=== PATIENT | female | born 1945 | race Caucasian/White ===

== ENCOUNTER 2018-02-06 09:15 | Emergency (ER) | payer MEDICARE, OTHER ==
--- NOTE | 2018-02-06 09:43 | EDM.PDOC ---
ED HPI GENERAL MEDICAL PROBLEM - General Chief Complaint: Gastrointestinal Problem Stated Complaint: constipation Time Seen by Provider: 02/06/18 09:19 Source of Information: Reports: Patient - History of Present Illness INITIAL COMMENTS - FREE TEXT/NARRATIVE: Pt comes in the emergency department today with a 3 day history of constipation. Patient has an extensive history regarding this. She is on daily stool softeners and normally tolerates them pretty well. However she tried not using the MiraLAX the last 3 days and she comes into the emergency department severe lower abdominal discomfort. She tried a fleets enema this morning with no relief. She denies any nausea, vomiting, black tarry stools, dizziness, or blurred vision. Onset: Gradual Quality: Reports: Ache, Pressure Severity: Moderate Improves with: Reports: None Worsens with: Reports: Movement Associated Symptoms: Reports: No Other Symptoms - Related Data Allergies Allergy/AdvReac Type Severity Reaction Status Date / Time hydrocodone Allergy Vomiting Verified 02/06/18 09:30 hydromorphone [Hydromorphone] Allergy Dizziness Verified 02/06/18 09:30 Home Meds: Home Meds Pantoprazole [ProTONIX Granules] 40 mg PO DAILY 03/02/14 [History] Apixaban [Eliquis] 2.5 mg PO BID 04/28/14 [History] Carvedilol [Coreg] 12.5 mg PO BID 04/28/14 [History] Trandolapril [Mavik] 4 mg PO BID 04/28/14 [History] Hydrochlorothiazide 25 mg PO DAILY 07/25/17 [History] Levothyroxine Sodium [Synthroid] 112 mcg PO DAILY 07/25/17 [History] Pravastatin [Pravachol] 20 mg PO BEDTIME 07/25/17 [History] amLODIPine [Norvasc] 5 mg PO DAILY 07/25/17 [History] Acetaminophen [Tylenol Arthritis] 2 tab PO BID 02/06/18 [History] Fluocinonide [Lidex 0.05% Crm] 1 dose TOP BID PRN 02/06/18 [History] Past Medical History Cardiovascular History: Reports: Afib, High Cholesterol, Hypertension Endocrine/Metabolic History: Reports: Hypothyroidism Social & Family History - Family History Family Medical History: Noncontributory - Tobacco Use Smoking Status *Q: Never Smoker - Caffeine Use Caffeine Use: Reports: None, Coffee ED ROS GENERAL - Review of Systems Review Of Systems: See Below Constitutional: Reports: No Symptoms HEENT: Reports: No Symptoms Respiratory: Reports: No Symptoms Cardiovascular: Reports: No Symptoms GI/Abdominal: Reports: Abdominal Pain, Constipation, Decreased Appetite, Distension. Denies: Black Stool, Bloody Stool, Difficulty Swallowing, Flatus, Hematemesis, Hematochezia, Mucous in Stool, Nausea, Stool Incontinence, Vomiting : Reports: No Symptoms Musculoskeletal: Reports: No Symptoms Skin: Reports: No Symptoms Neurological: Reports: No Symptoms ED EXAM, GI/ABD - Physical Exam Exam: See Below Exam Limited By: No Limitations General Appearance: Alert, WD/WN, No Apparent Distress Course - Vital Signs Last Recorded V/S: Last Vital Signs Temp 36.9 C 02/06/18 09:27 Pulse 62 02/06/18 09:27 Resp 16 02/06/18 09:27 BP 142/73 H 02/06/18 09:27 Pulse Ox 98 02/06/18 09:27 Departure - Departure Time of Disposition: 10:45 Disposition: Home, Self-Care 01 Condition: Good Clinical Impression: Abdominal pain Constipation Qualifiers: Constipation type: unspecified constipation type Qualified Code(s): K59.00 - Constipation, unspecified - Discharge Information Instructions: Constipation, Adult Referrals: Osito Hicks MD [Primary Care Provider] - Forms: ED Department Discharge Additional Instructions: 1. increase water intake 2. Take your OTC stool softener as your PCP recommends 3. Increase your daily fiber 4. Follow up as needed. - Assessment/Plan Assessment:: 1. Constipation 2. Abdominal pain Plan: 1. Abdominal xray completed and reviewed with the pt 2. Tap water enema completed. With large results. Pain reduced. Distention, discomfort, and pressure subsided.
== END 2018-02-06 10:25 | disposition home or self-care (01) ==
LOC: VM.ED 09:15
DX: K59.00 Constipation, unspecified (principal); I48.91 Unspecified atrial fibrillation; E78.00 Pure hypercholesterolemia, unspecified; E03.9 Hypothyroidism, unspecified; I10 Essential (primary) hypertension; Z88.5 Allergy status to narcotic agent; Z79.899 Other long term (current) drug therapy
CPT/HCPCS: 74018; 99283

== ENCOUNTER 2019-11-01 08:25 | Emergency (ER) | payer MEDICARE, OTHER ==
[2019-11-01] MEDS ORDERED: Sodium Chloride 0.9% 10 ML Syringe FLUSH PRN (08:42)
[2019-11-01] MEDS ORDERED: Sodium Chloride 0.9% 1,000 ML IV ONE ×2 (08:48→09:48)
--- NOTE | 2019-11-01 08:53 | EDM.PDOC ---
ED HPI GENERAL MEDICAL PROBLEM - General Time Seen by Provider: 11/01/19 08:42 Source of Information: Reports: Patient - History of Present Illness INITIAL COMMENTS - FREE TEXT/NARRATIVE: Carmen is a 74 y/o female who comes to the ER with complaints of dizziness, lightheadedness, and palpitations. She feels her heart rate going fast. This started shortly after she woke up. She was fine when she sent to bed last night. She had Atrial Fib about 6 years ago, but has not had any issues with it since. She is currently on Eliquis. - Related Data Allergies Allergy/AdvReac Type Severity Reaction Status Date / Time hydrocodone Allergy Vomiting Verified 11/01/19 08:58 hydromorphone [Hydromorphone] Allergy Dizziness Verified 11/01/19 08:58 Home Meds: Home Meds Pantoprazole [ProTONIX Granules] 40 mg PO DAILY 03/02/14 [History] Apixaban [Eliquis] 2.5 mg PO BID 04/28/14 [History] carvediloL [Coreg] 12.5 mg PO BID 04/28/14 [History] trandolapriL [Mavik] 4 mg PO BID 04/28/14 [History] Levothyroxine Sodium [Synthroid] 112 mcg PO DAILY 07/25/17 [History] Pravastatin [Pravachol] 20 mg PO BEDTIME 07/25/17 [History] amLODIPine [Norvasc] 5 mg PO DAILY 07/25/17 [History] hydroCHLOROthiazide [Hydrochlorothiazide] 25 mg PO DAILY 07/25/17 [History] Acetaminophen [Tylenol Arthritis] 2 tab PO BID 02/06/18 [History] Fluocinonide [Lidex 0.05% Crm] 1 dose TOP BID PRN 02/06/18 [History] Metoprolol Tartrate 25 mg PO BID #60 tablet 11/01/19 [Rx] Spironolactone [Aldactone] 25 mg BID 11/01/19 [History] Past Medical History Cardiovascular History: Reports: Afib, High Cholesterol, Hypertension Endocrine/Metabolic History: Reports: Hypothyroidism Social & Family History - Family History Family Medical History: Noncontributory - Caffeine Use Caffeine Use: Reports: None, Coffee Review of Systems - Review of Systems Review Of Systems: See Below Constitutional: Reports: Weakness Eyes: Reports: No Symptoms Ears: Reports: No Symptoms Nose: Reports: No Symptoms Mouth/Throat: Reports: No Symptoms Respiratory: Reports: Shortness of Breath (mild) Cardiovascular: Reports: Lightheadedness, Palpitations GI/Abdominal: Reports: No Symptoms Genitourinary: Reports: No Symptoms Musculoskeletal: Reports: No Symptoms Skin: Reports: No Symptoms Neurological: Reports: No Symptoms Psychiatric: Reports: No Symptoms ED EXAM, GENERAL - Physical Exam Exam: See Below General Appearance: Alert, WD/WN, No Apparent Distress Eye Exam: Bilateral Eye: PERRL Ears: Normal Canal, Hearing Grossly Normal, Normal TMs Nose: Normal Inspection Throat/Mouth: Normal Inspection, Normal Teeth, Normal Voice, No Airway Compromise Head: Atraumatic, Normocephalic Neck: Normal Inspection, Supple Respiratory/Chest: No Respiratory Distress, Lungs Clear, Normal Breath Sounds, Chest Non-Tender Cardiovascular: Normal Peripheral Pulses, No Edema, No JVD, No Murmur, Tachycardia, Irregularly Irregular GI/Abdominal: Normal Bowel Sounds, Soft, Non-Tender (Female) Exam: Deferred Rectal (Female) Exam: Deferred Back Exam: Normal Inspection Extremities: Normal Inspection, No Pedal Edema Neurological: Alert, Oriented, CN II-XII Intact, Normal Cognition, No Motor/ Sensory Deficits Psychiatric: Normal Affect, Normal Mood Skin Exam: Warm, Dry, Intact, Normal Color EKG INTERPRETATION EKG Date: 11/01/19 Time: 08:23 Rhythm: A-Fib Rate (Beats/Min): 155 P-Wave: Absent QRS: Normal EKG Interpretation Comments: Atrial Flutter Course - Vital Signs Text/Narrative:: 0840 Patient was seen by the [facility]. Labs, EKG ordered. A fluid bolus of NS was ordered. 1022 Rate still 140-150s Atrial Fib. Patient has now had about 1500ml of NS. BP 135/83. Patient stable, but can still feel the irregular heart rate. Labs reviewed. note BUN=26 otherwise unremarkable. Will given Cardizem 20mg IVP at this time. 1115 HR had decreased to 80-90s with Cardizem dose, but has slowly increased to 110s-120s and continues in A fib. Will consult Cardiology. 1[address] [facility] contacted and Cardiology consult requested. 1140 Dr Sauceda, Training Analyst chemical dependency professional returned call to SENIOR RISK ANALYST. Advises Metoprolol po for rate control at this time. Observe patient and and consider Cardizem gtt if rate does not improve. Metoprolol 25 mg po ordered. 1150 Rate increased to 130s, Cardizem 25mg IVP given. Consideration given to admission. 1400 Patient observed. 1505 Remains in a controlled atrial fib with a rate in the 80s. Patient denies sx. Will discharge to home on Metoprol 25mg po BID. Questions answered for pain. Will have her follow up with her PCP in the next few days. She left the ER in stable condition after instructions were given. Last Recorded V/S: Last Vital Signs Temp 37.1 C 11/01/19 08:25 Pulse 68 11/01/19 12:45 Resp 18 11/01/19 08:25 BP 118/98 H 11/01/19 12:45 Pulse Ox 98 11/01/19 08:25 - Orders/Labs/Meds Orders: Active Orders 24 hr Category Date Time Status EKG Documentation Completion [RC] STAT Care 11/01/19 08:48 Active EKG Documentation Completion [RC] STAT Care 11/01/19 10:24 Active UA W/MATILDE RFLX IF INDICATED [URIN] Stat Lab 11/01/19 09:50 Ordered UA W/MICROSCOPIC [URIN] Stat Lab 11/01/19 09:50 Ordered Sodium Chloride 0.9% [Saline Flush] Med 11/01/19 08:42 Active 10 ml FLUSH ASDIRECTED PRN Saline Lock Insert [OM.PC] Stat Oth 11/01/19 08:47 Ordered Medication Orders Sodium Chloride (Saline Flush) 10 ml FLUSH ASDIRECTED PRN PRN Reason: Keep Vein Open Labs: Laboratory Tests 11/01/19 11/01/19 11/01/19 Range/Units 08:40 08:40 08:40 WBC 7.6 (4.0-10.0) x10^3/uL RBC 4.37 (4.00-5.50) x10^6/uL Hgb 13.8 (12.0-16.0) g/dL Hct 40.1 (33.0-47.0) % MCV 91.8 (78.0-93.0) fL MCH 31.6 (26.0-32.0) pg MCHC 34.4 (32.0-36.0) g/dL RDW Coeff of Caro 13.1 (10.0-15.0) % Plt Count 270 (130-400) x10^3/uL Neut % (Auto) 77.0 (50.0-80.0) % Lymph % (Auto) 13.1 L (25.0-50.0) % [place] % (Auto) 8.4 (2.0-11.0) % Eos % (Auto) 1.2 (0.0-4.0) % Baso % (Auto) 0.3 (0.2-1.2) % PT 11.0 (10.0-12.8) SEC INR 1.0 L (2.0-3.5) APTT 29.5 (24.0-36.0) SEC Sodium 138 (136-145) mmol/L Potassium 4.6 (3.5-5.1) mmol/L Chloride 103 (98-107) mmol/L Carbon Dioxide 22 (21-32) mmol/L Anion Gap 17.6 (10-20) mmol/L BUN 26 H (7-18) mg/dL Creatinine 1.0 (0.55-1.02) mg/dL Est Cr Clr Drug Dosing TNP Estimated GFR (MDRD) 54 Glucose 98 (74-106) mg/dL Calcium 9.1 (8.5-10.1) mg/dL Corrected Calcium 9.26 (8.5-10.1) mg/dL Total Bilirubin 0.6 (0.2-1.0) mg/dL AST 14 L (15-37) U/L ALT 21 (14-59) U/L Alkaline Phosphatase 89 (46-116) U/L Troponin I < 0.017 (<=0.056) ng/mL Total Protein 7.7 (6.4-8.2) g/dL Albumin 3.8 (3.4-5.0) g/dL Globulin 3.9 Albumin/Globulin Ratio 0.97 Urine Color (YELLOW) Urine Appearance (CLEAR) Urine pH (5.0-8.0) Ur Specific Rives Urine Protein (NEGATIVE) mg/dL Urine Glucose (UA) (NEGATIVE) mg/dL Urine Ketones (NEGATIVE) mg/dL Urine Occult Blood (NEGATIVE) Urine Nitrite (NEGATIVE) Urine Bilirubin (NEGATIVE) Urine Urobilinogen (0.2) EU/dL Ur Leukocyte Esterase (NEGATIVE) Urine RBC (NOT SEEN) /HPF Urine WBC (NOT SEEN) /HPF Ur Squamous Epith Cells (NEGATIVE) /HPF Urine Bacteria (NEGATIVE) /HPF Urine Mucus (NEGATIVE) /LPF 11/01/19 Range/Units 09:40 WBC (4.0-10.0) x10^3/uL RBC (4.00-5.50) x10^6/uL Hgb (12.0-16.0) g/dL Hct (33.0-47.0) % MCV (78.0-93.0) fL MCH (26.0-32.0) pg MCHC (32.0-36.0) g/dL RDW Coeff of Caro (10.0-15.0) % Plt Count (130-400) x10^3/uL Neut % (Auto) (50.0-80.0) % Lymph % (Auto) (25.0-50.0) % [place] % (Auto) (2.0-11.0) % Eos % (Auto) (0.0-4.0) % Baso % (Auto) (0.2-1.2) % PT (10.0-12.8) SEC INR (2.0-3.5) APTT (24.0-36.0) SEC Sodium (136-145) mmol/L Potassium (3.5-5.1) mmol/L Chloride (98-107) mmol/L Carbon Dioxide (21-32) mmol/L Anion Gap (10-20) mmol/L BUN (7-18) mg/dL Creatinine (0.55-1.02) mg/dL Est Cr Clr Drug Dosing Estimated GFR (MDRD) Glucose (74-106) mg/dL Calcium (8.5-10.1) mg/dL Corrected Calcium (8.5-10.1) mg/dL Total Bilirubin (0.2-1.0) mg/dL AST (15-37) U/L ALT (14-59) U/L Alkaline Phosphatase (46-116) U/L Troponin I (<=0.056) ng/mL Total Protein (6.4-8.2) g/dL Albumin (3.4-5.0) g/dL Globulin Albumin/Globulin Ratio Urine Color Light yellow (YELLOW) Urine Appearance Clear (CLEAR) Urine pH 7.0 (5.0-8.0) Ur Specific Rives 1.015 Urine Protein Negative (NEGATIVE) mg/dL Urine Glucose (UA) Negative (NEGATIVE) mg/dL Urine Ketones Trace H (NEGATIVE) mg/dL Urine Occult Blood Trace-intact H (NEGATIVE) Urine Nitrite Negative (NEGATIVE) Urine Bilirubin Negative (NEGATIVE) Urine Urobilinogen 0.2 (0.2) EU/dL Ur Leukocyte Esterase Negative (NEGATIVE) Urine RBC 0-5 (NOT SEEN) /HPF Urine WBC 0-5 (NOT SEEN) /HPF Ur Squamous Epith Cells Not seen (NEGATIVE) /HPF Urine Bacteria Not seen (NEGATIVE) /HPF Urine Mucus Not seen (NEGATIVE) /LPF Meds: Medications Generic Name Dose Route Start Last Admin Trade Name Freq PRN Reason Stop Dose Admin Sodium Chloride 10 ml 11/01/19 08:42 Saline Flush FLUSH ASDIRECTED PRN Keep Vein Open Discontinued Medications Generic Name Dose Route Start Last Admin Trade Name Freq PRN Reason Stop Dose Admin Diltiazem HCl 20 mg 11/01/19 10:20 11/01/19 10:30 Cardizem IVPUSH 11/01/19 10:21 20 mg ONETIME ONE Administration Diltiazem HCl 25 mg 11/01/19 11:22 11/01/19 12:25 Cardizem IVPUSH 11/01/19 11:23 25 mg ONETIME ONE Administration Sodium Chloride 1,000 mls @ 999 mls/hr 11/01/19 08:48 11/01/19 08:50 Normal Saline IV 11/01/19 09:48 999 mls/hr ONETIME ONE Administration Sodium Chloride 1,000 mls @ 999 mls/hr 11/01/19 09:48 11/01/19 09:50 Normal Saline IV 11/01/19 10:48 999 mls/hr ONETIME ONE Administration Metoprolol Tartrate 25 mg 11/01/19 11:49 11/01/19 11:56 Lopressor PO 11/01/19 11:50 25 mg NOW STA Administration Departure - Departure Time of Disposition: 15:12 Disposition: Home, Self-Care 01 Condition: Good Clinical Impression: Atrial fibrillation with rapid ventricular response - Discharge Information *PRESCRIPTION DRUG MONITORING PROGRAM REVIEWED*: Not Applicable *COPY OF PRESCRIPTION DRUG MONITORING REPORT IN PATIENT GABRIEL: Not Applicable Prescriptions: Metoprolol Tartrate 25 mg PO BID #60 tablet Instructions: Atrial Fibrillation, [id number] Referrals: Osito Hicks MD [Primary Care Provider] - Additional Instructions: -Metoprolol 25mg oral twice daily #60 (Rx) This medication will help keep your heart rate controlled. -Resume all other home medications -Stay well hydrated -Call Dr Hicks in [place] to have a follow up appt in the next few days -Return to the nearest ER if your sx return or you have any other concerns Sepsis Event Note - Focused Exam Vital Signs: Vital Signs Temp Pulse Pulse Resp BP BP Pulse Ox 11/01/19 12:45 68 118/98 H 11/01/19 11:56 120 H 135/73 11/01/19 10:58 90 125/69 11/01/19 10:37 100 120/60 11/01/19 10:25 148 H 135/83 11/01/19 09:30 134 H 101/67 11/01/19 08:25 37.1 C 155 H 18 125/93 H 98 Date Exam was Performed: 11/01/19 Time Exam was Performed: 15:11 - My Orders Last 24 Hours: My Active Orders 11/01/19 08:42 Sodium Chloride 0.9% [Saline Flush] 10 ml FLUSH ASDIRECTED PRN 11/01/19 08:47 Saline Lock Insert [OM.PC] Stat 11/01/19 08:48 EKG Documentation Completion [RC] STAT 11/01/19 09:50 UA W/MATILDE RFLX IF INDICATED [URIN] Stat UA W/MICROSCOPIC [URIN] Stat 11/01/19 10:24 EKG Documentation Completion [RC] STAT - Assessment/Plan Last 24 Hours: My Active Orders 11/01/19 08:42 Sodium Chloride 0.9% [Saline Flush] 10 ml FLUSH ASDIRECTED PRN 11/01/19 08:47 Saline Lock Insert [OM.PC] Stat 11/01/19 08:48 EKG Documentation Completion [RC] STAT 11/01/19 09:50 UA W/MATILDE RFLX IF INDICATED [URIN] Stat UA W/MICROSCOPIC [URIN] Stat 11/01/19 10:24 EKG Documentation Completion [RC] STAT
[2019-11-01 09:19] LABS: PTT,PARTIAL THROMBOPLSTIN TIME 29.5 SEC (24.0-36.0)
[2019-11-01 09:22] LABS: ANION GAP 17.6 mmol/L (10-20); CHLORIDE,CL 103 mmol/L (98-107); SODIUM,NA 138 mmol/L (136-145)
--- NOTE | 2019-11-01 09:41 | CR ---
[id number] RAD/RAD Chest PA or AP 1V EXAM: FRONTAL CHEST INDICATION: Atrial fibrillation. COMPARISON: None. DISCUSSION: The heart is mildly enlarged with mild central vascular congestion. Prominent bilateral first rib ends with possible underlying nodule right upper lobe, consider chest CT with contrast. IMPRESSION: 1. Cardiomegaly with borderline central vascular congestion. 2. Prominent first rib end versus right upper lobe nodule. Consider chest CT for further characterization. Del Urbina MD 11/01/19 0939 Thank you for allowing us to participate in the care of your patient.
[2019-11-01] MEDS ORDERED: Diltiazem 50 MG/10 ML SDV IVPUSH ONE ×2 (10:20→11:22)
[2019-11-01] MEDS ORDERED: Metoprolol Tartrate 25 MG Tab PO STA (11:49)
== END 2019-11-01 15:30 | disposition home or self-care (01) ==
LOC: VM.ED 08:25
DX: I48.91 Unspecified atrial fibrillation (principal); I10 Essential (primary) hypertension; E03.9 Hypothyroidism, unspecified; Z79.899 Other long term (current) drug therapy; Z88.8 Allergy status to other drugs, medicaments and biological substances
CPT/HCPCS: 71045; 80053; 81001; 84484; 85025; 85610; 85730; 93005; 93010; 96361; 96374; 96376; 99284; 99285; A9270; J3490; J7030

== ENCOUNTER 2019-11-09 15:20 | Inpatient (IN) | payer MEDICARE, OTHER ==
[2019-11-09] MEDS ORDERED: Acetaminophen 325 MG Tab PO PRN (15:46)
[2019-11-09] MEDS ORDERED: Ondansetron 4 MG/2 ML SDV IV PRN (15:46)
[2019-11-09] MEDS ORDERED: Sodium Chloride 0.9% 10 ML Syringe FLUSH PRN (15:46)
[2019-11-09] MEDS ORDERED: FLUOCINONIDE TOP PRN (15:53)
[2019-11-09 17:01] LABS: ANION GAP 17.9 mmol/L (10-20)
[2019-11-09] MEDS: Metoprolol Tartrate 5 MG/5 ML SDV IVPUSH PRN ×6 (17:03→18:45)
[2019-11-09] MEDS: Metoprolol Tartrate 50 MG Tab PO SCH (19:20)
[2019-11-09] MEDS ORDERED: Metoprolol Tartrate 25 MG Tab PO SCH (20:00)
[2019-11-09] MEDS ORDERED: Simvastatin 10 MG Tab PO SCH (20:00)
[2019-11-09] MEDS ORDERED: Spironolactone 25 MG Tab PO SCH (20:00)
[2019-11-09] MEDS: Acetaminophen 650 MG Tab.ER PO SCH (20:19)
[2019-11-09] MEDS: Apixaban 2.5 MG Tab PO SCH (20:20)
[2019-11-10] MEDS ORDERED: Pantoprazole 40 MG Tab.CR PO SCH (07:00)
[2019-11-10] MEDS: Apixaban 2.5 MG Tab PO SCH (07:45)
[2019-11-10] MEDS: Acetaminophen 650 MG Tab.ER PO SCH (07:45)
[2019-11-10] MEDS: Metoprolol Tartrate 50 MG Tab PO SCH (07:45)
[2019-11-10] MEDS ORDERED: Levothyroxine 112 MCG Tab PO SCH (08:00)
[2019-11-10] MEDS ORDERED: amLODIPine 5 MG Tab PO SCH (08:00)
--- NOTE | 2019-11-10 10:02 | PCM.DCSUM1 ---
Discharge Summary - Hospital Course Free Text/Narrative:: Patient was admitted for A. fib RVR. She was running 150s. She was given aliquots of IV metoprolol to 15 mg didn't have much of a response. We gave her by mouth dose of 150 mg metoprolol she slowed down some overnight. During sleep she was running 60s. In the morning when awake she's running 100s she does still go up to 140s with activity but she states her symptoms are improved to resolved. Blood pressure running a bit lower around 100 systolic with the higher dose of metoprolol. Rate is around 100 to 110 now on higher dose of metoprolol 150mg 2x/day, continue at home Goal is to keep rate between 60 and 120 If rate higher than 130 at home can take extra dose of metoprolol STOP amlodipine and spironolactone as BP running lower Decrease trandolapril to once daily Monitor BP at home goal >90 and <150 for top number Return next week to recheck pulse, BP, EKG Then cardiology again in ~2 weeks IF feeling worse = chest pain, short of breath, passing out can return/ER sooner Diagnosis: Stroke: No - Discharge Data Discharge Date: 11/10/19 Discharge Disposition: Home, Self-Care 01 Condition: Good - Referral to Home Health Primary Care Physician: Osito Hicks MD - Discharge Plan *PRESCRIPTION DRUG MONITORING PROGRAM REVIEWED*: Not Applicable *COPY OF PRESCRIPTION DRUG MONITORING REPORT IN PATIENT GABRIEL: Not Applicable Prescriptions/Med Rec: Metoprolol Tartrate [Lopressor] 150 mg PO BID 30 Days #180 tablet Patient's Own Medication [Ptom] 4 mg PO DAILY #30 each Home Medications: Home Meds Pantoprazole [ProTONIX Granules] 40 mg PO DAILY 03/02/14 [History] Apixaban [Eliquis] 2.5 mg PO BID 04/28/14 [History] Levothyroxine Sodium [Synthroid] 112 mcg PO DAILY 07/25/17 [History] Pravastatin [Pravachol] 20 mg PO BEDTIME 07/25/17 [History] Acetaminophen [Tylenol Arthritis] 2 tab PO BID PRN 02/06/18 [History] Metoprolol Tartrate [Lopressor] 150 mg PO BID 30 Days #180 tablet 11/10/19 [Rx] Patient's Own Medication [Ptom] 4 mg PO DAILY #30 each 11/10/19 [Rx] Referrals: Kyle Chisholm MD [ED Physician] - 11/17/19 10:50 am (You have a Nurse Visit on November 17, 2019 at 10:50 [facility]. Nurse will check your blood pressure, pulse and do a EKG) - Discharge Summary/Plan Comment DC Time >30 min.: No - Patient Data Vitals - Most Recent: Last Vital Signs Temp 36.4 C 11/10/19 09:49 Pulse 81 11/10/19 09:49 Resp 18 11/10/19 04:35 BP 105/51 L 11/10/19 09:49 Pulse Ox 97 11/10/19 09:49 Weight - Most Recent: 81.647 kg I&O - Last 24 hours: Intake & Output 11/09/19 11/10/19 11/10/19 22:59 06:59 14:59 Intake Total 180 Output Total 500 Balance -500 180 Lab Results - Last 24 hrs: Laboratory Results - last 24 hr 11/09/19 11/09/19 Range/Units 16:29 16:29 WBC 5.8 (4.0-10.0) x10^3/uL RBC 4.32 (4.00-5.50) x10^6/uL Hgb 13.7 (12.0-16.0) g/dL Hct 39.9 (33.0-47.0) % MCV 92.4 (78.0-93.0) fL MCH 31.7 (26.0-32.0) pg MCHC 34.3 (32.0-36.0) g/dL RDW Coeff of Caro 13.3 (10.0-15.0) % Plt Count 244 (130-400) x10^3/uL Neut % (Auto) 57.3 (50.0-80.0) % Lymph % (Auto) 30.3 (25.0-50.0) % [place] % (Auto) 10.6 (2.0-11.0) % Eos % (Auto) 1.6 (0.0-4.0) % Baso % (Auto) 0.2 (0.2-1.2) % Sodium 137 (136-145) mmol/L Potassium 4.9 (3.5-5.1) mmol/L Chloride 102 (98-107) mmol/L Carbon Dioxide 22 (21-32) mmol/L Anion Gap 17.9 (10-20) mmol/L BUN 24 H (7-18) mg/dL Creatinine 1.1 H (0.55-1.02) mg/dL Est Cr Clr Drug Dosing 39.44 mL/min Estimated GFR (MDRD) 48 Glucose 95 (74-106) mg/dL Calcium 9.0 (8.5-10.1) mg/dL Corrected Calcium 9.16 (8.5-10.1) mg/dL Magnesium 2.3 (1.8-2.4) mg/dL Total Bilirubin 0.5 (0.2-1.0) mg/dL AST 46 H (15-37) U/L ALT 119 H (14-59) U/L Alkaline Phosphatase 91 (46-116) U/L Total Protein 7.7 (6.4-8.2) g/dL Albumin 3.8 (3.4-5.0) g/dL Globulin 3.9 Albumin/Globulin Ratio 0.97 Med Orders - Current: Current Medications Acetaminophen (Tylenol) 650 mg PO Q4H PRN PRN Reason: Pain (Mild 1-3)/fever Acetaminophen (Tylenol Arthritis Pain) 1,300 mg PO BID [facility] Last Admin: 11/10/19 07:45 Dose: 1,300 mg Apixaban (Eliquis) 2.5 mg PO BID [facility] Last Admin: 11/10/19 07:45 Dose: 2.5 mg Levothyroxine Sodium (Levothyroxine) 112 mcg PO DAILY [facility] Last Admin: 11/10/19 07:45 Dose: 112 mcg Metoprolol Tartrate (Lopressor) 150 mg PO BID [facility] Last Admin: 11/10/19 07:45 Dose: 150 mg Fluocinonide [Lidex 0.05% Crm] (Own Supply) 1 dose TOP BID PRN PRN Reason: Itching Ondansetron HCl (Zofran) 4 mg IV Q6H PRN PRN Reason: Nausea/Vomiting Pantoprazole Sodium (Protonix) 40 mg PO DAILY@0700 [facility] Last Admin: 11/10/19 06:00 Dose: 40 mg (Trandolapril [Mavik (] 4 Mg)*Pt Own Med*) 0 each PO BID [facility] Last Admin: 11/09/19 20:21 Dose: 1 each Simvastatin (Zocor) 10 mg PO BEDTIME [facility] Last Admin: 11/09/19 20:20 Dose: 10 mg Sodium Chloride (Saline Flush) 10 ml FLUSH ASDIRECTED PRN PRN Reason: Keep Vein Open Discontinued Medications Amlodipine Besylate (Norvasc) 5 mg PO DAILY [facility] Metoprolol Tartrate (Lopressor) 25 mg PO BID [facility] Last Admin: 11/09/19 19:11 Dose: Not Given Metoprolol Tartrate (Lopressor) 2.5 mg IVPUSH ONETIME PRN PRN Reason: Tachycardia Last Admin: 11/09/19 17:18 Dose: 2.5 mg Metoprolol Tartrate (Lopressor) 2.5 mg IVPUSH ASDIRECTED PRN PRN Reason: Tachycardia Stop: 11/09/19 19:30 Last Admin: 11/09/19 18:45 Dose: 2.5 mg Spironolactone (Aldactone) 25 mg PO BID [facility] Last Admin: 11/09/19 20:20 Dose: 25 mg *Q Meaningful Use (DIS) - VTE *Q VTE Anticoagulation Contraindications: Alternative [place] Request PT
--- NOTE | 2019-11-11 12:24 | PCM.HP.2 ---
"H&P History of Present Illness - General Date of Service: 11/09/19 Admit Problem/Dx: Afib RVR - History of Present Illness Initial Comments - Free Text/Narative: Office Visit 11/09/2019 [facility] Kyle Chisholm MD Family Medicine Atrial fibrillation with RVR (HCC) +1 more Dx Blood Pressure , Heart Problem Reason for Visit Progress Notes Expand All Collapse All Assessment / Plan Atrial fibrillation with RVR (HCC) Plan: A. fib RVR, symptomatic. Given recent visits for similar and still grossly tachycardic would recommend admission for titration of medicines. She'd been on higher dose beta deandra in the past when she was going fast despite being on Coreg and now is on a lower dose equivalent of metoprolol. We should be able to titrate Toprol pretty easily, can give IV doses to bring her rate below 100 and then convert this to an equivalent by mouth dose she can go home on. Continue anticoagulation. Check basic labs/lytes. Could then f/u cards in 2w. D/C SUMMARY ADDENDUM: Rate is around 100 to 110 now on higher dose of metoprolol 150mg 2x/day, continue at home Still a bit labile, goes down to 50s at night and up to 140s with activity Goal is to keep rate between 60 and 120 If rate higher than 130 at home can take extra dose of metoprolol STOP amlodipine and spironolactone as BP running lower now Decrease trandolapril to once daily Monitor BP at home, goal >90 and <150 for top number Return next week to recheck pulse, BP, EKG Then cardiology again in ~2 weeks; consider repeat ablation given rather symptomatic with this Continue eliquis anticoag IF feeling worse = chest pain, short of breath, passing out can return/ER sooner No follow-ups on file. HPI / History / ROS Patient is in for symptomatic A. fib RVR. Had spell yesterday and this morning again with diaphoresis, dizziness, and lightheaded. Denies any pain. Took Metoprolol this am and had spell before meds taken. She notes some intermittent palpitations the past 2-3 weeks. Symptoms became more pronounced and persistent eight days ago. She was seen in the ER she had A. fib RVR with a rate in the 150s. She was given diltiazem and she slowed to the 90-110 range. She was sent home on low-dose metoprolol 25 mg twice a day in addition to moderate dose Coreg 12.5 twice a day she been on previously. She saw her primary two days later, presumably because of dual beta deandra therapy Coreg was stopped. Her rate was still 125 at that time. Since stopping Coreg her rate is now higher and more symptomatic again, 159 today. Approximately six years ago she had cardioversion and ablation for A. fib. Appears a been in sinus rhythm since then until recently. Has appointment to see cardiology again in two weeks. Normal stress test and echo in past. Routine labs normal last week. . Remote smoking hx. Review of patient's family history indicates: Problem: Coronary Artery Disease Relation: Father Age of Onset: (Not Specified) Problem: Hypertension Relation: Father Age of Onset: (Not Specified) Problem: Hyperlipidemia Relation: Father Age of Onset: (Not Specified) Problem: Hypertension Relation: Mother Age of Onset: (Not Specified) Problem: Hyperlipidemia Relation: Mother Age of Onset: (Not Specified) Problem: Diabetes Type 2 Relation: Mother Age of Onset: (Not Specified) Problem: Colorectal Cancer Relation: Paternal Grandfather Age of Onset: (Not Specified) Problem: Atrial fibrillation Relation: Sister Age of Onset: (Not Specified) Problem: Hypertension Relation: Sister Age of Onset: (Not Specified) Problem: Atrial fibrillation Relation: Brother Age of Onset: (Not Specified) Problem: Diabetes Type 2 Relation: Brother Age of Onset: (Not Specified) Problem: Hypertension Relation: Brother Age of Onset: (Not Specified) Problem: Alcohol Abuse Relation: Brother Age of Onset: (Not Specified) Problem: Hypertension Relation: Brother Age of Onset: (Not Specified) Problem: Atrial fibrillation Relation: Brother Age of Onset: (Not Specified) Problem: Alcohol Abuse Relation: Brother Age of Onset: (Not Specified) Problem: Parkinsonism Relation: Paternal Grandmother Age of Onset: (Not Specified) Problem: Ulcerative Colitis Relation: Daughter Age of Onset: (Not Specified) Medications MedicationsPriortoVisit Outpatient Medications Prior to Visit Medication Sig Dispense Refill acetaminophen (TYLENOL ARTHRITIS) 650 mg CR tablet Take 2 tablets (1,300 mg) by mouth 1 time per day amLODIPine (NORVASC) 5 mg tablet Take 1 tablet (5 mg) by mouth 1 time per day 90 tablet 3 apixaban (ELIQUIS) 5 MG tablet Take 1 tablet (5 mg) by mouth 2 times a day Indications: Atrial Fibrillation 180 tablet 3 levothyroxine 100 mcg tablet Take 1 tablet (100 mcg) by mouth 1 time per day 90 tablet 3 pantoprazole (PROTONIX) 40 mg enteric coated tablet Take 1 tablet (40 mg) by mouth 1 time a day in the morning 90 tablet 3 pravastatin (PRAVACHOL) 40 mg tablet Take 0.5 tablets (20 mg) by mouth 1 time per day 45 tablet 3 spironolactone (ALDACTONE) 25 mg tablet Take 1 tablet (25 mg) by mouth 2 times a day 180 tablet 3 trandolapril (MAVIK) 4 mg tablet Take 1 tablet (4 mg) by mouth 2 times a day 180 tablet 3 metoprolol tartrate (LOPRESSOR) 25 mg tablet Take 1 tablet (25 mg) by mouth 2 times a day No facility-administered medications prior to visit. Allergies Allergies Allergen Reactions Hydrocodone Nausea and Vomiting Hydromorphone Nausea and Vomiting Problem List Patient Active Problem List Diagnosis Hypothyroidism Hyperlipidemia Atrial fibrillation (HCC) Hypertension, essential Gastroesophageal reflux disease Obesity Macular degeneration Osteoporosis Chronic low back pain Left renal artery stenosis (HCC) Psoriasis Medical/Surgical/Family/Social History PastMedicalHistory Past Medical History: Diagnosis Date Atrial fibrillation (HCC) Basal cell carcinoma Bilateral sacral insufficiency fracture 02/25/2018 Cataract Chronic low back pain Closed wedge compression fracture of T11 vertebra (HCC) 12/17/2015 Gastroesophageal reflux disease Hyperlipidemia Hypertension, essential Hypothyroidism Left renal artery stenosis (HCC) Macular degeneration Obesity Osteoporosis Psoriasis Tubular adenoma of colon 05/12/2019 Both less than 1 cm. PastSurgicalHistory Past Surgical History: Procedure Laterality Date ABLATION SCREEN CLEANER CARDIOVERSION 2014 COLON POLYP BX N/A 05/12/2019 Procedure: COLONOSCOPY WITH POLYP/BIOPSY;; Surgeon: Michael Proctor MD HEMORRHOID SURGERY IR VERTEBROPLASTY 2016 L2 FamilyHistory Family History Problem Relation Age of Onset Coronary Artery Disease Father Hypertension Father Hyperlipidemia Father Hypertension Mother Hyperlipidemia Mother Diabetes Type 2 Mother Colorectal Cancer Paternal Grandfather Atrial fibrillation Sister Hypertension Sister Atrial fibrillation Brother Diabetes Type 2 Brother Hypertension Brother Alcohol Abuse Brother Hypertension Brother Atrial fibrillation Brother Alcohol Abuse Brother Parkinsonism Paternal Grandmother Ulcerative Colitis Daughter SocialHistory Social History Socioeconomic History Marital status: Spouse name: Dom Number of children: 2 Years of education: 12 Highest education level: Not on file Occupational History Occupation: Retired Social Needs Financial resource strain: Not hard at all Food insecurity: Worry: Never true Inability: Never true Transportation needs: Medical: No Non-medical: No Tobacco Use Smoking status: Former Smoker Packs/day: 1.00 Years: 15.00 Pack years: 15.00 Types: Cigarettes Last attempt to quit: 09/21/1978 Years since quittin.1 Smokeless tobacco: Never Used Substance and Sexual Activity Alcohol use: No Alcohol/week: 0.0 standard drinks Drug use: No Sexual activity: Not Currently Partners: Male Lifestyle Physical activity: Days per week: 0 days Minutes per session: 0 min Stress: To some extent Relationships Social connections: Talks on phone: Not on file Gets together: Not on file Attends church service: Not on file Active member of club or organization: Not on file Attends meetings of clubs or organizations: Not on file Relationship status: Intimate partner violence: Fear of current or ex partner: No Emotionally abused: No Physically abused: No Forced sexual activity: No ROS Review of Systems Constitutional: Positive for diaphoresis. Negative for fever and unexpected weight change. Respiratory: Negative for shortness of breath. Cardiovascular: Positive for palpitations. Negative for chest pain and leg swelling. Gastrointestinal: Negative for blood in stool. Neurological: Positive for dizziness and light-headedness. Negative for syncope. Physical / Results BP 122/80 Pulse 116 Temp 98.5 F (36.9 C) (Temporal) Wt 81.6 kg (180 lb) BMI 32.92 kg/m2|| Physical Exam Constitutional: She appears well-developed and well-nourished. No distress. Cardiovascular: No murmur heard. Fast and irreg Pulmonary/Chest: Effort normal and breath sounds normal. Abdominal: Soft. Musculoskeletal: Normal range of motion. She exhibits no edema. Skin: Skin is warm and dry. She is not diaphoretic. Psychiatric: She has a normal mood and affect. Her behavior is normal. Judgment and thought content normal. Patient or insurance sales representative communicated understanding of plan and education received. Other Notes All notes Addendum Note from Kyle Chisholm MD (Family Medicine) Instructions After Visit Summary (Automatic SnapShot taken 11/09/2019) Additional Documentation Vitals: BP 122/80 Pulse 116 Temp 98.5 F (36.9 C) (Temporal) Wt 81.6 kg (180 lb) BMI 32.92 kg/m BSA 1.89 m Flowsheets: Visit Specifics, Vitals, Pain Scale Encounter Info: Billing Info, History, Allergies, Detailed Report Visit Information Date & Time 11/09/2019 3:00 PM Provider Kyle Chisholm MD Department [facility] Orders Placed None Medication Changes Trandolapril 4 mg Oral DAILY 4 mg Oral Two times a day amLODIPine Besylate 5 mg Oral DAILY (Discontinued by Physician) Spironolactone 25 mg Oral Two times a day (Discontinued by Physician) Medication List Visit Diagnoses Atrial fibrillation with RVR (HCC) Hypertension, essential Problem List - Related Data Allergies/Adverse Reactions: Allergies Allergy/AdvReac Type Severity Reaction Status Date / Time hydrocodone AdvReac Vomiting Verified 11/10/19 11:11 hydromorphone [Hydromorphone] AdvReac Dizziness Verified 11/10/19 11:11 Home Medications: Home Meds Pantoprazole [ProTONIX Granules] 40 mg PO DAILY 03/02/14 [History] Apixaban [Eliquis] 2.5 mg PO BID 04/28/14 [History] Levothyroxine Sodium [Synthroid] 112 mcg PO DAILY 07/25/17 [History] Pravastatin [Pravachol] 20 mg PO BEDTIME 07/25/17 [History] Acetaminophen [Tylenol Arthritis] 2 tab PO BID PRN 02/06/18 [History] Metoprolol Tartrate [Lopressor] 150 mg PO BID 30 Days #180 tablet 11/10/19 [Rx] Patient's Own Medication [Ptom] 4 mg PO DAILY #30 each 11/10/19 [Rx] Past Medical History HEENT History: Reports: Macular Degeneration Cardiovascular History: Reports: Afib, High Cholesterol, Hypertension Gastrointestinal History: Reports: GERD Genitourinary History: Reports: Other (See Below) Other Genitourinary History: bladder stent Musculoskeletal History: Reports: Other (See Below) Other Musculoskeletal History: fx back Endocrine/Metabolic History: Reports: Hypothyroidism, Osteoporosis Social & Family History - Family History Family Medical History: Noncontributory - Tobacco Use Smoking Status *Q: Former Smoker Years of Tobacco use: 18 Packs/Tins Daily: 0.7 Used Tobacco, but Quit: Yes Month/Year Tobacco Last Used: 09/1989 Second Hand Smoke Exposure: No - Caffeine Use Caffeine Use: Reports: None - Recreational Drug Use Recreational Drug Use: No H&P Review of Systems - Review of Systems: Review Of Systems: See Below Exam - Exam Exam: See Below - Vital Signs Vital Signs: Last Vital Signs Temp 36.4 C 11/10/19 09:49 Pulse 81 11/10/19 09:49 Resp 18 11/10/19 04:35 BP 105/51 L 11/10/19 09:49 Pulse Ox 97 11/10/19 09:49 Weight: 81.647 kg - Patient Data Result Diagrams: 11/09/19 16:29 11/09/19 16:29 Sepsis Event Note - Evaluation Sepsis Screening Result: No Definite Risk *Q Meaningful Use (ADM) - VTE *Q VTE Anticoagulation Contraindications: Alternative TX Request PT Problem List Initiated/Reviewed/Updated: Yes"
== END 2019-11-10 10:45 | disposition home or self-care (01) | DRG 310 ==
LOC: VM.MS 15:35
PROVIDERS: ADMIT Family Medicine; ATTEND Family Medicine
DX: I48.91 Unspecified atrial fibrillation (principal); E03.9 Hypothyroidism, unspecified; E78.5 Hyperlipidemia, unspecified; I10 Essential (primary) hypertension; E66.9 Obesity, unspecified; K21.9 Gastro-esophageal reflux disease without esophagitis; M81.0 Age-related osteoporosis without current pathological fracture; M54.5 Low back pain; G89.29 Other chronic pain; H35.30 Unspecified macular degeneration; Z85.828 Personal history of other malignant neoplasm of skin; Z98.890 Other specified postprocedural states; Z88.8 Allergy status to other drugs, medicaments and biological substances; Z79.01 Long term (current) use of anticoagulants; Z79.899 Other long term (current) drug therapy; Z87.891 Personal history of nicotine dependence; Z68.30 Body mass index [BMI] 30.0-30.9, adult
CPT/HCPCS: 36415; 80053; 83735; 85025; A9270-GY; J3490

== ENCOUNTER 2021-03-11 17:00 | Emergency (ER) | payer MEDICARE, OTHER ==
[2021-03-11] MEDS ORDERED: Acetaminophen 500 MG Tab PO ONE (17:30)
--- NOTE | 2021-03-11 17:35 | EDM.PDOC ---
ED HPI GENERAL MEDICAL PROBLEM - General Chief Complaint: Chest Pain Time Seen by Provider: 03/11/21 17:14 Source of Information: Reports: Patient - History of Present Illness INITIAL COMMENTS - FREE TEXT/NARRATIVE: Carmen is a 76 y/o female who is brought to the ER via POV by her . She reports that she had just gotten home from [place] where she had a dual-chamber pacer placed for Sick Sinus Syndrome. She felt fine on arrival home and then she went out to water her wynn and while she was doing this she reports that she "got achy across my chest", "then my left legs felt numb and after that my right arm felt achy and also across my chest". No SOB, nausea, or diaphoresis. She does report now on arrival to the ER that numbness in the left leg seems to be better. She rates the pain across her chest 5-6/10. She reports that she was given acetaminophen in [place] at the hospital after her procedure about 1 pm, but she hasn't taken any further meds. Chest Pain Score (Numeric/FACES): 6 Left Leg Pain Score (Numeric/FACES): 2 - Related Data Allergies Allergy/AdvReac Type Severity Reaction Status Date / Time hydrocodone AdvReac Vomiting Verified 01/14/21 12:13 hydromorphone [Hydromorphone] AdvReac Dizziness Verified 01/14/21 12:13 Home Meds: Home Meds Pantoprazole [ProTONIX Granules] 40 mg PO DAILY 03/02/14 [History] Apixaban [Eliquis] 2.5 mg PO BID 04/28/14 [History] Levothyroxine Sodium [Synthroid] 100 mcg PO DAILY 07/25/17 [History] Pravastatin [Pravachol] 20 mg PO BEDTIME 07/25/17 [History] Acetaminophen [Tylenol Arthritis] 2 tab PO DAILY PRN 02/06/18 [History] Sotalol [Betapace, Sorine] 80 mg PO BID 01/14/21 [History] Torsemide 20 mg PO DAILY 01/14/21 [History] trandolapriL [Trandolapril] 4 mg PO DAILY 01/14/21 [History] Past Medical History HEENT History: Reports: Macular Degeneration Cardiovascular History: Reports: Afib, High Cholesterol, Hypertension Gastrointestinal History: Reports: GERD Genitourinary History: Reports: Other (See Below) Other Genitourinary History: bladder stent Musculoskeletal History: Reports: Other (See Below) Other Musculoskeletal History: fx back Endocrine/Metabolic History: Reports: Hypothyroidism, Osteoporosis Social & Family History - Family History Family Medical History: No Pertinent Family History - Caffeine Use Caffeine Use: Reports: None Review of Systems - Review of Systems Review Of Systems: See Below Constitutional: Reports: No Symptoms Eyes: Reports: No Symptoms Ears: Reports: No Symptoms Nose: Reports: No Symptoms Mouth/Throat: Reports: No Symptoms Respiratory: Reports: No Symptoms Cardiovascular: Reports: Chest Pain, Palpitations GI/Abdominal: Reports: No Symptoms Genitourinary: Reports: No Symptoms Musculoskeletal: Reports: Hand Pain Skin: Reports: No Symptoms Neurological: Reports: No Symptoms Psychiatric: Reports: No Symptoms ED EXAM, GENERAL - Physical Exam Exam: See Below General Appearance: Alert, WD/WN (Elderly female) Ears: Normal External Exam, Hearing Grossly Normal, Normal TMs Nose: Normal Inspection Throat/Mouth: Normal Inspection, Normal Lips, Normal Voice Head: Atraumatic, Normocephalic Neck: Normal Inspection Respiratory/Chest: No Respiratory Distress, Lungs Clear Cardiovascular: Normal Peripheral Pulses, Regular Rate, Rhythm, No Murmur GI/Abdominal: Normal Bowel Sounds, Soft (Female) Exam: Deferred Rectal (Female) Exam: Deferred Back Exam: Normal Inspection Extremities: Normal Inspection, No Pedal Edema, Normal Capillary Refill Neurological: Alert, Oriented, CN II-XII Intact #1 Interpretation EKG Date: 03/11/21 Time: 17:11 Rhythm: NSR Rate (Beats/Min): 73 Fe [employer]: Normal P-Wave: Present QRS: Normal ST-T: Elevated QT: Normal EKG Interpretation Comments: Reviewed EKG from 03-04-2021 at [facility] and note mild ST elevation in Leads II, III, & aVf. Course - Vital Signs Text/Narrative:: 1713 The patient was seen by the [facility] [employer]CH[facility]ECT; Labs and EKG ordered. Will plan to given APAP 1gm po since pain she describes seems more post procedure related. 1729 ELK review and comparison with EKG in [facility] Chart dated 03-04-[address] changes in Leads II, III, & aVf. ASA 324mg po given and Nitro 0.4mg SL given. Pt rates pain 5-6/10. 1740 Pain persisting and then note that patient having more chest discomfort and note rate of 150s on site monitor with frequent PVCs. Preparing for tachycardia interventions and patient converted back to SR with pacer spikes noted on monitor. 174 [facility] contacted and case presented. Awaiting consult with Dr Bentley after EKG review. 175 Repeat EKG done with increasing ST elevation. STEMI code called after review of the EKGs with Dr Bentley. Patient accepted to [facility]. 1800 [facility] contacted and requested ground transport. Starting Nitro gtt and Heparin. Giving 4000 unit Heparin bolus and then to run at 1000 units/hr for transport. BP stable. 1826 Rates chest pain 09/30 "Better", Nitro gtt now going. Metoprolol 25mg po x 1 ordered. Last Recorded V/S: Last Vital Signs Temp 36.8 C 03/11/21 17:10 Pulse 74 03/11/21 17:10 Resp 16 03/11/21 17:10 BP 168/70 H 03/11/21 17:10 Pulse Ox 97 03/11/21 17:10 - Orders/Labs/Meds Orders: Active Orders 24 hr Category Date Time Status EKG Documentation Completion [RC] STAT Care 03/11/21 17:14 Active PTT,PARTIAL THROMBOPLSTIN TIME [COAG] Stat Lab 03/11/21 06:20 Received Heparin Sodium/0.45% NaCl [Heparin 25,000 Units in 1/2 Med 03/11/21 18:15 Active NS 500 ML] 25,000 units in 500 ml IV TITRATE Nitroglycerin/D5W [Nitroglycerin 25 MG/D5W 250 ML] Med 03/11/21 18:15 Active 25 mg in 250 ml IV TITRATE Medication Orders Heparin Sodium/Sodium Chloride (Heparin 25,000 Units In 1/2 Ns 500 Ml) 25,000 units in 500 mls @ 20 mls/hr IV TITRATE ANA; Protocol Nitroglycerin/Dextrose (Nitroglycerin 25 Mg/D5w 250 Ml) 25 mg in 250 mls @ 6 mls/hr IV TITRATE ANA; Protocol Labs: Laboratory Tests 03/11/21 03/11/21 Range/Units 17:20 17:20 WBC 6.0 (4.0-10.0) x10^3/uL RBC 3.89 L (4.00-5.50) x10^6/uL Hgb 11.8 L (12.0-16.0) g/dL Hct 35.8 (33.0-47.0) % MCV 92.0 (78.0-93.0) fL MCH 30.3 (26.0-32.0) pg MCHC 33.0 (32.0-36.0) g/dL RDW Coeff of Caro 13.3 (10.0-15.0) % Plt Count 288 (130-400) x10^3/uL Neut % (Auto) 58.6 (50.0-80.0) % Lymph % (Auto) 24.7 L (25.0-50.0) % [place] % (Auto) 11.6 H (2.0-11.0) % Eos % (Auto) 4.8 H (0.0-4.0) % Baso % (Auto) 0.3 (0.2-1.2) % Sodium 141 (136-145) mmol/L Potassium 3.7 (3.5-5.1) mmol/L Chloride 106 (98-107) mmol/L Carbon Dioxide 23 (21-32) mmol/L Anion Gap 15.7 H (5-15) mmol/L BUN 20 H (7-18) mg/dL Creatinine 0.9 (0.55-1.02) mg/dL Est Cr Clr Drug Dosing 43.30 mL/min Estimated GFR (MDRD) > 60 Glucose 147 H (70-99) mg/dL Calcium 8.5 (8.5-10.1) mg/dL Corrected Calcium 9.1 (8.5-10.1) mg/dL Magnesium 2.0 (1.8-2.4) mg/dL Total Bilirubin 0.3 (0.2-1.0) mg/dL AST 20 (15-37) U/L ALT 24 (14-59) U/L Alkaline Phosphatase 122 H (46-116) U/L Troponin I High Sens 50 (<=51) ng/L Total Protein 7.2 (6.4-8.2) g/dL Albumin 3.2 L (3.4-5.0) g/dL Globulin 4.0 Albumin/Globulin Ratio 0.80 Meds: Medications Generic Name Dose Route Start Last Admin Trade Name Gaudencio PRN Reason Stop Dose Admin Heparin Sodium/Sodium Chloride 25,000 units in 500 mls @ 20 mls/hr 03/11/21 18:15 Heparin 25,000 Units In 1/2 Ns 500 Ml IV TITRATE ANA Protocol 1,000 UNITS/HR Nitroglycerin/Dextrose 25 mg in 250 mls @ 6 mls/hr 03/11/21 18:15 Nitroglycerin 25 Mg/D5w 250 Ml IV TITRATE ANA Protocol 10 MCG/MIN Discontinued Medications Generic Name Dose Route Start Last Admin Trade Name Gaudencio PRN Reason Stop Dose Admin Acetaminophen 1,000 mg 03/11/21 17:30 Acetaminophen 500 Mg Tab PO 03/11/21 17:31 ONETIME ONE Adenosine Confirm 03/11/21 17:57 Adenosine 6 Mg/2 Ml Sdv Administered 03/11/21 17:58 Dose 6 mg .ROUTE .STK-MED ONE Aspirin 324 mg 03/11/21 17:40 Aspirin 81 Mg Tab.Chew PO 03/11/21 17:41 ONETIME ONE Heparin Sodium (Porcine) 4,000 units 03/11/21 18:02 Heparin Sodium 5,000 Units/Ml Vial IVPUSH 03/11/21 18:03 .BOLUS ONE Heparin Sodium/Sodium Chloride Confirm 03/11/21 18:24 Heparin 25,000 Units In 1/2 Ns 500 Ml Administered 03/11/21 18:25 Dose 500 mls @ as directed .ROUTE .STK-MED ONE Metoprolol Succinate 25 mg 03/11/21 18:22 Metoprolol Succinate 25 Mg Tab.Er PO 03/11/21 18:23 ONETIME ONE Nitroglycerin 0.4 mg 03/11/21 17:40 Nitroglycerin 0.4 Mg Tab.Sl SL 03/11/21 17:41 ONETIME ONE Ondansetron HCl 4 mg 03/11/21 18:21 Ondansetron 4 Mg/2 Ml Sdv IVPUSH 03/11/21 18:22 ONETIME ONE Departure - Departure Time of Disposition: 17:58 Disposition: DC/Tfer to Acute Hospital 02 Clinical Impression: SSS (sick sinus syndrome) STEMI (ST elevation myocardial infarction) Qualifiers: Involved coronary artery: unspecified coronary artery Qualified Code(s): I21.3 - ST elevation (STEMI) myocardial infarction of unspecified site - Discharge Information Forms: ED Department Discharge, Interfacility Transfer EMTALA Additional Instructions: -Transfer to [facility] to Dr Bentley via [facility] Sepsis Event Note (ED) - Focused Exam Vital Signs: Vital Signs Temp Pulse Resp BP Pulse Ox 03/11/21 17:10 36.8 C 74 16 168/70 H 97 - My Orders Last 24 Hours: My Active Orders 03/11/21 06:20 PTT,PARTIAL THROMBOPLSTIN TIME [COAG] Stat 03/11/21 17:14 EKG Documentation Completion [RC] STAT 03/11/21 18:15 Heparin Sodium/0.45% NaCl [Heparin 25,000 Units in 1/2 NS 500 ML] 25,000 units in 500 ml IV TITRATE Nitroglycerin/D5W [Nitroglycerin 25 MG/D5W 250 ML] 25 mg in 250 ml IV TITRATE - Assessment/Plan Last 24 Hours: My Active Orders 03/11/21 06:20 PTT,PARTIAL THROMBOPLSTIN TIME [COAG] Stat 03/11/21 17:14 EKG Documentation Completion [RC] STAT 03/11/21 18:15 Heparin Sodium/0.45% NaCl [Heparin 25,000 Units in 1/2 NS 500 ML] 25,000 units in 500 ml IV TITRATE Nitroglycerin/D5W [Nitroglycerin 25 MG/D5W 250 ML] 25 mg in 250 ml IV TITRATE Assessment:: 1)STEMI 2)Sick Sinus Syndrome Plan: Transfer to [facility] via [facility]
[2021-03-11] MEDS ORDERED: Nitroglycerin 0.4 MG Tab.SL SL ONE (17:40)
[2021-03-11] MEDS ORDERED: Aspirin 81 MG Tab.Chew PO ONE (17:40)
[2021-03-11] MEDS ORDERED: Nitroglycerin 0.4 MG Tab.SL ONE ×2 (17:41)
[2021-03-11 17:52] LABS: CHLORIDE,CL 106 mmol/L (98-107); SODIUM,NA 141 mmol/L (136-145)
[2021-03-11 17:53] LABS: ANION GAP 15.7 mmol/L (5-15)
[2021-03-11] MEDS ORDERED: Adenosine 6 MG/2 ML SDV ONE (17:57)
[2021-03-11] MEDS ORDERED: Heparin Sodium 5,000 Units/ML Vial IVPUSH ONE (18:02)
[2021-03-11] MEDS ORDERED: Heparin Sodium/0.45% NaCl 25,000 UNITS/500 ML BAG IV SCH (18:15)
[2021-03-11] MEDS ORDERED: Nitroglycerin/D5W 25 MG/250 ML BOTTLE IV SCH (18:15)
[2021-03-11] MEDS ORDERED: Ondansetron 4 MG/2 ML SDV IVPUSH ONE (18:21)
[2021-03-11] MEDS ORDERED: Metoprolol Succinate 25 MG Tab.ER PO ONE (18:22)
[2021-03-11] MEDS ORDERED: Heparin Sodium/0.45% NaCl 500 ML ONE (18:24)
== END 2021-03-11 18:39 | disposition short-term general hospital (02) ==
LOC: VM.ED 17:00
DX: I21.3 ST elevation (STEMI) myocardial infarction of unspecified site (principal); J34.89 Other specified disorders of nose and nasal sinuses; I48.91 Unspecified atrial fibrillation; E78.00 Pure hypercholesterolemia, unspecified; I10 Essential (primary) hypertension; K21.9 Gastro-esophageal reflux disease without esophagitis; E03.9 Hypothyroidism, unspecified; Z79.899 Other long term (current) drug therapy; Z79.01 Long term (current) use of anticoagulants; Z88.5 Allergy status to narcotic agent
CPT/HCPCS: 36415; 80053; 83735; 84484; 85025; 85730; 93005; 93010; 96365; 96375; 99284; 99285-25; A9270-GY; J1644; J2405; J3490

== ENCOUNTER 2021-03-26 14:15 | Inpatient (IN) | payer MEDICARE, OTHER ==
[2021-03-26] MEDS ORDERED: Acetaminophen 325 MG Tab PO PRN (17:43)
[2021-03-26] MEDS ORDERED: Ondansetron 4 MG Tab.DIS PO PRN (17:43)
[2021-03-26] MEDS ORDERED: Hydrocortisone 2.5% Crm 30 GM Tube TOP PRN (17:45)
[2021-03-26] MEDS ORDERED: Bisacodyl 10 MG Supp RECTAL PRN (17:45)
[2021-03-26] MEDS ORDERED: Melatonin 3 MG Tab PO PRN (17:45)
[2021-03-26] MEDS ORDERED: Nitroglycerin 0.4 MG Tab.SL SL PRN (17:45)
--- NOTE | 2021-03-26 17:56 | PCM.HP.2 ---
H&P History of Present Illness - General Date of Service: 03/26/21 Admit Problem/Dx: Admission Diagnosis/Problem Admission Diagnosis/Problem Peripheral vascular disease - History of Present Illness Initial Comments - Free Text/Narative: Carmen is a 76-year-old female with a past medical history of atrial fibrillation, hypertension, coronary artery disease, peripheral vascular disease, hypothyroidism, hyperlipidemia, GERD, psoriasis and seborrheic dermatitis who is admitted today, 03/26/2021, as a downgraded to swing bed after an acute stay at [facility]. She is admitted to [place] on 03/15/2021 with a chief complaint of left lower leg pain. NATALIE revealed severe arterial disease and there is concern for left leg ischemia. She underwent thrombectomy per vascular surgery. She was continued on her aspirin and Plavix and also initiated on IV heparin postoperatively. She did have some significant swelling and pain postoperatively. Ultrasound was ordered which did not demonstrate any thrombus. Once her INR was therapeutic her heparin was discontinued and she was continued on her home warfarin. She is very slow to come around therapy-silva after the surgery. She has been up minimally with physical therapy due to ongoing leg pain. States that she is uncomfortable in the leg is propped up on a pillow. Plan from vascular surgery is for her to continue on the Plavix, Coumadin, aspirin for a total of 4 weeks. Once of 4 weeks is up she will stop the aspirin and continue on the Plavix and Coumadin indefinitely. She is due to see vascular surgery back on 04/03/2021 when the commode here to [place] for staple removal and recheck. At this time she does note a little bit of nausea and not wanting to eat food. We discussed that some of this may be secondary to her not being up and moving as much. She denies any fever or emesis or abdominal pain. She is supposed to follow up with the pacemaker clinic later this week but since she was just transferred from [place] she is opting out of that appointment and will be rescheduling that. Her cardiac history as of late has been very involved: she underwent a CABGx3 in December 2020. Due to sick sinus syndrome with tachybradycardia features she underwent pacemaker placement on 03/11/2021. She did have a STEMI in February of this year and underwent stenting of her RCA. She denies any CP or SOB at this time. Pacemaker site is healing well with no pain. - Related Data Allergies/Adverse Reactions: Allergies Allergy/AdvReac Type Severity Reaction Status Date / Time hydrocodone AdvReac Vomiting Verified 03/26/21 15:11 hydromorphone [Hydromorphone] AdvReac Dizziness Verified 03/26/21 15:11 Home Medications: Home Meds Torsemide 20 mg PO DAILY 01/14/21 [History] Acetaminophen [Tylenol Arthritis] 1,300 mg PO TID PRN 03/26/21 [History] Aspirin [Aspirin EC] 81 mg PO DAILY 03/26/21 [History] Bisacodyl [Laxative Suppository] 10 mg RECTAL DAILY PRN 03/26/21 [History] Calcium Phosphate Trib/Vit D3 [Calcium Adult Gummies] 1 ea PO BEDTIME 03/26/21 [History] Cholecalciferol (Vitamin D3) [Vitamin D3] 50 mcg PO BEDTIME 03/26/21 [History] Clopidogrel [Plavix] 75 mg PO DAILY 03/26/21 [History] Docusate Sodium [Enemeez] 283 mg RECTAL DAILY PRN 03/26/21 [History] Fluocinonide [Lidex 0.05% Top Soln] 1 applic TOP TID PRN 03/26/21 [History] Levothyroxine [Synthroid] 100 mcg PO DAILY 03/26/21 [History] Melatonin 3 mg PO BEDTIME PRN 03/26/21 [History] Metoprolol Tartrate 25 mg PO BID 03/26/21 [History] Nitroglycerin 0.4 mg SL ASDIRECTED PRN 03/26/21 [History] Ondansetron [Zofran ODT] 4 mg PO QID PRN 03/26/21 [History] Pantoprazole Sodium [Protonix] 40 mg PO DAILY 03/26/21 [History] Potassium Chloride [Klor-Con M20] 20 meq PO DAILY 03/26/21 [History] Rosuvastatin Calcium 20 mg PO DAILY 03/26/21 [History] Scopolamine [Transderm-Scop] 1 each TD ASDIRECTED 03/26/21 [History] Sennosides/Docusate Sodium [Senna Plus 8.6-50 mg Tablet] 2 tab PO BID PRN 03/26/21 [History] Sennosides/Docusate Sodium [Senna-S 8.6-50 mg Tablet] 1 tab PO DAILY 03/26/21 [History] Warfarin [Coumadin] 5 mg PO DAILY 03/26/21 [History] lisinopriL [Prinivil] 5 mg PO DAILY 03/26/21 [History] polyethylene glycoL 3350 [Polyethylene Glycol 3350] 17 gm PO DAILY 03/26/21 [History] Past Medical History HEENT History: Reports: Cataract, Macular Degeneration Cardiovascular History: Reports: Afib, Bypass, CAD, High Cholesterol, Hypertension, Pacemaker, PVD Respiratory History: Reports: None Gastrointestinal History: Reports: Colon Polyp, GERD, Hemorrhoids Genitourinary History: Reports: Other (See Below) Other Genitourinary History: bladder stent d/t left renal artery stenosis Musculoskeletal History: Reports: Osteoarthritis, Osteoporosis, Other (See Below) Other Musculoskeletal History: bilateral sacral insufficiency fracture, closed wedge compression fracture of T11 vertebra Neurological History: Reports: Other (See Below) Other Neuro History: Slow to wake from anesthesia Psychiatric History: Reports: None Endocrine/Metabolic History: Reports: Hypothyroidism, Obesity/BMI 30+, Osteoporosis Hematologic History: Reports: None Oncologic (Cancer) History: Reports: Basal Cell Carcinoma, Other (See Below) Dermatologic History: Reports: Psoriasis, Seborrheic Dermatitis - Infectious Disease History Infectious Disease History: Reports: None - Past Surgical History Cardiovascular Surgical History: Reports: Cardiac Ablation, Coronary Artery Bypass, Pacer, Other (See Below) Other Cardiovascular Surgeries/Procedures: Cardiac catheterization, cardioversion GI Surgical History: Reports: Other (See Below) Other GI Surgeries/Procedures: Colon polyp biopsy, hemorrhoid surgery Musculoskeletal Surgical History: Reports: Other (See Below) Other Musculoskeletal Surgeries/Procedures:: IR vertebroplasty Social & Family History - Family History Family Medical History: No Pertinent Family History - Caffeine Use Caffeine Use: Reports: None H&P Review of Systems - Review of Systems: Review Of Systems: See Below General: Reports: No Symptoms HEENT: Reports: No Symptoms Pulmonary: Reports: No Symptoms Cardiovascular: Reports: No Symptoms Gastrointestinal: Reports: Decreased Appetite Genitourinary: Reports: No Symptoms Musculoskeletal: Reports: Leg Pain (left lower leg) Skin: Reports: No Symptoms Neurological: Reports: No Symptoms Exam - Exam Exam: See Below - Vital Signs Vital Signs: Last Vital Signs Temp 97.6 F 03/26/21 14:45 Pulse 69 03/26/21 14:45 Resp 16 03/26/21 14:45 BP 131/58 L 03/26/21 14:45 Pulse Ox 100 03/26/21 14:45 Weight: 170 lb - Exam General: Alert, Oriented HEENT: Conjunctiva Clear, EOMI, Mucosa Moist & [place] Neck: Supple Lungs: Clear to Auscultation, Normal Respiratory Effort Cardiovascular: Regular Rate, Regular Rhythm GI/Abdominal Exam: Normal Bowel Sounds, Soft, Non-Tender Extremities: Normal Inspection, Leg Pain (left medial and posterior lower leg are swollen/tender to the touch. Bandage just replaced so this was not removed for my exam) Skin: Warm, Dry, Intact Neuro Extensive - Mental Status: Alert, Oriented x3, Normal Mood/Affect Psychiatric: Alert, Normal Affect, Normal Mood Sepsis Event Note - Focused Exam Vital Signs: Vital Signs Temp Pulse Resp BP Pulse Ox 03/26/21 14:45 97.6 F 69 16 131/58 L 100 *Q Meaningful Use (ADM) - VTE *Q VTE Anticoagulation Contraindications: Medical/Procedure Contrai - Problem List (1) Peripheral vascular disease SNOMED Code(s): 559592742 ICD Code: I73.9 - PERIPHERAL VASCULAR DISEASE, UNSPECIFIED Status: Acute Current Visit: Yes Problem List Initiated/Reviewed/Updated: Yes Orders Last 24hrs: Active Orders 24 hr Category Date Time Status Admission Status [Patient Status] [ADT] Routine ADT 03/26/21 15:00 Active Oxygen Therapy [RC] PRN Care 03/26/21 17:43 Ordered Up With Assistance [RC] ASDIRECTED Care 03/26/21 17:43 Ordered VTE/DVT Education [RC] PER UNIT ROUTINE Care 03/26/21 17:43 Ordered Vital Signs [RC] Q4H Care 03/26/21 17:43 Ordered OT Evaluation and Treatment [CONS] Routine Cons 03/26/21 15:09 Active PT Evaluation and Treatment [CONS] Routine Cons 03/26/21 15:09 Active Heart Healthy Diet [DIET] Diet 03/26/21 Dinner Ordered BASIC METABOLIC PANEL,BMP [CHEM] AM Lab 03/27/21 05:11 Ordered INR,PT,PROTHROMBIN TIME [COAG] Routine Lab 03/27/21 05:00 Ordered Acetaminophen [TylenoL] Med 03/26/21 17:43 Ordered 650 mg PO Q4H PRN Acetaminophen [Tylenol Arthritis Pain] Med 03/26/21 17:45 Ordered 1,300 mg PO TID PRN Aspirin [Halfprin] Med 03/27/21 08:00 Ordered 81 mg PO DAILY Calcium Phosphate Trib/Vit D3 [Calcium Adult Gummies] Med 03/26/21 20:00 Ordered 1 ea PO BEDTIME Cholecalciferol (Vitamin D3) [Vitamin D3] Med 03/26/21 20:00 Ordered 50 mcg PO BEDTIME Clopidogrel [Plavix] Med 03/27/21 08:00 Ordered 75 mg PO DAILY Docusate Sodium/Sennosides [Senna Plus] Med 03/27/21 08:00 Ordered 1 tab PO DAILY Fluocinonide [Lidex 0.05% Top Soln] Med 03/26/21 17:45 Ordered 1 applic TOP TID PRN Levothyroxine [Synthroid] Med 03/27/21 08:00 Ordered 100 mcg PO DAILY Melatonin Med 03/26/21 17:45 Ordered 3 mg PO BEDTIME PRN Metoprolol Tartrate [Lopressor] Med 03/26/21 20:00 Ordered 25 mg PO BID Nitroglycerin [Nitrostat] Med 03/26/21 17:45 Ordered 0.4 mg SL ASDIRECTED PRN Ondansetron [Zofran ODT] Med 03/26/21 17:43 Ordered 4 mg PO Q4H PRN Ondansetron [Zofran ODT] Med 03/26/21 17:45 Ordered 4 mg PO QID PRN Pantoprazole [ProTONIX] Med 03/27/21 08:00 Ordered 40 mg PO DAILY Potassium Chloride [Klor-Con M20] Med 03/27/21 08:00 Ordered 20 meq PO DAILY Rosuvastatin Calcium [Rosuvastatin Calcium] Med 03/27/21 08:00 Ordered 20 mg PO DAILY Torsemide [Demadex] Med 03/27/21 08:00 Ordered 20 mg PO DAILY Warfarin [Coumadin] Med 03/27/21 08:00 Ordered 5 mg PO DAILY bisacodyL [Dulcolax] Med 03/26/21 17:45 Ordered 10 mg RECTAL DAILY PRN lisinopriL [Prinivil] Med 03/27/21 08:00 Ordered 5 mg PO DAILY Anticoagulation Contraindications VTE [AST] Per Unit Oth 03/26/21 17:43 Ordered Routine Resuscitation Status Routine Resus Stat 03/26/21 17:43 Ordered Medication Orders Acetaminophen (Acetaminophen 325 Mg Tab) 650 mg PO Q4H PRN PRN Reason: Pain (Mild 1-3)/fever Acetaminophen (Acetaminophen 650 Mg Tab.Er) 1,300 mg PO TID PRN PRN Reason: Pain Aspirin (Aspirin 81 Mg Tab.Ec) 81 mg PO DAILY [facility] Bisacodyl (Bisacodyl 10 Mg Supp) 10 mg RECTAL DAILY PRN PRN Reason: Constipation Clopidogrel Bisulfate (Clopidogrel 75 Mg Tab) 75 mg PO DAILY [facility] Levothyroxine Sodium (Levothyroxine 100 Mcg Tab) 100 mcg PO DAILY [facility] Lisinopril (Lisinopril 5 Mg Tab) 5 mg PO DAILY [facility] Melatonin (Melatonin 3 Mg Tab) 3 mg PO BEDTIME PRN PRN Reason: Sleep Metoprolol Tartrate (Metoprolol Tartrate 25 Mg Tab) 25 mg PO BID [facility] Nitroglycerin (Nitroglycerin 0.4 Mg Tab.Sl) 0.4 mg SL ASDIRECTED PRN PRN Reason: Chest Pain Non-Formulary Medication (Calcium Phosphate Trib/Vit D3 [Calcium Adult Gummies]) 1 ea PO BEDTIME ANA Non-Formulary Medication (Cholecalciferol (Vitamin D3) [Vitamin D3]) 50 mcg PO BEDTIME ANA Non-Formulary Medication (Fluocinonide [Lidex 0.05% Top Soln]) 1 applic TOP TID PRN PRN Reason: Rash Non-Formulary Medication (Rosuvastatin Calcium [Rosuvastatin Calcium]) 20 mg PO DAILY [facility] Ondansetron HCl (Ondansetron 4 Mg Tab.Dis) 4 mg PO Q4H PRN PRN Reason: nausea, able to take PO Ondansetron HCl (Ondansetron 4 Mg Tab.Dis) 4 mg PO QID PRN PRN Reason: Nausea Pantoprazole Sodium (Pantoprazole 40 Mg Tab.Cr) 40 mg PO DAILY [facility] Potassium Chloride (Potassium Chloride 20 Meq Tab.Er) 20 meq PO DAILY [facility] Senna/Docusate Sodium (Docusate Sodium/Sennosides 50-8.6 Mg Tab) 1 tab PO DAILY [facility] Torsemide (Torsemide 20 Mg Tab) 20 mg PO DAILY [facility] Warfarin Sodium (Warfarin 5 Mg Tab) 5 mg PO DAILY [facility] Assessment/Plan Comment:: Carmen is a 76yoF who is s/p thrombectomy to her LLE for peripheral vascular disease being admitted swing bed status for ongoing therapies. Peripheral vascular disease -Recent thrombectomy Plan: - Continue Plavix, ASA, coumadin for 1 month - after 1 month D/C ASA - Keep f/u appt with vascular in [place] on 04/03/21 for staple check - PT/OT - pain control: Tylenol TID with extra doses for breakthrough Chronic: -Afib: continue metoprolol, coumadin -Sinus/Jarred: patient cancelled f/u with pacemaker clinic, this will need to be rescheduled -CAD: continue plavix, statin, metoprolol, lisinopril, torsemide -HLD: continue statin -GERD: continue protonix daily -Hypothyroid: continue levothyroxine -psoriasis and SD: continue ointments as needed Diet: Heart Healthy DVT: oral anticoag CODE: FULL Disposition: patient admitted swing status for ongoing therapies/strengthening prior to return home. - Mortality Measure Prognosis:: Good
[2021-03-26] MEDS: Cholecalciferol (Vitamin D3) 25 MCG Tab PO SCH (19:42)
[2021-03-26] MEDS: Metoprolol Tartrate 25 MG Tab PO SCH (19:43)
[2021-03-26] MEDS: Calcium Carbonate/Vitamin D3 1250 MG-5 MCG Tab PO SCH (19:43)
[2021-03-26] MEDS: Acetaminophen 650 MG Tab.ER PO PRN (23:38)
[2021-03-27] MEDS: Pantoprazole 40 MG Tab.CR PO SCH (06:15)
[2021-03-27] MEDS: Levothyroxine 100 MCG Tab PO SCH (06:15)
[2021-03-27 07:17] LABS: ANION GAP 14.6 mmol/L (5-15); CHLORIDE,CL 100 mmol/L (98-107); SODIUM,NA 136 mmol/L (136-145)
[2021-03-27] MEDS: Aspirin 81 MG Tab.EC PO SCH (09:11)
[2021-03-27] MEDS: Lisinopril 5 MG Tab PO SCH (09:11)
[2021-03-27] MEDS: Torsemide 20 MG Tab PO SCH (09:12)
[2021-03-27] MEDS: Metoprolol Tartrate 25 MG Tab PO SCH ×2 (09:12→20:50)
[2021-03-27] MEDS: Potassium Chloride 20 MEQ Tab.ER PO SCH (09:12)
[2021-03-27] MEDS: atorvaSTATin 40 MG Tab PO SCH (09:12)
[2021-03-27] MEDS: Clopidogrel 75 MG Tab PO SCH (09:12)
[2021-03-27] MEDS: Acetaminophen 650 MG Tab.ER PO PRN (13:58)
[2021-03-27] MEDS: Cholecalciferol (Vitamin D3) 25 MCG Tab PO SCH (19:37)
[2021-03-27] MEDS: Acetaminophen 650 MG Tab.ER PO SCH (19:38)
[2021-03-27] MEDS: Warfarin 5 MG Tab PO SCH (19:38)
[2021-03-27] MEDS: Calcium Carbonate/Vitamin D3 1250 MG-5 MCG Tab PO SCH (19:39)
[2021-03-28] MEDS: Acetaminophen 650 MG Tab.ER PO SCH ×3 (00:18→12:47)
[2021-03-28] MEDS: Levothyroxine 100 MCG Tab PO SCH (06:36)
[2021-03-28] MEDS: Pantoprazole 40 MG Tab.CR PO SCH (06:36)
[2021-03-28] MEDS: Lisinopril 5 MG Tab PO SCH (10:04)
[2021-03-28] MEDS: atorvaSTATin 40 MG Tab PO SCH (10:04)
[2021-03-28] MEDS: Potassium Chloride 20 MEQ Tab.ER PO SCH (10:04)
[2021-03-28] MEDS: Metoprolol Tartrate 25 MG Tab PO SCH ×2 (10:05→19:33)
[2021-03-28] MEDS: Clopidogrel 75 MG Tab PO SCH (10:05)
[2021-03-28] MEDS: Aspirin 81 MG Tab.EC PO SCH (10:06)
[2021-03-28] MEDS: Torsemide 20 MG Tab PO SCH (10:06)
[2021-03-28] MEDS: Ondansetron 4 MG Tab.DIS PO PRN ×2 (10:21→16:55)
[2021-03-28] MEDS: traMADol 50 MG Tab PO PRN ×2 (12:46→19:34)
[2021-03-28] MEDS: Warfarin 5 MG Tab PO SCH (19:32)
[2021-03-28] MEDS: Cholecalciferol (Vitamin D3) 25 MCG Tab PO SCH (19:36)
[2021-03-28] MEDS: Calcium Carbonate/Vitamin D3 1250 MG-5 MCG Tab PO SCH (19:36)
[2021-03-29] MEDS: Acetaminophen 650 MG Tab.ER PO SCH ×4 (00:21→20:03)
[2021-03-29] MEDS: Pantoprazole 40 MG Tab.CR PO SCH (06:43)
[2021-03-29] MEDS: Levothyroxine 100 MCG Tab PO SCH (06:43)
[2021-03-29] MEDS: Clopidogrel 75 MG Tab PO SCH (09:12)
[2021-03-29] MEDS: Potassium Chloride 20 MEQ Tab.ER PO SCH (09:12)
[2021-03-29] MEDS: Torsemide 20 MG Tab PO SCH (09:12)
[2021-03-29] MEDS: atorvaSTATin 40 MG Tab PO SCH (09:13)
[2021-03-29] MEDS: Lisinopril 5 MG Tab PO SCH (09:13)
[2021-03-29] MEDS: Aspirin 81 MG Tab.EC PO SCH (09:13)
[2021-03-29] MEDS: Metoprolol Tartrate 25 MG Tab PO SCH ×2 (09:14→20:03)
[2021-03-29] MEDS: traMADol 50 MG Tab PO PRN (12:08)
[2021-03-29] MEDS: Ondansetron 4 MG Tab.DIS PO PRN (16:05)
[2021-03-29] MEDS: Calcium Carbonate/Vitamin D3 1250 MG-5 MCG Tab PO SCH (20:06)
[2021-03-29] MEDS: Warfarin 5 MG Tab PO SCH (20:06)
[2021-03-29] MEDS: Cholecalciferol (Vitamin D3) 25 MCG Tab PO SCH (20:07)
[2021-03-30] MEDS: Pantoprazole 40 MG Tab.CR PO SCH (06:18)
[2021-03-30] MEDS: Levothyroxine 100 MCG Tab PO SCH (06:18)
[2021-03-30] MEDS: Potassium Chloride 20 MEQ Tab.ER PO SCH (07:55)
[2021-03-30] MEDS: Acetaminophen 650 MG Tab.ER PO SCH ×3 (07:55→19:37)
[2021-03-30] MEDS: atorvaSTATin 40 MG Tab PO SCH (07:55)
[2021-03-30] MEDS: Torsemide 20 MG Tab PO SCH (07:55)
[2021-03-30] MEDS: Clopidogrel 75 MG Tab PO SCH (07:55)
[2021-03-30] MEDS: Aspirin 81 MG Tab.EC PO SCH (07:55)
[2021-03-30] MEDS: Lisinopril 5 MG Tab PO SCH (08:01)
[2021-03-30] MEDS: Metoprolol Tartrate 25 MG Tab PO SCH ×2 (08:01→19:37)
[2021-03-30] MEDS: traMADol 50 MG Tab PO PRN (13:07)
[2021-03-30] MEDS: Cholecalciferol (Vitamin D3) 25 MCG Tab PO SCH (19:38)
[2021-03-30] MEDS: Warfarin 5 MG Tab PO SCH (19:38)
[2021-03-30] MEDS: Calcium Carbonate/Vitamin D3 1250 MG-5 MCG Tab PO SCH (19:39)
[2021-03-31] MEDS: Levothyroxine 100 MCG Tab PO SCH (07:29)
[2021-03-31] MEDS: Pantoprazole 40 MG Tab.CR PO SCH (07:29)
[2021-03-31] MEDS: Potassium Chloride 20 MEQ Tab.ER PO SCH (07:30)
[2021-03-31] MEDS: Clopidogrel 75 MG Tab PO SCH (07:30)
[2021-03-31] MEDS: atorvaSTATin 40 MG Tab PO SCH (07:30)
[2021-03-31] MEDS: Metoprolol Tartrate 25 MG Tab PO SCH ×2 (07:30→19:56)
[2021-03-31] MEDS: Lisinopril 5 MG Tab PO SCH (07:30)
[2021-03-31] MEDS: Aspirin 81 MG Tab.EC PO SCH (07:30)
[2021-03-31] MEDS: Torsemide 20 MG Tab PO SCH (07:30)
[2021-03-31] MEDS: Acetaminophen 650 MG Tab.ER PO SCH ×3 (07:31→19:57)
[2021-03-31] MEDS: traMADol 50 MG Tab PO PRN ×2 (11:25→21:53)
[2021-03-31] MEDS: Polyethylene Glycol 3350 Powder 17 GM Packet PO PRN (15:07)
[2021-03-31] MEDS: Cholecalciferol (Vitamin D3) 25 MCG Tab PO SCH (19:55)
[2021-03-31] MEDS: Warfarin 5 MG Tab PO SCH (19:55)
[2021-03-31] MEDS: Calcium Carbonate/Vitamin D3 1250 MG-5 MCG Tab PO SCH (19:57)
[2021-04-01] MEDS: Levothyroxine 100 MCG Tab PO SCH (06:01)
[2021-04-01] MEDS: Pantoprazole 40 MG Tab.CR PO SCH (06:02)
--- OUTSIDE RECORDS SUMMARY | 2021-04-01 08:06 | XMSREPORT ---
:1945 Author Organization [facility] s Address [address] [place] [address] Care Team Providers Name Role Phone MD Kurt Primary Care Provider MD Kurt Attributed Provider Reason for Referral (Routine) Status Reason Specialty Diagnoses / Procedures Referred By Surya kim Referred To Contact [address] [address] Phone: Reason for Visit Reason Comments Leg Pain Pt presents to ER to see Jennifer garcia about placing stents in her legs. Auth/Cert Status Reason Specialty Diagnoses / Procedures Referred By Surya kim Referred To Contact Encounter Details Date Type Department Care Team Description 03/15/2021 - Hospital Encounter [facility] Department [address] [place] [address] [phone] 03/26/2021 CENTER 8AB MED SURG Jignesh Pride MD [address] [place] [address] [phone] Lelo Vizcarra MD [address] [place] [id number] [phone] [address] [place] [address] Allergies Active Allergy Reactions Severity Noted Date Comments Hydrocodone Nausea and Vomiting Medium 12/10/2015 Hydromorphone Nausea and Vomiting Medium 08/08/2013 documented as of this encounter (statuses as of 03/26/2021) Medications Medication Sig Dispensed Refills Start End Status Date Date levothyroxine 100 Take 1 tablet (100 90 tablet 3 Active mcg mcg) by mouth tabletIndications: time per day Acquired hypothyroidism Calcium Take 1 gummy by 0 Acti ve Carbonate-Vit D-Min mouth every night (CALCIUM 1200) at bedtime 3908-5889 MG-UNIT CHEW vitamin D3, Take 50 mcg by 0 Act yarely cholecalciferol, 25 mouth every night mcg (1000 unit) at bedtime tablet metoprolol tartrate Take 1 tablet (25 180 tablet 4 0 01/26/ Active (LOPRESSOR) 25 mg mg) by mouth 2021 tabletIndications: times a day CAD, multiple vessel, S/P CABG x 3, Unstable angina (HCC), Paroxysmal atrial fibrillation (HCC) nitroglycerin Dissolve 1 tablet 30 tablet 0 03/13/2 03/18/ Active (NITROSTAT) 0.4 mg (0.4 mg) under the 22 sublingual tongue Every 5 tabletIndications: minutes as needed STEMI involving for chest pain May right coronary repeat every 5 artery ([facility]), minutes for a Coronary artery total of 3 doses. disease involving other coronary artery bypass graft without angina pectoris rosuvastatin Take 1 tablet (20 30 tablet 0 2 03/19/ Active (CRESTOR) 20 mg mg) by mouth 2021 tabletIndications: time per day STEMI involving right coronary artery (HCC), Coronary artery disease involving other coronary artery bypass graft without angina pectoris clopidogrel Take 1 tablet (75 90 tablet 3 04/17/ Active (PLAVIX) 75 mg mg) by mouth 2021 tabletIndications: time per day STEMI involving right coronary artery (HCC), Coronary artery disease involving other coronary artery bypass graft without angina pectoris pantoprazole Take 1 tablet (40 0 Active (PROTONIX) 40 mg mg) by mouth 1 021 enteric coated time per day tabletIndications: Gastroesophageal reflux disease without esophagitis torsemide (DEMADEX) Take 1 tablet (20 0 Active 20 mg mg) by mouth 1 021 tabletIndications: time per day Hypertension, essential lisinopril Take 1 tablet (5 0 2 Ac tive (PRINIVIL, ZESTRIL) mg) by mouth 1 021 5 mg time per day tabletIndications: Hypertension, essential fluocinonide Apply topically 3 0 Active (LIDEX) 0.05 % times a day as 021 SOLNIndications: needed for rash Seborrheic dermatitis acetaminophen Take 2 tablets 0 A ctive (TYLENOL ARTHRITIS) (1,300 mg) by 021 650 mg CR mouth 3 times a tabletIndications: day as needed for 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 myelopathy or radiculopathy aspirin (ECOTRIN Take 1 tablet (81 30 tablet 0 Active LOW STRENGTH) 81 MG mg) by mouth 1 021 enteric coated time per day tabletIndications: Continue ASA till STEMI involving 04/10 as triple right coronary therapy ( ASA, artery (HCC), Plavix and Coronary artery coumadin) then DC disease involving ASA and continue other coronary Plavix and artery bypass graft coumadin without angina pectoris polyethylene glycol Take 1 packet by 0 Active (MIRALAX) 17 g mouth 1 time per 021 packetIndications: day Dissolve in 4 Constipation, to 8 ounces of unspecified water, juice, constipation type soda, coffee, tea. potassium chloride Take 1 tablet (20 90 tablet 3 Active (KLOR-CON M20) 20 mEq) by mouth 1 021 MEQ CR time per day tabletIndications: Hypokalemia scopolamine Apply 1 patch to 4 patch 0 A ctive (TRANSDERM-SCOP) the skin Every 3 021 patchIndications: days Nausea senna-docusate Take 1 tablet by 0 Active sodium mouth 1 time per 021 (SENOKOT-S;PERICOLA day CE) 8.6-50 MG tabletIndications: Constipation, unspecified constipation type ondansetron (ZOFRAN Take 1 tablet (4 0 Active ODT) 4 mg mg) by mouth 4 021 dispersible times a day as tabletIndications: needed for nausea Nausea or vomiting ondansetron Administer 2 mL (4 0 Active (ZOFRAN) 4 mg/2 mL mg) intravenously 021 injection 4 times a day as solutionIndications needed for nausea : Nausea or vomiting melatonin 3 mg Take 1 tablet (3 30 tablet 0 Active tabletIndications: mg) by mouth at 021 Insomnia, bedtime as needed unspecified type for other (Specify) (insomnia) senna-docusate Take 2 tablets by 0 Active sodium mouth 2 times a 021 (SENOKOT-S;PERICOLA day as needed for CE) 8.6-50 MG constipation tabletIndications: Constipation, unspecified constipation type bisacodyl Insert 1 30 0 Active (DULCOLAX) 10 mg suppository (10 suppository 021 suppositoryIndicati mg) rectally 1 ons: Constipation, time a day as unspecified needed for constipation type constipation Unwrap before inserting. Do not swallow. docusate sodium Insert 1 enema 0 Active (THEREVAC-SB rectally 1 time a 021 MINI;ENEMEEZ MINI) day as needed for 283 MG constipation ENEMIndications: Constipation, unspecified constipation type warfarin (COUMADIN) Take 1 tablet (5 0 Active 5 mg mg) by mouth tabletIndications: time per day Peripheral vascular Anticoagulation disease (HCC) Clinic Managed Pt Take as directed. (Insurance Purposes Only: 5-7.5mg Daily Dose Range) Call [phone] with ?s ANTICOAGULATION 1 each 1 time per 0 Active THERAPY day 021 REMINDERIndications : Peripheral vascular disease (HCC) aspirin (ECOTRIN Take 1 tablet (81 30 tablet 3 03/14/2 03/26 / Discontinued LOW STRENGTH) 81 MG mg) by mouth 2020 (Reorder) enteric coated time per day tabletIndications: STEMI involving right coronary artery (HCC), Coronary artery disease involving other coronary artery bypass graft without angina pectoris sodium chloride Administer 10 mL 0 2 03/26/ Discontinued 0.9% intravenously 2020 (Sto p Taking SOLNIndications: times a day and as at Discharge) Peripheral vascular needed disease (HCC) documented as of this encounter (statuses as of 03/26/2021) Active Problems Problem Noted Date Peripheral vascular disease 03/14/2021 Coronary artery disease 01/16/2021 Seborrheic dermatitis 11/07/2020 Osteoarthritis 11/07/2020 Osteoporosis 03/09/2020 Psoriasis 11/03/2018 Macular degeneration 06/17/2015 Obesity 09/22/2014 Gastroesophageal reflux disease 08/04/2013 Hypertension, essential 11/27/2011 Atrial fibrillation 07/09/2011 Hypothyroidism 06/25/2010 Hyperlipidemia 06/25/2010 documented as of this encounter (statuses as of 03/26/2021) Resolved Problems Problem Noted Date Resolved Date Thrombosis 03/16/2021 03/20/2021 STEMI involving right coronary artery 03/11/2021 Closed fracture of fourth lumbar vertebra with routine 04/1104/16/2020 healing, subsequent encounter Bilateral sacral insufficiency fracture with routine healing 02/25/2018 09/30/2018 Left renal artery stenosis 02/25/2018 11/07/2020 Renal artery stenosis 10/08/2017 10/29/2017 Overview: MRA 10/07/2017 right renal artery 75 % st enosis, left renal artery occluded or near completely occluded Closed compression fracture of fourth lumbar vertebra 201510/02/2016 Last Assessment & Plan: Patient seen in conjunction with Dr. Chaitanya escobar. She has had increased acute low back pain for 3- to 4 weeks without specific injury with demonstrated acute L4 compression fracture on MRI. Pain is non radi ating and has been disabling with mild i mprovement the past 2 - 3 days. She has localized pain with palpation but not reproducible pain at this time with palpation. A long discussion was held with stuart lopez today of conservative care vs proce eding with vertebroplasty. At this time as pain has improved slightly the past 2-3 days patient elects for conservative care. She is advised to restart physical therapy to help treat paraspinal muscle tenderness and left SI joint pain. She is advised to follow up in 3 weeks for re-assessment of her back pain. If at that time pain is not improved or worse omayra l likely recommend to proceed with verte broplasty. Did advise that possibly the fracture could compress further if not treated, she understands and will notify if her pain increases in the low back in the interim. Left-sided thoracic back pain 12/17/2015 02/26/2016 Last Assessment & Plan: Associated with T11 comperssion fracture , this has resolved after application of heat, rest and tylenol. Closed wedge compression fracture of T11 vertebra 12/17/2015 10/02/2016 Overview: Treated conservatively Last Assessment & Plan: Patient has no localized focal tendernes s on exam and pain has resolved. Advised continue conservative care, resume physical therapy end of next week. Vertebroplasty not indicated at this time. Acute back pain 12/13/2015 10/02/2016 Collapsed vertebra, not elsewhere classified, lumbar region, 11/13/2015 12/11/2015 subsequent encounter for fracture with delayed healing Last Assessment & Plan: Discussed she has had good relief of acu te severe back pain from L2 compression fracture since vertebroplasty. Discussed importance of followup with Dr Anju Hicks for dexascan which is in the works. Advised to avoid overexertion or heavy l ifting in her ADLs in order to avoid axial loading (layman's terms and real life scenarios used). May resume activity gradually but to pur mani PT as well (see back pain entry). Advised to call this dept or Dr. Hicks if any recurrent symptoms similar to her vertebroplasty so that she can be reevaluated. Discussed she is at increased risk for a dditional fracture given her low level energy fracture. Cataract, senile 06/14/2015 10/28/2017 Basal cell carcinoma 08/31/2014 10/11/2016 Dyspnea on exertion 01/09/2014 03/21/2014 History of basal cell cancer 02/11/2013 05/18/2013 group home current use of anticoagulant therapy 01/14/2013 03/06/2014 Contusion of face, scalp, and neck except eye(s) 11/27/2011 01/13/2013 documented as of this encounter (statuses as of 03/26/2021) Immunizations Name Administration Dates Next Due FLU VACCINE HIGH DOSE 65YR+(Fluzone) 07/02/2020, 08/31/2019, 07/12/2018, 07/08/2017, 07/10/2016, 10/08/2015, 09/22/2014, 08/04/2013 Influenza Vaccine,unspecified 06/25/2010 Moderna COVID-19 Vaccine 12/11/2020, 11/13/2020 Pneumococcal Conj PCV13 10/08/2015 Pneumococcal Polysaccharide PPSV23 08/04/2013, 06/25/2010 TD,not adsorbed 04/08/1993 TDAP 07/01/2011 Zoster Live(Zostavax) 03/21/2014 documented as of this encounter Social History Tobacco Use Types Packs/Day Years Used Date Former Smoker Cigarettes 1 15 Quit: 09/21/18 78 Smokeless Tobacco: Never Used Alcohol Use Standard Drinks/Week Comments No 0 (1 standard drink = 0.6 oz pure alcoho l) Alcohol Habits Answer Date Recorded How often do you have a drink containing alcohol? Never 03/15/2021 How many drinks containing alcohol do you have on a typical Not asked day when you are drinking? How often do you have six or more drinks on one occasion? No t asked Social Isolation Answer Date Recorded In a typical week, how many times do you talk on the phone N ot asked with family, friends, or neighbors? How often do you get together with friends or relatives? Not asked How often do you attend restorationism or latter day services? Not as ked Do you belong to any clubs or organizations such as restorationism N ot asked groups, unions, fraternal or athletic groups, or school groups? How often do you attend meetings of the clubs or Not asked organizations you belong to? Are you now , , , , never Mar ried 05/26/2019 or living with a partner? Physical Activity Answer Date Recorded On average, how many days per week do you engage in moderate to 4 days 11/07/2020 strenuous exercise (like walking fast, running, jogging, dancing, swimming, biking, or other activities that cause a light or heavy sweat)? On average, how many minutes do you engage in exercise at th is 30 min 11/07/2020 level? Stress Answer Date Recorded Do you feel stress - tense, restless, nervous, or Only a lit tle 11/07/2020 anxious, or unable to sleep at night because your mind is troubled all the time - these days? Financial Resource Strain Answer Date Recorded How hard is it for you to pay for the very basics like Not h [place] at all 11/03/2018 food, housing, medical care, and heating? Intimate Partner Violence Answer Date Recorded Within the last year, have you been afraid of your partner o r No 11/03/2018 ex-partner? Within the last year, have you been humiliated or emotionall y No 11/03/2018 abused in other ways by your partner or ex-partner? Within the last year, have you been kicked, hit, slapped, or No 11/03/2018 otherwise physically hurt by your partner or ex-partner? Within the last year, have you been raped or forced to have any No 11/03/2018 kind of sexual activity by your partner or ex-partner? Food Insecurity Answer Date Recorded Within the past 12 months, you worried that your food would Never true 11/03/2018 run out before you got money to buy more. Within the past 12 months, the food you bought just didn't N ever true 11/03/2018 last and you didn't have money to get more. Transportation Needs Answer Date Recorded In the past 12 months, has lack of transportation kept you f rom No 11/03/2018 medical appointments or from getting medications? In the past 12 months, has lack of transportation kept you f rom No 11/03/2018 meetings, work, or getting things needed for daily living? Sexually Active Control Partners Comments Not Currently Post-menopausal Male Sex Assigned at Date Recorded Female 02/09/2019 9:07 AM CDT documented as of this encounter Last Filed Vital Signs Vital Sign Reading Time Taken Comments Blood Pressure 115/63 03/26/2021 11:09 AM CDT Pulse 68 03/26/2021 11:09 AM CDT Temperature 36.8 C (98.3 F) 03/26/2021 11:09 AM CDT Respiratory Rate 18 03/26/2021 11:09 AM CDT Oxygen Saturation 99% 03/26/2021 11:09 AM CDT Inhaled Oxygen Concentration - - Weight 81.2 kg (179 lb 1.6 oz) 03/24/2021 9:17 AM CDT Height 160 cm (5' 3") 03/15/2021 9:53 AM CDT Body Mass Index 31.73 03/15/2021 9:53 AM CDT documented in this encounter Functional Status Functional Status Response Date of Assessment Is the person deaf or does he/she have serious difficulty No 11/25/2019 hearing? Is this person blind or does he/she have difficulty No 11/25/2019 seeing even when wearing glasses? Do you have difficulty with walking, balance, climbing No 03/18/2021 stairs, or had a fall in the last 3 months? Does the patient have difficulty dressing or bathing? No 07/12/2019 Because of a physical, mental, or emotional condition; No 07/12/2019 does this person have difficulty doing errands alone such as visiting a doctor's office or shopping? Cognitive Status Response Date of Assessment Because of a physical, mental, or emotional condition; No 07/12/2019 does this person have serious difficulty concentrating, remembering, or making decisions? documented as of this encounter Discharge Summaries Not on filedocumented in this encounter Discharge Instructions Laureano Poole, PHARM D - 03/22/2021 Images from the original note were not included. Warfarin Discharge Instructions: Warfarin 5mg dose given 03/26/21 in the hospital. Check INR tomorrow on 03/27/21 Discharge Instructions for Heart Failure The heart is a muscle that pumps oxygen-rich blood to all parts of the body. When you have heart failure, the heart is not able to pump as well as it should. Blood and fluid may back up into the lungs (congestive heart failure). Some parts of the body dont get enough oxygen-rich blood to work normally. These problems lead to the symptoms of heart failure. Heart failure can occur due to an injury to the heart or from natural processes.You can control symptoms of heart failure with some lifestylechanges and by following your doctor's advice. Activity Ask your healthcare provider about an exercise program. You can benefit from simple activities such as walking or gardening. Exercising most days of the week can make you feel better. Don't be discouraged if your progress is slow at first. Rest as needed. Stop activity if you get symptoms such as chest pain, lightheadedness, or significant shortness of breath. Find activities that you enjoy, such as brisk walking, dancing, swimming, or gardening. These will help you stay active and strengthen your heart. Ask your healthcare provider about cardiac rehab. This is a program that helps you to exercise safely. Diet Follow a heart healthy diet. And make sure to limit the salt (sodium) in your diet. Salt causes yourbody to hold water. This makes your heart work harder as there is more fluid for the heart to pump. Limit your salt as directed by your healthcare provider by doing the following : Limit canned, dried, packaged, and fast foods. Don't add salt to your food. Season foods with herbs instead of salt. Watch how much liquids you drink. Drinking too much can make heart failure worse. Talk with your healthcare provider about how much you should drink each day. Limit the amount of alcohol you drink. It may harm your heart. Women should have no more than 1 drink a day. Men should have no more than 2 a day. When you eat out, ask that your meals have no added salt. Tobacco If you smoke, it's mcintosh to quit. Smoking increases your chances of having a heart attack by harming the blood vessels that provide oxygen to your heart. This makes heart failure worse. Quitting smoking is the number one thing you can do to improve your health. Enroll in a stop-smoking program to improve your chances of success. Talk with your healthcare providerabout medicines or nicotine replacement therapy. Ask your healthcare provider about smoking cessation support groups. Medicine Take your medicines exactly as prescribed. Learn the names and purpose of each of your medicines. Keep an accurate medicine list and current dosages with you at all times. Don't skip doses. If you paul dose of your medicine, take it as soon as you remember. If you miss a dose andit's almost time for your next dose, just wait and take your next dose at the normal time. Don't take a double dose. Ifyou are unsure, call your doctor's office. Make sure not to mix up your medicines or forget what you've taken the same day. Refill your prescriptions before you run out of medicine. Talk with your healthcare provider if you have trouble with the cost of your medicines. Weight monitoring Weigh yourself every day. A sudden weight gain can mean your heart failure is getting worse. Weigh yourself at the same time of day and in the same kind of clothes. Ideally, weigh yourself first thing in the morning after you empty your bladder, but before you eat breakfast. Your healthcare provider will show you how to track your weight. He or she will also tell you when you should call if you have a sudden, unexpected increase in your weight. In general, your healthcare provider may ask you to report if your weight goes up by more than 2 pounds (0.9 kg) in 1 day,5 pounds (2.27 kg) in 1 week, or whatever weight gain you were told by your doctor. This is a sign that you are retaining more fluid than you should be. Clues to weight gain include checking your ankles for swelling, or noticing you are short of breath when you lie down. Follow-up care Have follow-up appointment. Depending on the type and severity of heart failure you have, you may need follow-up as early as 7 days from hospital discharge. Keep appointments for checkups and lab teststhat are needed to check your medicines and condition. Recognize that your health and even survival depend on you following your medical recommendations. Symptoms Heart failure can cause a variety of symptoms, including: Shortness of breath Trouble breathing at night, especially when you lie down Swelling in the legs and feet or in the belly (abdomen) Becoming easily tired Irregular or rapid heartbeat Weakness or lightheadedness Swelling of the neck veins It's important to know what to do if symptoms get worse or if you develop signs of worsening heart failure. Keep track of how you feel each day. Report any changes to your healthcare provider. When to call your healthcare provider Call your healthcare provider right away if you have any of these signs of worsening heart failure: Sudden weight gain (more than 2 pounds in 1 day or 5pounds in 1 week, or whatever weight gain you were told to report by your doctor) Trouble breathing not related to being active New or increased swelling of your legs or ankles Swelling or pain in your abdomen Breathing trouble at night (waking up short of breath, needing more pillows to breathe) Frequent coughing that doesn't go away Feeling much more tired than usual Call 911 right away if you have: Severe shortness of breath, such that you can't catch your breath even whileresting Severe chest pain that does not resolve with rest or nitroglycerin Kevil, foamy mucus with cough and shortness of breath An ongoing rapid or irregular heartbeat Passing out or fainting Stroke symptoms such as sudden numbness or weakness on one side of your face, arm, or leg or sudden confusion, trouble speaking or vision changes Hiral last reviewed this educational content on 12/20/201819996052-3060 The [employer]. All rights reserved. This information is not intended as a substitute for professional medical care. Always follow your healthcare professional's instructions. documented in this encounter Medications at Time of Discharge Medication Sig Dispensed Refills Start Date End Date aspirin (ECOTRIN LOW Take 1 tablet (81 mg) 30 tablet 0 02/2021 STRENGTH) 81 MG by mouth 1 time per enteric coated day Continue ASA till tabletIndications: 04/10 as triple STEMI involving right therapy ( ASA, Plavix coronary artery (HCC), and coumadin) then DC Coronary artery ASA and continue disease involving Plavix and coumadin other coronary artery bypass graft without angina pectoris polyethylene glycol Take 1 packet by 0 03/27/2021 (MIRALAX) 17 g mouth 1 time per day packetIndications: Dissolve in 4 to 8 Constipation, ounces of water, unspecified juice, soda, coffee, constipation type tea. potassium chloride Take 1 tablet (20 90 tablet 3 03/26/2021 (KLOR-CON M20) 20 MEQ mEq) by mouth 1 time CR tabletIndications: per day Hypokalemia scopolamine Apply 1 patch to the 4 patch 0 03/28/2021 (TRANSDERM-SCOP) skin Every 3 days patchIndications: Nausea senna-docusate sodium Take 1 tablet by 0 03/27/20 21 (SENOKOT-S;PERICOLACE) mouth 1 time per day 8.6-50 MG tabletIndications: Constipation, unspecified constipation type ondansetron (ZOFRAN Take 1 tablet (4 mg) 0 2020 ODT) 4 mg dispersible by mouth 4 times a tabletIndications: day as needed for Nausea nausea or vomiting ondansetron (ZOFRAN) 4 Administer 2 mL (4 0 03/26 mg/2 mL injection mg) intravenously 4 solutionIndications: times a day as needed Nausea for nausea or vomiting melatonin 3 mg Take 1 tablet (3 mg) 30 tablet 0 03/26/2021 tabletIndications: by mouth at bedtime Insomnia, unspecified as needed for other type (Specify) (insomnia) senna-docusate sodium Take 2 tablets by 0 021 (SENOKOT-S;PERICOLACE) mouth 2 times a day 8.6-50 MG as needed for tabletIndications: constipation Constipation, unspecified constipation type bisacodyl (DULCOLAX) Insert 1 suppository 30 suppository 0 0 03/26/2021 10 mg (10 mg) rectally 1 suppositoryIndications time a day as needed : Constipation, for constipation unspecified Unwrap before constipation type inserting. Do not swallow. docusate sodium Insert 1 enema 0 03/26/2021 (THEREVAC-SB rectally 1 time a day MINI;ENEMEEZ MINI) 283 as needed for MG ENEMIndications: constipation Constipation, unspecified constipation type ANTICOAGULATION 1 each 1 time per day 0 THERAPY REMINDERIndications: Peripheral vascular disease (HCC) pantoprazole Take 1 tablet (40 mg) 0 03/14/2021 (PROTONIX) 40 mg by mouth 1 time per enteric coated day tabletIndications: Gastroesophageal reflux disease without esophagitis torsemide (DEMADEX) 20 Take 1 tablet (20 mg) 0 mg tabletIndications: by mouth 1 time per Hypertension, day essential lisinopril (PRINIVIL, Take 1 tablet (5 mg) 0 02/20 ZESTRIL) 5 mg by mouth 1 time per tabletIndications: day Hypertension, essential fluocinonide (LIDEX) Apply topically 3 0 03/14/20 21 0.05 % times a day as needed SOLNIndications: for rash Seborrheic dermatitis acetaminophen (TYLENOL Take 2 tablets (1,300 0 ARTHRITIS) 650 mg CR mg) by mouth 3 times tabletIndications: a day as needed for Spondylosis of lumbar moderate pain region without myelopathy or radiculopathy nitroglycerin Dissolve 1 tablet 30 tablet 0 03/13/202102/20 (NITROSTAT) 0.4 mg (0.4 mg) under the 2 sublingual tongue Every 5 tabletIndications: minutes as needed for STEMI involving right chest pain May repeat coronary artery (HCC), every 5 minutes for a Coronary artery total of 3 doses. disease involving other coronary artery bypass graft without angina pectoris rosuvastatin (CRESTOR) Take 1 tablet (20 mg) 30 tablet 0 20 mg by mouth 1 time per 2 tabletIndications: day STEMI involving right coronary artery (HCC), Coronary artery disease involving other coronary artery bypass graft without angina pectoris clopidogrel (PLAVIX) Take 1 tablet (75 mg) 90 tablet 3 03/22 75 mg by mouth 1 time per 2 tabletIndications: day STEMI involving right coronary artery (HCC), Coronary artery disease involving other coronary artery bypass graft without angina pectoris metoprolol tartrate Take 1 tablet (25 mg) 180 tablet 4 01/21 (LOPRESSOR) 25 mg by mouth 2 times a 2 tabletIndications: day CAD, multiple vessel, S/P CABG x 3, Unstable angina (HCC), Paroxysmal atrial fibrillation (HCC) vitamin D3, Take 50 mcg by mouth 0 cholecalciferol, 25 every night at mcg (1000 unit) tablet bedtime Calcium Carbonate-Vit Take 1 gummy by mouth 0 D-Min (CALCIUM 1200) every night at [id number] MG-UNIT CHEW bedtime levothyroxine 100 mcg Take 1 tablet (100 90 tablet 3 2020 tabletIndications: mcg) by mouth 1 time Acquired per day hypothyroidism warfarin (COUMADIN) 5 Take 1 tablet (5 mg) 0 02/2021 mg tabletIndications: by mouth 1 time per Peripheral vascular day Anticoagulation disease ([facility]) Clinic Managed Pt Take as directed. (Insurance Purposes Only: 5-7.5mg Daily Dose Range) Call [phone] with ?s documented as of this encounter Progress Notes Jignesh Pride MD - 03/25/2021 1:12 PM CDT Images from the original note were not included. DAILY PROGRESS NOTE Carmen Padgett is a 76yr old female admitted on 03/15/2021 9:44 AM. Impression / Plan 1.Severe peripheral vascular disease with concern for left leg ischemia status post left leg thrombectomy 03/16. INR is 2.2. She was on heparin which was DC after INR is over 2. Continue bowel regimen. US negative for DVT. Vascular following. Continue triple therapy for one month 9 till 04/11) then switched to Plavix and coumadin. Therapy is following and she may need placement. Please refer to CM notefor further details 2.CAD status post CABG 12/2020 and recent history of STEMI status post RCA stent 02/2021. Continue aspirin and Plavix. Continue beta-deandra. ACEI on hold. She will need triple therapy for total 4 weeks then will DC ASA. 3.Status post pacemaker placement. Tele revealed A paced. Continue to monitor. 4.Hypertension.Continue beta-deandra. Hold SARATH inhibitor 5.Hypothyroidism.Continue levothyroxine 6.Previous history of AF S/P ablation. Continue beta-deandra. 7.Chronic Diastolic CHF. No concern.Continue torsemide. 8.GERD. Continue PPI 9.DVT prophylaxis. Coumadin 10.CODE STATUS. Full Code DW patient at bed side and she verbalized. Interval History HPI She is feeling better Pain is controlled No BM and she wants to wait before additional bowel regimen Review of Systems Review of Systems Cardiovascular: Positive for leg swelling. Gastrointestinal: Negative for abdominal distention and abdominal pain. Musculoskeletal: Positive for arthralgias and gait problem. Left leg pain Skin: Positive for wound. Rest are negative Physical Exam Vital Signs: Temp: 98.3 F (36.8 C) | BP: 124/62 | Pulse: 76 | Resp: 18 | Pain Ratin (out of 10) | Weight: 81.2 kg (179 lb 1.6 oz) | O2 Device: Room Air O2 Flow Rate (L/min): 0 l/min | SpO2: 98 % Maximum Temperatures (last 24 hours) Temperature Maximum Max Temp 99 F (37.2 C) Intake and Output: 03/24 0700 - 03/25 0659 In: 240 [Oral:240] Out: 1475 [Urine:1475] Physical Exam Constitutional: General: She is not in acute distress. Appearance: She is not ill-appearing. HENT: Head: Normocephalic and atraumatic. Nose: No congestion or rhinorrhea. Eyes: General: Right eye: No discharge. Left eye: No discharge. Cardiovascular: Rate and Rhythm: Normal rate. Pulmonary: Effort: Pulmonary effort is normal. No respiratory distress. Breath sounds: Normal breath sounds. No wheezing. Abdominal: General: Abdomen is flat. Bowel sounds are normal. There is no distension. Palpations: Abdomen is soft. Tenderness: There is no abdominal tenderness. There is no guarding. Musculoskeletal: General: Swelling present. Comments: Dressing in place on LLE Skin: General: Skin is warm and dry. Neurological: Mental Status: She is oriented to person, place, and time. Psychiatric: Mood and Affect: Mood normal. Behavior: Behavior normal. Labs Labs (Last day) 03/25/21 1058 - 03/25/21 1058 CHEMISTRY 03/25/21 1058 CHEMISTRY Glucose 70-100 (mg/dL) 99 Sodium 135-145 (meq/L) 135 Potassium 3.5-5.3 (meq/L) 3.7 Chloride 99-110 (meq/L) 101 CO2 20-29 (meq/L) 23 Anion Gap with K 6-20 (meq/L) 15 BUN 6-22 (mg/dL) 22 Creatinine 0.60-1.10 (mg/dL) 0.72 BUN/Creatinine Ratio 10.0-25.0 30.6 Calcium 8.5-10.5 (mg/dL) 9.5 eGFR >=60 (mL/min/1.73m2) >90 eGFR Non- >=60 (mL/min/1.73m2) 79 03/25/21 1058 - 03/25/21 1058 GENERAL COAGULATION 03/25/21 1058 GENERAL COAGULATION Protime 12.0-14.5 (secs) 22.5 INR 0.9-1.1 2.2 03/25/21 1058 - 03/25/21 1058 OTHER 03/25/21 1058 OTHER Age (Years) 76 Medical Decision making Medical Decision Making Jignesh Grullon MD - 03/24/2021 3:59 PM CDT Images from the original note were not included. DAILY PROGRESS NOTE Carmen Padgett is a 76yr old female admitted on 03/15/2021 9:44 AM. Impression / Plan 1.Severe peripheral vascular disease with concern for left leg ischemia status post left leg thrombectomy 03/16. INR is over 2 and will dc heparin. Continue bowel regimen. US negative for DVT. Vascular following. Continue triple therapy for one month then switched to Plavix and coumadin. Therapy is following and she may need placement. Please refer to CM note for further details 2.CAD status post CABG 12/2020 and recent history of STEMI status post RCA stent 02/2021. Continue aspirin and Plavix. Continue beta-deandra. ACEI on hold. She will need triple therapy for total 4 weeks then will DC ASA. 3.Status post pacemaker placement. Tele revealed A paced. Continue to monitor. 4.Hypertension.Continue beta-deandra. Hold SARATH inhibitor 5.Hypothyroidism.Continue levothyroxine 6.Previous history of AF S/P ablation. Continue beta-deandra. 7.Chronic Diastolic CHF. No concern.Continue torsemide. 8.GERD. Continue PPI 9.DVT prophylaxis. Coumadin 10.CODE STATUS. Full Code DW patient at bed side and she verbalized. Interval History HPI No fever overnight Pain is controlled INR reviewed and over 2 now will dc heparin Review of Systems Review of Systems Cardiovascular: Positive for leg swelling. Gastrointestinal: Negative for abdominal distention and abdominal pain. Musculoskeletal: Positive for arthralgias and gait problem. Left leg pain Skin: Positive for wound. Rest are negative Physical Exam Vital Signs: Temp: 99 F (37.2 C) | BP: 117/60 | Pulse: 72 | Resp: 18 | Pain Ratin (out of 10) | Weight: 81.2 kg (179 lb 1.6 oz) | O2 Device: Room Air O2 Flow Rate (L/min): 0 l/min | SpO2: 100 % Maximum Temperatures (last 24 hours) Temperature Maximum Max Temp 99 F (37.2 C) Intake and Output: 03/23 0700 - 03/24 0659 In: 240 [Oral:240] Out: 2450 [Urine:2450] Physical Exam Constitutional: General: She is not in acute distress. Appearance: She is not ill-appearing. HENT: Head: Normocephalic and atraumatic. Nose: No congestion or rhinorrhea. Eyes: General: Right eye: No discharge. Left eye: No discharge. Cardiovascular: Rate and Rhythm: Normal rate. Pulmonary: Effort: Pulmonary effort is normal. No respiratory distress. Breath sounds: Normal breath sounds. No wheezing. Abdominal: General: Abdomen is flat. Bowel sounds are normal. There is no distension. Palpations: Abdomen is soft. Tenderness: There is no abdominal tenderness. There is no guarding. Musculoskeletal: General: Swelling present. Comments: Dressing in place on LLE Skin: General: Skin is warm and dry. Neurological: Mental Status: She is oriented to person, place, and time. Psychiatric: Mood and Affect: Mood normal. Behavior: Behavior normal. Labs Labs (Last day) 03/23/212339 - 03/23/212339 CHEMISTRY 03/23/212339 CHEMISTRY Glucose 70-100 (mg/dL) 112 Sodium 135-145 (meq/L) 136 Potassium 3.5-5.3 (meq/L) 4.0 Chloride 99-110 (meq/L) 101 CO2 20-29 (meq/L) 25 Anion Gap with K 6-20 (meq/L) 14 BUN 6-22 (mg/dL) 22 Creatinine 0.60-1.10 (mg/dL) 0.77 BUN/Creatinine Ratio 10.0-25.0 28.6 Calcium 8.5-10.5 (mg/dL) 9.0 eGFR >=60 (mL/min/1.73m2) 88 eGFR Non- >=60 (mL/min/1.73m2) 73 03/24/21 1212 - 03/23/21 2340 GENERAL COAGULATION 03/24/21 1212 03/24/21 0550 03/24/21 0550 03/23/21 2340 03/23/212339 GENERAL COAGULATION Protime 12.0-14.5 (secs) 22.8 22.4 INR 0.9-1.1 2.2 2.2 APTT 24-35 (secs) 77 82 91 03/23/21 1742 - 03/23/21 1742 GENERAL COAGULATION 03/23/21 174 GENERAL COAGULATION APTT 24-35 (secs) 79 03/23/21 2340 - 03/23/21 2340 OTHER 03/23/21 234 OTHER Age (Years) 76 Medical Decision making Medical Decision Making Jignesh Grullon MD - 03/23/2021 12:06 PM CDT Images from the original note were not included. DAILY PROGRESS NOTE Carmen Padgett is a 76yr old female admitted on 03/15/2021 9:44 AM. Impression / Plan 1.Severe peripheral vascular disease with concern for left leg ischemia status post left leg thrombectomy 03/16. She mentioned pain is controlled. Continue pain medication. Continue heparin for bridgingand coumadin. INR 2.1. Once INR will be in target range for 2 days then will consider DC heparin. Continue bowel regimen. US negative for DVT. Vascular following. Continue triple therapy for one month then switched to Plavix and coumadin. Therapy is following and she may need placement. Please refer to CM note for further details 2.CAD status post CABG 12/2020 and recent history of STEMI status post RCA stent 02/2021. Continue aspirin and Plavix. Continue beta-deandra. ACEI on hold. She will need triple therapy for total 4 weeks then will DC ASA. 3.Status post pacemaker placement. Tele revealed A paced. Continue to monitor. 4.Hypertension. Continue beta-deandra. Hold SARATH inhibitor 5.Hypothyroidism. Continue levothyroxine 6.Previous history of AF S/P ablation. Continue beta-deandra. 7.Chronic Diastolic CHF. No concern. Continue torsemide. 8.GERD. Continue PPI 9.DVT prophylaxis. IV heparin and coumadin 10.CODE STATUS. Full Code DW patient at bed side and she verbalized. Interval History HPI No fever overnight Pain is controlled INR reviewed She was little emotional for being here so long time. Discuss rationale why is she here Review of Systems Review of Systems Cardiovascular: Positive for leg swelling. Gastrointestinal: Negative for abdominal distention and abdominal pain. Musculoskeletal: Positive for arthralgias and gait problem. Left leg pain Skin: Positive for wound. Rest are negative Physical Exam Vital Signs: Temp: 99.1 F (37.3 C) | BP: 119/55 | Pulse: 67 | Resp: 16 | Pain Ratin (out of 10) | Weight: 82.2 kg (181 lb 3.2 oz) | O2 Device: Room Air O2 Flow Rate (L/min): 0 l/min | SpO2: 98 % Maximum Temperatures (last 24 hours) Temperature Maximum Max Temp 99.2 F (37.3 C) Intake and Output: 03/22 0700 - 03/23 0659 In: 922 [Oral:520] Out: 800 [Urine:800] Physical Exam Constitutional: General: She is not in acute distress. Appearance: She is not ill-appearing. HENT: Head: Normocephalic and atraumatic. Nose: No congestion or rhinorrhea. Eyes: General: Right eye: No discharge. Left eye: No discharge. Cardiovascular: Rate and Rhythm: Normal rate. Pulmonary: Effort: Pulmonary effort is normal. No respiratory distress. Breath sounds: Normal breath sounds. No wheezing. Abdominal: General: Abdomen is flat. Bowel sounds are normal. There is no distension. Palpations: Abdomen is soft. Tenderness: There is no abdominal tenderness. There is no guarding. Musculoskeletal: General: Swelling present. Comments: Dressing in place on LLE Skin: General: Skin is warm and dry. Neurological: Mental Status: She is oriented to person, place, and time. Psychiatric: Mood and Affect: Mood normal. Behavior: Behavior normal. Labs Labs (Last day) 03/22/212224 - 03/22/212224 CHEMISTRY 03/22/212224 CHEMISTRY Glucose 70-100 (mg/dL) 137 Sodium 135-145 (meq/L) 139 Potassium 3.5-5.3 (meq/L) 4.4 Chloride 99-110 (meq/L) 102 CO2 20-29 (meq/L) 26 Anion Gap with K 6-20 (meq/L) 15 BUN 6-22 (mg/dL) 21 Creatinine 0.60-1.10 (mg/dL) 0.86 BUN/Creatinine Ratio 10.0-25.0 24.4 Calcium 8.5-10.5 (mg/dL) 9.3 eGFR >=60 (mL/min/1.73m2) 78 eGFR Non- >=60 (mL/min/1.73m2) 64 03/23/21 1140 - 03/22/21 1521 GENERAL COAGULATION 03/23/21 1140 03/23/21 0458 03/22/21222403/22/21222403/22/21 1521 GENERAL COAGULATION Protime 12.0-14.5 (secs) 21.6 INR 0.9-1.1 2.1 APTT 24-35 (secs) 82 133 108 89 03/22/212224 - 03/22/21 2225 OTHER 03/22/21 222 OTHER Age (Years) 76 Medical Decision making Medical Decision Making ITRDemetrius dominguez MD - 03/23/2021 7:10 AM CDT Carmen Padgett 1945 [id number] Surgery Daily Progress Note Subjective: Pain unchanged from yesterday No nausea/vomiting Worked with PT/OT yesterday Ambulating in room Voiding per self Objective: Vitals: 03/22/21 1908 03/22/21 2227 03/22/21 22203/22/21 2319 BP: 111/52 108/50 108/50 116/49 Pulse: 72 71 71 66 Resp: 18 18 Temp: 99.2 F (37.3 C) 98.8 F (37.1 C) SpO2: 97% 96% Weight: Height: General: Alert and oriented x3, no acute distress Head: normocephalic, atraumatic Respiratory: Full and equal chest rise bilaterally Cardiac: RRR Abdomen: soft, non-tender, non-distended Extremities: full ROM. LLE incision is CDI without drainage or masses. Bilateral pitting edema present. Pedal pulses are palpable bilaterally Skin: warm, soft I&O: 520: PO 400: IV -- 800 + 1x: UO 0x: BM Labs: Lab Results Component Value Date WBC 5.7 03/17/2021 NUCRBC 0 03/15/2021 RBC 3.05 (L) 03/17/2021 HEMOGLOBIN 9.2 (L) 03/19/2021 HEMATOCRIT 28.5 (L) 03/17/2021 MCV 93.4 03/17/2021 MCH 29.5 03/17/2021 MCHC 31.6 03/17/2021 RDW 13.8 08/08/2013 PLTCOUNT 276 03/17/2021 NEUTROPCT 62.7 03/15/2021 LYMPHSPCT 20.8 03/15/2021 MONOSPCT 8.9 03/15/2021 EOSPCT 6.3 03/15/2021 BASOPHILPCT 1.1 03/15/2021 Lab Results Component Value Date GLUCOSE 137 (H) 03/22/2021 BUN 21 03/22/2021 CREATSERUM 0.86 03/22/2021 BCRATIO 24.4 03/22/2021 NA 139 03/22/2021 POTASSIUM 4.4 03/22/2021 CL 102 03/22/2021 CO2 26 03/22/2021 ANIONGAP 7 (L) 04/10/2014 CA 9.3 03/22/2021 EGFR 64 03/22/2021 EGFRAF 78 03/22/2021 Assessment: 76yr old female admitted on 03/15/21 with occlusion of left SFA and popliteal arteries s/p PCI on 03/13. She underwent thrombectomy of the femoral and popliteal artery on 03/16/21. Recovering well. Wound intact. No changes Plan: - Regular diet - activity as tolerated - scheduled bowel regimen - PT/OT - Continue heparin drip, bridge to coumadin, discontinue heparin drip once therapeutic on coumadin - Ok to change dressings PRN if saturated. Patient Active Problem List Diagnosis Hypothyroidism Hyperlipidemia Atrial fibrillation (HCC) Hypertension, essential Gastroesophageal reflux disease Obesity Macular degeneration Psoriasis Osteoporosis Seborrheic dermatitis Osteoarthritis Coronary artery disease Peripheral vascular disease (HCC) Demetrius Marlow MD Surgery Resident Pager [phone] 03/23/21 Jignesh Grullon MD - 03/22/2021 1:38 PM CDT Images from the original note were not included. DAILY PROGRESS NOTE Carmen Padgett is a 76yr old female admitted on 03/15/2021 9:44 AM. Impression / Plan 1.Severe peripheral vascular disease with concern for left leg ischemia status post left leg thrombectomy 03/16. She is endorsing severe pain. Continue pain medication. Continue heparin for bridging. Continue coumadin. INR is 1.9 unchanged compared to yesterday. Continue bowel regimen. US negative for DVT. Continue triple therapy for one month then switched to Plavix and coumadin. Therapy is followingand she may need placement. Please refer to CM note for further details 2.CAD status post CABG 12/2020 and recent history of STEMI status post RCA stent 02/2021. Continue aspirin and Plavix. Continue beta-deandra. ACEI on hold. She will need triple therapy for total 4 weeks then will DC ASA. 3.Status post pacemaker placement. Tele revealed A paced. Continue to monitor. 4.Hypertension. Continue beta-deandra. Hold SARATH inhibitor 5.Hypothyroidism. Continue levothyroxine 6.Previous history of AF S/P ablation. Continue beta-deandra. 7.Chronic Diastolic CHF. No concern. Continue torsemide. 8.GERD. Continue PPI 9.DVT prophylaxis. IV heparin and coumadin 10.CODE STATUS. Full Code DW patient at bed side and she verbalized. Interval History HPI US negative for DVT No fever overnight Pain controlled Review of Systems Review of Systems Cardiovascular: Positive for leg swelling. Gastrointestinal: Negative for abdominal distention and abdominal pain. Musculoskeletal: Positive for arthralgias and gait problem. Left leg pain Skin: Positive for wound. Rest are negative Physical Exam Vital Signs: Temp: 98.6 F (37 C) | BP: 112/43 | Pulse: 73 | Resp: 16 | Pain Ratin (out of 10) | Weight: 82.2 kg (181 lb 3.2 oz) | O2 Device: Room Air O2 Flow Rate (L/min): 0 l/min | SpO2: 100 % Maximum Temperatures (last 24 hours) Temperature Maximum Max Temp 99.1 F (37.3 C) Intake and Output: 03/21 0700 - 03/22 0659 In: 2057.8 [Oral:1615] Out: 2175 [Urine:2175] Physical Exam Constitutional: General: She is not in acute distress. Appearance: She is not ill-appearing. HENT: Head: Normocephalic and atraumatic. Cardiovascular: Rate and Rhythm: Normal rate. Pulmonary: Effort: Pulmonary effort is normal. Breath sounds: Normal breath sounds. Abdominal: General: Abdomen is flat. Bowel sounds are normal. There is no distension. Palpations: Abdomen is soft. Tenderness: There is no abdominal tenderness. There is no guarding. Musculoskeletal: General: Swelling present. Comments: Dressing in place on LLE Skin: General: Skin is warm and dry. Neurological: Mental Status: She is oriented to person, place, and time. Psychiatric: Mood and Affect: Mood normal. Behavior: Behavior normal. Labs Labs (Last day) 03/22/21 0650 - 03/22/21 0650 CHEMISTRY 03/22/21 0650 CHEMISTRY Glucose 70-100 (mg/dL) 101 Sodium 135-145 (meq/L) 137 Potassium 3.5-5.3 (meq/L) 4.5 Chloride 99-110 (meq/L) 103 CO2 20-29 (meq/L) 22 Anion Gap with K 6-20 (meq/L) 17 BUN 6-22 (mg/dL) 15 Creatinine 0.60-1.10 (mg/dL) 0.71 BUN/Creatinine Ratio 10.0-25.0 21.1 Calcium 8.5-10.5 (mg/dL) 9.2 eGFR >=60 (mL/min/1.73m2) >90 eGFR Non- >=60 (mL/min/1.73m2) 80 03/22/21 0802 - 03/21/21 1743 GENERAL COAGULATION 03/22/21 0802 03/22/21 0802 03/22/21 0013 03/21/21 1743 GENERAL COAGULATION Protime 12.0-14.5 (secs) 20.5 INR 2.0-3.5 1.9 APTT 24-35 (secs) 118 111 97 03/22/21 0542 - 03/22/21 0542 URINALYSIS 03/22/21 0542 URINALYSIS Color Urine Nga, Dark Yellow, Straw, Yellow, Colorless Straw Clarity Urine Clear Clear Specific Champion 1.002-1.030 1.009 Glucose Urine Negative Negative Bilirubin Urine Negative Negative Ketones Urine Negative, 5 mg/dL, 10 mg/dL Negative Blood Urine Negative Negative PH Urine 5.0, 5.5, 6.0, 6.5, 7.0, 7.5, 8.0 7.0 Protein Urine Negative Negative Nitrite Negative Negative Leukocyte Esterase Urine Negative Negative Urobilinogen < 2 mg/dL < 2 mg/dL 03/22/21 0650 - 03/22/21 0650 OTHER 03/22/21 0650 OTHER Age (Years) 76 Medical Decision making Medical Decision Making opeye Salgado MD - 03/22/2021 10:21 AM CDT Images from the original note were not included. Vascular Surgery Progress Note Subjective: Patient doing well this morning Did have some increase Pain in leg yesterday, US was negative for DVT Objective: Temp: 98.6 F (37 C) BP: 121/55 Pulse: 64 O2 Device: Room Air O2 Flow Rate (L/min): 0 l/min Resp: 16 Pain Ratin (out of 10) Weight: 82.2 kg (181 lb 3.2 oz) SpO2: 95 % Intake/Output Summary (Last 24 hours) at 03/22/2021 1023 Last data filed at 03/22/2021 0655 Gross per 24 hour Intake 1577.8 ml Output 2175 ml Net -597.2 ml Gen: no acute distress, resting comfortably in bed CV: RRR PULM: Non-labored breathing on room air ABD: soft, nontender, nondistended. EXT: Leg posterior calf is tender to touch. Compartments remain soft. Wound is intact with kirby no erythema or breakdown. Labs/Imaging: Lab Results Component Value Date WBC 5.7 03/17/2021 NUCRBC 0 03/15/2021 RBC 3.05 (L) 03/17/2021 HEMOGLOBIN 9.2 (L) 03/19/2021 HEMATOCRIT 28.5 (L) 03/17/2021 MCV 93.4 03/17/2021 MCH 29.5 03/17/2021 MCHC 31.6 03/17/2021 RDW 13.8 08/08/2013 PLTCOUNT 276 03/17/2021 NEUTROPCT 62.7 03/15/2021 LYMPHSPCT 20.8 03/15/2021 MONOSPCT 8.9 03/15/2021 EOSPCT 6.3 03/15/2021 BASOPHILPCT 1.1 03/15/2021 Lab Results Component Value Date CO2 22 03/22/2021 GLUCOSE 101 (H) 03/22/2021 BUN 15 03/22/2021 CREATSERUM 0.71 03/22/2021 CA 9.2 03/22/2021 PHOSPHORUS 3.3 03/17/2021 ALBUMIN 2.9 (L) 03/17/2021 NA 137 03/22/2021 POTASSIUM 4.5 03/22/2021 CL 103 03/22/2021 Lab Results Component Value Date INR 1.9 (L) 03/22/2021 Assessment: 76yr old female admitted on 03/15/21 with occlusion of left SFA and popliteal arteries s/p PCI on 03/13. She underwent thrombectomy of the femoral and popliteal artery on 03/16/21. Doing well postoperatively, having some expected wound oozing due to plavix, improving daily. Hb hasbeen stable at 9.2, no concern for significant blood loss. Pulse exams stable. Plan: - Regular diet - activity as tolerated - scheduled bowel regimen - PT/OT - Continue heparin drip, bridge to coumadin, discontinue heparin drip once therapeutic on coumadin - Ok to change dressings PRN if saturated. Popeye Salgado MD General Surgery PGY-2 Jignesh Grullon MD - 03/21/2021 11:19 AM CDT Images from the original note were not included. DAILY PROGRESS NOTE Carmen Padgett is a 76yr old female admitted on 03/15/2021 9:44 AM. Impression / Plan 1.Severe peripheral vascular disease with concern for left leg ischemia status post left leg thrombectomy 03/16. She is endorsing severe pain. Continue pain medication. Continue heparin for bridging. Continue coumadin. INR is 1.9. Continue bowel regimen. Will do US doppler to evaluate for DVT. Continuetriple therapy for one month then switched to Plavix and coumadin. Therapy is following and she may need placement. Please refer to CM note for further details 2.CAD status post CABG 12/2020 and recent history of STEMI status post RCA stent 02/2021. Continue aspirin and Plavix. Continue beta-deandra. ACEI on hold. She will need triple therapy for total 4 weeks then will DC ASA. 3.Status post pacemaker placement. Tele revealed A paced. Continue to monitor. 4.Hypertension. Continue beta-deandra. Hold SARATH inhibitor 5.Hypothyroidism. Continue levothyroxine 6.Previous history of AF S/P ablation. Continue beta-deandra. 7.Chronic Diastolic CHF. No concern. Continue torsemid. 8.GERD. Continue PPI 9.DVT prophylaxis. IV heparin and coumadin 10.CODE STATUS. Full Code DW patient at bed side and discuss with bed side nurse. Interval History HPI She is endorsing left leg pain She is tolerating blood thinner No fever overnight INR 1.9 Review of Systems Review of Systems Cardiovascular: Positive for leg swelling. Gastrointestinal: Negative for abdominal distention and abdominal pain. Musculoskeletal: Positive for arthralgias and gait problem. Left leg pain Skin: Positive for wound. Rest are negative Physical Exam Vital Signs: Temp: 98.8 F (37.1 C) | BP: 139/58 | Pulse: 75 | Resp: 16 | Pain Ratin (out of 10) | Weight: 82.2 kg (181 lb 3.2 oz) | O2 Device: Room Air O2 Flow Rate (L/min): 0 l/min | SpO2: 98 % Maximum Temperatures (last 24 hours) Temperature Maximum Max Temp 98.8 F (37.1 C) Intake and Output: 03/20 0700 - 03/21 0659 In: 756.1 [Oral:50] Out: 450 [Urine:450] Physical Exam Constitutional: General: She is not in acute distress. Appearance: She is not ill-appearing. HENT: Head: Normocephalic and atraumatic. Cardiovascular: Rate and Rhythm: Normal rate. Pulmonary: Effort: Pulmonary effort is normal. Breath sounds: Normal breath sounds. Abdominal: General: Abdomen is flat. Bowel sounds are normal. There is no distension. Palpations: Abdomen is soft. Tenderness: There is no abdominal tenderness. There is no guarding. Musculoskeletal: General: Swelling present. Comments: Dressing in place on LLE Skin: General: Skin is warm and dry. Neurological: Mental Status: She is oriented to person, place, and time. Psychiatric: Mood and Affect: Mood normal. Behavior: Behavior normal. Labs Labs (Last day) 03/21/21 0450 - 03/21/21 045 CHEMISTRY 03/21/21 0450 CHEMISTRY Glucose 70-100 (mg/dL) 97 Sodium 135-145 (meq/L) 142 Potassium 3.5-5.3 (meq/L) 4.1 Chloride 99-110 (meq/L) 107 CO2 20-29 (meq/L) 26 Anion Gap with K 6-20 (meq/L) 13 BUN 6-22 (mg/dL) 14 Creatinine 0.60-1.10 (mg/dL) 0.67 BUN/Creatinine Ratio 10.0-25.0 20.9 Calcium 8.5-10.5 (mg/dL) 9.1 eGFR >=60 (mL/min/1.73m2) >90 eGFR Non- >=60 (mL/min/1.73m2) 85 03/21/21 0450 - 03/20/21 1554 GENERAL COAGULATION 03/21/21 0450 03/21/21 0450 03/20/21 2202 03/20/21 1554 GENERAL COAGULATION Protime 12.0-14.5 (secs) 20.1 INR 2.0-3.5 1.9 APTT 24-35 (secs) 97 102 86 03/21/21 0450 - 03/21/21 0450 OTHER 03/21/21 0450 OTHER Age (Years) 76 Medical Decision making Medical Decision Making uPopeye piper MD - 03/21/2021 7:55 AM CDT Vascular Surgery Progress Note Subjective: Patient states that pain is improving from prior day SARATH wrap over LLE Working with Pt/ot Objective: Temp: 98.2 F (36.8 C) BP: 124/55 Pulse: 62 O2 Device: Room Air O2 Flow Rate (L/min): 0 l/min Resp: 16 Pain Ratin (out of 10) Weight: 82.2 kg (181 lb 3.2 oz) SpO2: 96 % Intake/Output Summary (Last 24 hours) at 03/21/2021 0757 Last data filed at 03/21/2021 0655 Gross per 24 hour Intake 756.11 ml Output 150 ml Net 606.11 ml Gen: no acute distress, resting comfortably in bed CV: RRR PULM: Non-labored breathing on room air ABD: soft, nontender, nondistended. EXT: Tender to palpation over the calf. SARATH wrap overtop the leg. Patient has good cap refill in toes and are well perfused. Labs/Imaging: Lab Results Component Value Date WBC 5.7 03/17/2021 NUCRBC 0 03/15/2021 RBC 3.05 (L) 03/17/2021 HEMOGLOBIN 9.2 (L) 03/19/2021 HEMATOCRIT 28.5 (L) 03/17/2021 MCV 93.4 03/17/2021 MCH 29.5 03/17/2021 MCHC 31.6 03/17/2021 RDW 13.8 08/08/2013 PLTCOUNT 276 03/17/2021 NEUTROPCT 62.7 03/15/2021 LYMPHSPCT 20.8 03/15/2021 MONOSPCT 8.9 03/15/2021 EOSPCT 6.3 03/15/2021 BASOPHILPCT 1.1 03/15/2021 Lab Results Component Value Date CO2 26 03/21/2021 GLUCOSE 97 03/21/2021 BUN 14 03/21/2021 CREATSERUM 0.67 03/21/2021 CA 9.1 03/21/2021 PHOSPHORUS 3.3 03/17/2021 ALBUMIN 2.9 (L) 03/17/2021 NA 142 03/21/2021 POTASSIUM 4.1 03/21/2021 CL 107 03/21/2021 Lab Results Component Value Date INR 1.9 (L) 03/21/2021 Assessment: 76yr old female admitted on 03/15/21 with occlusion of left SFA and popliteal arteries s/p PCI on 03/13. She underwent thrombectomy of the femoral and popliteal artery on 03/16/21. Doing well postoperatively, having some expected wound oozing due to plavix, improving daily. Hb hasbeen stable at 9.2, no concern for significant blood loss. Pulse exams stable. Plan: - Regular diet - activity as tolerated - scheduled bowel regimen - PT/OT - Continue heparin drip, bridge to coumadin, discontinue heparin drip once therapeutic on coumadin - Ok to change dressings PRN if saturated. Popeye Salgado MD General Surgery PGY-2 Jignesh Grullon MD - 03/20/2021 11:52 AM CDT Images from the original note were not included. DAILY PROGRESS NOTE Carmen Padgett is a 76yr old female admitted on 03/15/2021 9:44 AM. Impression / Plan 1.Severe peripheral vascular disease with concern for left leg ischemia status post left leg thrombectomy 03/16. Vascular surgery is following. Continue heparin for bridging. Continue coumadin. INR is 1.8. Continue bowel regimen. Continue triple therapy for one month then switched to Plavix and coumadin. Therapy is following and she may need placement. Please refer to CM note for further details 2.CAD status post CABG 12/2020 and recent history of STEMI status post RCA stent 02/2021. Continue aspirin and Plavix. Continue beta-deandra. ACEI on hold as BP has been better. 3.Status post pacemaker placement. Tele revealed A paced. Continue to monitor. 4.Hypertension. Continue beta-deandra. Hold SARATH inhibitor 5.Hypothyroidism. Continue levothyroxine 6.Previous history of AF S/P ablation. Continue beta-deandra. 7.Chronic Diastolic CHF. She is using torsemide at home will resume as it was hold for procedure. 8.GERD. Continue PPI 9.DVT prophylaxis. IV heparin and coumadin 10.CODE STATUS. Full Code DW patient at bed side and discuss with bed side nurse. All Q answered. Interval History HPI She has leg swelling. Diuretic were on hold / procedure No fever overnight Review of Systems Review of Systems Cardiovascular: Positive for leg swelling. Gastrointestinal: Negative for abdominal distention and abdominal pain. Musculoskeletal: Positive for arthralgias and gait problem. Skin: Positive for wound. Rest are negative Physical Exam Vital Signs: Temp: 98 F (36.7 C) | BP: 117/38 | Pulse: 64 | Resp: 17 | Pain Ratin (out of 10) | Weight: 82.2 kg (181 lb 3.2 oz) | O2 Device: Room Air O2 Flow Rate (L/min): 0 l/min | SpO2: 99 % Maximum Temperatures (last 24 hours) Temperature Maximum Max Temp 98.3 F (36.8 C) Intake and Output: 03/19 0700 - 03/20 0659 In: 2908 Out: 1100 [Urine:1100] Physical Exam Constitutional: General: She is not in acute distress. Appearance: She is not ill-appearing. HENT: Head: Normocephalic and atraumatic. Cardiovascular: Rate and Rhythm: Normal rate. Pulmonary: Effort: Pulmonary effort is normal. Breath sounds: Normal breath sounds. Abdominal: General: Abdomen is flat. Bowel sounds are normal. There is no distension. Palpations: Abdomen is soft. Tenderness: There is no abdominal tenderness. There is no guarding. Musculoskeletal: General: Swelling present. Comments: Dressing in place on LLE Skin: General: Skin is warm and dry. Neurological: Mental Status: She is oriented to person, place, and time. Psychiatric: Mood and Affect: Mood normal. Behavior: Behavior normal. Labs Labs (Last day) 03/19/21 1252 - 03/19/21 1252 CBC 03/19/21 1252 CBC Hemoglobin 11.5-15.8 (g/dL) 9.2 03/20/21 0919 - 03/19/21 1252 GENERAL COAGULATION 03/20/21 0919 03/20/21 0217 03/20/21 0217 03/19/21 1915 03/19/21 1252 GENERAL COAGULATION Protime 12.0-14.5 (secs) 19.4 INR 2.0-3.5 1.8 APTT 24-35 (secs) 102 121 97 97 Medical Decision making Medical Decision Making Fidelia Gomez MD - 03/20/2021 7:39 AM CDT Vascular Surgery Progress Note Subjective: Pain continues to improve but she had an increase in her pain yesterday after working with PT. PT/OTrecommending placement at the moment. Dressing changes are becoming less frequent. tolerating a regular diet, urinating well. No BM since surgery. Objective: Temp: 98.3 F (36.8 C) BP: 140/62 Pulse: 70 O2 Device: Room Air O2 Flow Rate (L/min): 2 l/min Resp: 16 Pain Ratin (out of 10) Weight: 82.2 kg (181 lb 3.2 oz) SpO2: 97 % Intake/Output Summary (Last 24 hours) at 03/20/2021 0741 Last data filed at 03/20/2021 0700 Gross per 24 hour Intake 2908 ml Output 1400 ml Net 1508 ml Gen: no acute distress, resting comfortably in bed CV: RRR PULM: Non-labored breathing on room air ABD: soft, nontender, nondistended. EXT: Tender to palpation over the calf. Dressings with small amount of bloody drainage. Dressing removed, underlying incision is clean with small areas of sanguinous oozing between kirby. Compartments soft and compressible. Palpable DP pulse, dopplerable PT pulse. Toes warm and well perfused. Labs/Imaging: Lab Results Component Value Date WBC 5.7 03/17/2021 NUCRBC 0 03/15/2021 RBC 3.05 (L) 03/17/2021 HEMOGLOBIN 9.2 (L) 03/19/2021 HEMATOCRIT 28.5 (L) 03/17/2021 MCV 93.4 03/17/2021 MCH 29.5 03/17/2021 MCHC 31.6 03/17/2021 RDW 13.8 08/08/2013 PLTCOUNT 276 03/17/2021 NEUTROPCT 62.7 03/15/2021 LYMPHSPCT 20.8 03/15/2021 MONOSPCT 8.9 03/15/2021 EOSPCT 6.3 03/15/2021 BASOPHILPCT 1.1 03/15/2021 Lab Results Component Value Date CO2 21 03/17/2021 GLUCOSE 84 03/17/2021 BUN 16 03/17/2021 CREATSERUM 0.67 03/17/2021 CA 8.4 (L) 03/17/2021 PHOSPHORUS 3.3 03/17/2021 ALBUMIN 2.9 (L) 03/17/2021 NA 138 03/17/2021 POTASSIUM 4.2 03/17/2021 CL 107 03/17/2021 Lab Results Component Value Date INR 1.8 (L) 03/20/2021 Assessment: 76yr old female admitted on 03/15/21 with occlusion of left SFA and popliteal arteries. She is also s/p PCI on 03/13 for STEMI. These two separate areas of thrombus in the LE may be secondary to cardiogenic thrombi associated with recent STEMI. She underwent thrombectomy of the femoral and popliteal artery on 03/16/21. Doing well postoperatively, having some expected wound oozing due to plavix, improving daily. Hb hasbeen stable at 9.2, no concern for significant blood loss. Pulse exams stable. Plan: - Regular diet - activity as tolerated - scheduled bowel regimen - PT/OT - Continue heparin drip, bridge to coumadin, discontinue heparin drip once therapeutic on coumadin - Ok to change dressings PRN if saturated. Fidelia Brandon MD PGY-1 Jignesh Grullon MD - 03/19/2021 9:47 PM CDT Images from the original note were not included. DAILY PROGRESS NOTE Carmen Padgett is a 76yr old female admitted on 03/15/2021 9:44 AM. Impression / Plan 1.Severe peripheral vascular disease with concern for left leg ischemia status post left leg thrombectomy 03/16. Pain is controlled. Vascular surgery is following. Continue heparin for bridging. Continue triple therapy for one month then switched to Plavix and coumadin. Therapy is following and she mayneed placement. Please refer to CM note for further details 2.CAD status post CABG 12/2020 and recent history of STEMI status post RCA stent 02/2021. Continue aspirin and Plavix. Continue beta-deandra. ACEI on hold as BP has been better. 3.Status post pacemaker placement. She is running atrial paced. Continue to monitor. 4.Hypertension. Continue beta-deandra. Hold SARATH inhibitor 5.Hypothyroidism. Continue levothyroxine 6.Previous history of AF S/P ablation. Continue beta-deandra. 7.GERD. Continue PPI 8.DVT prophylaxis. IV heparin and coumadin 8.CODE STATUS. Full Code Interval History HPI She had little oozing from the surgical wound No fever overnight Vascular following Review of Systems Review of Systems Gastrointestinal: Negative for abdominal distention and abdominal pain. Musculoskeletal: Positive for arthralgias and gait problem. Skin: Positive for wound. Rest are negative Physical Exam Vital Signs: Temp: 97.7 F (36.5 C) | BP: 111/51 | Pulse: 67 | Resp: 16 | Pain Rating: Other (specify) (pt sleeping) (out of 10) | Weight: 81.4 kg (179 lb 8 oz) | O2 Device: Room Air O2 Flow Rate (L/min): 2 l/min | SpO2: 97 % Maximum Temperatures (last 24 hours) Temperature Maximum Max Temp 98.7 F (37.1 C) Intake and Output: 03/18 0700 - 06/29 0659 In: - Out: 300 [Urine:300] Physical Exam Constitutional: General: She is not in acute distress. Appearance: She is not ill-appearing. HENT: Head: Normocephalic and atraumatic. Cardiovascular: Rate and Rhythm: Normal rate. Pulmonary: Effort: Pulmonary effort is normal. Breath sounds: Normal breath sounds. Abdominal: General: Abdomen is flat. Bowel sounds are normal. There is no distension. Palpations: Abdomen is soft. Tenderness: There is no abdominal tenderness. There is no guarding. Musculoskeletal: Comments: Dressing in place on LLE Skin: General: Skin is warm and dry. Neurological: Mental Status: She is oriented to person, place, and time. Psychiatric: Mood and Affect: Mood normal. Behavior: Behavior normal. Labs Labs (Last day) 03/19/21 1252 - 03/19/21 1252 CBC 03/19/21 1252 CBC Hemoglobin 11.5-15.8 (g/dL) 9.2 03/19/211914 - 03/19/21 0013 GENERAL COAGULATION 03/19/21 1915 03/19/21 1252 03/19/21 0609 03/19/21 0609 03/19/21 0013 GENERAL COAGULATION Protime 12.0-14.5 (secs) 16.4 INR 2.0-3.5 1.4 APTT 24-35 (secs) 97 97 118 94 Medical Decision making Medical Decision Making ITSFidelia Diamond MD - 03/19/2021 7:25 AM CDT Vascular Surgery Progress Note Subjective: Pain is improving. Dressing was changed once yesterday after some increased drainage when she stood up. Has been pivoting to transfer but is reluctant to put weight on her operative leg. No chest pain,no shortness of breath. No pain elsewhere. Objective: Temp: 98.7 F (37.1 C) BP: 104/81 Pulse: 67 O2 Device: Room Air O2 Flow Rate (L/min): 2 l/min Resp: 16 Pain Ratin (out of 10) Weight: 81.4 kg (179 lb 8 oz) SpO2: 99 % Intake/Output Summary (Last 24 hours) at 03/19/2021 0730 Last data filed at 03/18/2021 1510 Gross per 24 hour Intake Output 300 ml Net -300 ml Gen: no acute distress, resting comfortably in bed CV: RRR PULM: Non-labored breathing on room air ABD: soft, nontender, nondistended. EXT: Tender to palpation over the calf. Dressings with moderate amount of bloody drainage. Dressing removed, underlying incision is clean with small areas of sanguinous oozing between kirby. Compartments soft and compressible. Palpable DP pulse, dopplerable PT pulse. Toes warm and well perfused. Labs/Imaging: Lab Results Component Value Date WBC 5.7 03/17/2021 NUCRBC 0 03/15/2021 RBC 3.05 (L) 03/17/2021 HEMOGLOBIN 8.9 (L) 03/18/2021 HEMATOCRIT 28.5 (L) 03/17/2021 MCV 93.4 03/17/2021 MCH 29.5 03/17/2021 MCHC 31.6 03/17/2021 RDW 13.8 08/08/2013 PLTCOUNT 276 03/17/2021 NEUTROPCT 62.7 03/15/2021 LYMPHSPCT 20.8 03/15/2021 MONOSPCT 8.9 03/15/2021 EOSPCT 6.3 03/15/2021 BASOPHILPCT 1.1 03/15/2021 Lab Results Component Value Date CO2 21 03/17/2021 GLUCOSE 84 03/17/2021 BUN 16 03/17/2021 CREATSERUM 0.67 03/17/2021 CA 8.4 (L) 03/17/2021 PHOSPHORUS 3.3 03/17/2021 ALBUMIN 2.9 (L) 03/17/2021 NA 138 03/17/2021 POTASSIUM 4.2 03/17/2021 CL 107 03/17/2021 Lab Results Component Value Date INR 1.4 (L) 03/19/2021 Assessment: 76yr old female admitted on 03/15/21 with occlusion of left SFA and popliteal arteries. She is also s/p PCI on 03/13 for STEMI. These two separate areas of thrombus in the LE may be secondary to cardiogenic thrombi associated with recent STEMI. She underwent thrombectomy of the femoral and popliteal artery on 03/16/21. Doing well postoperatively, having some expected wound oozing due to plavix, this is improving. Managed with regular dressing changes. Plan: - Regular diet - activity as tolerated - PT/OT - Continue heparin drip, bridge to coumadin, discontinue heparin drip once therapeutic on coumadin - Ok to reinforce dressing if saturated, okay to loosen Kerlix roll if too tight. Fidelia Brandon MD PGY-1 Jignesh Grullon MD - 03/18/2021 12:30 PM CDT Images from the original note were not included. DAILY PROGRESS NOTE Carmen Padgett is a 76yr old female admitted on 03/15/2021 9:44 AM. Impression / Plan 1.Severe peripheral vascular disease with concern for left leg ischemia status post left leg thrombectomy 03/16. Pain is controlled. Vascular surgery is following and they recommend heparin. Will continue triple therapy for one month then switched to Plavix and coumadin. 2.CAD status post CABG 12/2020 and recent history of STEMI status post RCA stent 02/2021. Current denies chest pain. Continue aspirin and Plavix. Continue beta- deandra. ACEI on hold as BP has been better. Will resume if BP is elevated. 3.Status post pacemaker placement. She is running atrial paced. Will monitor. 4.Hypertension. Continue beta-deandra. Hold SARATH inhibitor 5.Hypothyroidism. Continue levothyroxine 6.Previous history of AF S/P ablation. Currently running a paced. Continue beta-deandra. 7.GERD. Continue PPI 8.DVT prophylaxis. IV heparin 8.CODE STATUS. Full Code Interval History HPI She is feeling better. No fever overnight Pain is controlled Tele revealed 100% A paced Review of Systems Review of Systems Gastrointestinal: Negative for abdominal distention and abdominal pain. Musculoskeletal: Positive for arthralgias and gait problem. Rest are negative Physical Exam Vital Signs: Temp: 98.2 F (36.8 C) | BP: 126/58 | Pulse: 67 | Resp: 16 | Pain Ratin (out of 10) | Weight: 86 kg (189 lb 9.6 oz) | O2 Device: Room Air O2 Flow Rate (L/min): 2 l/min | SpO2: 99 % Maximum Temperatures (last 24 hours) Temperature Maximum Max Temp 99 F (37.2 C) Intake and Output: 03/17 0700 - 03/18 0659 In: - Out: 2470 [Urine:2470] Physical Exam Constitutional: General: She is not in acute distress. Appearance: She is not ill-appearing. HENT: Head: Normocephalic and atraumatic. Cardiovascular: Rate and Rhythm: Normal rate. Pulmonary: Effort: Pulmonary effort is normal. Breath sounds: Normal breath sounds. Abdominal: General: Abdomen is flat. Bowel sounds are normal. There is no distension. Palpations: Abdomen is soft. Tenderness: There is no abdominal tenderness. There is no guarding. Musculoskeletal: Comments: Dressing in place on LLE Skin: General: Skin is warm and dry. Neurological: Mental Status: She is oriented to person, place, and time. Psychiatric: Mood and Affect: Mood normal. Behavior: Behavior normal. Labs Labs (Last day) 03/18/21 0700 - 03/18/21 0700 CBC 03/18/21 0700 CBC Hemoglobin 11.5-15.8 (g/dL) 8.9 03/18/21 0906 - 03/17/21 2221 GENERAL COAGULATION 03/18/21 0906 03/18/21 0756 03/18/21 0700 03/18/21 0700 03/17/21 2221 GENERAL COAGULATION Protime 12.0-14.5 (secs) 15.1 INR 2.0-3.5 1.3 APTT 24-35 (secs) 88 >150 >150 55 03/17/21 1608 - 03/17/21 1608 GENERAL COAGULATION 03/17/21 1608 GENERAL COAGULATION APTT 24-35 (secs) 70 Medical Decision making Medical Decision Making Fidelia Gomez MD - 03/18/2021 7:58 AM CDT Vascular Surgery Progress Note Subjective: No acute events overnight. Continues to have pain in her left leg with movement. This has been managed reasonably well with oxycodone. She says she was a little lightheaded after getting this but otherwise felt fine. Oneil removed yesterday, voiding independently. She is off bedrest but has had trouble getting up because of the pain. Objective: Temp: 98.7 F (37.1 C) BP: 112/56 Pulse: 67 O2 Device: Room Air O2 Flow Rate (L/min): 2 l/min Resp: 16 Pain Ratin (out of 10) Weight: 86 kg (189 lb 9.6 oz) SpO2: 99 % Intake/Output Summary (Last 24 hours) at 03/18/2021 0801 Last data filed at 03/18/2021 0311 Gross per 24 hour Intake Output 2470 ml Net -2470 ml Gen: no acute distress, resting comfortably in bed CV: RRR PULM: Non-labored breathing on room air ABD: soft, nontender, nondistended. EXT: Tender to palpation over the calf. Dressings intact, kerlix slightly tight around calf. Dressings taken down, underlying incision is clean with small areas of sanguinous oozing between kirby. Compartments soft and compressible. Palpable DP pulse, dopplerable PT pulse. Toes warm and well perfused. Labs/Imaging: Lab Results Component Value Date WBC 5.7 03/17/2021 NUCRBC 0 03/15/2021 RBC 3.05 (L) 03/17/2021 HEMOGLOBIN 8.9 (L) 03/18/2021 HEMATOCRIT 28.5 (L) 03/17/2021 MCV 93.4 03/17/2021 MCH 29.5 03/17/2021 MCHC 31.6 03/17/2021 RDW 13.8 08/08/2013 PLTCOUNT 276 03/17/2021 NEUTROPCT 62.7 03/15/2021 LYMPHSPCT 20.8 03/15/2021 MONOSPCT 8.9 03/15/2021 EOSPCT 6.3 03/15/2021 BASOPHILPCT 1.1 03/15/2021 Lab Results Component Value Date CO2 21 03/17/2021 GLUCOSE 84 03/17/2021 BUN 16 03/17/2021 CREATSERUM 0.67 03/17/2021 CA 8.4 (L) 03/17/2021 PHOSPHORUS 3.3 03/17/2021 ALBUMIN 2.9 (L) 03/17/2021 NA 138 03/17/2021 POTASSIUM 4.2 03/17/2021 CL 107 03/17/2021 Lab Results Component Value Date INR 1.3 (L) 03/18/2021 Assessment: 76yr old female admitted on 03/15/21 with occlusion of left SFA and popliteal arteries. She is also s/p PCI on 03/13 for STEMI. These two separate areas of thrombus in the LE may be secondary to cardiogenic thrombi associated with recent STEMI. She underwent thrombectomy of the femoral and popliteal artery on 03/16/21. Doing well postoperatively, having some expected wound oozing due to plavix Plan: - Regular diet - activity as tolerated - PT/OT - Continue heparin drip, bridge to coumadin - Ok to reinforce dressing if saturated, okay to loosen Kerlix roll if too tight. Fidelia Brandon MD PGY-1 Gabriela Shaikh MD - 03/17/2021 9:58 AM CDT Surgery Progress Note 03/17/2021 Subjective: No acute events overnight. Endorses pain to her leg when she is moving it. Denies nausea. Toleratingdiet. Voiding via oneil. Objective: Temp: 97.1 F (36.2 C) BP: 137/70 Pulse: 69 O2 Device: Room Air O2 Flow Rate (L/min): 2 l/min Resp: 16 Pain Ratin (out of 10) Weight: 86 kg (189 lb 9.6 oz) SpO2: 100 % Gen: no acute distress CV: RRR PULM: Non-labored ABD: soft, nontender, nondistended. EXT: pain with palpation of the calf. Compartments are soft. Dressing is dry. Strong DP and PT pulse. PO: 480 IV: 1550 UOP: 750 Labs/Imaging: Lab Results Component Value Date WBC 5.7 03/17/2021 NUCRBC 0 03/15/2021 RBC 3.05 (L) 03/17/2021 HEMOGLOBIN 9.0 (L) 03/17/2021 HEMATOCRIT 28.5 (L) 03/17/2021 MCV 93.4 03/17/2021 MCH 29.5 03/17/2021 MCHC 31.6 03/17/2021 RDW 13.8 08/08/2013 PLTCOUNT 276 03/17/2021 NEUTROPCT 62.7 03/15/2021 LYMPHSPCT 20.8 03/15/2021 MONOSPCT 8.9 03/15/2021 EOSPCT 6.3 03/15/2021 BASOPHILPCT 1.1 03/15/2021 Lab Results Component Value Date CO2 21 03/17/2021 GLUCOSE 84 03/17/2021 BUN 16 03/17/2021 CREATSERUM 0.67 03/17/2021 CA 8.4 (L) 03/17/2021 PHOSPHORUS 3.3 03/17/2021 ALBUMIN 2.9 (L) 03/17/2021 NA 138 03/17/2021 POTASSIUM 4.2 03/17/2021 CL 107 03/17/2021 Assessment: 76yr old female admitted on 03/15/21 with occlusion of left SFA and popliteal arteries s/p PCI on 03/13. She underwent thrombectomy of the femoral and popliteal artery on 03/16/21. Plan: - Oneil to come out - Regular diet - Off bedrest - PT/OT - Continue heparin drip -- Will start coumadin today Gabriela Gray MD [employer], PGY-3 Pager #[phone] Associated attestation - Femi Vogel DO - 03/17/2021 11:02 AM CDT I discussed the patient with the resident and personally interviewed and examined the patient. Had long discussion with patient and family about surgery, findings and perioperative care. Patient concerned for cost and financial obligation for eliquis, there for will look at warfarin. Physical Therapy can start. Strong DP pulse left foot. Calf is soft. I verified in the medical record all resident documentation/findings, including history, physical exam, and medical decision making, and I agree with the resident's documentation. Lelo Lafleur MD - 03/17/2021 7:52 AM CDT Hospital Progress Note Carmen Padgett is a 76yr old female admitted on 03/15/2021. Assessment / Plan 1. Left lower extremity critical limb ischemia 2. Thrombosis of left superficial femoral, popliteal, and tibial arteries with complete occlusion s/p thrombectomy (03/16/21) - Start Coumadin. Continue Heparin drip to bridge until INR therapeutic (okay to switch to Lovenox SQ for bridge whenever okay with vascular surgery). Patient prefers Coumadin over DOAC due to cost. - Continue pain management. Discontinue Toradol. - Continue Scopolamine patch for post-operative nausea - Reports adequate po intake. Discontinue IVF. - Vascular surgery following. Reviewed with Dr. Gray. - PT/OT 3. CAD s/p CABG (12/2020) and stenting of RCA in setting of STEMI (03/11/21) - Continue Plavix, ASA - To avoid long-term triple therapy, ASA can be discontinued 1 month after stent placement and patient can be continued on Plavix + Coumadin to reduce bleeding risk 4. Acute operative blood loss anemia - Hgb 9.0. No evidence of further bleeding. Continue to monitor. Chronic Conditions - s/p pacemaker placement - Chronic diastolic CHF: hold Torsemide - A.fib s/p ablation: continue Metoprolol - HTN: continue Metoprolol; hold Lisinopril - HLD: continue Rosuvastatin - Hypothyroidism: continue Levothyroxine - GERD: continue Protonix - Obesity: BMI 33.59 Health Maintenance - Code status: Full - DVT prophylaxis: systemically anticoagulated on Coumadin + Heparin drip - Disposition: awaiting medical stability and further recommendations from PT/OT HPI / History / ROS HPI Patient underwent left leg thrombectomy with vascular surgery yesterday. No operative complicationswere noted. No acute events overnight. Afebrile. VSS. Hgb 9.0. RFP WNL. Today, patient reports she has pain in her left foot when she attempts to bear weight. Denies any chest pain or shortness of breath. updated at bedside. Review of Systems Respiratory: Negative for shortness of breath. Cardiovascular: Negative for chest pain. Gastrointestinal: Negative for blood in stool. Genitourinary: Negative for difficulty urinating and hematuria. Musculoskeletal: Left foot pain Physical / Results Current Vital Signs Temp: 97.1 F (36.2 C) BP: 137/70 Pulse: 69 O2 Device: Room Air O2 Flow Rate (L/min): 2 l/min Resp: 16 Pain Ratin (out of 10) Weight: 86 kg (189 lb 9.6 oz) SpO2: 100 % Physical Exam Vitals and nursing note reviewed. Constitutional: General: She is not in acute distress. Appearance: She is not diaphoretic. Cardiovascular: Rate and Rhythm: Normal rate and regular rhythm. Comments: Left arm in sling Pulmonary: Effort: Pulmonary effort is normal. No respiratory distress. Breath sounds: No wheezing or rales. Musculoskeletal: Right lower leg: No edema. Left lower leg: No edema. Skin: General: Skin is warm and dry. Findings: No erythema or rash. Neurological: Mental Status: She is alert and oriented to person, place, and time. Lelo Lafleur MD, MPH Internal Medicine - Hospitalist Pager [phone] Lelo Lafleur MD - 03/16/2021 7:45 AM CDT Hospital Progress Note Carmen Padgett is a 76yr old female admitted on 03/15/2021. Assessment / Plan 1. Left lower extremity critical limb ischemia - Continue pain management - Vascular surgery following; plan for thrombectomy today - NPO. Start IVF: NS at 75 ml/hr - Start Scopolamine patch for prevention of post-operative nausea (patient reports it worked well for her after her CABG) 2. CAD s/p CABG (12/2020) and stenting of RCA in setting of STEMI (02/2021) - Cardiology consulted. Recommends to continue Plavix and ASA through surgery, as too high risk to hold DAPT given recent STEMI and stenting of RCA. Chronic Conditions - s/p pacemaker placement - Chronic diastolic CHF: hold Torsemide - A.fib s/p ablation: continue Metoprolol - HTN: continue Metoprolol; hold Lisinopril - HLD: continue Rosuvastatin - Hypothyroidism: continue Levothyroxine - GERD: continue Protonix - Obesity: BMI 30.11 Health Maintenance - Code status: Full - DVT prophylaxis: SCDs - Disposition: awaiting medical stability HPI / History / ROS HPI No acute events overnight. Afebrile. VSS. Today, patient reports that she only has severe pain in her left leg when bearing weight. She denies any significant pain at rest. Denies chest pain or shortness of breath. Requests a Scopolamine patch prior to surgery. Family updated at bedside. Review of Systems Constitutional: Negative for fever. Respiratory: Negative for shortness of breath. Cardiovascular: Negative for chest pain and leg swelling. Musculoskeletal: Left leg pain with movement Physical / Results Current Vital Signs Temp: 98.2 F (36.8 C) BP: 121/57 Pulse: 66 O2 Device: Room Air Resp: 16 Pain Ratin (out of 10) Weight: 77.1 kg (170 lb) SpO2: 98 % Physical Exam Vitals and nursing note reviewed. Constitutional: General: She is not in acute distress. Appearance: She is not diaphoretic. Cardiovascular: Rate and Rhythm: Normal rate and regular rhythm. Pulmonary: Effort: Pulmonary effort is normal. No respiratory distress. Breath sounds: No wheezing or rales. Musculoskeletal: Right lower leg: No edema. Left lower leg: No edema. Skin: General: Skin is warm and dry. Findings: No erythema or rash. Neurological: Mental Status: She is alert and oriented to person, place, and time. Lelo Lafleur MD, MPH Internal Medicine - Hospitalist Pager [phone] Gabriela Gray MD - 03/16/2021 7:29 AM CDT Surgery Progress Note 03/16/2021 Subjective: No acute events overnight. Denies pain. Was able to get some rest. Has a few questions about surgerythat were answered as able. Objective: Temp: 98.2 F (36.8 C) BP: 121/57 Pulse: 66 O2 Device: Room Air Resp: 16 Pain Ratin (out of 10) Weight: 77.1 kg (170 lb) SpO2: 98 % Gen: no acute distress CV: RRR PULM: non-labored ABD: soft, nontender, nondistended EXT: mild coolness to the left foot up to the mild calf. PO: 480 UOP: 3x Stool:1x Labs/Imaging: Lab Results Component Value Date WBC 4.6 03/15/2021 HEMOGLOBIN 11.0 (L) 03/15/2021 PLTCOUNT 321 03/15/2021 CREATSERUM 0.88 03/15/2021 POTASSIUM 3.6 03/15/2021 MAGNESIUM 2.3 01/18/2021 Assessment: 76yr old female admitted yesterday with occlusion of left SFA and popliteal arteries s/p PCI on 03/13. Plan for OR today for thrombectomy. Plan: - OR for thrombectomy - Ancef pre-operatively - Continue anti-platelet agents due to recent PCI and stenting Gabriela Gray MD [employer], PGY-3 Pager #[phone] Associated attestation - Femi Vogel DO - 03/16/2021 11:33 AM CDT I discussed the patient with the resident and personally interviewed and examined the patient. I verified in the medical record all resident documentation/findings, including history, physical exam, and medical decision making, and I agree with the resident's documentation. Cande Chatterjee APRN-CNP - 03/15/2021 2:01 PM CDT Electrophysiology: Contacted by pacemaker nurses that atrial lead threshold has increased since implantation. Continuesto capture. Patient is not pacemaker dependent. Will obtain CXR while in ED and review with Dr. Isaacs upon his return next week. Ernestine Lambert PHARM D - 03/15/2021 1:17 PM CDT 03/15/2021 1:17 PM CDT -- Patient was seen by the pharmacy med reconciliation team and HOME MEDICATIONS have been reconciled and updated to match the patient's home usage. Med rec completed with patient at bedside. Ernestine Lambert PharmD documented in this encounter H&P Notes Jignesh Pride MD - 03/15/2021 1:15 PM CDT ADMISSION HISTORY AND PHYSICAL NOTE Patient ID: Carmen Padgett is a 76yr female. PCP: Osito iHcks MD Attending Provider: Jignesh Pride MD SHAISTA: [phone] Impression / Plan 1.Severe peripheral vascular disease with concern for left leg ischemia. CTA done which revealed occlusions of superficial femoral and popliteal arteries. NATALIE shows severe arterial disease on left side. Her pulses are palpable but faint. Vascular surgery following and plan for thrombectomy tomorrow.Discussed with surgeon and he recommend no need of IV heparin. Further management per vascular. NPO at midnight. 2.CAD status post CABG 12/2020 and recent history of STEMI status post RCA stent 02/2021. Current denies chest pain. Will continue aspirin and Plavix. Can't hold plavix due to recent STEMI. Continue beta-deandra. Will hold SARATH inhibitor in anticipation of procedure. Cardiology consulted for preop clearance given recent STEMI 3.Status post pacemaker placement. Pacemaker interrogation done which revealed increased atrial pacing. EP is following and make some adjustment next week. 4.Hypertension. Continue beta-deandra. Hold SARATH inhibitor 5.Hypothyroidism. Continue levothyroxine 6.Previous history of atrial fibrillation status post ablation currently off anticoagulation. Continue beta-deandra. Will monitor on telemetry. 7.GERD. Continue PPI 8.DVT prophylaxis. Will defer for now given need for surgery 8.CODE STATUS. Full Code Plan of care discussed with patient. She verbalized understanding and agreed with plan. All question answered. Chief Complaint / HPI HPI 76-year-old female with a recent history of coronary artery disease status post CABG x3 in December 2020, history of recent pacemaker placement, recent history of acute MD involving right coronary artery with stent placement, peripheral vascular disease, hypertension, hypothyroidism, psoriasis, previous history of atrial fibrillation status post ablation off anticoagulation now was on Eliquis previouslypresented to hospital with claudication symptoms. Patient has been endorsing claudication symptoms which has been getting worse lately. She denies GI and genitourinary symptoms. No chest pain, shortness of breath, dizziness lightheadedness and syncopal episode. No fever or cough fever she had a cecilia luation done. CTA A/P revealed vascular disease involving entire abdominal aorta and vascular disease in bilateral lower extremities. There is left distal superficial femoral artery occlusion with reconstitution. No biliary dilatation gallbladder normal. Small bowel within normal limits. Patient was admitted to hospital for thrombectomy. Medications Prior to Admission Medications Prescriptions Last Dose Informant Patient Reported? Taking? Calcium Carbonate-Vit D-Min (CALCIUM 1200) 5279-3011 MG-UNIT CHEW 03/14/2021 at PM Self Yes Yes Sig: Take 1 gummy by mouth every night at bedtime acetaminophen (TYLENOL ARTHRITIS) 650 mg CR tablet 03/14/2021 at PM Self No Yes Sig: Take 2 tablets (1,300 mg) by mouth 3 times a day as needed for moderate pain aspirin (ECOTRIN LOW STRENGTH) 81 MG enteric coated tablet 03/15/2021 at AM Self No Yes Sig: Take 1 tablet (81 mg) by mouth 1 time per day clopidogrel (PLAVIX) 75 mg tablet 03/15/2021 at AM Self No Yes Sig: Take 1 tablet (75 mg) by mouth 1 time per day fluocinonide (LIDEX) 0.05 % SOLN Greater than 1 Month at PRN Self Yes Yes Sig: Apply topically 3 times a day as needed for rash levothyroxine 100 mcg tablet 03/15/2021 at AM Self No Yes Sig: Take 1 tablet (100 mcg) by mouth 1 time per day lisinopril (PRINIVIL, ZESTRIL) 5 mg tablet 03/15/2021 at AM Self Yes Yes Sig: Take 1 tablet (5 mg) by mouth 1 time per day metoprolol tartrate (LOPRESSOR) 25 mg tablet 03/15/2021 at AM Self No Yes Sig: Take 1 tablet (25 mg) by mouth 2 times a day nitroglycerin (NITROSTAT) 0.4 mg sublingual tablet Greater than 1 Month at PRN Self No Yes Sig: Dissolve 1 tablet (0.4 mg) under the tongue Every 5 minutes as needed for chest pain May repeatevery 5 minutes for a total of 3 doses. pantoprazole (PROTONIX) 40 mg enteric coated tablet 03/14/2021 at 1200 Self Yes Yes Sig: Take 1 tablet (40 mg) by mouth 1 time per day rosuvastatin (CRESTOR) 20 mg tablet 03/15/2021 at AM Self No Yes Sig: Take 1 tablet (20 mg) by mouth 1 time per day torsemide (DEMADEX) 20 mg tablet 03/15/2021 at AM Self Yes Yes Sig: Take 1 tablet (20 mg) by mouth 1 time per day vitamin D3, cholecalciferol, 25 mcg (1000 unit) tablet 03/14/2021 at PM Self Yes Yes Sig: Take 50 mcg by mouth every night at bedtime Facility-Administered Medications: None Allergies Allergies Allergen Reactions Hydrocodone Nausea and Vomiting Hydromorphone Nausea and Vomiting Medical / Surgical / Family History Past Medical History: Diagnosis Date Anesthesia complication slow to awaken Atrial fibrillation (HCC) Basal cell carcinoma Bilateral sacral insufficiency fracture 02/25/2018 Cataract Closed wedge compression fracture of T11 vertebra (HCC) 12/17/2015 Coronary artery disease Gastroesophageal reflux disease Hyperlipidemia Hypertension, essential Hypothyroidism Left renal artery stenosis (HCC) Macular degeneration Obesity Osteoarthritis Osteoporosis Peripheral vascular disease ([facility]) 03/14/2021 Psoriasis Seborrheic dermatitis Tubular adenoma of colon 05/12/2019 Both less than 1 cm. Past Surgical History: Procedure Laterality Date ATRIOVENTRICULAR NODE ABLATION PRECISION LENS GRINDER CABG N/A 01/17/2021 Procedure: CORONARY ARTERY BYPASS GRAFTING X3, B[place] TO LAD, RAG FROM [place] TO OBTUSE MARGINAL TO POSTERIOR DESCENDING ARTERY, ENDOSCOPIC RADIAL ARTERY HARVEST, OFF PUMP;; Surgeon: Julieta Eaton MD CARDIAC CATHETERIZATION 01/15/2021 CARDIOVERSION 2014 COLON POLYP BX N/A 05/12/2019 Procedure: COLONOSCOPY WITH POLYP/BIOPSY;; Surgeon: Michael Proctor MD HEMORRHOID SURGERY IR VERTEBROPLASTY 2016 L2 Family History Problem Relation Age of Onset Coronary Artery Disease Father Hypertension Father Hyperlipidemia Father Hypertension Mother Hyperlipidemia Mother Diabetes Type 2 Mother Colorectal Cancer Paternal Grandfather Atrial fibrillation Sister Hypertension Sister Atrial fibrillation Brother Diabetes Type 2 Brother Hypertension Brother Alcohol Abuse Brother Hypertension Brother Atrial fibrillation Brother Alcohol Abuse Brother Parkinsonism Paternal Grandmother Ulcerative Colitis Daughter Social History Social History Tobacco Use Smoking status: Former Smoker Packs/day: 1.00 Years: 15.00 Pack years: 15.00 Types: Cigarettes Quit date: 09/21/1978 Years since quittin.5 Smokeless tobacco: Never Used Substance Use Topics Alcohol use: No Alcohol/week: 0.0 standard drinks Drug use: No ROS Review of Systems Constitutional: Positive for activity change. Negative for chills and fever. Eyes: Negative for photophobia and visual disturbance. Respiratory: Negative for cough and shortness of breath. Cardiovascular: Negative for chest pain and leg swelling. Gastrointestinal: Negative for abdominal distention, abdominal pain, nausea and vomiting. Genitourinary: Negative for difficulty urinating, dysuria, flank pain and frequency. Musculoskeletal: Positive for gait problem. Skin: Negative for color change and pallor. Neurological: Negative for dizziness, light-headedness and headaches. Psychiatric/Behavioral: Negative for agitation, behavioral problems and confusion. Physical Exam BP 128/58 | Pulse 66 | Temp 98 F (36.7 C) | Resp 16 | Ht 1.6 m (5' 3") | Wt 77.1 kg (170 lb) | LMP (LMP Unknown) | SpO2 97% | BMI 30.11 kg/m Physical Exam Constitutional: General: She is not in acute distress. Appearance: She is not ill-appearing. HENT: Head: Normocephalic and atraumatic. Nose: No congestion or rhinorrhea. Eyes: General: Right eye: No discharge. Left eye: No discharge. Cardiovascular: Rate and Rhythm: Normal rate. Pulmonary: Effort: Pulmonary effort is normal. Breath sounds: Normal breath sounds. Abdominal: General: Abdomen is flat. Bowel sounds are normal. There is no distension. Palpations: Abdomen is soft. Tenderness: There is no abdominal tenderness. Musculoskeletal: General: Normal range of motion. Skin: General: Skin is warm and dry. Neurological: Mental Status: She is oriented to person, place, and time. Psychiatric: Mood and Affect: Mood normal. Behavior: Behavior normal. Labs Labs (Last day) No results found within the past day. Procedures Procedures Medical Decision Making Medical Decision Making documented in this encounter Consult Notes Verónica Blum MD - 03/15/2021 2:19 PM CDTAssociated Order(s): CONSULT CARDIOLOGY Cardiology Consult Note CONSULT CARDIOLOGY Consult performed by: Verónica Blum MD Consult ordered by: Kane Gonzales MD Assessment / Plan Active Problems: PVD (peripheral vascular disease) (HCC) #CADstatus post CABG in December 2020 #STEMIstatus post RCA PCI with CARMELINA on 03/11/2021 #Possible history of paroxysmal atrial fibrillation #Left leg claudication with superficial femoral and popliteal artery occlusions #Perioperative evaluation Impression Carmen Padgett is a 76-year-old female with significant vascular pathology who unfortunately had a STEMI 4 days ago and now has left leg superficial femoral and popliteal occlusions with ischemic leg. Needs urgent thrombectomy for critical limb ischemia. Recommendation Would recommend operating and doing thrombectomy on aspirin and Plavix. Needs the procedure to saveher leg but cannot stop antiplatelet due to recent PCI. Due to her significant vasculopathy, after 30 days, she may benefit from transition to Plavix and Xarelto for improved outcomes. This would also provide anticoagulation for any questionable paroxysmalatrial fibrillation. Will get pacemaker interrogation to see if there is any underlying A. fib rhythm since discharge. Thank you for the consultation. Cardiology will sign off. Please call with any questions or concerns or any perioperative complications. Patient was seen and assessment and plan were discussed with Dr. Espnioza of cardiology Verónica Blum MD MPH [facility] Internal Medicine Resident-PGY3 Pager #[phone] [facility] Reason for Consult STEMI 4 days ago, pre-op evaluation prior to femoral thrombectomy HPI / History / ROS HPI Carmen Padgett is a 76-year-old female who was discharged 2 days ago after she was treated for a STEMI with drug-eluting stent to the RCA. STEMI occurred after having a pacemaker implantedpossibly unrelated. She has known coronary disease, had CABG in December [address] Hernandez. She has been having chronic lower extremity claudication however after going home she had severe pain with any activity and she went to see her primary care provider. He noticed that the left leg was cold compared to the right in order to CTA with runoff of the lower extremities. There is found to be a superficial femoral and popliteal occlusion on the left. As such she was recommended to come to [place] for vascular surgery evaluation. She denies chest pain or shortness of breath currently. Pacemaker site is looking well and without pain. No dizziness or palpitations, no fever or chills. History Patient Active Problem List Diagnosis Hypothyroidism Hyperlipidemia Atrial fibrillation (HCC) Hypertension, essential Gastroesophageal reflux disease Obesity Macular degeneration Psoriasis Osteoporosis Seborrheic dermatitis Osteoarthritis Coronary artery disease Peripheral vascular disease (HCC) PVD (peripheral vascular disease) ([facility]) Current Facility-Administered Medications Medication Dose Route Frequency pantoprazole (PROTONIX) enteric coated tablet 40 mg 40 mg Oral daily sodium chloride 0.9% flush (adult) 10 mL 10 mL IV 2 times a day and prn nalOXone (NARCAN) injection solution (vial) 0.4 mg 0.4 mg Injection Every 2 minutes prn nalOXone (NARCAN) injection solution (vial) 0.2 mg 0.2 mg Injection Every 2 minutes prn acetaminophen (TYLENOL) tablet 650 mg 650 mg Oral Every 4 hours prn melatonin tablet 3 mg 3 mg Oral Bedtime prn senna-docusate sodium (SENOKOT-S;PERICOLACE) tablet 2 tablet 2 tablet Oral 2 times a day prn And bisacodyl (DULCOLAX) suppository 10 mg 10 mg Rectal 1 time a day prn And docusate sodium (THEREVAC-SB MINI;ENEMEEZ MINI) 283 MG enema 1 enema 1 enema Rectal 1 time a day prn ondansetron (ZOFRAN ODT) dispersible tablet 4 mg 4 mg Oral 4 times a day prn And ondansetron (ZOFRAN) injection solution 4 mg 4 mg IV 4 times a day prn [START ON 03/16/2021] aspirin enteric coated tablet 81 mg 81 mg Oral daily [START ON 03/16/2021] levothyroxine tablet 100 mcg 100 mcg Oral daily metoprolol tartrate (LOPRESSOR) tablet 25 mg 25 mg Oral 2 times a day vitamin D3 (cholecalciferol) tablet 50 mcg 50 mcg Oral at bedtime [START ON 03/16/2021] rosuvastatin (CRESTOR) tablet 20 mg 20 mg Oral daily nitroglycerin (NITROSTAT) sublingual tablet 0.4 mg 0.4 mg Sublingual Every 5 minutes prn [START ON 03/16/2021] clopidogrel (PLAVIX) tablet 75 mg 75 mg Oral daily ceFAZolin (ANCEF) 2000 mg/20 mL sterile water IV syringe 2,000 mg IV call center director Allergies Allergen Reactions Hydrocodone Nausea and Vomiting Hydromorphone Nausea and Vomiting Past Medical History: Diagnosis Date Anesthesia complication slow to awaken Atrial fibrillation (HCC) Basal cell carcinoma Bilateral sacral insufficiency fracture 02/25/2018 Cataract Closed wedge compression fracture of T11 vertebra (HCC) 12/17/2015 Coronary artery disease Gastroesophageal reflux disease Hyperlipidemia Hypertension, essential Hypothyroidism Left renal artery stenosis (HCC) Macular degeneration Obesity Osteoarthritis Osteoporosis Peripheral vascular disease (HCC) 03/14/2021 Psoriasis Seborrheic dermatitis Tubular adenoma of colon 05/12/2019 Both less than 1 cm. Past Surgical History: Procedure Laterality Date ATRIOVENTRICULAR NODE ABLATION PRECISION LENS GRINDER CABG N/A 01/17/2021 Procedure: CORONARY ARTERY BYPASS GRAFTING X3, BARR[place] TO LAD, RAG FROM [place] TO OBTUSE MARGINAL TO POSTERIOR DESCENDING ARTERY, ENDOSCOPIC RADIAL ARTERY HARVEST, OFF PUMP;; Surgeon: Julieta Eaton MD CARDIAC CATHETERIZATION 01/15/2021 CARDIOVERSION 2014 COLON POLYP BX N/A 05/12/2019 Procedure: COLONOSCOPY WITH POLYP/BIOPSY;; Surgeon: Michael Proctor MD HEMORRHOID SURGERY IR VERTEBROPLASTY 2016 L2 Family History Problem Relation Age of Onset Coronary Artery Disease Father Hypertension Father Hyperlipidemia Father Hypertension Mother Hyperlipidemia Mother Diabetes Type 2 Mother Colorectal Cancer Paternal Grandfather Atrial fibrillation Sister Hypertension Sister Atrial fibrillation Brother Diabetes Type 2 Brother Hypertension Brother Alcohol Abuse Brother Hypertension Brother Atrial fibrillation Brother Alcohol Abuse Brother Parkinsonism Paternal Grandmother Ulcerative Colitis Daughter Social History Socioeconomic History Marital status: Spouse name: Dom Number of children: 2 Years of education: 12 Highest education level: Not on file Occupational History Occupation: Retired Tobacco Use Smoking status: Former Smoker Packs/day: 1.00 Years: 15.00 Pack years: 15.00 Types: Cigarettes Quit date: 09/21/1978 Years since quittin.5 Smokeless tobacco: Never Used Substance and Sexual Activity Alcohol use: No Alcohol/week: 0.0 standard drinks Drug use: No Sexual activity: Not Currently Partners: Male control/protection: Post-menopausal Social Determinants of Health Physical Activity: Insufficiently Active Days of Exercise per Week: 4 days Minutes of Exercise per Session: 30 min Stress: No Stress Concern Present Feeling of Stress : Only a little Social Connections: Frequency of Communication with Friends and Family: Frequency of Social Gatherings with Friends and Family: Attends Restoration Services: Active Member of Clubs or Organizations: Attends Club or Organization Meetings: Marital Status: Intimate Partner Violence: Fear of Current or Ex-Partner: Emotionally Abused: Physically Abused: Sexually Abused: Financial Resource Strain: Difficulty of Paying Living Expenses: Food Insecurity: Worried About Running Out of Food in the Last Year: Ran Out of Food in the Last Year: Transportation Needs: Lack of Transportation (Medical): Lack of Transportation (Non-Medical): Review of Systems Review of Systems Complete 12 point review of systems performed and negative except as listed in the HPI Physical / Results Current Vital Signs Temp: 98 F (36.7 C) BP: 128/58 Weight: 77.1 kg (170 lb) SpO2: 97 % Resp: 16 Pulse: 62 Current BMI (>50 = increased risk): (!) 30.12 O2 Device: Room Air Lab Results - 24 Hours Procedure Component Value Units Date/Time COMPLETE BLOOD COUNT WITH DIFFERENTIAL [[id number]] Order Status: Sent Specimen: Blood Narrative: The following orders were created for panel order COMPLETE BLOOD COUNT WITH DIFFERENTIAL. Procedure Abnormality Status --------- ------ LAB ONLY-COMPLETE BLOOD ...[[id number]] Please view results for these tests on the individual orders. BASIC METABOLIC PANEL [[id number]] Order Status: Sent Specimen: Blood LAB ONLY-COMPLETE BLOOD COUNT WITH DIFFERENTIAL [[id number]] Order Status: Sent Specimen: Blood Physical Exam Constitutional: No distress. HENT: Nose: Nose normal. Eyes: Conjunctivae are normal. Neck: No JVD present. Cardiovascular: Normal rate, regular rhythm, S1 normal and S2 normal. Pulses: Radial pulses are 2+ on the right side and 2+ on the left side. Dorsalis pedis pulses are 0 on the right side. Pulmonary/Chest: Effort normal and breath sounds normal. No stridor. She has no wheezes. She has no rales. She exhibits no tenderness. Abdominal: Soft. She exhibits no distension. There is no abdominal tenderness. Musculoskeletal: General: No tenderness or edema. Cervical back: Neck supple. Comments: Left Leg cool compared to right limb (warm) Associated attestation - Indigo Espinoza MD - 03/15/2021 3:56 PM CDT I discussed the patient with the resident and personally interviewed and examined the patient. I verified in the medical record all resident documentation/findings, including history, physical exam, and medical decision making, and I agree with the resident's documentation.Fidelia Damian MD - 03/15/2021 1:04 PM CDT VASCULAR SURGERY CONSULTATION Date of Consultation: 03/15/2021 Attending Physician Consulted: Femi Vogel Reason for Consult: Left leg ischemia HISTORY OF PRESENT ILLNESS: Carmen Padgett is a 76yr female with history of atrial fibrillation and coronary artery disease s/pCABG and recent STEMI requiring PCI. She presented to [facility] on 03/15/2021 with concerns of left leg ischemia. She was recently admitted on 03/11 with chest pain and shortness of breath. She recently underwent CABG on 01/17/2021 and dual chamber pacemaker insertion on 03/11 for afib. She was discharged home after her pacemaker insertion but returned later that day with chest pain. She was found to have occlusion of her bypass graft which required stent placement. At the time her chest pain onset, she also noted severe pain in her left leg and was unable to walk more than 10-20 feet without pain. However, this was not addressed during her hospital stay for her STEMI. She discharged home on 03/13 after her PCI, but continued to have left leg pain so presenter to her PCP on 03/14. CTA with runoff was ordered which showed occlusions of the superficial femoral and popliteal arteries, so she was instructed to present to [facility] to see vascular surgery. She reports she has exertional pain with pretty much any use of her left leg. She has not had further chest pain or shortness of breath. Past Medical History: Diagnosis Date Anesthesia complication slow to awaken Atrial fibrillation (HCC) Basal cell carcinoma Bilateral sacral insufficiency fracture 02/25/2018 Cataract Closed wedge compression fracture of T11 vertebra ([facility]) 12/17/2015 Coronary artery disease Gastroesophageal reflux disease Hyperlipidemia Hypertension, essential Hypothyroidism Left renal artery stenosis (HCC) Macular degeneration Obesity Osteoarthritis Osteoporosis Peripheral vascular disease ([facility]) 03/14/2021 Psoriasis Seborrheic dermatitis Tubular adenoma of colon 05/12/2019 Both less than 1 cm. Past Surgical History: Procedure Laterality Date ATRIOVENTRICULAR NODE ABLATION PRECISION LENS GRINDER CABG N/A 01/17/2021 Procedure: CORONARY ARTERY BYPASS GRAFTING X3, BARRAGAN TO LAD, RAG FROM BARRAGAN TO OBTUSE MARGINAL TO POSTERIOR DESCENDING ARTERY, ENDOSCOPIC RADIAL ARTERY HARVEST, OFF PUMP;; Surgeon: Julieta Eaton MD CARDIAC CATHETERIZATION 01/15/2021 CARDIOVERSION 2013 COLON POLYP BX N/A 05/12/2019 Procedure: COLONOSCOPY WITH POLYP/BIOPSY;; Surgeon: Michael Proctor MD HEMORRHOID SURGERY IR VERTEBROPLASTY 2016 L2 Allergies Allergen Reactions Hydrocodone Nausea and Vomiting Hydromorphone Nausea and Vomiting MEDICATIONS: No current facility-administered medications on file prior to encounter. Current Outpatient Medications on File Prior to Encounter Medication Sig Dispense Refill pantoprazole (PROTONIX) 40 mg enteric coated tablet Take 1 tablet (40 mg) by mouth 1 time per day torsemide (DEMADEX) 20 mg tablet Take 1 tablet (20 mg) by mouth 1 time per day lisinopril (PRINIVIL, ZESTRIL) 5 mg tablet Take 1 tablet (5 mg) by mouth 1 time per day fluocinonide (LIDEX) 0.05 % SOLN Apply topically 3 times a day as needed for rash acetaminophen (TYLENOL ARTHRITIS) 650 mg CR tablet Take 2 tablets (1,300 mg) by mouth 3 times a day as needed for moderate pain aspirin (ECOTRIN LOW STRENGTH) 81 MG enteric coated tablet Take 1 tablet (81 mg) by mouth 1 timeper day 30 tablet 3 nitroglycerin (NITROSTAT) 0.4 mg sublingual tablet Dissolve 1 tablet (0.4 mg) under the tongue Every 5 minutes as needed for chest pain May repeat every 5 minutes for a total of 3 doses. 30 tablet 0 rosuvastatin (CRESTOR) 20 mg tablet Take 1 tablet (20 mg) by mouth 1 time per day 30 tablet 0 [START ON 04/12/2021] clopidogrel (PLAVIX) 75 mg tablet Take 1 tablet (75 mg) by mouth 1 time perday 90 tablet 3 metoprolol tartrate (LOPRESSOR) 25 mg tablet Take 1 tablet (25 mg) by mouth 2 times a day 180 tablet 4 vitamin D3, cholecalciferol, 25 mcg (1000 unit) tablet Take 50 mcg by mouth every night at bedtime Calcium Carbonate-Vit D-Min (CALCIUM 1200) 9586-4105 MG-UNIT CHEW Take 1 gummy by mouth every night at bedtime levothyroxine 100 mcg tablet Take 1 tablet (100 mcg) by mouth 1 time per day 90 tablet 3 Social History Socioeconomic History Marital status: Spouse name: Dom Number of children: 2 Years of education: 12 Highest education level: Not on file Occupational History Occupation: Retired Tobacco Use Smoking status: Former Smoker Packs/day: 1.00 Years: 15.00 Pack years: 15.00 Types: Cigarettes Quit date: 09/21/1978 Years since quittin.5 Smokeless tobacco: Never Used Substance and Sexual Activity Alcohol use: No Alcohol/week: 0.0 standard drinks Drug use: No Sexual activity: Not Currently Partners: Male control/protection: Post-menopausal Other Topics Concern Transportation No Stress in your marriage No Stress with your relationship No Stress with your family No Parenting/Being a parent No Daycare concerns No Not enough social support No Housing problems No Financial stress No Safety/danger No Work/job stress No Legal stress No Time conflicts (feeling too busy) No Academic/school stress No Language difficulties No Spiritual concerns No Insurance problems No The cost of having to take medication No The costs of buying food/groceries No Illness of family member/friend/relative No of a family member/friend/relative No Violence in your relationship No Abuse/neglect No Community stress No Cultural barriers No Ability to do self cares Yes Social History Narrative Not on file Social Determinants of Health Financial Resource Strain: Difficulty of Paying Living Expenses: Food Insecurity: Worried About Running Out of Food in the Last Year: Ran Out of Food in the Last Year: Transportation Needs: Lack of Transportation (Medical): Lack of Transportation (Non-Medical): Physical Activity: Insufficiently Active Days of Exercise per Week: 4 days Minutes of Exercise per Session: 30 min Stress: No Stress Concern Present Feeling of Stress : Only a little Social Connections: Frequency of Communication with Friends and Family: Frequency of Social Gatherings with Friends and Family: Attends Restoration Services: Active Member of Clubs or Organizations: Attends Club or Organization Meetings: Marital Status: Intimate Partner Violence: Fear of Current or Ex-Partner: Emotionally Abused: Physically Abused: Sexually Abused: Family History Problem Relation Age of Onset Coronary Artery Disease Father Hypertension Father Hyperlipidemia Father Hypertension Mother Hyperlipidemia Mother Diabetes Type 2 Mother Colorectal Cancer Paternal Grandfather Atrial fibrillation Sister Hypertension Sister Atrial fibrillation Brother Diabetes Type 2 Brother Hypertension Brother Alcohol Abuse Brother Hypertension Brother Atrial fibrillation Brother Alcohol Abuse Brother Parkinsonism Paternal Grandmother Ulcerative Colitis Daughter REVIEW OF SYSTEMS: Review of Systems - History obtained from the patient General: No fevers, chills, weakness HEENT: no sore throat, cough, runny nose, changes in vision Cardiovascular: recent MD, stent placement Pulmonary: no shortness of breath Gastrointestinal: no nausea, constipation, or diarrhea Genitourinary: no difficulty with urination Integument: no rash or itching Hematologic: currently anticoagulated Neurologic: no numbness, tingling, or focal weakness PHYSICAL EXAM: Physical Exam: BP 128/58 Pulse 66 Temp 98 F (36.7 C) Resp 16 Ht 160 cm (63") Wt 77.1 kg (170 lb) SpO2 97% BMI 30.11 kg/m2|| General Appearance: Alert, cooperative, no distress, appears stated age Head: Normocephalic, without obvious abnormality, atraumatic Lungs: Clear to auscultation bilaterally Heart: Regular rate and rhythm Abdomen: Soft, non-distended, non tender to palpation Extremities: Left extremity is slightly cool compared to the right. No ulcerations or wounds. Intact motor and sensory function to left foot and ankle Pulses: Right DP and PT pulses are palpable Left femoral pulse is palpable. Left popliteal pulse is non-palpable but dopplerable. DP and PT pulses are not palpable. PT pulse is not dopplerable, DP pulse is faintly doppelrable. Capillary refill is >3 seconds and sluggish Skin: Skin color, texture, turgor normal, no rashes or lesions Neurologic: Grossly intact. Normal strength, sensation throughout LABS: Recent Labs 03/13/21 0822 POTASSIUM 3.9 CO2 23 CREATSERUM 0.80 BUN 15 GLUCOSE 117* WBC 5.3 HEMOGLOBIN 11.2* HEMATOCRIT 35.7 IMAGING STUDIES: CTA Abdomen with runoff IMPRESSION: 1. Mixed atherosclerotic vascular disease involving entire abdominal aorta and scattered disease in both lower extremity vessels as mentioned. Dominant finding is in the left distal superficial femoral artery with almost 2.5 cm segment of occlusion with reconstitution distally and also 78 cm popliteal artery occlusion as mentioned with a diminutive caliber left lower extremity flow. 2. Focal areas of infarcts in the splenic parenchyma as mentioned. Ankle Brachial Index FINDINGS: RIGHT: Brachial 134 mmHg LYFT DRIVER 144 mmHg, triphasic: NATALIE: 1.07 DPA 140 mmHg, triphasic: NATALIE: 1.04 Digit 105 mmHg, DBI: 0.78 Ankle PVR Normal NATALIE 1.07 LEFT: Brachial Not obtained due to sling LYFT DRIVER 44 mmHg, monophasic: NATALIE: 0.33 DPA 47 mmHg, monophasic: NATALIE: 0.35 Digit Absent flow Ankle PVR Severe NATALIE 0.35 IMPRESSION: 1. Right lower extremity ankle brachial index is normal at rest. 2. Left lower extremity ankle brachial index demonstrates severe arterial disease at rest. 3. Unable to detect flow in left digit. ASSESSMENT: Carmen Padgett is a 76yr female with PMH significant for afib s/p pacemaker, CABG, and recent bypass graft occlusion resulting in STEMI and requiring stent placement. She presented on 03/15/2021 with left lower extremity critical limb ischemia. She has occlusions of her left superficial femoral and popliteal artery with a small amount of flow preserved through collateral circulation. ABIs are consistent with severe limb ischemia. This is mostlikely due to acute on chronic occlusion of stenosed arteries with acute thrombus. Likely cardiogenic in source given her recent STEMI. Discussed with the patient that this will require surgical intervention to restore perfusion to her left leg. She is currently taking Plavix for her stents, unfortunately this cannot be discontinued juliana stents are very recent. Discussed that we would still recommend surgery, even with this increased bleeding risk, due to the severity of her vascular compromise. All other risks and benefits of surgery were discussed. Patient voiced understanding and would like to proceed with surgery PLAN: - Admit to inpatient, medicine primary, appreciate preoperative evaluation and clearance - Plan for OR tomorrow for left leg thrombectomy - NPO after midnight - ancef perioperatively for prophylaxis The patient was seen and discussed with Dr. Vogel, and the plan was formulated with him. Fidelia Brandon MD PGY-1 Associated attestation - Femi Vogel DO - 03/16/2021 6:37 AM CDT I discussed the patient with the resident and personally interviewed and examined the patient in theED. Patient with development of leg pain day of recent MD. Continues to worsen with rest pain neededdependence of leg for confort at night. CT reviewed and found two separate areas of thrombus in the S FA and Popliteal. On plavix with heart stent. I discussed the need for exploration of artery and thrombectomy/ removal of blood clot. I discussed the risks including Injury to arteries, injury to kidneys, need for dialysis, loss of limb, bleeding,infection, open wound and need for further surgery. I have explained the known risks, benefits, potential complications, and alternatives to the procedure or treatment. Cardiology input will be neededbefore and plan would be surgery Thursday. Patient understands all risks. I verified in the medical record all resident documentation/findings, including history, physical exam, and medical decision making, and I agree with the resident's documentation. documented in this encounter ED Notes Johan Mosher RN - 03/15/2021 9:59 AM CDT Plan of care includes addressing Cardiovascular with attention to her Chief Complaint Patient presents with Leg Pain Pt presents to ER to see Lela about placing stents in her legs. documented in this encounter Miscellaneous Notes Case Mgmt - Cassie Ramos RN - 03/26/2021 11:23 AM CDT CASE MANAGEMENT REFERRAL EDUCATION Patient in need of the following services: Transitional Care / Nursing Home Facility / Swing Bed Discussion of this need and/or printed listing of available agencies has been provided to patient/substitute decision maker. Opportunities have been given for questions to be asked and answered. Patient/Substitute decision maker agency preferences for services (list in order of preference): 1. [facility] 2. [facility] 3. NA Referrals Made: Profiled via [facility] to following SNFs and swing bed: [facility] and [facility] per patient request Medicare Comparison Information: Medicare guidelines require referring agencies to provide information regarding agency quality ratings. [facility] may assist with questions about facilities but cannot make recommendations. Patients and their families/decision makers are able to compare ratings of facilities at the following website: h ttps://www.medicare.gov/bmvln-fqun-sepibweml/mzgo-mevbwzc-mrqyjak-[facility] r-providers or you may call 1-800-MEDICARE Acceptance/Placement: [place] shares necessary clinical information with potential agencies to allow them to screen patients for safe admission to their facilities. This information is shared via secure communication. Acceptance by a post-acute facility is dependent on many factors including space, care needs, staffing, and insurance coverage. Financial disclosure: Verification of ownership of any agency/facility is available in the above Medicare website. [facility] is affiliated with [place]-owned home care, hospice, andilled nursing facilities, including agencies with [facility] in the name and [facility]. Additional agencies may not have [employer] in their name. Medicare guidelines require [facility] to provide a written list of options for your desired care. Youwill be provided a copy if desired. A copy of this document will be given to patient/substitute decision maker as confirmation of conversation regarding referrals and placement options. Cassie Ramos RN Case Managment [phone] Route # [id number] ase Gale - Cassie Ramos RN - 03/26/2021 11:16 AM CDT CASE MANAGEMENT / SOCIAL SERVICE FINAL TRANSITION PLAN TRANSITION DATE: 03/26 TRANSITION TIME: 1300 INTENDED PAYER SOURCE FOR AGENCY: Medicare TRANSITION DESTINATION: [facility] DOES ACCEPTING FACILITY REQUIRE COVID TESTING BEFORE DISCHARGE: Needs one negative test within 24-48 hours TRANSITION TRANSPORTATION: [facility] [employer] (P: [phone]) TRANSPORTATION PAYMENT: Family to Pay: Prepaid for Ride TRANSITION CHOICES OFFERED: Nursing Home Facility Swing Bed DOES THE PATIENT HAVE A PRIMARY CARE PHYSICIAN? Yes Osito Hicks MD PATIENT / SUBSTITUTE DECISION MAKER GOAL UPON TRANSITION: First Choice: Swing Bed PATIENT CHOICE EDUCATION: Choice form completed in Case Management note and copy given to patient/family MEDICARE 3 IP MIDNIGHT CRITERIA MET: Yes: 03/15-03/26 RESOURCE(S) PROVIDED: Placement and Transportation DOES PATIENT HAVE CLOTHING TO WEAR AT DISCHARGE? Yes ANTICIPATED MODE OF TRANSPORT TO AND FROM FOLLOW UP APPOINTMENTS: Family Car VERIFIED CORRECT PHARMACY IS ENTERED FOR DISCHARGE: No METHOD OF PRESCRIBING MEDICATIONS: Reconcile medications as Patient Transfer ("65 button") TRANSITION ROUNDING COMPLETED WITH THE FOLLOWING: Patient / family Finished Metal Repairer Attending MD Bedside RN Discussed in person Discussed via telephone COMMENTS / PATIENT AND FAMILY RESPONSE TO PLAN: CM met with the patient in the room today after rounding with the provider and reviewing the medicalrecord. Patient feels better and is eager to get closer to home through transfer to swing bed today. CM will continue to follow for discharge support throught the day. SPECIAL TRANSITION DAY INSTRUCTIONS TO NURSE / MD: Nurse to Nurse:[phone] Fax number for Orders: [phone] ELECTRICAL SYSTEMS DESIGNER: Please fax paperwork to above fax number Nursing: please call report at above number before or just as patient leaves. MD: please do [facility] transfer order set, ensure orders for PT, OT, ST(if needed) are included. CURRENT READMISSION RISK SCORE / HANDOFF: Predictive Risk Score Risk of Unplanned Readmission: 16.2 Handoff given: N/A SIGNED: Cassie Ramos RN Case Managment [phone] Route # [id number] hysical Therapy - Bacilio Massey, PT - 03/26/2021 8:48 AM CDT Attempted to see patient now but she declined. Patient states she is transferring later today. are Planning - Deysi Bolton RN - 03/26/2021 3:56 AM CDT Problem: ACUTE PAIN Goal: CLIENT SATISFACTION: PAIN MANAGEMENT Description: DEFINITION: Extent of positive perception of nursing care to relieve pain. 1=Not at all satisfied, 2=Somewhat satisfied, 3=Moderately satisfied, 4=Very satisfied, 5=Completely satisfied. Flowsheets (Taken 03/26/2021 0352) Patient specific goal for the day: Pt's pain will be managed with oral prn pain meds. Patient specific goal for the stay: Pt's pain will be managed to an acceptable pain level of 4/10 orless and will improve throughout her hospital stay. Patient Progress: Pt rates pain 2/10 to LLE. No prn pain meds needed at time of note. Incision to LLE dressed with ABD pad, C/D/I. Pt up w/ and pivoted to commode once, tolerated well. Voiding urine.VSS. RA. Pt currently resting comfortably in bed. WCTM. are Planning - Diana Meehan RN - 03/25/2021 6:14 PM CDT Problem: ACUTE PAIN Goal: CLIENT SATISFACTION: PAIN MANAGEMENT Description: DEFINITION: Extent of positive perception of nursing care to relieve pain. 1=Not at all satisfied, 2=Somewhat satisfied, 3=Moderately satisfied, 4=Very satisfied, 5=Completely satisfied. Outcome: NOC Rating 4 Flowsheets (Taken 03/25/20211812) Initial Score: 4 Target Score: 5 Plan of care reviewed with: Patient Patient specific goal for the day: Pt will rate pain 5/10 or less, get up to chair x3 during shift. Patient specific goal for the stay: Will be satisfied with pain control. Achieve goal for stay: By discharge Patient Progress: Pt reported pain 5/10 and prn tylenol was administered. Pt up to chair and to commode multiple times today. VSS RA hysical Therapy - Laureano Mari PT - 03/25/2021 2:55 PM CDT PT attempted to see the patient at 14:50, but she declined PT stating she was up earlier and now having 5-6/10 pain and wanting to rest in bed. Acute PT will continue to follow. Laureano Mari PT [facility] Pager [phone] ase Mgmt - Diana Arshad RN - 03/25/2021 9:46 AM CDT CASE MANAGEMENT PROGRESS NOTE PLAN: Notified by Dr. Pride that patient is okay for DC today. Per previous CM notes, pt has been accepted to the [facility] in [place]. Called and left a message for the nurse marketing information manager [facility] ([phone]) to inquire about acceptingtoday. Called the nurse's station to determine if they were expecting pt today. Was notified that [facility] is out of the office today as well as their case management team so they are unable to take Carmen today. CM will need to call back in the AM when appropriate staff are back in the office. SIGNED: ELIS Munoz, clothing cutter [facility] Office (): [phone] [facility] (): [phone] Pager #[phone] Bianca Salcido - Aleah Lopez RN - 03/25/2021 6:30 AM CDT Problem: ACUTE PAIN Goal: CLIENT SATISFACTION: PAIN MANAGEMENT Description: DEFINITION: Extent of positive perception of nursing care to relieve pain. 1=Not at all satisfied, 2=Somewhat satisfied, 3=Moderately satisfied, 4=Very satisfied, 5=Completely satisfied. Outcome: NOC Rating 4 Flowsheets (Taken 03/25/2021 0807) Plan of care reviewed with: Patient Patient specific goal for the day: Pt will rate pain 5/10 or less, get up to chair x3 during shift. Patient specific goal for the stay: Will be satisfied with pain control. Achieve goal for stay: By discharge Patient Progress: Pt denied pain at rest, but stated it increases to 10/10 when she gets up. Pt is up 1, FWW and pivot to bedside commode or chair. Continue to encourage mobility. Will continue to monitor. Verónica Grover RN - 03/24/2021 6:28 AM CDT Problem: ACUTE PAIN Goal: CLIENT SATISFACTION: PAIN MANAGEMENT Description: DEFINITION: Extent of positive perception of nursing care to relieve pain. 1=Not at all satisfied, 2=Somewhat satisfied, 3=Moderately satisfied, 4=Very satisfied, 5=Completely satisfied. Outcome: NOC Rating 3 Flowsheets (Taken 03/24/2021 0661) Plan of care reviewed with: Patient Patient specific goal for the day: pt will report pains Patient specific goal for the stay: pain control for tolerable pains Achieve goal for stay: By discharge Patient Progress: Pt denied pain at this time, reports to be comfortable. Will continue to monitor. Bianca Salcido - Cande Ramsay RN - 03/23/2021 1:53 AM CDT Problem: ACUTE PAIN Goal: CLIENT SATISFACTION: PAIN MANAGEMENT Description: DEFINITION: Extent of positive perception of nursing care to relieve pain. 1=Not at all satisfied, 2=Somewhat satisfied, 3=Moderately satisfied, 4=Very satisfied, 5=Completely satisfied. Outcome: NOC Rating 2 Flowsheets (Taken 03/23/2021 0152) Initial Score: 3 Target Score: 4 Plan of care reviewed with: Patient Patient specific goal for the day: pt will report pains Patient specific goal for the stay: pain control for tolerable pains Achieve goal for stay: By discharge Patient Progress: Pt denied pain at this time, reports to be comfortable. Will continue to monitor. Mani Baugh RN - 03/22/2021 12:11 PM CDT CASE MANAGEMENT / SOCIAL SERVICE FINAL TRANSITION PLAN TRANSITION DATE: Possibly 03/23/2021 Call Mani on pager [phone] so I can either set up ride orlet Britt know she is not coming. TRANSITION TIME: tbd INTENDED PAYER SOURCE FOR AGENCY: Medicare TRANSITION DESTINATION: [place] DOES ACCEPTING FACILITY REQUIRE COVID TESTING BEFORE DISCHARGE: Other: Needs test done but she can leave before results are comlpleted. Please fax report to [phone] TRANSITION TRANSPORTATION: Family Car possible TRANSPORTATION PAYMENT: Not applicable TRANSITION CHOICES OFFERED: Nursing Home Facility Swing Bed DOES THE PATIENT HAVE A PRIMARY CARE PHYSICIAN? Yes Osito Hicks MD PATIENT / SUBSTITUTE DECISION MAKER GOAL UPON TRANSITION: First Choice: Swing Bed PATIENT CHOICE EDUCATION: Not applicable MEDICARE 3 IP MIDNIGHT CRITERIA MET: N/A RESOURCE(S) PROVIDED: Placement and Transportation DOES PATIENT HAVE CLOTHING TO WEAR AT DISCHARGE? Yes ANTICIPATED MODE OF TRANSPORT TO AND FROM FOLLOW UP APPOINTMENTS: As arranged by accepting facility VERIFIED CORRECT PHARMACY IS ENTERED FOR DISCHARGE: Yes - Pharmacy: [facility] METHOD OF PRESCRIBING MEDICATIONS: Medications to be E-prescribed to above pharmacy TRANSITION ROUNDING COMPLETED WITH THE FOLLOWING: Finished Metal Repairer Attending MD by phone COMMENTS / PATIENT AND FAMILY RESPONSE TO PLAN: Patient discharging to [facility] bed in [place]. She does need a covid test prior to going, but we can fax the results later. SPECIAL TRANSITION DAY INSTRUCTIONS TO NURSE / MD: Nurse to Nurse [phone] Send transfer packet and when Covid results come back send those too. CURRENT READMISSION RISK SCORE / HANDOFF: Predictive Risk Score Risk of Unplanned Readmission: 16.5 Handoff given: N/A SIGNED: (Jaqui) Cande Hess RN TRAVELING Weekend Finished Metal Repairer [facility] Pager #[phone] hysical Therapy - Anibal Palomino PT - 03/22/2021 9:11 AM CDT Physical Therapy Acute Inpatient Treatment Note ASSESSMENT/RECOMMENDATIONS Patient requires assist of 1 for bed mobility and transfers. Activity limited by significant L LE pain. Recommend further skilled PT at a low intensity setting. Will continue to follow acutely and update discharge recommendations as appropriate. 6-Clicks Basic Mobility Score: 14 Activity Prescription with Nursing: Assist patient to chair 3 times per day for 30 to 60 minutes or for all meals. Use Ax 1-2 FWW Assist patient to complete exercises 10 times, 3 times per day (in sitting): air boxing, lift arms above head, straighten knees, marching. Encourage patients to do personal cares when sitting up. Use bathroom or commode rather than bedpan. Anticipated D/C Service needs: Low intensity setting SUBJECTIVE 06/30 with activity. Reports pain is not improving in L LE. Spouse present. OBJECTIVE Bed Mobility: Tomás of 1 for supine to/from sitting. Transfers: Sit to/from stand with Tomás of 1 with FWW. Tolerates standing ~ 5-10 seconds before needing to sit due to pain. Therapeutic Exercises: Ankle pumps, LAQ sitting EOB X 15 on L LE. Balance Training: Good seated balance on EOB. Other: Gait belt donned with activity. Resting in bed at end of PT session with L LE elevated. Education: Patient was educated on PT treatment plans today through explanation. They accepted teaching and verbalized understanding. Interdisciplinary Communication: Spoke with interdisciplinary team members regarding patient plan ofcare. PLAN Continue plan of care. Today's Treatment: Gait Trainin minutes Therapeutic Exercise: 0 minutes Therapeutic Activity: 23 minutes TOTAL TIMED CODES: 23 minutes TREATMENT TOTAL TIME: 23 minutes Anibal Palomino PT, DPT [facility] Pager: [phone] utrition Team - Adelia Hahn RD - 03/22/2021 8:35 AM CDT Nutrition Note Patient admitted on 03/15/2021 9:44 AM for Active Problems: * No active hospital problems. * Per EMR Malnutrition Screening Tool completed at admission, pt does not meet screening criteria for an increased potential for developing malnutrition with an MST Score of 0 (Score > 2 considered positive for nutrition risk). Nutrition screening revealed no difficulty eating or significant unintentional weight loss prior to admission. Past medical history noted and is not currently placing pt atincreased nutrition risk. Height: 160 cm (5' 3") Weight: 82.2 kg (181 lb 3.2 oz) BMI: Body mass index is 32.1 kg/m. Nutrition (From admission, onward) Start Ordered 03/16/21 1250 Diet - Regular Now Question: Standard Diets Answer: Regular 03/16/21 1249 03/16/21 1250 SIPS OF WATER, ADVANCE TOLERATED As tolerated Comments: This is NOT a diet order 03/16/21 1249 03/15/21 1315 CONTINUE DIET ORDERED (PANEL - NPO AFTER MIDNIGHT/CONTINUE DIET ORDERED) ONCE Comments: Patient to remain on previously ordered diet. Call if one is not available. 03/15/21 1317 Plan to monitor po intake adequacy during admission. If provider feels pt has nutritional concerns,please send Inpatient Dietitian consult with indication for referral. Adelia Hahn RD, LRD [facility] Pager: #[phone] are Planning - Amna Watts RN - 03/22/2021 6:19 AM CDT Problem: ACUTE PAIN Goal: CLIENT SATISFACTION: PAIN MANAGEMENT Description: DEFINITION: Extent of positive perception of nursing care to relieve pain. 1=Not at all satisfied, 2=Somewhat satisfied, 3=Moderately satisfied, 4=Very satisfied, 5=Completely satisfied. Outcome: NOC Rating 3 Flowsheets (Taken 03/22/2021 0616) Initial Score: 3 Target Score: 3 Patient specific goal for the day: Pain will be managed to 5/10 or less with P.O. medication. Patient specific goal for the stay: Pain will be managed to 3/10 or below with the use of scheduled P.O. pain medication. Achieve goal for stay: By discharge Patient Progress: Pain rated 8/10 after ambulating and using toilet, but was otherwise tolerable throughout the shift. P.O. PRN Oxycodone was effective in relieving this pain, along with non-pharmacological interventions. upplemental Progress Note - Nani Rodrigues APRN-CNP - 03/22/2021 5:35 AM CDT UA reflex to culture for report of patient having dysuria, urine is yellow clear, bladder scan 387, voided more in toilet. linical Team - Amna Watts RN - 03/22/2021 5:15 AM CDT Pt c/o burning with urination and a "feeling of hardness" to lower abdomen. She states she just urinated via external cath and doesn't feel she needs to urinate more at this time. Output is 575 of clear, yellow urine throughout this shift so far. Bladder scan returns a reading of 387mL present in bladder; patient chooses to get up to toilet to try voiding more rather than utilizing straight cath.Pt voided >700 mL of yellow, clear urine at this time, states hardness to abdomen is gone and shedoes feel much better, though she still felt the "hot urine" in this position. UA/UC reflex requested and ordered at this time and sent via clean catch from this void. are Planning - Nel Espitia RN - 03/21/2021 1:40 PM CDT Problem: ACUTE PAIN Goal: CLIENT SATISFACTION: PAIN MANAGEMENT Description: DEFINITION: Extent of positive perception of nursing care to relieve pain. 1=Not at all satisfied, 2=Somewhat satisfied, 3=Moderately satisfied, 4=Very satisfied, 5=Completely satisfied. Outcome: NOC Rating 3 Flowsheets (Taken 03/21/2021 1333) Initial Score: 3 Target Score: 4 Plan of care reviewed with: Patient Patient specific goal for the day: Pain will be managed with scheduled pain medications. Patient specific goal for the stay: Patient will rate pain 3/10 or below with use of scheduled pain medication. Note: Patient rating left leg pain at 8/10. PRN oxy given (see Mar). Offered patient Tylenol but patient stated "it doesn't seem to help". Educated patient on pain interventions such at elevation, ice,heat, and pharmacological interventions. Will continue to assess pain, will continue to monitor. ccupational Therapy - Bren Mims OTR/Maikol - 03/21/2021 10:13 AM CDT Occupational Therapy Acute Care Progress Note Impression/Recommendations Recommending Low upon medical stability. Patient is presenting with impairments including pacemaker precautions and L LE pain impacting functional independence with ADL's, transfers, and mobility at this time. Patient is demonstrating ability to complete ADL's, transfers, and mobility with assistance of 1. Patient will continue to benefit from skilled OT in order to address the above deficits to increase functional independence in ADLs, IADLs, and transfers/mobility. Objective Diagnosis: ICD-10-CM 1. Paroxysmal atrial fibrillation (HCC) I48.0 2. Ischemic leg I99.8 TISSUE EXAM Precautions: L LE pain and swelling Infection Control: Standard Precautions Cognition: Pt is alert. Oriented to: Person, place, time, situation U/E: - ADLs: Feeding: not assessed Grooming: set-up assistance for face washing, denture cares, oral cares, cleaning glasses, and combing hair. Additional time needed to complete. Dressing: not assessed Toileting: not assessed Transfers: Bed: contact guard assistance Chair: not assessed Toilet: not assessed for hygiene and clothing management Mobility/Ambulation: not assessed with FWW. Comments: - At end of session: Patient resting in bed Pain: reported L LE leg pain and increased pain Vitals: WNL's Interdisciplinary Communication: - Education Education/Training provided: Role of OT, plan of care, ADLs, transfers/mobility, safety, AE needs,d/c recommendations Learners: Patient Readiness: accepting Method of Training: verbal Response: Verbalizes understanding and Demonstrates understanding; Will benefit from continued reinforcement: yes Adaptive Equipment Recommendations Adaptive Equipment Recommended: OT will continue to assess AE needs and will update as necessary Plan to obtain adaptive equipment: To further assess. Goals Patient/Family Stated Goal for Session: agreeable to therapy evaluation Goals to be met by discharge: *Patient will complete UB dressing with standby assistance *Patient will complete LB dressing with standby assistance and AE prn *Patient will complete toileting task with standby assistance including hygiene and clothing management *Patient will complete functional transfers with standby assistance with AE PRN *Patient will tolerate sitting at sink for G/H for >5 minutes with AD as needed *Patient will verbalize and demonstrate understanding of 3 energy conservation techniques *Patient will demonstrate understanding of B UE HEP in order to increase strength, coordination, andROM to facilitate maximized independence in ADLs Patient continues to demonstrate progress towards OT goals: Yes Charges Treatment/Minutes: Today's Evaluation/Treatment Self care/home management: 23 minutes Total Treatment Time: 23 minutes Treatment Session 10/26 Weekly Assessment/Plan (Day 5): Continue POC Therapist Alpha Pager Number [phone] ase Gale - Ruby Sawant RN - 03/21/2021 9:42 AM CDT CASE MANAGEMENT / SOCIAL SERVICE TRANSITION PLAN - PROGRESS NOTE PLAN: Will Continue to Follow for Support and Progression Towards Final Transition Plan BARRIERS TO TRANSITION: Awaiting Placement: Nursing Home/Swing Bed/TCU Awaiting Therapy Recommendations Diagnostic Tests Pending Medical barriers:pain management, PT/OT, heparin drip DOES ACCEPTING FACILITY REQUIRE COVID TESTING BEFORE DISCHARGE: N/A COMMENTS / PATIENT AND FAMILY RESPONSE TO PLAN: Chart review completed, pt remains on Heparin gtt and last INR was 1.9. Pt's information is being reviewed by [facility] and [facility] in [place]. No bed offers at this time. CM will continue to follow to assist with discharge planning. IS PATIENT'S ADMISSION ASSOCIATED WITH TIA, ISCHEMIC, OR HEMORRHAGIC STROKE?: No PATIENT / SUBSTITUTE DECISION MAKER GOAL UPON TRANSITION: First Choice: Swing Bed Transitional Care ANTICIPATED NEEDS UPON TRANSITION: Swing Bed Transitional Care RESOURCE(S) PROVIDED: nothing needed at this time ANTICIPATED MODE OF TRANSPORT UPON TRANSITION: Family Car ANTICIPATED MODE OF TRANSPORT TO AND FROM FOLLOW UP APPOINTMENTS: As arranged by accepting facility VERIFIED CORRECT PHARMACY IS ENTERED FOR DISCHARGE: No TRANSITION ROUNDING COMPLETED WITH THE FOLLOWING: Patient / family Attending Bedside RN Discussed in person Discussed via telephone SIGNED: Ruby Sawant RN, BSN Finished [employer] [facility] are Planning - Johan Suarez RN - 03/20/2021 11:36 PM CDT Problem: ACUTE PAIN Goal: CLIENT SATISFACTION: PAIN MANAGEMENT Description: DEFINITION: Extent of positive perception of nursing care to relieve pain. 1=Not at all satisfied, 2=Somewhat satisfied, 3=Moderately satisfied, 4=Very satisfied, 5=Completely satisfied. Flowsheets (Taken 03/20/2021 2161) Patient specific goal for the day: ask for pain med if having pain level of 5/10 or above Patient specific goal for the stay: control pain with pain meds Achieve goal for stay: By discharge Patient Progress: Rated pain at 7-8/10 to left leg, PRN pain med given (see mar) on recheck resting in bed. Leg elevated. Will continue to monitor. are Planning - Ria Vela RN - 03/20/2021 7:25 PM CDT Problem: ACUTE PAIN Goal: CLIENT SATISFACTION: PAIN MANAGEMENT Description: DEFINITION: Extent of positive perception of nursing care to relieve pain. 1=Not at all satisfied, 2=Somewhat satisfied, 3=Moderately satisfied, 4=Very satisfied, 5=Completely satisfied. Outcome: NOC Rating 3 Flowsheets (Taken 03/20/2021 192) Plan of care reviewed with: Patient Patient specific goal for the day: pt to report adequate pain control with PRN medications Patient specific goal for the stay: to have pain return to baseline Achieve goal for stay: By discharge Patient Progress: Pt c/o of pain to leg PRN fentnyl and tylenol given with minimal relief. Pt dangled at bedside and was able to pivot to the commode.Pt resting comfortably no distress noted at this time. hysical Therapy - Anibal Palomino PT - 03/20/2021 3:22 PM CDT PT continue to follow. Attempted to see today x2. On first attempt patient receiving bed bath and onsecond attempt working with OT. Will follow up as appropriate. Anibal Palomino PT, DPT Alpha Pager: [phone] ccupational Therapy - Bren Mims OTR/Maikol - 03/20/2021 3:03 PM CDT Occupational Therapy Acute Care Progress Note Impression/Recommendations Recommending Low upon medical stability. Patient is presenting with impairments including pacemaker precautions and L LE pain impacting functional independence with ADL's, transfers, and mobility at this time. Patient is demonstrating ability to complete ADL's, transfers, and mobility with assistance of 1. Patient will continue to benefit from skilled OT in order to address the above deficits to increase functional independence in ADLs, IADLs, and transfers/mobility. Objective Diagnosis: ICD-10-CM 1. Paroxysmal atrial fibrillation (HCC) I48.0 2. Ischemic leg I99.8 TISSUE EXAM Precautions: L LE pain and swelling Infection Control: Standard Precautions Cognition: Pt is alert. Oriented to: Person, place, time, situation U/E: - ADLs: Feeding: independent after setup Grooming: not assessed Dressing: moderate assistance for clothing management Toileting: minimal assistance for hygiene Transfers: Bed: contact guard assistance Chair: not assessed Toilet: minimal assistance for hygiene and clothing management Mobility/Ambulation: minimal assistance with FWW. Stand pivot transfers only completed Comments: - At end of session: Patient resting in bed Pain: reported L LE leg pain Vitals: WNL's Interdisciplinary Communication: - Education Education/Training provided: Role of OT, plan of care, ADLs, transfers/mobility, safety, AE needs,d/c recommendations Learners: Patient Readiness: accepting Method of Training: verbal Response: Verbalizes understanding and Demonstrates understanding; Will benefit from continued reinforcement: yes Adaptive Equipment Recommendations Adaptive Equipment Recommended: OT will continue to assess AE needs and will update as necessary Plan to obtain adaptive equipment: To further assess. Goals Patient/Family Stated Goal for Session: agreeable to therapy evaluation Goals to be met by discharge: *Patient will complete UB dressing with standby assistance *Patient will complete LB dressing with standby assistance and AE prn *Patient will complete toileting task with standby assistance including hygiene and clothing management *Patient will complete functional transfers with standby assistance with AE PRN *Patient will tolerate sitting at sink for G/H for >5 minutes with AD as needed *Patient will verbalize and demonstrate understanding of 3 energy conservation techniques *Patient will demonstrate understanding of B UE HEP in order to increase strength, coordination, andROM to facilitate maximized independence in ADLs Patient continues to demonstrate progress towards OT goals: Yes Charges Treatment/Minutes: Today's Evaluation/Treatment Self care/home management: 10 minutes Total Treatment Time: 10 minutes Treatment Session 09/25 Weekly Assessment/Plan (): Continue POC Therapist Alpha Pager Number [phone] ase Ruby Maguire RN - 03/20/2021 11:05 AM CDT CASE MANAGEMENT REFERRAL EDUCATION Patient in need of the following services: Transitional Care / Nursing Home Facility / Swing Bed Discussion of this need and/or printed listing of available agencies has been provided to patient/substitute decision maker. Opportunities have been given for questions to be asked and answered. Patient/Substitute decision maker agency preferences for services (list in order of preference): 1. [facility] 2. [facility] Referrals Made: Profiled via [employer] to following [facility], [facility] Medicare Comparison Information: Medicare guidelines require referring agencies to provide information regarding agency quality ratings. [facility] may assist with questions about facilities but cannot make recommendations. Patients and their families/decision makers are able to compare ratings of facilities at the following website: ttps://www.medicare.gov/mmkzt-ikrx-hprworsuy/gnrk-dzullya-qoinhtg-[facility] r-providers or you may call 1-800-MEDICARE Acceptance/Placement: [facility] shares necessary clinical information with potential agencies to allow them to screen patients for safe admission to their facilities. This information is shared via secure communication. Acceptance by a post-acute facility is dependent on many factors including space, care needs, staffing, and insurance coverage. Financial disclosure: Verification of ownership of any agency/facility is available in the above Medicare website. [facility] is affiliated with [place]-owned home care, hospice, andskilled nursing facilities, including agencies with [employer] in the name and [facility]. Additional agencies may not have [employer] in their name. Medicare guidelines require [facility] to provide a written list of options for your desired care. Youwill be provided a copy if desired. A copy of this document will be given to patient/substitute decision maker as confirmation of conversation regarding referrals and placement options. Ruby Sawant RN, BSN [employer] [facility] ase Gale - Ruby Sawant RN - 03/20/2021 10:02 AM CDT CASE MANAGEMENT / SOCIAL SERVICE TRANSITION PLAN - PROGRESS NOTE PLAN: Will Continue to Follow for Support and Progression Towards Final Transition Plan BARRIERS TO TRANSITION: Awaiting Placement: Nursing Home/Swing Bed/TCU Awaiting Therapy Recommendations Diagnostic Tests Pending Medical barriers:pain management, PT/OT, heparin drip DOES ACCEPTING FACILITY REQUIRE COVID TESTING BEFORE DISCHARGE: N/A COMMENTS / PATIENT AND FAMILY RESPONSE TO PLAN: CM me with pt and pt's in room to discuss current therapy recommendations for TCU stay at time of discharge. Pt and did review for a few minutes prior to informing they are in agreement to have pt's information sent to [facility] and [facility] in [place], [place]. CM profiled pt via [employer] to places listed above. Waiting on bed offer at this time. Pt will remain in hospital on Hep gtt until INR stable. CM will continue to follow to assist with discharge planning. IS PATIENT'S ADMISSION ASSOCIATED WITH TIA, ISCHEMIC, OR HEMORRHAGIC STROKE?: No PATIENT / SUBSTITUTE DECISION MAKER GOAL UPON TRANSITION: First Choice: Swing Bed Transitional Care ANTICIPATED NEEDS UPON TRANSITION: Swing Bed Transitional Care RESOURCE(S) PROVIDED: nothing needed at this time ANTICIPATED MODE OF TRANSPORT UPON TRANSITION: Family Car ANTICIPATED MODE OF TRANSPORT TO AND FROM FOLLOW UP APPOINTMENTS: As arranged by accepting facility VERIFIED CORRECT PHARMACY IS ENTERED FOR DISCHARGE: No TRANSITION ROUNDING COMPLETED WITH THE FOLLOWING: Patient / family Attending MD Bedside RN Discussed in person Discussed via telephone SIGNED: Ruby Sawant RN, BSN [employer] [facility] Korin Herrera RN - 03/20/2021 12:47 AM CDT Problem: ACUTE PAIN Goal: CLIENT SATISFACTION: PAIN MANAGEMENT Description: DEFINITION: Extent of positive perception of nursing care to relieve pain. 1=Not at all satisfied, 2=Somewhat satisfied, 3=Moderately satisfied, 4=Very satisfied, 5=Completely satisfied. Outcome: NOC Rating 3 Flowsheets (Taken 03/20/2021 0046) Plan of care reviewed with: Patient Patient specific goal for the day: pt to report adequate pain control with PRN medications Patient specific goal for the stay: to have pain return to baseline Achieve goal for stay: By discharge Patient Progress: Pt not complaining of pain at this time. Will give prn medication as needed. Pt resting comfortably. WCTM. are Planning - Soraida Navarro RN - 03/19/2021 9:48 PM CDT Problem: ACUTE PAIN Goal: CLIENT SATISFACTION: PAIN MANAGEMENT Description: DEFINITION: Extent of positive perception of nursing care to relieve pain. 1=Not at all satisfied, 2=Somewhat satisfied, 3=Moderately satisfied, 4=Very satisfied, 5=Completely satisfied. Flowsheets (Taken 03/19/2021 4936) Initial Score: 3 Target Score: 5 Plan of care reviewed with: Patient Patient specific goal for the day: pt to report adequate pain control with PRN medications Patient specific goal for the stay: to have pain return to baseline Patient Progress: pt reporting 10/10 pain to LLE at incision site, gave fentanyl with relief, started doing prn tylenol more regularly, gave tylenol x2, pt resting comfortably in bed are Planning - Adelia Em RN - 03/19/2021 2:14 PM CDT Problem: ACUTE PAIN Goal: CLIENT SATISFACTION: PAIN MANAGEMENT Description: DEFINITION: Extent of positive perception of nursing care to relieve pain. 1=Not at all satisfied, 2=Somewhat satisfied, 3=Moderately satisfied, 4=Very satisfied, 5=Completely satisfied. Flowsheets (Taken 03/19/2021 5002) Initial Score: 3 Target Score: 5 Plan of care reviewed with: Patient Patient specific goal for the day: pt to report adequate pain control with PRN medications Patient specific goal for the stay: to have pain return to baseline Patient Progress: Pt reporting pain to LLE with ambulation. PRN fentanyl given- pt did report some lightheadedness with this but did resolve within half hour. Will be working with PT this afternoon. Pt rested in chair for most of AM, currently in bed resting. Dressing reinforced x2 during content writer's shift. WCTM. hysical Therapy - Anibal Palomino, PT - 03/19/2021 2:07 PM CDT Physical Therapy Acute Inpatient Treatment Note ASSESSMENT/RECOMMENDATIONS Patient requires assist of 1 for bed mobility and transfers. Activity limited by L LE pain. Unable to tolerate ambulation at this time. Recommend continued skilled PT at a low intensity setting. Will continue to follow acutely and update discharge recommendations as appropriate. 6-Clicks Basic Mobility Score: 17 Activity Prescription with Nursing: Assist patient to chair 3 times per day for 30 to 60 minutes or for all meals. Use Axof 1 and FWW Assist patient to complete exercises 10 times, 3 times per day (in sitting): air boxing, lift arms above head, straighten knees, marching. Encourage patients to do personal cares when sitting up. Use bathroom or commode rather than bedpan. Anticipated D/C Service needs: Low intensity setting SUBJECTIVE 7/10 pain at rest and 10/10 pain with activity for L LE. OBJECTIVE Bed Mobility: Stand-by assist for supine to/from sit. Transfers: Sit to/from stand with CGA with front-wheeled walker. Cues for technique. CGA for standing balance. Limited by pain. Minimal WB on L LE. Gait: Unable to progress to gait due to pain. Therapeutic Exercises: L LE ankle pumps and LAQ Balance Training: Fair (+) with FWW static standing Other: Gait belt donned with activity. Up in chair at end of PT session with call light. Education: Patient was educated on PT treatment plan today through explanation. They accepted teaching and verbalized understanding. Interdisciplinary Communication: Spoke with interdisciplinary team members regarding patient plan ofcare. PLAN Continue plan of care. Today's Treatment: Gait Trainin minutes Therapeutic Exercise: 0 minutes Therapeutic Activity: 15 minutes TOTAL TIMED CODES: 15 minutes TREATMENT TOTAL TIME: 15 minutes Anibal Palomino PT, DPT [facility] Pager: [phone] ase Ruby Maguire RN - 03/19/2021 12:32 PM CDT CASE MANAGEMENT / SOCIAL SERVICE TRANSITION PLAN - PROGRESS NOTE PLAN: Will Continue to Follow for Support and Progression Towards Final Transition Plan BARRIERS TO TRANSITION: Awaiting Therapy Recommendations Diagnostic Tests Pending Medical barriers:pain management, PT/OT, heparin drip DOES ACCEPTING FACILITY REQUIRE COVID TESTING BEFORE DISCHARGE: N/A COMMENTS / PATIENT AND FAMILY RESPONSE TO PLAN: Chart review completed and update received from Dr. Pride. Pt will remain in hospital on Hep gtt until INR stable. Pt is in agreement to Home Health services for Nursing/PT/OT. These orders will need to be faxed to ([phone]). Home Health orders needed are Home Health Instructions: Complete referral order for Non-One Chart Referral: Home health. Patient would benefit from Nursing, Physical Therapy and Occupational Therapy. Face to Face statement must be completed. Order must be completed by or cosigned by attending physician for orders to be valid. IS PATIENT'S ADMISSION ASSOCIATED WITH TIA, ISCHEMIC, OR HEMORRHAGIC STROKE?: No PATIENT / SUBSTITUTE DECISION MAKER GOAL UPON TRANSITION: First Choice: Home Health: Nurse, Occupational Therapy and Physical Therapy Home: Family/Friend Support ANTICIPATED NEEDS UPON TRANSITION: Home Health: Nurse, Occupational Therapy and Physical Therapy Home: Family/Friend Support RESOURCE(S) PROVIDED: nothing needed at this time ANTICIPATED MODE OF TRANSPORT UPON TRANSITION: Family Car ANTICIPATED MODE OF TRANSPORT TO AND FROM FOLLOW UP APPOINTMENTS: Family Car VERIFIED CORRECT PHARMACY IS ENTERED FOR DISCHARGE: Yes - Pharmacy: [facility] [address] [place] [address] TRANSITION ROUNDING COMPLETED WITH THE FOLLOWING: Attending MD Bedside RN Discussed via telephone SIGNED: Ruby Sawant RN, BSN Finished Metal Repairer [facility] are Planning - Mattie Morrell RN - 03/18/2021 7:25 PM CDT Problem: ACUTE PAIN Goal: CLIENT SATISFACTION: PAIN MANAGEMENT Description: DEFINITION: Extent of positive perception of nursing care to relieve pain. 1=Not at all satisfied, 2=Somewhat satisfied, 3=Moderately satisfied, 4=Very satisfied, 5=Completely satisfied. Outcome: NOC Rating 2 Flowsheets (Taken 03/18/2021 1923) Patient specific goal for the day: pt to report adequate pain control with PRN medications Patient specific goal for the stay: to have pain return to baseline Patient Progress: patient reporting significant pain to LLE, increase in confusion after oxycodone given. oxycodone d/c'd. prn tylenol and fentanyl available. patient refusing to put any weight on LLE,due to pain and "being nervous". patient currently resting and watching tv. dressing reinforced due to increased drainage after pivoting to the chair. hysical Therapy - Mart Fuentes, PT - 03/18/2021 2:40 PM CDT PHYSICAL THERAPY ACUTE INPATIENTINITIAL EVALUATION RECOMMENDATIONS Patient present with decline in functional mobility ,Patient is not at their baseline level of function for mobility. Patient would benefit from further physical therapy while in acute setting. PT anticipates that patient may benefit from further physical therapy at low intensity( I.e ST SNF. TCU ).vs if decides to d/c home recommend home with 13/04 assist and HHPT Activity Prescription with Nursing: At a minimum, up to chair for all meals or 3 times per day. Assist patient to complete exercises 10 times, 3 times per day. Sit to stands and in standing: leg lifts out to the side, air boxing. Encourage patient to perform personal cares at sink when able. Encourage walking to bathroom rather than use commode or bedpan. Admission Date: 03/15/2021 Admission Diagnosis: ICD-10-CM 1. Paroxysmal atrial fibrillation (HCC) I48.0 2. Ischemic leg I99.8 TISSUE EXAM Procedures: No admission procedures for hospital encounter. Past Medical History Past Medical History: Diagnosis Date Anesthesia complication slow to awaken Atrial fibrillation (HCC) Basal cell carcinoma Bilateral sacral insufficiency fracture 02/25/2018 Cataract Closed wedge compression fracture of T11 vertebra (HCC) 12/17/2015 Coronary artery disease Gastroesophageal reflux disease Hyperlipidemia Hypertension, essential Hypothyroidism Left renal artery stenosis (HCC) Macular degeneration Obesity Osteoarthritis Osteoporosis Peripheral vascular disease (HCC) 03/14/2021 Psoriasis Seborrheic dermatitis Tubular adenoma of colon 05/12/2019 Both less than 1 cm. Past Surgical History Past Surgical History: Procedure Laterality Date ATRIOVENTRICULAR NODE ABLATION PRECISION LENS GRINDER CABG N/A 01/17/2021 Procedure: CORONARY ARTERY BYPASS GRAFTING X3, BARRAGAN TO LAD, RAG FROM BARRAGAN TO OBTUSE MARGINAL TO POSTERIOR DESCENDING ARTERY, ENDOSCOPIC RADIAL ARTERY HARVEST, OFF PUMP;; Surgeon: Julieta Eaton MD CARDIAC CATHETERIZATION 01/15/2021 CARDIOVERSION 2014 COLON POLYP BX N/A 05/12/2019 Procedure: COLONOSCOPY WITH POLYP/BIOPSY;; Surgeon: Michael Proctor MD EMBOLECTOMY FEMORAL Left 03/16/2021 Procedure: LEFT LEG THROMBECTOMY;; Surgeon: Femi Vogel DO HEMORRHOID SURGERY IR VERTEBROPLASTY 2016 L2 Activity Level:Progressive mobility bundle Precautions:Fall Risk, L LE pain Infection Control:Standard Precautions SUBJECTIVE Cognition:Alert and orientated x4 Direction Following:intact , impaired safety awareness Pain: At rest:Patient reports no pain. With activity:Patient reports no pain. Current Living Situation: LivesWith spouse, inHouse( trailer home ) 4-5steps to enter withrailing; Functional Level Prior to Admit: Independent,No Assistive Device Driving:No History of falls:Yes Mobility Equipment Available: Cane and FWW Home O2:none Occupation: Retired OBJECTIVE Observation:patient supine on bed agreeable to PT session Strength/ROM: Within Functional Limits Except As Indicated Right Left ROM WFL Limited Strength WFL Limited UE screen:please see OT note Functional Mobility: Bed mobility:min A Supine to Sit:Tomás mainly to lift LLE OOB Sit to/from Stand:mod A With FWW Stand Pivot:pivot to chair with min A Comments:Use of gait belt Gait: Decline to ambulate Stair Negotiation: TBA Balance: Sitting Balance: Static - good Dynamic - good Standing Balance: Static - fairneeding CGA w/FWWto maintain standing Dynamic - poor Coordination: intact Treatment today:PT eval ,therapeutic activity, therapeutic exercise Patient Education:Patient was educated on PT POCtoday through explanation and demonstration. Theyaccepted teachingand will need reinforcement. Interdisciplinary Communication:Spoke with interdisciplinary team members regarding patient plan of care. ASSESSMENT SUMMARY/RECOMMENDATIONS Factors affecting function: Physical Impairments:right lower extremity strength, left lower extremity strength, body mechanics/ergonomics, gait/locomotion/balance, muscle performance, posture and pain Functional Limitations:bed mobility, transfers, sitting balance, standing balance, ambulation, stair climbing, at fall risk, self-care management and home management Goals: Patient/Family Funder/Ultimate Goals: To go home Related Clinical Goals: Bed Mobility:Patient will transfer sit to/from supine withindependently. Transfers:Patient will transfer fromsit to standwith independentlyand equipment as needed toprogress tosafe household mobility. Patient will transfer frombed to chairwith independentlyand equipment as needed toprogresstosafe household mobility. Ambulation:Patient will be able to ambulate at [id number] over eventerrain using least restrictive assistive deviceindependentlytoprogresstosafe functional mobility in the home. Stairs:Patient will be able to [id number] withrail in safestpattern with nonetoprogresstosafe functional mobility in the home. Provision of appropriate assistive device and education as needed. PLAN PT Frequency of therapy recommended: 5x/wk PT Plan of Care: balance training bed mobility training transfer training gait training aerobic capacity/endurance conditioning balance/coordination/agility training strength/power/endurance training for head/neck/limb/pelvic floor/trunk/ventilatory muscles flexibility exercises device and equipment use and training fitting/application of adaptive/assistive/orthotic/prosthetic/protective/or supportive devices relaxation strategies caregiver training Evaluation, goals, and plandiscussed with patient Total Time Spent: PT =25 minutes Eval =15 min TherAct =10min Gait =0min TherEx =0min Physical Therapist: Mart Fuentes PT Alpha Pager:[phone] ase Gale - Ana Foster LSW - 03/18/2021 1:59 PM CDT CASE MANAGEMENT / SOCIAL SERVICE TRANSITION PLAN - INITIAL ASSESSMENT TRANSITION PLAN: Will Continue to Follow for Support and Progression Towards Final Transition Plan BARRIERS TO TRANSITION: Discharge Needs to be Determined Medical barriers:.pain management, PT/OT, heparin drip COMMENTS / PATIENT AND FAMILY RESPONSE TO PLAN: Reviewed patient's chart, Presented to patient's bedside, introduced self, and explained role of forensic social worker. Patient statesshe lives at home with her . She is independent with all ADLs. Patient uses a cane for ambulation and has a walker if needed. Patient receives home health services. Upon discharge, patient'sgoal is to return home with home health. Her will provide transportation and she has her ownclothing to wear. No further questions or concerns at this time. Patient will need new home health orders faxed to [phone] Case management will continue to follow and support. ADMISSION DX: No admission diagnoses are documented for this encounter. PATIENT STATUS: Inpatient RELEASE OF INFORMATION: Yes -- verbal for: discharge planning SOURCES OF INFORMATION (See demographics for contact information): Medical Record Patient CURRENT LIVING SITUATION / LEVEL OF ASSISTANCE: Lives with Independent Cane Four Wheeled Walker COMMUNITY SERVICES: Home Health HEALTHCARE DIRECTIVE: Yes-On File and reviewed POWER OF LICENSED WEIGHER: Healthcare Power of Satellite Dish Technician FINANCIAL CONCERNS: No Concerns PRIMARY CARE PHYSICIAN: Yes Osito Hicks MD : No IS PATIENT'S ADMISSION ASSOCIATED WITH TIA, ISCHEMIC, OR HEMORRHAGIC STROKE?: No LANGUAGE / COMMUNICATION BARRIERS: No PATIENT / SUBSTITUTE DECISION MAKER GOAL UPON TRANSITION: First Choice: Home Health: Home Safety Evaluation, Nurse, Occupational Therapy and Physical Therapy Home: Family/Friend Support ANTICIPATED NEEDS, TRANSITION CHOICES OFFERED: Home Health: Home Safety Evaluation, Nurse, Occupational Therapy and Physical Therapy Home: Family/Friend Support RESOURCE(S) PROVIDED: nothing needed at this time DOES PATIENT HAVE CLOTHING TO WEAR AT DISCHARGE? Yes ANTICIPATED MODE OF TRANSPORT UPON DISCHARGE: Family Car VERIFIED CORRECT PHARMACY IS ENTERED FOR DISCHARGE: Yes - Pharmacy: . [facility] [address] [place] [address] CURRENT READMISSION RISK SCORE Predictive Risk Score Risk of Unplanned Readmission: 19.4 Please refer to readmission risk assessment flowsheet for further details. SIGNED: FARIDEH Hendrix Gateman | Case Management | Alpha Pager: [phone] | Route Number: [id number]= ccupational Therapy - Bren Mims, OTR/Maikol - 03/18/2021 9:10 AM CDT Occupational Therapy Acute Care Evaluation Note Impression/Recommendations Recommending Low vs home with assistance and HHOT pending pt progress upon medical stability. Patient is presenting with impairments including pacemaker precautions and L LE pain impacting functional independence with ADL's, transfers, and mobility at this time. Patient is demonstrating ability to comp lete ADL's, transfers, and mobility with assistance of 1. Patient will continue to benefit from skilled OT in order to address the above deficits to increase functional independence in ADLs, IADLs, andtransfers/mobility. Admitting Diagnosis: ICD-10-CM 1. Paroxysmal atrial fibrillation (HCC) I48.0 2. Ischemic leg I99.8 TISSUE EXAM History of Present Illness: Refer to H&P for details Past Medical History: Past Medical History: Diagnosis Date Anesthesia complication slow to awaken Atrial fibrillation ([facility]) Basal cell carcinoma Bilateral sacral insufficiency fracture 02/25/2018 Cataract Closed wedge compression fracture of T11 vertebra ([facility]) 12/17/2015 Coronary artery disease Gastroesophageal reflux disease Hyperlipidemia Hypertension, essential Hypothyroidism Left renal artery stenosis ([facility]) Macular degeneration Obesity Osteoarthritis Osteoporosis Peripheral vascular disease ([facility]) 03/14/2021 Psoriasis Seborrheic dermatitis Tubular adenoma of colon 05/12/2019 Both less than 1 cm. Activity Level: Progressive mobility bundle Precautions: Fall Risk, L LE pain Infection Control: Standard Precautions Patient History Social/Home Environment: Patient lives: with their House: Trailer home Steps to enter: Yes- 5 steps Home Environment: Bed/Bath on main level: Yes Bathroom Setup: tub/shower with curtain with chair Employment: retired Prior Level of Function Independent prior Adaptive Equipment Available: toilet riser without arms, shower chair, front- wheeled walker and cane Present for Eval: Patient Objective Activities of Daily Living: Feeding: set-up assistance while sitting up in bed Grooming: set-up assistance at bed level as pt is unable to stand at the sink to complete due to increased pain in L LE. Upper Extremity Dressing: standby assistance Lower Extremity Dressing: dependent to don socks Bathing: not assessed Toileting: minimal assistance for hygiene and clothing management Comments: increased assistance needed for ADL's. Pt also needing cues to follow pace maker precautions during session. Transfers: Bed: standby assistance, pt able to complete x2 bed transfers Chair: moderate assistance to come into standing however once in standing pt only needing CGA w/FWW. Toilet: moderate assistance to come into standing however once in standing pt only needing CGA w/FWW. Tub/Shower: not assessed Mobility/Ambulation: contact guard assistance with FWW for stand pivot transfer only. Comments: Increased assistance needed compared to baseline. At end of session: Patient resting in bed Pain: reported pain but did not rate it Vitals: WNL's Upper Extremity Function: Range of Motion: Right:within functional limits Left: limited due to pacemaker precautions Strength: Right: within functional limits Left: not tested due to pace maker precautions Cognition: Orientation: alert. Oriented to: Person, place, time, situation Attention: intact Following Directions: intact Safety Awareness: impaired Impulsivity: Mild Visual/Perception: WFL's Glasses: Yes Interdisciplinary Communication: - Education Education/Training provided: Role of OT, plan of care, ADLs, transfers/mobility, safety, AE needs,d/c recommendations Learners: Patient Readiness: accepting Method of Training: verbal Response: Verbalizes understanding and Demonstrates understanding; Will benefit from continued reinforcement: yes Adaptive Equipment Recommendations Adaptive Equipment Recommended: OT will continue to assess AE needs and will update as necessary Plan to obtain adaptive equipment: To further assess. Assessment/Plan Assessment: Patient demonstrates decreased UE strength, decreased physical conditioning, decreased independence with ADL/IADL tasks, decreased independence with functional mobility and decreased safety judgement/insight into deficits Patient showing a decrease in ADL/transfer performance and will benefit from continued OT. Plan: Patient to be seen 2-3x/week to work toward goals Treatment plan will consist of Thursday thru Thursday sessions Goals Patient/Family Stated Goal for Session: agreeable to therapy evaluation Goals to be met by discharge: *Patient will complete UB dressing with standby assistance *Patient will complete LB dressing with standby assistance and AE prn *Patient will complete toileting task with standby assistance including hygiene and clothing management *Patient will complete functional transfers with standby assistance with AE PRN *Patient will tolerate sitting at sink for G/H for >5 minutes with AD as needed *Patient will verbalize and demonstrate understanding of 3 energy conservation techniques *Patient will demonstrate understanding of B UE HEP in order to increase strength, coordination, andROM to facilitate maximized independence in ADLs Certification dates: 03/18/2021 to 04/17/21 Treatment Provided See above for details Charges Treatment/Minutes: Today's Evaluation/Treatment Evaluation Self care/home management: 30 minutes Total for time-based codes: 30 minutes Total treatment time: 40 minutes Evaluation Complexity PMH/Comorbidities that affect Occupational Performance: See PMHx Occupational Profile/Medical and Therapy History: LOW - Brief history relating to presenting problem Patient Assessment: LOW - 1-3 performance deficits relating to physical, cognitive, psychosocial limitations/restrictions Clinical Decision Making: LOW - Low complexity, limited amount of treatment options, no assessment modification, no comorbidities Evaluation Complexity: Low Therapist Alpha Pager Number: [phone] ccupational Therapy - Sona Diaz OTR/L - 03/17/2021 1:23 PM CDT OT orders received and acknowledged. Pt s/p thrombectomy 03/16/21 and began coumadin with bedrest orders removed. Pt s/p CABG 01/09, stenting 03/11 in addition to pacemaker implantation with elevated troponins since admission. Per secure chat with Dr. Gabriela Gray recommend clearance with medicine for erapies to progress. ANU Hurtado OTR/L, CBIS Pgr. [id number] harmacy - Cl Hamilton, PHARM D - 03/17/2021 10:58 AM CDT Warfarin Initial Consult Note Ms. Padgett has been initiated on warfarin per pharmacy protocol for atrial fibrillation and history of DVT (s/p thrombectomy 03/16). Patient will now be on triple therapy with clopidogrel, aspirin, and systemic anticoagulant. Desired goal INR is 2-3 Baseline INR is 1.1 Plan: Warfarin 5 mg today with heparin infusion bridging. Pharmacy will monitor and if indicated, adjust dose per the anticoagulation policy. Thank you very much for the consult. Cl Hamilton, PharmD Clinical Pharmacist linical Team - Lucero Domingo RN - 03/17/2021 4:28 AM CDT Two nurse skin check completed with Abby Gastelum RN. Pt has new surgical incision to left lower leg covered with kerlix, no drainage noted. Scattered bruising to BLE. Healed surgical scars to abdomen with scattered bruising. 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 No other concerns at this time. are Planning - Lucero Domingo RN - 03/16/2021 8:53 PM CDT Problem: ACUTE PAIN Goal: CLIENT SATISFACTION: PAIN MANAGEMENT Description: DEFINITION: Extent of positive perception of nursing care to relieve pain. 1=Not at all satisfied, 2=Somewhat satisfied, 3=Moderately satisfied, 4=Very satisfied, 5=Completely satisfied. Outcome: NOC Rating 3 Flowsheets (Taken 03/16/20212050) Initial Score: 3 Target Score: 5 Plan of care reviewed with: Patient Patient specific goal for the day: pt to report adequate pain control with PRN medications Patient Progress: pt reporting pain at 10/10 upon assessment, PRN Fentanyl given and upon reassessment pain was 7/10, pt has complaints of cramps to bottom of left foot - hot pack applied and pt reporting much relief with this, warm blankets given, room dimmed for comfort, vss, neuro checks intact, ptwatching tv resting in bed at this time are Planning - Mattie Morrell RN - 03/16/2021 5:42 PM CDT Problem: ACUTE PAIN Goal: CLIENT SATISFACTION: PAIN MANAGEMENT Description: DEFINITION: Extent of positive perception of nursing care to relieve pain. 1=Not at all satisfied, 2=Somewhat satisfied, 3=Moderately satisfied, 4=Very satisfied, 5=Completely satisfied. Outcome: NOC Rating 2 Flowsheets (Taken 03/16/2021 1740) Patient specific goal for the day: to report pain of less than 4/10 Patient specific goal for the stay: to have pain return to baseline Patient Progress: patient reporting "cramping" pain to bottom of left foot, prn fentanyl given everyhour with relief. pulses weak, and palpable bilaterally. Hot pack applied to bottom of foot with relief. dressing c/d/i. Supplemental Progress Note - Osito Alfred Jr., MD - 03/16/2021 1:51 PM CDT VASCULAR SURGERY POST-OP CHECK POD#0 s/p LLE thrombectomy. She is very drowsy and unable to hold a conversation. She however appears to be resting comfortably in no significant amount of pain. Remains afebrile and hemodynamicallystable. Dressing c/d/i. Palpable DP pulse with well perfused distal extremity. Overall doing wellpostop with no acute concerns. Sea Alfred MD General Surgery Resident Pager #[phone] ostOp Progress Note - Femi Vogel DO - 03/16/2021 11:22 AM CDT Immediate Post-Operative / Post Procedure Progress Note Att. Phys: Lelo Lafleur MD Pt. Type: Inpatient Operative Date: 03/16/2021 Surgeon: Surgeon(s) and Role: * Femi Vogel DO - Primary Pediatric Oncologist: Business Practices Officer : Maria A Vergara RN Relief Scrub : Mei Chen ST Scrub Person : Patsy Mccrary ST Transistor Tester: Presley Thomas RN Pre-Operative Diagnosis: Pre-Op Diagnosis Codes: * Ischemic leg [I99.8], Thrombosis femoral and popliteal artery left leg, atrial fibrillation Post-Operative Diagnosis: Ischemic leg [I99.8], Thrombosis femoral and popliteal artery left leg, atrial fibrillation Anesthesia Type: general Operative Procedure: Procedure(s): LEFT LEG THROMBECTOMY - Wound Class: Clean ID Type Source Tests Collected by Time A : Left leg thrombus Tissue Soft Tissue TISSUE EXAM Femi Vogel DO 03/16/2021 1052 no implants used for procedure Fluids Given: See Anesthesia Record Urine Output: See Anesthesia Record Estimated Blood Loss: 50 mL Drains: none Findings: As above - strong AT doppler flow post procedure Complications: none Postoperative Condition: stable Operative Note - Femi Vogel DO - 03/16/2021 1:00 AM CDT [facility] PATIENT NAME: CARMEN PADGETT DATE OF SERVICE: 03/16/2021 SHAISTA: [id number] PREOPERATIVE DIAGNOSES: 1. Thrombosis of the left superficial femoral artery and popliteal artery, into the tibial arteries, with complete occlusion. 2. Ischemia of the left leg with rest pain. POSTOPERATIVE DIAGNOSES: 1. Thrombosis of the left superficial femoral artery and popliteal artery, into the tibial arteries, with complete occlusion. 2. Ischemia of the left leg with rest pain. PROCEDURES: 1. Exploration of the left knee popliteal artery. 2. Balloon thrombectomy of the superficial femoral, popliteal and tibial arteries. 3. Pericardial patch repair popliteal artery. SURGEON: Femi Vogel DO. SALESPERSON MEN'S FURNISHINGS: Presley Thomas, surgical supervisor. ESTIMATED BLOOD LOSS: 50 mL. DRAINS: None. COMPLICATIONS: None apparent. Patient with strong anterior tibial Doppler flow postprocedure. There were findings of Doppler flowdistal to the anterior tibial takeoff in the tibioperoneal artery and anterior tibial artery from the incision. PROCEDURE: The patient is a 76-year-old female with a history of a CABG in December; recently, in the last week or so, pacemaker placement, and then cardiac catheterization for stent placement, and patient is on Plavix. The patient was found to have left leg pain at the time of her most-recent myocardial infarction, and this has progressed to rest pain and very short-distance claudication. The patient was found by CT scan to have a thrombus in the superficial femoral and popliteal artery. Cardiology has reviewed the case. Informed consent was obtained by the patient. The patient was brought back to the surgical suite, placed in the supine position, and general anesthetic was administered. Left leg was prepped and draped in the usual sterile fashion. A #10 blade scalpel was used to make a left medial calf incision. Electrocautery was used to dissect down through the subcutaneous tissues, and muscle-splitting dissection was made down to the popliteal artery. The popliteal artery was dissected free from surroundingtissues and looped proximally and distally with vessel loop. Six thousand units of heparin was given to the patient, and adequate circulation time was allowed. Without clamping this artery, a #11 blad e scalpel was used to make an arteriotomy, and this was lengthened with Lopez scissors. There was thrombus within. With a Hackett and graspers, I removed this thrombus. I used a #4 Jane balloon, and this was able to be advanced first at about 20 cm and brought back thrombus, advanced this to about30 cm, which would be about midthigh, and brought this back with thrombus and brought this all the way up, complete distance of a short #4 Jane balloon, and brought this back without any thrombus, and there was excellent inflow, which sprayed. I then irrigated proximally with hep saline. Then, distally, I used the #4 and a #3 Jane balloon was able just get out the remainder of the plug and clot, which was probably just at the distal popliteal tibioperoneal area. I was not able to advance the #3 Jane balloon past about 10 cm, which may be the angle or more stenotic disease, but I did nowhave nice backflow up from the tibial arteries. I irrigated distally with hep saline. A pericardial patch had been prepared, and I performed a pericardial patch angioplasty repair of this artery, which reduced any risk of stenosis. This was performed with 5-0 Prolene suture. Just prior to completion, I allowed backflow up from the popliteal tibial arteries, and this flushed the artery. Clamped this and then flushed the inflow and then opened up outflow, and there was good flow throughout that, and finished the arterial closure. There was good pulsatile flow distal to this repair, good Doppler flow at the anterior tibial and the tibioperoneal artery area, which sounded biphasic to triphasic and very nice. The foot immediately was pink, and I could get a very strong anterior tibial Doppler flow at the left ankle. This was marked. With this, I irrigated the surgical wound well. I did place some thrombin Gelfoam around the artery, but no oozing or concern for bleeding was seen. Then 2-0 Vicryl suture in an interrupted manner was used to approximate fascial tissues, 3-0 Vicryl suture was used for subcutaneous tissues, and kirby were used to approximate the skin. Fluff gauze and then Kerlix gauze wrap were applied. DISPOSITION: The patient tolerated the procedure well, without any complications. Patient returnedto the recovery area in satisfactory condition. 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 1=Not at all satisfied, 2=Somewhat satisfied, 3=Moderately satisfied, 4=Very satisfied, 5=Completely satisfied. Outcome: NOC Rating 4 Flowsheets (Taken 03/15/20212229) Initial Score: 4 Target Score: 5 Plan of care reviewed with: Patient Patient specific goal for the day: to report pain of less than 4/10 Patient specific goal for the stay: to have pain return to baseline Patient Progress: pt denying any pain throughout shift, education provided on what to report and pain managment techniques, pt denies anything for pain at this time, resting well in bed Clinical Team - Mattie Morrell RN - 03/15/2021 6:33 PM CDT Two nurse skin check done with Hakeem RN and content writer: - scattered bruising to bilateral lower extremities - 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, and upper abdominal incision - scattered bruising to abdomen - 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, 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, 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, 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 No other concerns at this time, WCTM documented in this encounter Plan of Treatment Date Type Specialty Care Team Description 03/29/2021 Orders Only Cardiovascular Services 04/05/2021 Office Visit Interventional Radiology Maikol Granger PA [address] [place] [address] [phone] 07/31/2021 Office Visit Endocrinology Ephraim Pagan MD [address] [place] [address] [phone] 09/09/2021 Clinical Support Cardiovascular Services Visit Name Type Priority Associated Diagnoses Order S chedule PACEMAKER IN PERSON CVS Routine Now for 1 Occurrences PROGRAMMING starting 2020 until 03/15/2021 PROTIME/INR Lab Routine Early AM draw f or labs until discontin ued starting 2020, 9 completed BASIC METABOLIC PANEL Lab Routine Early AM draw for labs until discontin ued starting 2020, 6 completed Name Type Priority Associated Diagnoses Order S [facility] H[facility]ITAL DISCHARGE Referral Routine Once for 1 Occurrences WARFARIN ANTICOAG starting 0 03/26/2021 ORDER until documented as of this encounter Goals Goal Patient Goal Associated Recent Patient-Stated? Author Type Problems Progress DIET - REDUCE Diet No Muhs, CALORIE INTAKE MD Osito LIFESTYLE - Exercise No Muhs, INCREASE MD Osito PHYSICAL ACTIVITY Note: Moderate to high intensity physical act ivity (like brisk walk) 30 (number of) minutes and 5 (number of days) per week. documented as of this encounter Implants Implanted Type Area Corporate Tax Manager Device Shelf Model / Identifier Expiration Date Ser ial / Lot Cmnt Vertaplex Hv Twin Pk N [id number] Bx2/Ea-11/19/2015 Bone/Tissu EDENILSON 04/20/2017 [id number] / Implanted: Qty: 1 on 11/19/2015 by Wilian Cox MD e/Allograf / t [id number] Description:L2 Stnt Resolute Manter Rx 3.0x30mm N [id number] Ea1 (Aka [id number])-03/11/2021 Cardiac Stent CORONARY MEDTRONIC 12/11/2022 [id number] / Implanted: 03/11/2021 by Ryan Moreno MD (Quantity not on file) / [id number] Biotronik Dual Chamber Pacemaker-03/11/2021 Cardiovascular Left: BI OTRONIK BIOTRONIK [id number] EDORA 8 MALLIKAT / Implanted: 03/11/2021 by Slim Isaacs MD (Quantity not on file) [employer] [id number] / WALL Description:RA lead implanted 03/11/21: B iotronik [id number] 53, SN: [id number] RV lead implanted 03/11/21: Biotronik 37 7 179 [address] S 60, SN: [id number] Patch Vascuguard 0.8x8cm N [id number] Ea1 - [id number] Cardiovascul ar Left: LEG SHEARER 09/27/2025 [id number] / Implanted: Qty: 1 on 03/16/2021 by Femi Roche cht, DO at [facility] / [id number] Sut Wire Ss 6 Ccs 4-18 N M654g Bx12/Ea1 - [id number] Implant Violeta gical N/A: J&J ETHICON, 08/20/2025 [id number] / Implanted: Qty: 1 on 01/17/2021 by Julieta Godinez MD at [facility] Suture/Wire [employer] / QPBEAB Sut Wire Ss 6 Ccs 4-18 N M654g Bx12/Ea1 - [id number] Implant Violeta gical N/A: J&J ETHICON, 08/20/2025 [id number] / Implanted: Qty: 1 on 01/17/2021 by Julieta Godinez MD at [facility] Suture/Wire [employer] / QPBEAB Sut Wire Ss 6 Ccs 4-18 N M654g Bx12/Ea1 - [id number] Implant Violeta gical N/A: J&J ETHICON, 08/20/2025 [id number] / Implanted: Qty: 1 on 01/17/2021 by Julieta Godinez MD at [facility] Suture/Wire [employer] / QPBEAB Vascular-10/20/2017 Vascular CARDINAL 02/18/2020 [id number] / Implanted: Qty: 1 on 10/20/2017 by Wilian Cox MD / [id number] Description:6x12 LT renal stent documented as of this encounter Procedures Procedure Name Priority Date/Time Associated Comments Diagnosis SARS-COV-2, STAT 03/26/2021 11:39 Results for this INFLUENZA A+B, AM CDT procedure are in AND/OR RSV NUCLEIC the resul ts ACID TESTING PANEL section. PROTIME/INR Routine 03/26/2021 9:47 Results for this AM CDT procedure are i n the results section. BASIC METABOLIC Routine 03/26/2021 9:47 Results for this PANEL AM CDT procedure are i n the results section. LAB ONLY-URINE Routine 03/25/2021 5:29 Results f or this MICROSCOPIC REFLEX PM CDT procedure are in the results section. URINE DIP, REFLEX TO Routine 03/25/2021 5:29 Res ults for this MICROSCOPIC, REFLEX PM CDT procedur e are in TO CULTURE the results section. PROTIME/INR Routine 03/25/2021 10:58 Results for this AM CDT procedure are i n the results section. BASIC METABOLIC Routine 03/25/2021 10:58 Results for this PANEL AM CDT procedure are i n the results section. PTT Timed Routine 03/24/2021 12:12 Results fo r this PM CDT procedure are i n the results section. PTT Timed Routine 03/24/2021 5:50 Results fo r this AM CDT procedure are i n the results section. PROTIME/INR Routine 03/24/2021 5:50 Results for this AM CDT procedure are i n the results section. PTT Timed Routine 03/23/2021 11:40 Results fo r this PM CDT procedure are i n the results section. PROTIME/INR Routine 03/23/2021 11:40 Results for this PM CDT procedure are i n the results section. BASIC METABOLIC Routine 03/23/2021 11:40 Results for this PANEL PM CDT procedure are i n the results section. PTT Timed Routine 03/23/2021 5:42 Results fo r this PM CDT procedure are i n the results section. PTT Timed Routine 03/23/2021 11:40 Results fo r this AM CDT procedure are i n the results section. PTT Timed Routine 03/23/2021 4:58 Results fo r this AM CDT procedure are i n the results section. PTT Timed Routine 03/22/2021 10:25 Results fo r this PM CDT procedure are i n the results section. PROTIME/INR Routine 03/22/2021 10:25 Results for this PM CDT procedure are i n the results section. BASIC METABOLIC Routine 03/22/2021 10:25 Results for this PANEL PM CDT procedure are i n the results section. PTT Timed Routine 03/22/2021 3:21 Results fo r this PM CDT procedure are i n the results section. PTT Timed Routine 03/22/2021 8:02 Results fo r this AM CDT procedure are i n the results section. PROTIME/INR Routine 03/22/2021 8:02 Results for this AM CDT procedure are i n the results section. BASIC METABOLIC Routine 03/22/2021 6:50 Results for this PANEL AM CDT procedure are i n the results section. URINE DIP, REFLEX TO RANDEE 03/22/2021 5:42 Res ults for this MICROSCOPIC, REFLEX AM CDT procedur e are in TO CULTURE the results section. PTT Timed Routine 03/22/2021 12:13 Results fo r this AM CDT procedure are i n the results section. PTT Timed Routine 03/21/2021 5:43 Results fo r this PM CDT procedure are i n the results section. VENOUS DUPLEX LOWER Routine 03/21/2021 1:48 Resu lts for this EXTREMITY LT PM CDT procedure are i n the results section. PTT Timed Routine 03/21/2021 11:36 Results fo r this AM CDT procedure are i n the results section. PTT Timed Routine 03/21/2021 4:50 Results fo r this AM CDT procedure are i n the results section. PROTIME/INR Routine 03/21/2021 4:50 Results for this AM CDT procedure are i n the results section. BASIC METABOLIC Routine 03/21/2021 4:50 Results for this PANEL AM CDT procedure are i n the results section. PTT Timed Routine 03/20/2021 10:02 Results fo r this PM CDT procedure are i n the results section. PTT Timed Routine 03/20/2021 3:54 Results fo r this PM CDT procedure are i n the results section. PTT Timed Routine 03/20/2021 9:19 Results fo r this AM CDT procedure are i n the results section. PTT Timed Routine 03/20/2021 2:17 Results fo r this AM CDT procedure are i n the results section. PROTIME/INR Routine 03/20/2021 2:17 Results for this AM CDT procedure are i n the results section. PTT Timed Routine 03/19/2021 7:15 Results fo r this PM CDT procedure are i n the results section. PTT Timed Routine 03/19/2021 12:52 Results fo r this PM CDT procedure are i n the results section. HEMOGLOBIN Routine 03/19/2021 12:52 Results for this PM CDT procedure are i n the results section. PTT Timed Routine 03/19/2021 6:09 Results fo r this AM CDT procedure are i n the results section. PROTIME/INR Routine 03/19/2021 6:09 Results for this AM CDT procedure are i n the results section. PTT Timed Routine 03/19/2021 12:13 Results fo r this AM CDT procedure are i n the results section. PTT Timed Routine 03/18/2021 5:40 Results fo r this PM CDT procedure are i n the results section. PTT Timed Routine 03/18/2021 9:06 Results fo r this AM CDT procedure are i n the results section. PTT STAT 03/18/2021 7:56 Results for this AM CDT procedure are i n the results section. PTT Timed Routine 03/18/2021 7:00 Results fo r this AM CDT procedure are i n the results section. PROTIME/INR Routine 03/18/2021 7:00 Results for this AM CDT procedure are i n the results section. HEMOGLOBIN Routine 03/18/2021 7:00 Results for this AM CDT procedure are i n the results section. PTT Timed Routine 03/17/2021 10:21 Results fo r this PM CDT procedure are i n the results section. PTT Timed Routine 03/17/2021 4:08 Results fo r this PM CDT procedure are i n the results section. PTT Timed Routine 03/17/2021 9:50 Results fo r this AM CDT procedure are i n the results section. PROTIME/INR Routine 03/17/2021 9:50 Results for this AM CDT procedure are i n the results section. COMPLETE BLOOD COUNT Routine 03/17/2021 7:25 Res ults for this WITHOUT DIFFERENTIAL AM CDT procedu re are in the results section. RENAL FUNCTION PANEL Routine 03/17/2021 7:25 Res ults for this AM CDT procedure are i n the results section. PTT Timed Routine 03/17/2021 2:28 Results fo r this AM CDT procedure are i n the results section. PTT Timed Routine 03/16/2021 8:24 Results fo r this PM CDT procedure are i n the results section. PTT RANDEE 03/16/2021 1:00 Results for this PM CDT procedure are i n the results section. TISSUE EXAM Routine 03/16/2021 10:52 Ischemic leg Results for this AM CDT procedure are i n the results section. EMBOLECTOMY FEMORAL 03/16/2021 8:46 Ischemic leg AM CDT LAB ONLY-COMPLETE STAT 03/15/2021 2:34 Result s for this BLOOD COUNT WITH PM CDT procedure a re in DIFFERENTIAL the results section. BASIC METABOLIC STAT 03/15/2021 2:34 Results for this PANEL PM CDT procedure are i n the results section. LAB ONLY-COMPLETE STAT 03/15/2021 2:34 Result s for this BLOOD COUNT WITH PM CDT procedure a re in DIFFERENTIAL the results section. XRAY CHEST PA AND RANDEE 03/15/2021 2:20 Result s for this LATERAL PM CDT procedure are i n the results section. PACEMAKER IN PERSON Routine 03/15/2021 1:58 Resu lts for this PROGRAMMING PM CDT procedure are i n the results section. ANKLE BRACHIAL INDEX STAT 03/15/2021 10:23 Res ults for this NAHEED AM CDT procedure are i n the results section. documented in this encounter Results SARS-COV-2, INFLUENZA A+B, AND/OR RSV NUCLEIC ACID TESTING PANEL (03/26/2021 11:39 AM CDT) Pathologist Sig nature SARS-CoV-2 Not Detected Not Detected [address] Specimen Respiratory - Nasopharyngeal swab (speci men) Narrative Performed At Please read entire report. Results for Influenza A and B or RSV [facility] may also be available depending on which viruses your provider selected for testing. Your Covid-19 test is negative: 1)Avoiding close contact is s till recommended. 2)Cover your coughs and snee zes. 3)Wash your hands often with soap and wate r for at least 20 seconds or use an alcohol-based rag shredder con taining over 60% alcohol. Avoid touching your fa ce. 4)Avoid sharing personal household items, including dishes, cups, utensils, towels, clothing, or bedding. These items should be cleaned thoroughly with soap and water after use. Clean all "high touch" surfaces in your home d aily. 5) Monitor your symptoms. Contact your provider if you are feeling worse. If you have shortness of breath or diff iculty breathing, call 911. This assay is for in vitro diagnostic use under FDA Em ergency Use Authorization only. Optimal performance of this test requires appropriate specimen collection, storage, and transport to [facility] test site. Detection of SARS-CoV-2 RNA may be affected by sample collection methods, patient factors (eg, presence of symptoms), a nd/or stage of infection. False-negative results may arise from degradation of v iral RNA during shipping/storage. Results should be interpreted by a trained professiona l in conjunction with the patient s history and clinical signs and symptoms, and epidemi ological risk factors. Negative (Not Detected) results do not preclude infect ion with the SARS-CoV-2 virus and should not be the sole basis of patient treatment/management or public health decision. Follow up testing should be performed according to the current CDC recom mendations. This test was performed by polymerase chain reaction ( PCR) on the GeneXpert instrument. Performing Organization Address City/State/ZIP Code Phon e Number [address] [place] [address] BASIC METABOLIC PANEL (03/26/2021 9:47 AM CDT) [facility] nature Glucose 151 (H) 70 - 100 mg/dL [address] BUN 22 6 - 22 mg/dL [address] Creatinine 0.76 0.60 - 1.[address] mg/dL BUN/Creatinine Ratio 28.9 (H) 10.0 - 25.[address] Sodium 135 135 - 145 meq/L [address] Potassium 3.4 (L) 3.5 - 5.3 meq/L [address] Chloride 100 99 - 110 meq/L [address] CO2 23 20 - 29 meq/L [address] Anion Gap with K 15 6 - 20 meq/L [address] Calcium 9.1 8.5 - 10.[address] mg/dL Age [address] eGFR Non- 74 >=[address] Colombian mL/min/1.73m2 eGFR 89 >=[address] mL/min/1.73m2 Specimen Blood - Blood specimen (specimen) Performing Organization Address City/[facility] Phon e Number [address] [place] [address] PROTIME/INR (03/26/2021 9:47 AM CDT) Pathologist Sig nature Protime 22.7 (H) 12.0 - 14.[address] INR 2.2 (H) 0.9 - 1.[address] Specimen Blood - Blood specimen (specimen) Narrative Performed At INR Standard Intensity = (2.0 - 3.0) [address] INR Higher Intensity = (2.5 - 3.5) Performing Organization Address City/[facility] Phon e Number [address] [place] [address], [place] [address] LAB ONLY-URINE MICROSCOPIC REFLEX (03/25/2021 5:29 PM CDT) WBC Urine 0-5 /hpf Negative, 0-5 [place] [address] /hpf CLINIC RBC Urine 0-2 /hpf Negative, 0-2 [place] [address] /hpf CLINIC Squamous Moderate (21-50) Negative, Occ [place] [address] Epithelial Cells /lpf (A) (0-10) /lpf, Few CLINIC (11-20) /lpf Bacteria Negative Negative [address] Hyaline Cast 0-2 /lpf 0-2 /lpf [address] Specimen Urine - Urine specimen obtained by clean catch procedure (specimen) Narrative Performed At The presence of moderate or many squamous epithelial c ells is [facility] suggestive of possible contamination dur ing collection. Culture not performed - reflex criteria not met. Culture is only performed when the urine macroscopic c olor is reported as Bright [place], or whentwoor more of th e following criteria are met: Positive Nitrite, Positive Leukocyte Esterase, WBC's > 5 cells/hpf. Performing Organization Address [facility] Phon e Number [place] [address] [facility] [address] [place] [address], [place] [address] URINE DIP, REFLEX TO MICROSCOPIC, REFLEX TO CULTURE (03/25/2021 5:29 PM CDT) Color Urine Yellow Nga, Dark [place] [address] Yellow, Straw, CLINIC Yellow, Colorless Clarity Urine Clear Clear [address] Glucose Urine Negative Negative [address] Bilirubin Urine Negative Negative [address] Ketones Urine Negative Negative, 5 [place] [address] mg/dL, 10 mg/dL CLINIC Specific [place] 1.011 1.002 - 1.[address] Blood Urine Negative Negative [address] PH Urine 5.5 5.0, 5.5, 6.0, [place] [address] 6.5, 7.0, 7.5, CLINIC 8.0 Protein Urine Negative Negative [address] Urobilinogen >= 4 mg/dL (A) < 2 mg/dL [address] Nitrite Negative Negative [address] Leukocyte Esterase Trace (A) Negative [place] [address] Urine CLINIC Specimen Urine - Urine specimen obtained by clean catch procedure (specimen) Narrative Performed At Microscopic Exam Reflexed [address] Performing Organization Address [facility] Phon e Number [place] [address] [facility] [address] [place] [address], [place] [address] BASIC METABOLIC PANEL (03/25/2021 10:58 AM CDT) Pathologist Sig nature Glucose 99 70 - 100 mg/dL [place] [address] [facility] BUN 22 6 - 22 mg/dL [place] [address] [facility] Creatinine 0.72 0.60 - 1.[address] mg/dL BUN/Creatinine Ratio 30.6 (H) 10.0 - 25.[address] Sodium 135 135 - 145 meq/L [place] [address] [facility] Potassium 3.7 3.5 - 5.3 meq/L [address] Chloride 101 99 - 110 meq/L [address] CO2 23 20 - 29 meq/L [address] Anion Gap with K 15 6 - 20 meq/L [address] Calcium 9.5 8.5 - 10.[address] mg/dL Age [address] eGFR Non- 79 >=[address] [place] mL/min/1.73m2 eGFR >90 >=[address] mL/min/1.73m2 Specimen Blood - Blood specimen (specimen) Performing Organization Address [facility] Phon e Number [address] [place] [id number] PROTIME/INR (03/25/2021 10:58 AM CDT) Pathologist Sig nature Protime 22.5 (H) 12.0 - 14.[address] INR 2.2 (H) 0.9 - 1.[address] Specimen Blood - Blood specimen (specimen) Narrative Performed At INR Standard Intensity = (2.0 - 3.0) [address] INR Higher Intensity = (2.5 - 3.5) Performing Organization Address [facility] Phon e Number [address] [place] [address] PTT (03/24/2021 12:12 PM CDT) Pathologist Sig nature APTT 77 (H) 24 - [address] Specimen Blood - Blood specimen (specimen) Performing Organization Address [facility] Phon e Number [address] [place] [address] [place] [address] PROTIME/INR (03/24/2021 5:50 AM CDT) Pathologist Sig nature Protime 22.8 (H) 12.0 - 14.[address] INR 2.2 (H) 0.9 - 1.[address] Specimen Blood - Blood specimen (specimen) Narrative Performed At INR Standard Intensity = (2.0 - 3.0) [address] INR Higher Intensity = (2.5 - 3.5) Performing Organization Address [facility] Phon e Number [place] [address] [facility] [address] [place] [address], [place] [address] PTT (03/24/2021 5:50 AM CDT) Pathologist Sig nature APTT 82 (H) 24 - [address] Specimen Blood - Blood specimen (specimen) Performing Organization Address [facility] Phon e Number [place] [address] [facility] [address] [place] [address] PTT (03/23/2021 11:40 PM CDT) Pathologist Sig nature APTT 91 (H) 24 - [address] Specimen Blood - Blood specimen (specimen) Performing Organization Address [facility] Phon e Number [place] [address] [facility] [address] [place] [address], [place] [address] BASIC METABOLIC PANEL (03/23/2021 11:40 PM CDT) Pathologist Sig nature Glucose 112 (H) 70 - 100 mg/dL [address] BUN 22 6 - 22 mg/dL [address] Creatinine 0.77 0.60 - 1.[address] mg/dL BUN/Creatinine Ratio 28.6 (H) 10.0 - 25.[address] Sodium 136 135 - 145 meq/L [address] Potassium 4.0 3.5 - 5.3 meq/L [address] Chloride 101 99 - 110 meq/L [address] CO2 25 20 - 29 meq/L [address] Anion Gap with K 14 6 - 20 meq/L [address] Calcium 9.0 8.5 - 10.5 [place] [address] [facility] mg/dL Age 76 Years [place] [address] [facility] eGFR Non- 73 >=[address] [place] mL/min/1.73m2 eGFR 88 >=[address] mL/min/1.73m2 Specimen Blood - Blood specimen (specimen) Performing Organization Address [facility] Phon e Number [place] [address] [facility] [address] [place] [address] [place] [address] PROTIME/INR (03/23/2021 11:40 PM CDT) Pathologist Sig nature Protime 22.4 (H) 12.0 - 14.[address] INR 2.2 (H) 0.9 - 1.[address] Specimen Blood - Blood specimen (specimen) Narrative Performed At INR Standard Intensity = (2.0 - 3.0) [address] INR Higher Intensity = (2.5 - 3.5) Performing Organization Address [facility] Phon e Number [address] [place] [address], [place] [address] PTT (03/23/2021 5:42 PM CDT) Pathologist Sig nature APTT 79 (H) 24 - [address] Specimen Blood - Blood specimen (specimen) Performing Organization Address [facility] Phon e Number [address] [place] [address], [place] [address] PTT (03/23/2021 11:40 AM CDT) Pathologist Sig nature APTT 82 (H) 24 - [address] Specimen Blood - Blood specimen (specimen) Performing Organization Address [facility] Phon e Number [place] [address] [facility] [address] [place] [address], [place] [address] PTT (03/23/2021 4:58 AM CDT) Pathologist Sig nature APTT 133 (H) 24 - [address] Specimen Blood - Blood specimen (specimen) Performing Organization Address [facility] Phon e Number [address] [place] [address] [place] [address] PTT (03/22/2021 10:25 PM CDT) Pathologist Sig nature APTT 108 (H) 24 - [address] Specimen Blood - Blood specimen (specimen) Performing Organization Address [facility] Phon e Number [address] [address] [place] [address], [place] [address] BASIC METABOLIC PANEL (03/22/2021 10:25 PM CDT) Pathologist Sig nature Glucose 137 (H) 70 - 100 mg/dL [address] BUN 21 6 - 22 mg/dL [address] Creatinine 0.86 0.60 - 1.[address] mg/dL BUN/Creatinine Ratio 24.4 10.0 - 25.[address] Sodium 139 135 - 145 meq/L [address] Potassium 4.4 3.5 - 5.3 meq/L [address] Chloride 102 99 - 110 meq/L [address] CO2 26 20 - 29 meq/L [address] Anion Gap with K 15 6 - 20 meq/L [address] Calcium 9.3 8.5 - 10.5 mg/dL [address] Age [address] eGFR Non- 64 >=[address] Colombian mL/min/1.73m2 eGFR 78 >=[address] mL/min/1.73m2 Specimen Blood - Blood specimen (specimen) Performing Organization Address [facility] Phon [address] [place] [address] PROTIME/INR (03/22/2021 10:25 PM CDT) Pathologist Sig nature Protime 21.6 (H) 12.0 - 14.[address] INR 2.1 (H) 0.9 - 1.[address] Specimen Blood - Blood specimen (specimen) Narrative Performed At INR Standard Intensity = (2.0 - 3.0) [address] INR Higher Intensity = (2.5 - 3.5) Performing Organization Address [facility] Phon e Number [address] [place] [address] [place] [address] PTT (03/22/2021 3:21 PM CDT) Pathologist Sig nature APTT 89 (H) 24 - [address] Specimen Blood - Blood specimen (specimen) Performing Organization Address [facility] Phon e Number [address] [place] [address], [place] [address] PTT (03/22/2021 8:02 AM CDT) Pathologist Sig nature APTT 118 (H) 24 - [address] Specimen Blood - Blood specimen (specimen) Performing Organization Address [facility] Phon e Number [place] [address] [facility] [address] [place] [address] PROTIME/INR (03/22/2021 8:02 AM CDT) Pathologist Sig nature Protime 20.5 (H) 12.0 - 14.[address] INR 1.9 (L) 2.0 - 3.[address] Specimen Blood - Blood specimen (specimen) Narrative Performed At Normal INR reference range (patients not on oral antic oagulants) [address] 0.9-1.1. INR Standard Intensity = (2.0 - 3.0) INR Higher Intensity = (2.5 - 3.5) Performing Organization Address [facility] Phon e Number [address] [place] [address] BASIC METABOLIC PANEL (03/22/2021 6:50 AM CDT) Pathologist Sig nature Glucose 101 (H) 70 - 100 mg/dL [address] BUN 15 6 - 22 mg/dL [address] Creatinine 0.71 0.60 - 1.[address] mg/dL BUN/Creatinine Ratio 21.1 10.0 - 25.[address] Sodium 137 135 - 145 meq/L [address] Potassium 4.5 3.5 - 5.3 meq/L [address] Chloride 103 99 - 110 meq/L [address] CO2 22 20 - 29 meq/L [address] Anion Gap with K 17 6 - 20 meq/L [address] Calcium 9.2 8.5 - 10.5 mg/dL [address] Age 76 Years [place] [address] [facility] eGFR Non- 80 >=[address] Colombian mL/min/1.73m2 eGFR >90 >=[address] mL/min/1.73m2 Specimen Blood - Blood specimen (specimen) Performing Organization Address [facility] Phon e Number [place] [address] [place] [address] URINE DIP, REFLEX TO MICROSCOPIC, REFLEX TO CULTURE (03/22/2021 5:42 AM CDT) Color Urine Straw Nga, Dark [place] [address] Yellow, Straw, CLINIC Yellow, Colorless Clarity Urine Clear Clear [address] Glucose Urine Negative Negative [address] Bilirubin Urine Negative Negative [address] Ketones Urine Negative Negative, 5 mg/dL, [place] [address] 10 mg/dL [facility] Specific Champion 1.009 1.002 - 1.[address] Blood Urine Negative Negative [address] PH Urine 7.0 5.0, 5.5, 6.0, [place] [address] 6.5, 7.0, 7.5, 8.0 [facility] Protein Urine Negative Negative [address] Urobilinogen < 2 mg/dL < 2 mg/dL [address] Nitrite Negative Negative [address] Leukocyte Esterase Negative Negative [place] [address] Urine CLINIC Specimen Urine - Urine specimen obtained by clean catch procedure (specimen) Narrative Performed At Microscopic exam not indicated [address] Culture not performed - reflex criteria not met. Culture is only performed when the urine macroscopic c olor is reported as Bright [place], or whentwoor more of th e following criteria are met: Positive Nitrite, Positive Leukocyte Esterase, WBC's > 5 cells/hpf. Performing Organization Address [facility] Phon e Number [address] [address] PTT (03/22/2021 12:13 AM CDT) Pathologist Sig nature APTT 111 (H) 24 - [address] Specimen Blood - Blood specimen (specimen) Performing Organization Address [facility] Phon e Number [place] [address] [facility] [address] [place] [address], [place] [address] PTT (03/21/2021 5:43 PM CDT) Pathologist Sig nature APTT 97 (H) 24 - [address] Specimen Blood - Blood specimen (specimen) Performing Organization Address [facility] Phon e Number [place] [address] [facility] [address] [place] [address] VENOUS DUPLEX LOWER EXTREMITY LT (03/21/2021 1:48 PM CDT) Specimen Narrative Performed At This result has an attachment that is no t available. Name: Carmen Padgett : 1945 Date of Service: 03/21/2021 EXAM: US VENOUS DUPLEX LOWER EXTREMITY UNILAT LT INDICATION: pain, post op COMPARISON(S): none TECHNIQUE: Multiple real-time sonographic images obt ained using grayscale, color, and spectral Doppler. FINDINGS: LEFT: Common Femoral Vein / Saphenofemoral Junction: Compressibility: Compresses Phasicity: Normal Augmentation: Normal Deep Femoral Vein Proximal: Compressibility: Compresses Phasicity: Normal Augmentation: Normal Femoral Vein Proximal: Compressibility: Compresses Phasicity: Normal Augmentation: Normal Femoral Vein Mid: Compressibility: Compresses Femoral Vein Distal: Compressibility: Compresses Great Saphenous Vein: Compressibility: Compresses Augmentation: Normal Popliteal Vein: Compressibility: Compresses Phasicity: Normal Augmentation: Normal Posterior Tibial Veins: Compressibility: Not Visualized Well Augmentation: Normal Peroneal Veins: Compressibility: Not Visualized Well Augmentation: Normal RIGHT: Common Femoral Vein / Saphenofemoral Junction: Compressibility: Compresses Phasicity: Normal Augmentation: Normal IMPRESSION: No evidence of deep venous thrombosis in the left lowe r extremity. Exam technically limited due to edema and incision cookie ng the calf. PTT (03/21/2021 11:36 AM CDT) Pathologist Sig nature APTT 95 (H) 24 - [address] Specimen Blood - Blood specimen (specimen) Performing Organization Address [facility]/ZIP Code Phon e Number [address] [place] [address] [place] [address] PTT (03/21/2021 4:50 AM CDT) Pathologist Sig nature APTT 97 (H) 24 - [address] Specimen Blood - Blood specimen (specimen) Performing Organization Address City/[facility] Phon e Number [address] [place] [address], [place] [address] BASIC METABOLIC PANEL (03/21/2021 4:50 AM CDT) Pathologist Sig nature Glucose 97 70 - 100 mg/dL [address] BUN 14 6 - 22 mg/dL [address] Creatinine 0.67 0.60 - 1.[address] mg/dL BUN/Creatinine Ratio 20.9 10.0 - 25.[address] Sodium 142 135 - 145 meq/L [address] Potassium 4.1 3.5 - 5.3 meq/L [address] Chloride 107 99 - 110 meq/L [address] CO2 26 20 - 29 meq/L [address] Anion Gap with K 13 6 - 20 meq/L [address] Calcium 9.1 8.5 - 10.5 mg/dL [address] Age [address] eGFR Non- 85 >=[address] Colombian mL/min/1.73m2 eGFR >90 >=[address] mL/min/1.73m2 Specimen Blood - Blood specimen (specimen) Performing Organization Address [facility] Phon e Number [address] [place] [address] PROTIME/INR (03/21/2021 4:50 AM CDT) Pathologist Sig nature Protime 20.1 (H) 12.0 - 14.[address] INR 1.9 (L) 2.0 - 3.[address] Specimen Blood - Blood specimen (specimen) Narrative Performed At Normal INR reference range (patients not on oral antic oagulants) [address] 0.9-1.1. INR Standard Intensity = (2.0 - 3.0) INR Higher Intensity = (2.5 - 3.5) Performing Organization Address [facility] Phon e Number [place] [address] [facility] [address] [place] [address] PTT (03/20/2021 10:02 PM CDT) Pathologist Sig nature APTT 102 (H) 24 - [address] Specimen Blood - Blood specimen (specimen) Performing Organization Address [facility] Phon e Number [place] [address] [facility] [address] [address] PTT (03/20/2021 3:54 PM CDT) Pathologist Sig nature APTT 86 (H) 24 - [address] Specimen Blood - Blood specimen (specimen) Performing Organization Address [facility] Phon e Number [place] [address] [facility] [address] [place] [address] PTT (03/20/2021 9:19 AM CDT) Pathologist Sig nature APTT 102 (H) 24 - [address] Specimen Blood - Blood specimen (specimen) Performing Organization Address [facility] Phon [place] [address] [facility] [address] [place] [address] PTT (03/20/2021 2:17 AM CDT) Pathologist Sig nature APTT 121 (H) 24 - [address] Specimen Blood - Blood specimen (specimen) Performing Organization Address [address] [place] [address], [place] [address] PROTIME/INR (03/20/2021 2:17 AM CDT) Pathologist Sig nature Protime 19.4 (H) 12.0 - 14.[address] INR 1.8 (L) 2.0 - 3.[address] Specimen Blood - Blood specimen (specimen) Narrative Performed At Normal INR reference range (patients not on oral antic oagulants) [address] 0.9-1.1. INR Standard Intensity = (2.0 - 3.0) INR Higher Intensity = (2.5 - 3.5) Performing Organization Address [facility] Phon e Number [place] [address] [facility] [address] [place] [address] PTT (03/19/2021 7:15 PM CDT) Pathologist Sig nature APTT 97 (H) 24 - [address] Specimen Blood - Blood specimen (specimen) Performing Organization Address [facility] Phon e [address] [place] [address] HEMOGLOBIN (03/19/2021 12:52 PM CDT) Pathologist Sig nature Hemoglobin 9.2 (L) 11.5 - 15.8 g/dL [address] Specimen Blood - Blood specimen (specimen) Performing Organization Address [facility] Phon e Number [address] [place] [address], [place] [address] PTT (03/19/2021 12:52 PM CDT) Pathologist Sig nature APTT 97 (H) 24 - [address] Specimen Blood - Blood specimen (specimen) Performing Organization Address [facility] Phon e Number [address] [place] [address], [place] [address] PTT (03/19/2021 6:09 AM CDT) Pathologist Sig nature APTT 118 (H) 24 - [address] Specimen Blood - Blood specimen (specimen) Performing Organization Address [facility] e Number [address] [place] [address], [place] [address] PROTIME/INR (03/19/2021 6:09 AM CDT) Pathologist Sig nature Protime 16.4 (H) 12.0 - 14.[address] INR 1.4 (L) 2.0 - 3.[address] Specimen Blood - Blood specimen (specimen) Narrative Performed At Normal INR reference range (patients not on oral antic oagulants) [address] 0.9-1.1. INR Standard Intensity = (2.0 - 3.0) INR Higher Intensity = (2.5 - 3.5) Performing Organization Address [facility] Phon e Number [place] [address] [facility] [address] [place] [address], [place] [address] PTT (03/19/2021 12:13 AM CDT) Pathologist Sig nature APTT 94 (H) 24 - [address] Specimen Blood - Blood specimen (specimen) Performing Organization Address [facility] Phon e Number [address] [place] [address], [place] [address] PTT (03/18/2021 5:40 PM CDT) Pathologist Sig nature APTT 91 (H) 24 - [address] Specimen Blood - Blood specimen (specimen) Performing Organization Address [facility] Phon e Number [place] [address] [facility] [address] [place] [address] PTT (03/18/2021 9:06 AM CDT) Pathologist Sig nature APTT 88 (H) 24 - [address] Specimen Blood - Blood specimen (specimen) Performing Organization Address [facility] Phon e Number [place] [address] [facility] [address] [place] [address] PTT (03/18/2021 7:56 AM CDT) Pathologist Sig nature APTT >150 (HH) 24 - [address] Specimen Blood - Blood specimen (specimen) Performing Organization Address [facility] Phon e Number [address] [place] [address] PTT (03/18/2021 7:00 AM CDT) Pathologist Sig nature APTT >150 (HH) 24 - [address] Specimen Blood - Blood specimen (specimen) Performing Organization Address [facility] Phon e Number [address] [place] [address] HEMOGLOBIN (03/18/2021 7:00 AM CDT) Pathologist Sig nature Hemoglobin 8.9 (L) 11.5 - 15.8 g/dL [address] Specimen Blood - Blood specimen (specimen) Performing Organization Address [facility] Phon e Number [address] [place] [address] PROTIME/INR (03/18/2021 7:00 AM CDT) Pathologist Sig nature Protime 15.1 (H) 12.0 - 14.5 secs [place] [address] [facility] INR 1.3 (L) 2.0 - 3.[address] Specimen Blood - Blood specimen (specimen) Narrative Performed At Normal INR reference range (patients not on oral antic oagulants) [address] 0.9-1.1. INR Standard Intensity = (2.0 - 3.0) INR Higher Intensity = (2.5 - 3.5) Performing Organization Address [facility] Phon e Number [place] [address] [facility] [address] [place] [address], [place] [address] PTT (03/17/2021 10:21 PM CDT) Pathologist Sig nature APTT 55 (H) 24 - [address] Specimen Blood - Blood specimen (specimen) Performing Organization Address [facility] Phon e Number [place] [address] [facility] [address] [place] [address], [place] [address] PTT (03/17/2021 4:08 PM CDT) Pathologist Sig nature APTT 70 (H) 24 - [address] Specimen Blood - Blood specimen (specimen) Performing Organization Address [facility] Phon e Number [address] [place] [address], [place] [address] PROTIME/INR (03/17/2021 9:50 AM CDT) Pathologist Sig nature Protime 13.6 12.0 - 14.[address] INR 1.1 (L) 2.0 - 3.[address] Specimen Blood - Blood specimen (specimen) Narrative Performed At Normal INR reference range (patients not on oral antic oagulants) [address] 0.9-1.1. INR Standard Intensity = (2.0 - 3.0) INR Higher Intensity = (2.5 - 3.5) Performing Organization Address [facility] Phon e Number [place] [address] [facility] [address] [place] [address], [place] [address] PTT (03/17/2021 9:50 AM CDT) Pathologist Sig nature APTT 88 (H) 24 - [address] Specimen Blood - Blood specimen (specimen) Performing Organization Address [facility] Phon e Number [address] [place] [address], [place] [address] RENAL FUNCTION PANEL (03/17/2021 7:25 AM CDT) Pathologist Sig nature Glucose 84 70 - 100 mg/dL [address] BUN 16 6 - 22 mg/dL [address] Creatinine 0.67 0.60 - 1.[address] mg/dL BUN/Creatinine Ratio 23.9 10.0 - 25.[address] Sodium 138 135 - 145 meq/L [address] Potassium 4.2 3.5 - 5.3 meq/L [address] Chloride 107 99 - 110 meq/L [address] CO2 21 20 - 29 meq/L [address] Anion Gap with K 14 6 - 20 meq/L [address] Calcium 8.4 (L) 8.5 - 10.5 mg/dL [address] Phosphorus 3.3 2.5 - 4.5 mg/dL [address] Albumin 2.9 (L) 3.5 - 5.0 g/dL [address] Corrected Calcium 9.3 8.5 - 10.5 mg/dL [address] Age [address] eGFR Non- 85 >=[address] Colombian mL/min/1.73m2 eGFR >90 >=[address] mL/min/1.73m2 Specimen Blood - Blood specimen (specimen) Performing Organization Address City/State/ZIP Code Phon e Number [address] [address] COMPLETE BLOOD COUNT WITHOUT DIFFERENTIAL (03/17/2021 7:25 AM CDT) Pathologist Sig nature WBC 5.7 4.0 - 11.0 K/uL [address] RBC 3.05 (L) 3.80 - 5.30 M/uL [address] Hemoglobin 9.0 (L) 11.5 - 15.8 g/dL [address] Hematocrit 28.5 (L) 35.0 - 45.0 % [address] MCV 93.4 80.0 - 98.[address] MCH 29.5 25.5 - 34.[address] MCHC 31.6 31.5 - 36.5 g/dL [address] RDW-CV 13.4 11.5 - 15.5 % [address] RDW-SD 45.8 35.5 - 50.[address] Platelet Count 276 140 - 400 K/uL [address] MPV 8.9 8.5 - 12.[address] Specimen Blood - Blood specimen (specimen) Performing Organization Address [facility] Code Phon e Number [address] [facility] [place] [address] PTT (03/17/2021 2:28 AM CDT) Pathologist Sig nature APTT 125 (H) 24 - [address] Specimen Blood - Blood specimen (specimen) Performing Organization Address [facility] Phon e Number [address] [facility] [place] [address] PTT (03/16/2021 8:24 PM CDT) Pathologist Sig nature APTT 110 (H) 24 - [address] Specimen Blood - Blood specimen (specimen) Performing Organization Address [facility] Phon e Number [place] [address] [facility] [address] [facility] [place] [address] PTT (03/16/2021 1:00 PM CDT) Pathologist Sig nature APTT 73 (H) 24 - [address] Specimen Blood - Blood specimen (specimen) Performing Organization Address [facility] Phon e Number [place] [address] [facility] [address] [place] [address] TISSUE EXAM (03/16/2021 10:52 AM CDT) FINAL DIAGNOSIS A. VEIN, LEFT LEG THROMBUS, EXCISION: GREGG ALLEN Electronically - Organizing thrombus. [facility] afua d by KARENA Lei DO o n 03/20/2021 at 4 :32 PM GROSS DESCRIPTION [place] [facility] Received in formalin, labele d "LEFT LEG THROMBUS" are multiple pieces of blood clot measuring 1.5 x 1 x 0.5 in aggregate. [facility] Taper Machine sections submitted as follows (1 block) : A1 Taper Machine section JA:maddy MICROSCOPIC Microscopic [place] [facility] DESCRIPTION examination [facility] performed. LABORATORY Clinical thrombus [facility] Information [facility] CASE REPORT Surgical Pathology Report Case: [id number] SA NFNASIMA ALLEN Authorizing Provider: Femi Lee DO Collected: 03/16/[address] [place] [address] Ordering Location: [facility] Received: 03/16/2021 [address] [facility] Pathologist: Verónica Lei DO Specimen: Vein, Left le g thrombus EMBEDDED IMAGES [facility] Specimen Tissue - Vein sample (specimen) Performing Organization Address City/State/ZIP Code Phon e Number [facility] [address] [place] [address] LABORATORY [address] LAB ONLY-COMPLETE BLOOD COUNT WITH DIFFERENTIAL (03/15/2021 2:34 PM CDT) Pathologist Sig nature WBC 4.6 4.0 - 11.0 K/uL [address] RBC 3.80 3.80 - 5.[address] M/uL Hemoglobin 11.0 (L) 11.5 - 15.[address] g/dL Hematocrit 34.9 (L) 35.0 - 45.0 % [address] MCV 91.8 80.0 - 98.[address] MCH 28.9 25.5 - 34.[address] MCHC 31.5 31.5 - 36.[address] g/dL RDW-CV 13.5 11.5 - 15.5 % [address] RDW-SD 45.6 35.5 - 50.[address] Platelet Count 321 140 - 400 K/uL [address] MPV 8.8 8.5 - 12.[address] Seg Neut Absolute 2.9 1.8 - 8.0 K/uL [address] Lymphocytes Absolute 1.0 0.8 - 4.1 K/uL [place] [address] [facility] Monocytes Absolute 0.4 0.0 - 1.0 K/uL [address] Eosinophils Absolute 0.3 0.0 - 0.7 K/uL [place] [address] [facility] Basophil Absolute 0.1 0.0 - 0.2 K/uL [address] Immature Granulocyte 0.01 0.00 - 0.[address] Absolute K/uL Neutrophils Abs. 2,900 /uL [address] (Segs and Bands) Neutrophils Percent 62.7 % [address] Lymphocytes Percent 20.8 % [address] Monocytes Percent 8.9 % [address] Immature Granulocyte 0.2 % [address] Percent Eosinophils Percent 6.3 % [address] Basophil Percent 1.1 % [address] Nucleated RBC 0 /[address] Specimen Blood - Blood specimen (specimen) Performing Organization Address [facility] Phon e Number [address] [place] [address] BASIC METABOLIC PANEL (03/15/2021 2:34 PM CDT) Pathologist [facility] Glucose 142 (H) 70 - 100 mg/dL [address] BUN 22 6 - 22 mg/dL [address] Creatinine 0.88 0.60 - 1.[address] mg/dL BUN/Creatinine Ratio 25.0 10.0 - 25.[address] Sodium 141 135 - 145 meq/L [address] Potassium 3.6 3.5 - 5.3 meq/L [address] Chloride 100 99 - 110 meq/L [address] CO2 27 20 - 29 meq/L [address] Anion Gap with K 18 6 - 20 meq/L [address] Calcium 9.6 8.5 - 10.5 mg/dL [address] Age [address] eGFR Non- 62 >=[address] Colombian mL/min/1.73m2 eGFR 76 >=[address] mL/min/1.73m2 Specimen Blood - Blood specimen (specimen) Performing Organization Address [facility] Phon e Number [place] [address] [facility] [address] [place] [address] XRAY CHEST PA AND LATERAL (03/15/2021 2:20 PM CDT) Specimen Narrative Performed At [facility] Patient Name: CARMEN PADGETT Date of : 1945 Procedure: XRAY CHEST PA AND LATERAL Date of Service: 03/15/2021 EXAM: XRAY CHEST PA AND LATERAL INDICATION:Question of atrial lead dislo dgement. COMPARISON(S): 02/25/2021. FINDINGS/IMPRESSION: The cardiac silhouette is normal in size. Cardiac paci ng device and leads show no evidence of complications. There is calc ified atherosclerosis of the thoracic aorta. The lungs are c lear. No pneumothorax or pleural effusion. Finalized by: Jean Paul Everett MD on 03/15 2:24 PM CDT Patient/Procedure Information: [facility] MRN/SHAISTA: [id number] Order Number: [id number] Accession Number: [id number] Ordering Provider: CANDE CHATTERJEE Authorizing Provider: CANDE CHATTERJEE Procedure Note Interface, Radiantres - 03/15/2021 2:26 PM CDT Patient Name: CARMEN PADGETT Date of : 1945 Procedure: XRAY CHEST PA AND LATERAL Date of Service: 03/15/2021 EXAM: XRAY CHEST PA AND LATERAL INDICATION:Question of atrial lead dislo dgement. COMPARISON(S): 02/25/2021. FINDINGS/IMPRESSION: The cardiac silhouette is normal in size . Cardiac pacing device and leads show no evidence of complications. There is calcified atherosclerosis of the thoracic aorta. The lungs are clear. No pneumothorax or pleural effusion. Finalized by: Jean Paul Everett MD on 03/15 2:24 PM CDT Patient/Procedure Information: [facility] MRN/SHAISTA: [id number] Order Number: [id number] Accession Number: [id number] Ordering Provider: CANDE CHATTERJEE Authorizing Provider: CANDE CHATTERJEE Performing Organization Address City/[facility] [facility] [place] Number [id number] PACEMAKER IN PERSON PROGRAMMING (03/15/2021 1:58 PM CDT) Narrative Performed At This result has an attachment that is no t available. Performing Organization Address City/[facility] Phon e Number [id number] PACEART ANKLE BRACHIAL INDEX NAHEED (03/15/2021 10:23 AM CDT) Specimen Narrative Performed At This result has an attachment that is no t available. Name: Carmen Padgett : 1945 Date of Service: 03/15/2021 EXAM: US ANKLE BRACHIAL INDEX INDICATION: Leg pain COMPARISON(S): None TECHNIQUE: Single level bi-directional waveforms, plet hysmography pressures, pulse volume recordings, and ankle brachial indices performed. FINDINGS: RIGHT: Brachial 134 mmHg LYFT DRIVER 144 mmHg, triphasic: NATALIE: 1.07 DPA 140 mmHg, triphasic: NATALIE: 1.04 Digit 105 mmHg, DBI: 0.78 Ankle PVR Normal NATALIE 1.07 LEFT: Brachial Not obtained due to sling LYFT DRIVER 44 mmHg, monophasic: NATALIE: 0.33 DPA 47 mmHg, monophasic: NATALIE: 0.35 Digit Absent flow Ankle PVR Severe NATALIE 0.35 IMPRESSION: Right lower extremity ankle brachial index is normal a t rest. Left lower extremity ankle brachial index demonstrates severe arterial disease at rest. Unable to detect flow in left digit. 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) Coronary artery disease involving other coronary artery bypass graft without angina pectoris Nausea Nausea alone Constipation, unspecified constipation t ype Hypokalemia Hypopotassemia Insomnia, unspecified type documented in this encounter Discharge Diagnoses Not on filedocumented in this encounter Administered Medications Medication Order MAR Action Action Date Dose Rate Site .Anticoagulation (WARFARIN) therapy nurs ing reminder Anti-coag reminder, First dose on Thu03/17/21 at 1045, Until Discontinued acetaminophen (TYLENOL) tablet 650 mg Given 03/25/2021 2:22 PM CDT 650 mg 650 mg, Oral, Every four hours prn, Starting on Thu03/15/21 at 1313, Until Discontinued, mild pain, Use FIRST for mild pain. If inadequate response in 60 minutes, may proceed to next choice option or if no other options, contact provider. Adult patients: Total dose of acetaminophen from all acetaminophen containing products should not exceed 4 grams (4000 mg) per day. Pediatric Patients 0 - 3 months: Maximum of 60 mg/kg/24 hours of acetaminophen. Pediatric Patients older than 3 months: Maximum of 75 mg/kg/24 hours of acetaminophen (Never exceeding 4 grams/day). Given 03/25/2021 3:15 AM CDT 650 mg Given 03/24/2021 2:46 AM CDT 650 mg acetaminophen (TYLENOL) tablet 650 mg Given 03/24/2021 5:50 PM CDT 650 mg 650 mg, Oral, Every six hours prn, Starting on 03/16/21 at 1115, Until Discontinued, mild pain, For pain scale 3 or less, PACU - Continue Post-Op, Adult patients: Total dose of acetaminophen from all acetaminophen containing products should not exceed 4 grams (4000 mg) per day. Pain stratification is defined as follows for either analog scale (0-10) or critical care pain observation tool (CPOT, 0-8). a. No pain (0) b. Mild pain level (1-3) c. Moderate pain level (4-6) d. Severe pain level (greater than or equal to 7) aspirin enteric coated tablet 81 mg Given 03/26/2021 9:20 AM CDT 81 mg 81 mg, Oral, DAILY, First dose on 03/16/21 at 0900, Until Discontinued, Tablet should be swallowed whole and not be divided, crushed or chewed. Given 03/25/2021 9:22 AM CDT 81 mg Given 03/24/2021 7:42 AM CDT 81 mg bisacodyl (DULCOLAX) suppository 10 mg 10 mg, Rectal, One time a day prn, Starting on 02/20 at 1313, Until Discontinued, constipation, Use SECOND for constipatio n. If patient cannot take oral medications, use first for constipation. clopidogrel (PLAVIX) tablet 75 mg Given 03/26/2021 9:20 AM CDT 75 mg 75 mg, Oral, DAILY, First dose on 03/16/21 at 0900, Until Discontinued Given 03/25/2021 9:23 AM CDT 75 mg Given 03/24/2021 7:42 AM CDT 75 mg docusate sodium (THEREVAC-SB MINI;ENEMEE Z MINI) 283 MG enema 1 enema 1 enema, Rectal, One time a day prn, Starting on Thu at 1313, Until Discontinued, constipation, Use THIRD for constipation - if no BM 8 hours after dulcolax suppository. If patient cannot take oral medi cations, use second for constipation. levothyroxine tablet 100 mcg Given 03/26/2021 6:13 AM CDT 100 mcg 100 mcg, Oral, DAILY, First dose on 03/16/21 at 0700, Until Discontinued Given 03/25/2021 6:11 AM CDT 100 mcg Given 03/24/2021 6:13 AM CDT 100 mcg melatonin tablet 3 mg Given 03/23/2021 8:45 PM CDT 3 mg 3 mg, Oral, Bedtime prn, Starting on Thu03/15/21 at 1313, Until Discontinued, other (Specify), insomnia, Use FIRST for insomnia. If inadequate response in 60 minutes, may proceed to next choice option or, if no other options, contact provider. metoprolol tartrate (LOPRESSOR) tablet 2 5 mg Given 03/26/2021 9:20 AM CDT 25 mg 25 mg, Oral, Two times a day, First dose on Thu03/15/21 at 2100, Until Discontinued, Hold for SBP less than 100 Hold for HR less than 60 Given 03/25/2021 9:15 PM CDT 25 mg Given 03/25/2021 9:23 AM CDT 25 mg nalOXone (NARCAN) injection solution (vi al) 0.2 mg 0.2 mg, Injection, Every two minutes prn , Starting on Thu03/15/21 at 1312, Until Discontinued, other (Specify), opioid induced respirat ory depression - PARTIAL reversal, 1 mL, PARTIAL REVERSAL/RESPIRA TORY DEPRESSION If respiratory rate less than 8/minute - call rapid response and administer (un til respiratory rate increases to 10/minute). Give IV (preferred), IM or S UBQ nalOXone (NARCAN) injection solution (vi al) 0.4 mg 0.4 mg, Injection, Every two minutes prn , Starting on Thu03/15/21 at 1312, Until Discontinued, other (Specify), opioid in duced respiratory arrest - FULL reversal, 1 mL, FULL REVERSAL/RESPIRATORY ARREST If patient is not breathing - call CODE BLUE and administer. Give IV (preferred), IM or SUBQ ondansetron (ZOFRAN ODT) dispersible tab let 4 mg 4 mg, Oral, Four times a day prn, Starting on 03/15 at 1313, Until Discontinued, nausea, vomiting, Use FIRS T for nausea / vomiting. If ineffective after 30 minutes use ondansetron IV ondansetron (ZOFRAN) injection solution 4 mg Given 03/16/2021 2:18 PM CDT 4 mg 4 mg, IV, Four times a day prn, Starting on Thu03/15/21 at 1313, Until Discontinued, nausea, vomiting, 2 mL, Use SECOND for nausea / vomiting. If ineffective after 30 minutes and ondansetron ODT used, call physician for alternative. If preference is to further dilute for IV administration: First draw up patient-specific dose, then dilute to 10 mL with 0.9% sodium chloride. oxyCODONE (OXY-IR) tablet 5 mg Given 03/22/2021 11:08 AM CDT 5 mg 5 mg, Oral, Every four hours prn, Starting on Oxana 03/21/21 at 1420, Until Discontinued, moderate pain, severe pain, Hold if RR<=12 or drowsy Given 03/22/2021 5:49 AM CDT 5 mg Given 03/21/2021 7:36 PM CDT 5 mg pantoprazole (PROTONIX) enteric coated tablet Given 11:19 AM CDT 40 mg 40 mg 40 mg, Oral, DAILY, First dose on Thu03/15/21 at 1220, Until Discontinued, Tablet should be swallowed whole and not be divided, crushed or chewed. Given 03/25/2021 1:19 PM CDT 40 mg Given 03/24/2021 1:16 PM CDT 40 mg polyethylene glycol (MIRALAX) packet 1 Given 03/26/2021 9:20 AM CDT 1 packet packet 1 packet, Oral, Daily, First dose on Thu03/20/21 at 0900, Until Discontinued, Dissolve in 8 ounces of water, juice, soda, coffee, tea Do NOT give if patient on thickened liquids. Contact provider for alternative if needed. Given 03/25/2021 9:23 AM CDT 1 packet Given 03/24/2021 7:42 AM CDT 1 packet rosuvastatin (CRESTOR) tablet 20 mg Given 03/26/2021 9:20 AM CDT 20 mg 20 mg, Oral, DAILY, First dose on Thu03/16/21 at 0900, Until Discontinued Given 03/25/2021 9:22 AM CDT 20 mg Given 03/24/2021 7:43 AM CDT 20 mg scopolamine Applied 03/16/2021 8:43 AM 1 patch Behi nd Left Ear (TRANSDERM-SCOP) patch 1 CDT Transdermal patch 1 patch, Transdermal, Every three days, First dose on Thu03/16/21 at 0810, Until Discontinued, Administer over 3 Days senna-docusate sodium Given 03/26/2021 9:19 AM CDT 1 tablet (SENOKOT-S;PERICOLACE) tablet 1 tablet 1 tablet, Oral, Daily, First dose on Thu03/20/21 at 0900, Until Discontinued Given 03/25/2021 9:22 AM CDT 1 tablet Given 03/24/2021 7:43 AM CDT 1 tablet senna-docusate sodium (SENOKOT-S;PERICOL SARATH) tablet 2 tablet 2 tablet, Oral, Two times a day prn, Starting on Thu at 1313, Until Discontinued, constipation, Use FIRST fo r constipation unless patient cannot take oral medications. tiZANidine (ZANAFLEX) tablet 2 mg Given 03/21/2021 6:30 PM CDT 2 mg 2 mg, Oral, One time a day prn, Starting on Thu03/17/21 at 1040, Until Discontinued, muscle spasm Given 03/17/2021 10:48 AM CDT 2 mg torsemide (DEMADEX) tablet 20 mg Given 03/26/2021 9:20 AM CDT 20 mg 20 mg, Oral, Daily, First dose on Thu03/20/21 at 1155, Until Discontinued, Hold for SBP less than 100 Given 03/25/2021 9:22 AM CDT 20 mg Given 03/24/2021 7:43 AM CDT 20 mg vitamin D3 (cholecalciferol) tablet 50 m cg Given 03/25/2021 9:15 PM CDT 50 mcg 50 mcg, Oral, Bedtime, First dose on Thu03/15/21 at 2100, Until Discontinued Given 03/24/2021 8:03 PM CDT 50 mcg Given 03/23/2021 8:45 PM CDT 50 mcg Medication Order MAR Action Action Date Dose Rate Site ceFAZolin (ANCEF) 1000 mg/10 mL Given 03/16/2021 7:37 PM CDT 1, 000 mg sterile water IV syringe 1,000 mg, IV, Every eight hours, 2 doses, First dose on Thu03/16/21 at 1250, Last dose on Thu03/16/21 at 2050, 10 mL, Post - Op, Administer over 3 minutes. Given 03/16/2021 2:08 PM CDT 1,000 mg fentaNYL 100 mcg/2 mL preservative free Given 03/16/2021 10:20 P M CDT 50 mcg injection solution 50 mcg 50 mcg, IV, Every one hour prn, Starting on 03/16/21 at 1249, Until 03/17/21 at 0809, severe pain, 2 mL Given 03/16/2021 7:29 PM CDT 50 mcg Given 03/16/2021 4:58 PM CDT 50 mcg fentaNYL 100 mcg/2 mL preservative free Given 03/21/2021 5:25 A M CDT 50 mcg injection solution 50 mcg 50 mcg, IV, Every one hour prn, Starting on 03/17/21 at 0809, Until Oxana 03/21/21 at 0950, other (Specify), Breakthrough pain not relieved by Oxycodone, 2 mL Given 03/20/2021 9:28 PM CDT 50 mcg Given 03/20/2021 1:19 PM CDT 50 mcg hEParin (50 units/mL) in Rate Verify 03/24/2021 7:23 AM 10 Units/ kg/hr 15.4 mL/hr D5W premixed IV solution CDT (STANDARD-weight based) 0-50 Units/kg/hr 77.1 kg (0-77.1 mL/hr), IV, at 0-77.1 mL/hr, Titrate, Starting on 03/16/21 at 1250, Until 03/24/21 at 1253, 500 mL, Start initial infusion at 15 units/kg/hr. Notify physician if initial infusion exceeds 1,500 units/hr. Adjust heparin infusion based on sliding scale: * aPTT less than 60 sec ------ Give 70 units/kg IV bolus and add 4 units/kg/hr to current rate * aPTT 60-69.9 sec Give 35 units/kg IV bolus and add 2 units/kg/hr to current rate * aPTT 70-120.9 sec No change (therapeutic) * aPTT 121-135.9 sec Subtract 2 units/kg/hr from current rate * aPTT 136-149.9 sec --------- Hold heparin for 1 hour and subtract 3 units/kg/hr from current rate * aPTT 150 sec or greater - Redraw STAT aPTT and hold heparin. Draw hourly aPTT using routine specified time until less than 150 sec, then restart heparin infusion at 3 units/kg/hr less than the previous rate, give NO BOLUS and resume every 6 hour aPTT. AFTER PROCEDURE: When restarting infusion after it's been held for a procedure, restart infusion at "starting" dose of 15 units/kg/hr and follow titration orders. IF infusion was running at less than 15 units/kg/hr prior to procedure, restart at that rate and follow titration orders. Rate Verify 03/24/2021 6:21 AM CDT 10 Units/kg/hr 15.4 mL/hr Rate Verify 03/24/2021 12:03 AM CDT 10 Units/kg/hr 15.4 mL/hr heparin (porcine) (5000 units/1 mL) IV Given 12:41 AM CDT 5,400 Units dose 5,400 Units 5,400 Units (rounded from 5,397 Units = 70 Units/kg 77.1 kg), IV, PRN per parameter, Starting on 03/16/21 at 1248, Until 03/24/21 at 1253, other (Specify), * aPTT less than 60 seconds - Give 70 units/kg IV bolus and add 4 units/kg/hr to current rate of infusion, 2 mL, Supplemental bolus doses based on aPTT: * aPTT less than 60 seconds - Give 70 units/kg IV bolus and add 4 units/kg/hr to current rate of infusion. * aPTT 60 to 69.9 seconds - Give 35 units/kg IV bolus and add 2 units/kg/hr to current rate of infusion. Round to the nearest 100 units up to a maximum bolus of heparin 7500 units HYDROmorphone (DILAUDID) 0.5 mg/0.5 mL i njection solution 1 dose, Starting on 03/16/21 at 1132, Until Sat 02/20 03/11 at 1133, Darius: cabinet override HYDROmorphone (DILAUDID) injection solution Given 02/20 12:04 PM CDT 0.5 mg (conc: 0.5 mg/0.5mL) 0.5 mg 0.5 mg, IV, Every five minutes prn, 4 doses, Starting on 03/16/21 at 1131, Until 03/16/21 at 1204, other (Specify), severe pain scale 7 or above, or moderate pain not relieved by fentaNYL (max dose of 2 mg), 0.5 mL, PACU, Use only anesthesia's orders for moderate or severe pain while in PACU or recovery care Given 03/16/2021 11:53 AM CDT 0.5 mg Given 03/16/2021 11:42 AM CDT 0.5 mg ketorolac (TORADOL) tablet 10 mg Given 03/17/2021 6:05 AM CDT 10 mg 10 mg, Oral, Every six hours prn, Starting on 03/16/21 at 1249, Until 03/17/21 at 0809, moderate pain, Pain stratification is defined as follows for either analog scale (0-10) or critical care pain observation tool (CPOT, 0-8). a. No pain (0) b. Mild pain level (1-3) c. Moderate pain level (4-6) d. Severe pain level (greater than or equal to 7) Given 03/16/2021 9:16 PM CDT 10 mg oxyCODONE (OXY-IR) tablet 2.5-5 mg Given 03/18/2021 10:20 AM CDT 5 mg 2.5-5 mg, Oral, Every four hours prn, Starting on 03/17/21 at 0808, Until 03/18/21 at 1453, moderate pain, severe pain, 2.5 mg as needed for moderate pain 5 mg as needed for severe pain Pain stratification is defined as follows for either analog scale (0-10) or critical care pain observation tool (CPOT, 0-8). a. No pain (0) b. Mild pain level (1-3) c. Moderate pain level (4-6) d. Severe pain level (greater than or equal to 7) Given 03/18/2021 1:42 AM CDT 5 mg Given 03/17/2021 5:29 PM CDT 5 mg oxyCODONE (OXY-IR) tablet 5 mg Given 03/21/2021 10:09 AM CDT 5 mg 5 mg, Oral, Every six hours prn, Starting on Oxana 03/21/21 at 0950, Until Oxana 03/21/21 at 1415, moderate pain, severe pain, Hold if RR<=12 or drowsy potassium chloride (KLOR-CON M20) CR tablet Given 02/2021 11:19 AM CDT 40 mEq 40 mEq 40 mEq, Oral, One time, 1 dose, On Thu03/26/21 at 1150, Tablet may be broken in half, but should not be crushed or chewed. Tablet may be dissolved in 4 oz of water. DO NOT give via feeding tube route as this can clog the tube. sodium chloride 0.9% flush (adult) 10 mL Given 03/26/2021 9:22 AM CDT 10 mL 10 mL, IV, Two times a day and prn, First dose on Thu03/15/21 at 2100, Until Discontinued, 10 mL, Flush PIV line as scheduled and as often as necessary before and after meds. Use a push / pause technique when flushing to create turbulence. Given 03/25/2021 9:16 PM CDT 10 mL Given 03/25/2021 9:34 AM CDT 10 mL sodium chloride 0.9% IV solution Restarted 03/16/2021 12:31 PM CDT 75 mL/hr IV, at 75 mL/hr, Continuous, Starting on 03/16/21 at 0910, Until 03/16/21 at 2152, 1,000 mL New Bag 03/16/2021 8:43 AM CDT 75 mL/hr sodium chloride 0.9% IV Already Infusing 03/16/2021 11:40 AM CDT 125 mL/hr solution IV, at 125 mL/hr, Continuous, Starting on 03/16/21 at 1135, Until 03/16/21 at 1230, PACU, TKO current fluids if patient is going to Day Unit / ARU and tolerating PO fluids without nausea. sodium chloride 0.9% IV solution New Bag 03/16/2021 10:21 PM CDT 100 mL/hr IV, at 100 mL/hr, Continuous, Starting on 03/16/21 at 1250, Until 03/17/21 at 0827, 1,000 mL, Post - Op Rate Change 03/16/2021 1:22 PM CDT 100 mL/hr warfarin (COUMADIN) tablet 2.5 mg Given 03/20/2021 4:17 PM CDT 2.5 mg 2.5 mg, Oral, Warfarin one time dose, 1 dose, On 03/20/21 at 1600, If patient is receiving tube feeding, hold tube feeding 1 hour before and 1 hour after warfarin administration. If unable to administer dose intact, wear universal precautions (one pair of gloves). warfarin (COUMADIN) tablet 5 mg Given 03/17/2021 5:29 PM CDT 5 mg 5 mg, Oral, Warfarin one time dose, 1 dose, On 03/17/21 at 1600, If patient is receiving tube feeding, hold tube feeding 1 hour before and 1 hour after warfarin administration. If unable to administer dose intact, wear universal precautions (one pair of gloves). warfarin (COUMADIN) tablet 5 mg Given 03/18/2021 4:03 PM CDT 5 mg 5 mg, Oral, Warfarin one time dose, 1 dose, On 03/18/21 at 1600, If patient is receiving tube feeding, hold tube feeding 1 hour before and 1 hour after warfarin administration. If unable to administer dose intact, wear universal precautions (one pair of gloves). warfarin (COUMADIN) tablet 5 mg Given 03/19/2021 4:32 PM CDT 5 mg 5 mg, Oral, Warfarin one time dose, 1 dose, On 03/19/21 at 1600, If patient is receiving tube feeding, hold tube feeding 1 hour before and 1 hour after warfarin administration. If unable to administer dose intact, wear universal precautions (one pair of gloves). warfarin (COUMADIN) tablet 5 mg Given 03/21/2021 4:28 PM CDT 5 mg 5 mg, Oral, Warfarin one time dose, 1 dose, On Oxana 03/21/21 at 1600, If patient is receiving tube feeding, hold tube feeding 1 hour before and 1 hour after warfarin administration. If unable to administer dose intact, wear universal precautions (one pair of gloves). warfarin (COUMADIN) tablet 5 mg Given 03/22/2021 4:28 PM CDT 5 mg 5 mg, Oral, Warfarin one time dose, 1 dose, On Thu03/22/21 at 1600, If patient is receiving tube feeding, hold tube feeding 1 hour before and 1 hour after warfarin administration. If unable to administer dose intact, wear universal precautions (one pair of gloves). warfarin (COUMADIN) tablet 5 mg Given 03/23/2021 3:14 PM CDT 5 mg 5 mg, Oral, Warfarin one time dose, 1 dose, On Thu03/23/21 at 1600, If patient is receiving tube feeding, hold tube feeding 1 hour before and 1 hour after warfarin administration. If unable to administer dose intact, wear universal precautions (one pair of gloves). warfarin (COUMADIN) tablet 5 mg Given 03/24/2021 5:51 PM CDT 5 mg 5 mg, Oral, Warfarin one time dose, 1 dose, On Thu03/24/21 at 1600, If patient is receiving tube feeding, hold tube feeding 1 hour before and 1 hour after warfarin administration. If unable to administer dose intact, wear universal precautions (one pair of gloves). warfarin (COUMADIN) tablet 5 mg Given 03/25/2021 2:22 PM CDT 5 mg 5 mg, Oral, Warfarin one time dose, 1 dose, On Thu03/25/21 at 1600, If patient is receiving tube feeding, hold tube feeding 1 hour before and 1 hour after warfarin administration. If unable to administer dose intact, wear universal precautions (one pair of gloves). warfarin (COUMADIN) tablet 5 mg Given 03/26/2021 12:10 PM CDT 5 mg 5 mg, Oral, Warfarin one time dose, 1 dose, On Tu03/26/21 at 1200, If patient is receiving tube feeding, hold tube feeding 1 hour before and 1 hour after warfarin administration. If unable to administer dose intact, wear universal precautions (one pair of gloves). documented in this encounter Active and Recently Administered Medications Times are shown in CDT. Medication Order 03/24/2021 03/25/2021 03/26/2021 .Anticoagulation (WARFARIN) therapy nursing reminder 1 053 (Noted Reminder - Provider: Rhonda Andres RN)1436 (Noted Reminder - Provider: Rhonda Andres RN) 0945 (Noted Reminder - Provider: Diana Meehan RN)1431 (Noted Reminder - Provider: Diana Meehan RN) 0919 (Noted Reminder - Provider: Gertrude Casillas RN)1400 (Due) Anti-coag reminder, First dose on 03/17/21 at 1045, Until Dis continued aspirin enteric coated tablet 81 mg 0742 (Given - Provider: Rhonda Andres RN) 09 (Given - Provider: Diana Meehan RN) 09 (Given - Provider: Gertrude Casillas RN) 81 mg, Oral, DAILY, First dose on Sat at 0900, Until Discontinued, Tablet should be swallowed whole and not be divided, crushed or chewed. clopidogrel (PLAVIX) tablet 75 mg 0742 (Given - Provider: Sandra Andres RN) 922 (Given - Provider: Diana Meehan RN) 919 (Given - Provider: Gertrude Casillas RN) 75 mg, Oral, DAILY, First dose on 03/16/21 at 0900, Until Dis continued levothyroxine tablet 100 mcg 06 (Given - Provider: Verónica hylton RN) 610 (Given - Provider: Aleah Lopez RN) 612 (Given - Provider: Deysi Bolton RN) 100 mcg, Oral, DAILY, First dose on 03/16/21 at 0700, Until D iscontinued metoprolol tartrate (LOPRESSOR) tablet 25 mg 0742 (Giv en - Provider: Rhonda Andres RN)2001 (Given - Provider: Aleah Lopez RN - Comment: BP 124/61HR 78) 922 (Given - Provider: Diana Meehan RN)2114 (Given - Provider: Deysi Bolton RN - Comment: BP: 124/64HR: 72) 919 (Given - Provider: Gertrude Casillas RN)2100 (Due) 25 mg, Oral, Two times a day, First dose on Thu03/15/21 at 2100, Until Discontinued, Hold for SBP less than 100 Hold for HR less than 60 pantoprazole (PROTONIX) enteric coated tablet 40 mg 13 16 (Given - Provider: Rhonda Andres RN) 1319 (Given - Provider: Diana Meehan RN) 1119 (Giv en - Provider: Gertrude Casillas, SALONI) 40 mg, Oral, DAILY, First dose on Thu at 1220, Until Discontinued, Tablet should be swallowed whole and not be divided, crushed or chewed. polyethylene glycol (MIRALAX) packet 1 packet 0742 (Gi tomas - Provider: Rhonda Andres RN) 0923 (Given - Provider: Diana Meehan RN) 0920 (Giv en - Provider: Gertrude Casillas, RN) 1 packet, Oral, Daily, First dose on Thu03/20/21 at 0900, Until Discontinued, Dissolve in 8 ounces of water, juice, soda, coffee, tea Do NOT give if patient on thickened liquids. Contact provider for alternative if needed. potassium chloride (KLOR-CON M20) CR tablet 40 mEq (COMPLETED) 1119 (Given - Provider: Gertrude Casillas, RN) 40 mEq, Oral, One time, 1 dose, On Thu at 1150, Tablet may be broken in half, but should not be crushed or chewed. Tablet may be dissolved in 4 oz of water. DO NOT give via feeding tube route as this can clog the tube. rosuvastatin (CRESTOR) tablet 20 mg 0743 (Given - Provider: Rhonda Andres RN) 09 (Given - Provider: Diana Meehan RN) 0920 (Given - Provider: Gertrude Casillas, SALONI) 20 mg, Oral, DAILY, First dose on Thu03/16/21 at 0900, Until Dis continued scopolamine (TRANSDERM-SCOP) patch 1 patch 09 (Refused - Provider: Diana Meehan RN) 1 patch, Transdermal, Every three days, First dose on Thu03/16/21 at 0810, Until Discontinued, Administer over 3 Days senna-docusate sodium (SENOKOT-S;PERICOLACE) tablet 1 tablet 0743 (Given - Provider: Rhonda Andres RN) 0922 (Given - Provider: Diana Meehan, SALONI) 0919 (Given - Provider: Gertrude Casillas, SALONI) 1 tablet, Oral, Daily, First dose on Thu03/20/21 at 0900, Until Discontinued sodium chloride 0.9% flush (adult) 10 mL (CANCELED) 07 43 (Given - Provider: Rhonda Andres RN)2007 (Given - Provider: Aleah Lopez RN) 34 (Given - Provider: Diana Meehan RN)2115 (Given - Provider: Deysi Bolton, RN) 921 (Given - Provider: Gertrude Casillas, RN) 10 mL, IV, Two times a day and prn, Firs t dose on Thu03/15/21 at 2100, Until Discontinued, 10 mL, Flush PIV line as scheduled and as often as necessary before and after meds. Use a push / pause technique when flushing to create turbulence. torsemide (DEMADEX) tablet 20 mg 742 (Given - Provider: Lyndsey Andres RN) 921 (Given - Provider: Diana Meehan RN) 919 (Given - Provider: Gertrude Casillas, RN) 20 mg, Oral, Daily, First dose on Thu at 1155, Until Discontinued, Hold for SBP less than 100 vitamin D3 (cholecalciferol) tablet 50 mcg 2002 (Given - Provider: Aleah Lopez RN) 2114 (Given - Provider: Deysi Bolton, SALONI) 2099 (D ue) 50 mcg, Oral, Bedtime, First dose on Thu03/15/21 at 2100, Until Discontinued warfarin (COUMADIN) tablet 5 mg (COMPLETED) 175 (Give n - Provider: Rhonda Andres RN) 5 mg, Oral, Warfarin one time dose, 1 do se, On 03/24/21 at 1600, If patient is receiving tube feeding, hold tube feeding 1 hour before and 1 hour after warfarin administration. If unable to administer dose intact, wear universal precautions (one pair of gloves). warfarin (COUMADIN) tablet 5 mg (COMPLETED) 1422 (Given - Provider: Diana Meehan RN) 5 mg, Oral, Warfarin one time dose, 1 do se, On 03/25/21 at 1600, If patient is receiving tube feeding, hold tube feeding 1 hour before and 1 hour after warfarin administration. If unable to administer dose intact, wear universal precautions (one pair of gloves). warfarin (COUMADIN) tablet 5 mg (COMPLETED) 1210 (Given - Provider: Gertrude Casillas, SALONI) 5 mg, Oral, Warfarin one time dose, 1 do se, On Tu03/26/21 at 1200, If patient is receiving tube feeding, hold tube feeding 1 hour before and 1 hour after warfarin administration. If unable to administer dose intact, wear universal precautions (one pair of gloves). Medication Order 03/24/2021 03/25/2021 03/26/2021 hEParin (50 units/mL) in D5W premixed IV solution (STANDARD-weight based) (CANCELED) 0003 (Rate Verify - Provider: Verónica wylie RN)0621 (Rate Verify - Provider: Verónica Issa, RN)0723 (Rate Verify - Provider: Verónica Issa RN)1315 (Stopped - Provider: Rhonda Andres RN) 0-50 Units/kg/hr 77.1 kg (0-77.1 mL/hr), IV, at 0-77.1 mL/hr, Titrate, Starting on 03/16/21 at 1250, Until 03/24/21 at 1253, 500 mL, Start initial infusion at 15 units/kg/hr. Notify physician if initial infusion exceeds 1,500 units/hr . Adjust heparin infusion based on sliding scale: * aPTT less than 60 sec ------ Give 70 units/kg IV bolus and add 4 units/kg/hr to current rate * aPTT 60-69.9 sec Give 35 units/kg IV bolu s and add 2 units/kg/hr to current rate * aPTT 70-120.9 sec No change (therapeutic) * aPTT 121-135.9 sec Subtract 2 units/kg/hr from curr ent rate * aPTT 136-149.9 sec --------- Hold heparin for 1 hour and subtract 3 units/kg/hr from current rate * aPTT 150 sec or greater - Redraw STAT aPTT and hold heparin. Draw hourly aPTT using routin e specified time until less than 150 sec , then restart heparin infusion at 3 units/kg/hr less than the previous rate, give NO BOLUS and resume every 6 hour aPTT. AFTER PROCEDURE: When restarting infusi on after it's been held for a procedure, restart infusion at "starting" dose of 15 units/kg/hr and follow titration orders. IF infusion was running at less than 15 units/kg/hr prior to procedure, restart at that rate and follow titration orders. Medication Order 03/24/2021 03/25/2021 03/26/2021 acetaminophen (TYLENOL) tablet 650 mg 0246 (Given - Pr ovider: Verónica Issa RN) 0315 (Given - Provider: Carlos Bell RN)1422 (Given - Provider: Diana Meehan RN) 650 mg, Oral, Every four hours prn, Star ting on Thu03/15/21 at 1313, Until Discontinued, mild pain, Use FIRST for mild pain. If inadequate response in 60 minutes, may proceed to next choice option or if no other options, contact provider. Ad ult patients: Total dose of acetaminophen from all acetaminophen containing products should not exceed 4 grams (4000 mg) per day. Pediatric Patients 0 - 3 months: Maximum of 60 mg/kg/24 hours of acetam inophen. Pediatric Patients older than 3 months: Maximum of 75 mg/kg/24 hours of acetaminophen (Never exceeding 4 grams/day). acetaminophen (TYLENOL) tablet 650 mg 1750 (Given - Provider: Sandra Andres RN) 650 mg, Oral, Every six hours prn, Start ing on 03/16/21 at 1115, Until Discontinued, mild pain, For pain scale 3 or less, PACU - Continue Post-Op, Adult patients: Total dose of acetaminophen from all acetaminophen containing products shoul d not exceed 4 grams (4000 mg) per day. Pain stratification is defined as follows for either analog scale (0-10) or critical care pain observation tool (CPOT, 0- 8). a. No pain (0) b. Mild pain level ( 1-3) c. Moderate pain level (4-6) d. Severe pain level (greater than or equal to 7) bisacodyl (DULCOLAX) suppository 10 mg(Linked Group 1) 10 mg, Rectal, One time a day prn, Start ing on Thu03/15/21 at 1313, Until Discontinued, constipation, Use SECOND for constipation. If patient cannot take oral medications, use first for constipation. docusate sodium (THEREVAC-SB MINI;ENEMEE Z MINI) 283 MG enema 1 enema(Linked Group 1) 1 enema, Rectal, One time a day prn, Sta rting on Thu03/15/21 at 1313, Until Discontinued, constipation, Use THIRD for constipation - if no BM 8 hours after dulcolax suppository. If patient cannot take oral medications, use second for constipation. melatonin tablet 3 mg 3 mg, Oral, Bedtime prn, Starting on Thu03/15/21 at 1313, Until Discontinued, other (Specify), insomnia, Use FIRST for insomnia. If inadequate response in 60 minutes, may proceed to next choice option or, if no other options, contact provider. nalOXone (NARCAN) injection solution (vial) 0.2 mg 0.2 mg, Injection, Every two minutes prn , Starting on Thu03/15/21 at 1312, Until Discontinued, other (Specify), opioid induced respiratory depression - PARTIAL reversal, 1 mL, PARTIAL REVERSAL/RESPIRATO RY DEPRESSION If respiratory rate less t judge 8/minute - call rapid response and administer (until respiratory rate increases to 10/minute). Give IV (preferred), IM or SUBQ nalOXone (NARCAN) injection solution (vial) 0.4 mg 0.4 mg, Injection, Every two minutes prn , Starting on Thu03/15/21 at 1312, Until Discontinued, other (Specify), opioid induced respiratory arrest - FULL reversal, 1 mL, FULL REVERSAL/RESPIRATORY ARREST If patient is not breathing - call CODE BLUE and administer. Give IV (preferred), IM or SUBQ nitroglycerin (NITROSTAT) sublingual tablet 0.4 mg 0.4 mg, Sublingual, Every five minutes p rn, Starting on Thu03/15/21 at 1314, Until Discontinued, chest pain, At onset of chest pain, dissolve one tablet under tongue. May repeat every 5 minutes for 3 doses. Do not crush or chew. ondansetron (ZOFRAN ODT) dispersible tablet 4 mg(Linked Group 2) 4 mg, Oral, Four times a day prn, Starti ng on Thu03/15/21 at 1313, Until Discontinued, nausea, vomiting, Use FIRST for nausea / vomiting. If ineffective after 30 minutes use ondansetron IV ondansetron (ZOFRAN) injection solution 4 mg(Linked Group 2) 4 mg, IV, Four times a day prn, Starting on Thu03/15/21 at 1313, Until Discontinued, nausea, vomiting, 2 mL, Use SECOND for nausea / vomiting. If ineffective after 30 minutes and ondansetron ODT used, call physician for alternative. If prefe rence is to further dilute for IV administration: First draw up patient-specific dose, then dilute to 10 mL with 0.9% sodium chloride. oxyCODONE (OXY-IR) tablet 5 mg 5 mg, Oral, Every four hours prn, Starti ng on Oxana 03/21/21 at 1420, Until Discontinued, moderate pain, severe pain, Hold if RR<=12 or drowsy senna-docusate sodium (SENOKOT-S;PERICOLACE) tablet 2 tablet (Linked Group 1) 0934 (Reassessment - Provider: Diana Meehan RN - Comment: patient had scheduled dose. Will reassess) 2 tablet, Oral, Two times a day prn, Sta rting on Thu03/15/21 at 1313, Until Discontinued, constipation, Use FIRST for constipation unless patient cannot take oral medications. tiZANidine (ZANAFLEX) tablet 2 mg 2 mg, Oral, One time a day prn, Starting on 03/17/21 at 1040, Until Discontinued, muscle spasm Order Group 1: senna-docusate sodium (SENOKOT-S;PERICOLACE) tablet 2 tabletJump to med 2 tablet, Oral, Two times a day prn, Sta rting on Thu03/15/21 at 1313, Until Discontinued, constipation
Use FIRST for constipation unless patient cannot take oral medications.
And bisacodyl (DULCOLAX) suppository 10 mgJump to med 10 mg, Rectal, One time a day prn, Start ing on Thu03/15/21 at 1313, Until Discontinued, constipation
Use SECOND for constipation. If patient cannot take oral medications, use first for constipation.
And docusate sodium (THEREVAC-SB MINI;ENEMEEZ MINI) 283 MG enema 1 enemaJump to med 1 enema, Rectal, One time a day prn, Sta rting on Thu03/15/21 at 1313, Until Discontinued, constipation
Use THIRD for constipation - if no BM 8 hours after dulcolax suppository. If patient canno t take oral medications, use second for constipation.
Group 2: ondansetron (ZOFRAN ODT) dispersible tablet 4 mgJump to med 4 mg, Oral, Four times a day prn, Starti ng on Thu03/15/21 at 1313, Until Discontinued, nausea, vomiting
Use FIRST for nausea / vomiting. If ineffective after 30 minutes use ondansetron IV
And ondansetron (ZOFRAN) injection solution 4 mgJump to med 4 mg, IV, Four times a day prn, Starting on Thu03/15/21 at 1313, Until Discontinued, nausea, vomiting, 2 mL
Use SECOND for nausea / vomiting. If ineffective after 30 minutes and ondan setron ODT used, call physician for alte rnative. If preference is to further dilute for IV administration: First draw up patient-specific dose, then dilute to 10 mL with 0.9% sodium chloride.
documented in this encounter
[2021-04-01] MEDS: Clopidogrel 75 MG Tab PO SCH (08:43)
[2021-04-01] MEDS: atorvaSTATin 40 MG Tab PO SCH (08:43)
[2021-04-01] MEDS: Aspirin 81 MG Tab.EC PO SCH (08:43)
[2021-04-01] MEDS: Acetaminophen 650 MG Tab.ER PO SCH ×5 (08:43→20:20)
[2021-04-01] MEDS: Metoprolol Tartrate 25 MG Tab PO SCH ×2 (08:43→20:22)
[2021-04-01] MEDS: Potassium Chloride 20 MEQ Tab.ER PO SCH (08:44)
[2021-04-01] MEDS: Torsemide 20 MG Tab PO SCH (08:44)
[2021-04-01] MEDS: Lisinopril 5 MG Tab PO SCH (08:44)
[2021-04-01] MEDS: traMADol 50 MG Tab PO PRN (10:29)
[2021-04-01] MEDS: Polyethylene Glycol 3350 Powder 17 GM Packet PO PRN (12:30)
[2021-04-01] MEDS: Warfarin 5 MG Tab PO SCH (20:22)
[2021-04-01] MEDS: Cholecalciferol (Vitamin D3) 25 MCG Tab PO SCH (20:23)
[2021-04-01] MEDS: Calcium Carbonate/Vitamin D3 1250 MG-5 MCG Tab PO SCH (20:23)
[2021-04-02] MEDS: Pantoprazole 40 MG Tab.CR PO SCH (06:37)
[2021-04-02] MEDS: Levothyroxine 100 MCG Tab PO SCH (06:37)
[2021-04-02] MEDS: traMADol 50 MG Tab PO PRN (08:51)
[2021-04-02] MEDS: Clopidogrel 75 MG Tab PO SCH (08:52)
[2021-04-02] MEDS: Aspirin 81 MG Tab.EC PO SCH (08:52)
[2021-04-02] MEDS: Metoprolol Tartrate 25 MG Tab PO SCH ×2 (08:52→20:07)
[2021-04-02] MEDS: Lisinopril 5 MG Tab PO SCH (08:52)
[2021-04-02] MEDS: Potassium Chloride 20 MEQ Tab.ER PO SCH (08:52)
[2021-04-02] MEDS: atorvaSTATin 40 MG Tab PO SCH (08:53)
[2021-04-02] MEDS: Torsemide 20 MG Tab PO SCH (08:53)
[2021-04-02] MEDS: Acetaminophen 650 MG Tab.ER PO SCH ×3 (08:53→20:06)
[2021-04-02] MEDS: Cholecalciferol (Vitamin D3) 25 MCG Tab PO SCH (20:07)
[2021-04-02] MEDS: Warfarin 5 MG Tab PO SCH (20:07)
[2021-04-02] MEDS: Calcium Carbonate/Vitamin D3 1250 MG-5 MCG Tab PO SCH (20:09)
[2021-04-03] MEDS: Pantoprazole 40 MG Tab.CR PO SCH (06:45)
[2021-04-03] MEDS: Levothyroxine 100 MCG Tab PO SCH (06:45)
[2021-04-03] MEDS: Aspirin 81 MG Tab.EC PO SCH (09:00)
[2021-04-03] MEDS: Clopidogrel 75 MG Tab PO SCH (09:00)
[2021-04-03] MEDS: atorvaSTATin 40 MG Tab PO SCH (09:00)
[2021-04-03] MEDS: Lisinopril 5 MG Tab PO SCH (09:00)
[2021-04-03] MEDS: Potassium Chloride 20 MEQ Tab.ER PO SCH (09:00)
[2021-04-03] MEDS: Metoprolol Tartrate 25 MG Tab PO SCH ×2 (09:01→19:47)
[2021-04-03] MEDS: traMADol 50 MG Tab PO PRN ×2 (09:01→16:55)
[2021-04-03] MEDS: Torsemide 20 MG Tab PO SCH (09:01)
[2021-04-03] MEDS: Acetaminophen 650 MG Tab.ER PO SCH ×3 (09:08→19:46)
[2021-04-03] MEDS: Cholecalciferol (Vitamin D3) 25 MCG Tab PO SCH (19:44)
[2021-04-03] MEDS: Warfarin 5 MG Tab PO SCH (19:44)
[2021-04-03] MEDS: Calcium Carbonate/Vitamin D3 1250 MG-5 MCG Tab PO SCH (19:46)
[2021-04-04] MEDS: Levothyroxine 100 MCG Tab PO SCH (06:20)
[2021-04-04] MEDS: Pantoprazole 40 MG Tab.CR PO SCH (06:20)
[2021-04-04] MEDS: Acetaminophen 650 MG Tab.ER PO SCH ×3 (07:55→19:27)
[2021-04-04] MEDS: Torsemide 20 MG Tab PO SCH (07:56)
[2021-04-04] MEDS: Clopidogrel 75 MG Tab PO SCH (07:56)
[2021-04-04] MEDS: atorvaSTATin 40 MG Tab PO SCH (07:56)
[2021-04-04] MEDS: Potassium Chloride 20 MEQ Tab.ER PO SCH (07:56)
[2021-04-04] MEDS: Lisinopril 5 MG Tab PO SCH (07:56)
[2021-04-04] MEDS: Aspirin 81 MG Tab.EC PO SCH (07:57)
[2021-04-04] MEDS: Metoprolol Tartrate 25 MG Tab PO SCH ×2 (07:57→19:28)
[2021-04-04] MEDS: traMADol 50 MG Tab PO PRN (18:01)
[2021-04-04] MEDS: Calcium Carbonate/Vitamin D3 1250 MG-5 MCG Tab PO SCH (19:25)
[2021-04-04] MEDS: Cholecalciferol (Vitamin D3) 25 MCG Tab PO SCH (19:26)
[2021-04-04] MEDS: Warfarin 5 MG Tab PO SCH (19:27)
[2021-04-05] MEDS: Levothyroxine 100 MCG Tab PO SCH (06:18)
[2021-04-05] MEDS: Pantoprazole 40 MG Tab.CR PO SCH (06:18)
[2021-04-05] MEDS: Acetaminophen 650 MG Tab.ER PO SCH ×3 (07:21→19:53)
[2021-04-05] MEDS: atorvaSTATin 40 MG Tab PO SCH (07:21)
[2021-04-05] MEDS: Torsemide 20 MG Tab PO SCH (07:21)
[2021-04-05] MEDS: Aspirin 81 MG Tab.EC PO SCH (07:21)
[2021-04-05] MEDS: Potassium Chloride 20 MEQ Tab.ER PO SCH (07:21)
[2021-04-05] MEDS: Metoprolol Tartrate 25 MG Tab PO SCH ×2 (07:21→19:53)
[2021-04-05] MEDS: traMADol 50 MG Tab PO PRN (07:40)
[2021-04-05] MEDS: Clopidogrel 75 MG Tab PO SCH (09:37)
[2021-04-05] MEDS: Lisinopril 5 MG Tab PO SCH (09:37)
[2021-04-05] MEDS: Warfarin 5 MG Tab PO SCH (19:54)
[2021-04-05] MEDS: Cholecalciferol (Vitamin D3) 25 MCG Tab PO SCH (19:54)
[2021-04-05] MEDS: Calcium Carbonate/Vitamin D3 1250 MG-5 MCG Tab PO SCH (19:55)
[2021-04-06] MEDS: Pantoprazole 40 MG Tab.CR PO SCH (06:47)
[2021-04-06] MEDS: Levothyroxine 100 MCG Tab PO SCH (06:47)
[2021-04-06] MEDS: Potassium Chloride 20 MEQ Tab.ER PO SCH (08:28)
[2021-04-06] MEDS: atorvaSTATin 40 MG Tab PO SCH (08:28)
[2021-04-06] MEDS: Lisinopril 5 MG Tab PO SCH (08:28)
[2021-04-06] MEDS: Acetaminophen 650 MG Tab.ER PO SCH ×3 (08:28→19:45)
[2021-04-06] MEDS: Clopidogrel 75 MG Tab PO SCH (08:29)
[2021-04-06] MEDS: Aspirin 81 MG Tab.EC PO SCH (08:29)
[2021-04-06] MEDS: traMADol 50 MG Tab PO PRN (08:29)
[2021-04-06] MEDS: Metoprolol Tartrate 25 MG Tab PO SCH ×2 (08:29→19:48)
[2021-04-06] MEDS: Torsemide 20 MG Tab PO SCH (08:29)
[2021-04-06] MEDS: Cholecalciferol (Vitamin D3) 25 MCG Tab PO SCH (19:47)
[2021-04-06] MEDS: Warfarin 5 MG Tab PO SCH (19:48)
[2021-04-06] MEDS: Calcium Carbonate/Vitamin D3 1250 MG-5 MCG Tab PO SCH (19:50)
[2021-04-07] MEDS: Levothyroxine 100 MCG Tab PO SCH (06:03)
[2021-04-07] MEDS: Pantoprazole 40 MG Tab.CR PO SCH (06:03)
[2021-04-07] MEDS: traMADol 50 MG Tab PO PRN (07:46)
[2021-04-07] MEDS: Metoprolol Tartrate 25 MG Tab PO SCH ×2 (07:47→19:42)
[2021-04-07] MEDS: Aspirin 81 MG Tab.EC PO SCH (07:47)
[2021-04-07] MEDS: Acetaminophen 650 MG Tab.ER PO SCH ×3 (07:48→19:43)
[2021-04-07] MEDS: Potassium Chloride 20 MEQ Tab.ER PO SCH (07:48)
[2021-04-07] MEDS: atorvaSTATin 40 MG Tab PO SCH (07:49)
[2021-04-07] MEDS: Clopidogrel 75 MG Tab PO SCH (07:49)
[2021-04-07] MEDS: Torsemide 20 MG Tab PO SCH (07:49)
[2021-04-07] MEDS: Lisinopril 5 MG Tab PO SCH (07:50)
--- NOTE | 2021-04-07 09:58 | PCM.SN.2 ---
- Free Text/Narrative Note: progress note 04/07/2021 S: Pt noted knot and bruise at back of right leg, pt does not remember hitting it, has not pain O:Pt in NAD> no fever, BP and Pulse WNL 3x43 cm light brise right calf with superficial knot in center. Pt has superficial varicose veins feet and legs non tender, normal color and temp incision left inner keg appears well healed Asessment: suspect traumtic injury with superficial extravascular clot. Pt is on asa, plavix and warfarin putting her at high risk for bleeding Plan: warm pad, check INR today
[2021-04-07] MEDS: Warfarin 5 MG Tab PO SCH (19:42)
[2021-04-07] MEDS: Calcium Carbonate/Vitamin D3 1250 MG-5 MCG Tab PO SCH (19:42)
[2021-04-07] MEDS: Cholecalciferol (Vitamin D3) 25 MCG Tab PO SCH (19:42)
[2021-04-08] MEDS: Levothyroxine 100 MCG Tab PO SCH (06:12)
[2021-04-08] MEDS: Pantoprazole 40 MG Tab.CR PO SCH (06:12)
[2021-04-08] MEDS: Lisinopril 5 MG Tab PO SCH (07:34)
[2021-04-08] MEDS: atorvaSTATin 40 MG Tab PO SCH (07:34)
[2021-04-08] MEDS: Metoprolol Tartrate 25 MG Tab PO SCH ×2 (07:34→19:45)
[2021-04-08] MEDS: Clopidogrel 75 MG Tab PO SCH (07:35)
[2021-04-08] MEDS: Aspirin 81 MG Tab.EC PO SCH (07:35)
[2021-04-08] MEDS: traMADol 50 MG Tab PO PRN ×2 (07:35→21:27)
[2021-04-08] MEDS: Potassium Chloride 20 MEQ Tab.ER PO SCH (07:35)
[2021-04-08] MEDS: Torsemide 20 MG Tab PO SCH (07:35)
[2021-04-08] MEDS: Acetaminophen 650 MG Tab.ER PO SCH ×3 (07:36→19:43)
[2021-04-08] MEDS: Warfarin 5 MG Tab PO SCH (19:45)
[2021-04-08] MEDS: Cholecalciferol (Vitamin D3) 25 MCG Tab PO SCH (19:45)
[2021-04-08] MEDS: Calcium Carbonate/Vitamin D3 1250 MG-5 MCG Tab PO SCH (19:45)
[2021-04-09] MEDS: Levothyroxine 100 MCG Tab PO SCH (06:34)
[2021-04-09] MEDS: Pantoprazole 40 MG Tab.CR PO SCH (06:34)
[2021-04-09] MEDS: Torsemide 20 MG Tab PO SCH (07:25)
[2021-04-09] MEDS: atorvaSTATin 40 MG Tab PO SCH (07:25)
[2021-04-09] MEDS: Lisinopril 5 MG Tab PO SCH (07:25)
[2021-04-09] MEDS: Potassium Chloride 20 MEQ Tab.ER PO SCH (07:25)
[2021-04-09] MEDS: Aspirin 81 MG Tab.EC PO SCH (07:25)
[2021-04-09] MEDS: traMADol 50 MG Tab PO PRN (07:26)
[2021-04-09] MEDS: Metoprolol Tartrate 25 MG Tab PO SCH ×2 (07:26→19:44)
[2021-04-09] MEDS: Clopidogrel 75 MG Tab PO SCH (07:26)
[2021-04-09] MEDS: Acetaminophen 650 MG Tab.ER PO SCH ×3 (07:27→19:43)
[2021-04-09] MEDS: Warfarin 5 MG Tab PO SCH (19:42)
[2021-04-09] MEDS: Cholecalciferol (Vitamin D3) 25 MCG Tab PO SCH (19:42)
[2021-04-09] MEDS: Calcium Carbonate/Vitamin D3 1250 MG-5 MCG Tab PO SCH (19:45)
[2021-04-10] MEDS: Levothyroxine 100 MCG Tab PO SCH (06:32)
[2021-04-10] MEDS: Pantoprazole 40 MG Tab.CR PO SCH (06:33)
[2021-04-10] MEDS: Aspirin 81 MG Tab.EC PO SCH (07:23)
[2021-04-10] MEDS: Metoprolol Tartrate 25 MG Tab PO SCH ×2 (07:24→20:22)
[2021-04-10] MEDS: Torsemide 20 MG Tab PO SCH (07:24)
[2021-04-10] MEDS: traMADol 50 MG Tab PO PRN (07:24)
[2021-04-10] MEDS: atorvaSTATin 40 MG Tab PO SCH (07:24)
[2021-04-10] MEDS: Clopidogrel 75 MG Tab PO SCH (07:24)
[2021-04-10] MEDS: Potassium Chloride 20 MEQ Tab.ER PO SCH (07:24)
[2021-04-10] MEDS: Lisinopril 5 MG Tab PO SCH (07:24)
[2021-04-10] MEDS: Acetaminophen 650 MG Tab.ER PO SCH ×3 (07:25→20:17)
[2021-04-10] MEDS: Polyethylene Glycol 3350 Powder 17 GM Packet PO PRN (12:22)
[2021-04-10] MEDS: Cholecalciferol (Vitamin D3) 25 MCG Tab PO SCH (20:20)
[2021-04-10] MEDS: Warfarin 5 MG Tab PO SCH (20:21)
[2021-04-10] MEDS: Calcium Carbonate/Vitamin D3 1250 MG-5 MCG Tab PO SCH (20:21)
[2021-04-10] MEDS ORDERED: Polyethylene Glycol 3350 Powder 17 GM Packet PO ONE (20:45)
[2021-04-11] MEDS: Levothyroxine 100 MCG Tab PO SCH (06:42)
[2021-04-11] MEDS: Pantoprazole 40 MG Tab.CR PO SCH (06:42)
[2021-04-11] MEDS: Torsemide 20 MG Tab PO SCH (07:24)
[2021-04-11] MEDS: Acetaminophen 650 MG Tab.ER PO SCH ×3 (07:24→19:52)
[2021-04-11] MEDS: Potassium Chloride 20 MEQ Tab.ER PO SCH (07:24)
[2021-04-11] MEDS: Clopidogrel 75 MG Tab PO SCH (07:24)
[2021-04-11] MEDS: Lisinopril 5 MG Tab PO SCH (07:25)
[2021-04-11] MEDS: Metoprolol Tartrate 25 MG Tab PO SCH ×2 (07:25→19:53)
[2021-04-11] MEDS: atorvaSTATin 40 MG Tab PO SCH (10:04)
[2021-04-11] MEDS: traMADol 50 MG Tab PO PRN (12:17)
[2021-04-11] MEDS: Cholecalciferol (Vitamin D3) 25 MCG Tab PO SCH (19:53)
[2021-04-11] MEDS: Calcium Carbonate/Vitamin D3 1250 MG-5 MCG Tab PO SCH (19:54)
[2021-04-11] MEDS: Warfarin 5 MG Tab PO SCH (19:54)
[2021-04-12] MEDS: Levothyroxine 100 MCG Tab PO SCH (06:29)
[2021-04-12] MEDS: Pantoprazole 40 MG Tab.CR PO SCH (06:29)
[2021-04-12] MEDS: Clopidogrel 75 MG Tab PO SCH (07:29)
[2021-04-12] MEDS: Acetaminophen 650 MG Tab.ER PO SCH ×3 (07:29→19:29)
[2021-04-12] MEDS: Torsemide 20 MG Tab PO SCH (07:29)
[2021-04-12] MEDS: Lisinopril 5 MG Tab PO SCH (07:30)
[2021-04-12] MEDS: Potassium Chloride 20 MEQ Tab.ER PO SCH (07:30)
[2021-04-12] MEDS: Metoprolol Tartrate 25 MG Tab PO SCH ×2 (07:30→19:28)
[2021-04-12] MEDS: atorvaSTATin 40 MG Tab PO SCH (07:30)
--- NOTE | 2021-04-12 11:45 | PCM.DCSUM1 ---
Discharge Summary - Hospital Course Free Text/Narrative:: Carmen is a 76-year-old female with a past medical history of atrial fibrillation, hypertension, coronary artery disease, peripheral vascular disease, hypothyroidism, hyperlipidemia, GERD, psoriasis and seborrheic dermatitis who was admitted on 03/26/2021 as a downgrade to swing bed after an acute stay at [facility]. She was admitted to [facility] on 03/15/2021 with a chief complaint of left lower leg pain. NATALIE revealed severe arterial disease and there is concern for left leg ischemia. She underwent thrombectomy per vascular surgery. She was continued on her aspirin and Plavix and also initiated on IV heparin postoperatively. She did have some significant swelling and pain postoperatively. Ultrasound was ordered which did not demonstrate any thrombus. Once her INR was therapeutic her heparin was discontinued and she was continued on her home warfarin. She was very slow to progress with therapies post- operatively and was sent for for ongoing PT. Over the last weeks she has progressed well through her physical therapy; she is being discharged from inpatient therapy after their session today and will be ready for discharge home tomorrow (04/13/21). She does note some anxiety about returning home; afraid of another major event happening such as her heart or the leg troubles. [facility] has been contacted for continue outpatient PT cares, these will start next week. She has been using minimal pain control medication. We will plan to send her home with 10 tabs of tramadol to be taken as needed. She can continue with her Tylenol at baseline. We will plan for her to follow-up with her primary care provider within 2 weeks' time. Plan from vascular surgery is for her to continue on the Plavix, Coumadin, aspirin for a total of 4 weeks. Once 4 weeks is up she will stop the aspirin and continue on the Plavix and Coumadin indefinitely. ASA held/discontinued at time of DC. No other medication adjustments here at [facility]. - Discharge Data Discharge Date: 04/13/21 Discharge Disposition: Home, W Home Health Agency 06 Condition: Good - Referral to [facility] Date of Face to Face Encounter: 04/12/21 Reason for Homebound Status: Patient unable to safely and weight more than 100 feet, needs assistance of another to leave the home, use of assistive device Primary Care Physician: Osito Hicks MD Skilled Need: PT - Discharge Diagnosis/Problem(s) (1) Peripheral vascular disease SNOMED Code(s): 659372042 ICD Code: I73.9 - PERIPHERAL VASCULAR DISEASE, UNSPECIFIED Status: Acute Current Visit: Yes - Patient Summary/Data Consults: Consultations 03/26/21 15:09 OT Evaluation and Treatment [CONS] Routine PT Evaluation and Treatment [CONS] Routine - Discharge Plan *PRESCRIPTION DRUG MONITORING PROGRAM REVIEWED*: Not Applicable *COPY OF PRESCRIPTION DRUG MONITORING REPORT IN PATIENT GABRIEL: Not Applicable Home Medications: Home Meds Torsemide 20 mg PO DAILY 01/14/21 [History] Acetaminophen [Tylenol Arthritis] 1,300 mg PO TID PRN 03/26/21 [History] Bisacodyl [Laxative Suppository] 10 mg RECTAL DAILY PRN 03/26/21 [History] Calcium Phosphate Trib/Vit D3 [Calcium Adult Gummies] 1 ea PO BEDTIME 03/26/21 [History] Cholecalciferol (Vitamin D3) [Vitamin D3] 50 mcg PO BEDTIME 03/26/21 [History] Clopidogrel [Plavix] 75 mg PO DAILY 03/26/21 [History] Fluocinonide [Lidex 0.05% Top Soln] 1 applic TOP TID PRN 03/26/21 [History] Levothyroxine [Synthroid] 100 mcg PO DAILY 03/26/21 [History] Melatonin 3 mg PO BEDTIME PRN 03/26/21 [History] Metoprolol Tartrate 25 mg PO BID 03/26/21 [History] Nitroglycerin 0.4 mg SL ASDIRECTED PRN 03/26/21 [History] Ondansetron [Zofran ODT] 4 mg PO QID PRN 03/26/21 [History] Pantoprazole Sodium [Protonix] 40 mg PO DAILY 03/26/21 [History] Potassium Chloride [Klor-Con M20] 20 meq PO DAILY 03/26/21 [History] Rosuvastatin Calcium 20 mg PO DAILY 03/26/21 [History] Sennosides/Docusate Sodium [Senna-S 8.6-50 mg Tablet] 1 tab PO DAILY 03/26/21 [History] Warfarin [Coumadin] 5 mg PO DAILY 03/26/21 [History] lisinopriL [Prinivil] 5 mg PO DAILY 03/26/21 [History] traMADol [Ultram] 50 mg PO Q8H PRN tablet 04/12/21 [Rx] - Discharge Summary/Plan Comment DC Time >30 min.: No Discharge Summary/Plan Comment: Face to Face Documentation Encounter Date of Encounter: 04/12/21 Patients Name: Carmen Morales Date of : 03/04/21 I certify that Carmen Morales is under my care and that I, or a nurse practitioner or physicians medical record assistant, had a face to face encounter that meets the physician [id number] requirements on 04/12/21. (This date must match the discharge summary progress note/clinic visit documentation supporting this information.) The encounter with the patient was in whole or in part for the following medical condition, which is the primary reason for home health care: Physical therapy for strengthening, balance, and gait training. My clinical findings support the need for the services because of inability to safely get to an outpatient facility for therapy due to fall risk, lack of muscle coordination and tone, balance issues, and weakness. Further, I certify that my clinical findings support that this patient is homebound (i.e. absences from home require considerable and taxing effort, or are for medical reasons, or for yarsani services, or infrequent or of short duration when for other reasons) because the patient is unable to safely ambulate distances less than 20 feet, patient requires standby assist due to loss of balance, and patient requires frequent rest periods due to weakness and loss of endurance, patient requires use of assistive device and/or use of wilson/furniture to ambulate (high fall risk) and patient requires assistance of another person to leave the home. Certification: For Home Health Services I certify that Carmen Morales meets the homebound requirements for the payer source and has a need for intermittent care home, physician, and/or speech or occupational therapy services in the home for the diagnosis currently outlined in the initial plan of care. These services will continue to be monitored by Dr. Hicks (PCP). This physician will periodically review and update the plan of care as required. My signature indicates that this supplemental documentation has been incorporated in the patients medical record. Teresa Fulton MD - General Info Admission Dx/Problem (Free Text: Admission Diagnosis/Problem Admission Diagnosis/Problem Peripheral vascular disease - Review of Systems General: Reports: No Symptoms HEENT: Reports: No Symptoms Pulmonary: Reports: No Symptoms Cardiovascular: Reports: No Symptoms Gastrointestinal: Reports: No Symptoms Genitourinary: Reports: No Symptoms Musculoskeletal: Reports: No Symptoms Skin: Reports: No Symptoms Neurological: Reports: No Symptoms Psychiatric: Reports: Anxiety - Patient Data Vitals - Most Recent: Last Vital Signs Temp 97.6 F 04/12/21 06:00 Pulse 84 04/12/21 07:30 Resp 16 04/12/21 06:00 BP 121/72 04/12/21 07:30 Pulse Ox 100 04/12/21 06:00 Weight - Most Recent: 170 lb I&O - Last 24 hours: Intake & Output 04/11/21 04/12/21 04/12/21 22:59 06:59 14:59 Intake Total 360 Balance 360 Lab Results - Last 24 hrs: Laboratory Results - last 24 hr 04/12/21 Range/Units 06:30 PT 20.6 H (9.9-12.5) SEC INR 1.9 L (2.0-3.5) Med Orders - Current: Current Medications Acetaminophen (Acetaminophen 650 Mg Tab.Er) 1,300 mg PO TID [facility] Last Admin: 04/12/21 07:29 Dose: 1,300 mg Documented by: Atorvastatin Calcium (Atorvastatin 40 Mg Tab) 80 mg PO DAILY [facility] Last Admin: 04/12/21 07:30 Dose: 80 mg Documented by: Bisacodyl (Bisacodyl 10 Mg Supp) 10 mg RECTAL DAILY PRN PRN Reason: Constipation Calcium Carbonate (Calcium Carbonate/Vitamin D3 1250 Mg-5 Mcg Tab) 1 tab PO BEDTIME [facility] Last Admin: 04/11/21 19:54 Dose: 1 tab Documented by: Cholecalciferol (Cholecalciferol (Vitamin D3) 25 Mcg Tab) 50 mcg PO BEDTIME [facility] Last Admin: 04/11/21 19:53 Dose: 50 mcg Documented by: Clopidogrel Bisulfate (Clopidogrel 75 Mg Tab) 75 mg PO DAILY [facility] Last Admin: 04/12/21 07:29 Dose: 75 mg Documented by: Hydrocortisone (Hydrocortisone 2.5% Crm 30 Gm Tube) 0 gm TOP TID PRN PRN Reason: Rash Levothyroxine Sodium (Levothyroxine 100 Mcg Tab) 100 mcg PO ACBREAKFAST [facility] Last Admin: 04/12/21 06:29 Dose: 100 mcg Documented by: Lisinopril (Lisinopril 5 Mg Tab) 5 mg PO DAILY [facility] Last Admin: 04/12/21 07:30 Dose: 5 mg Documented by: Melatonin (Melatonin 3 Mg Tab) 3 mg PO BEDTIME PRN PRN Reason: Sleep Metoprolol Tartrate (Metoprolol Tartrate 25 Mg Tab) 25 mg PO BID [facility] Last Admin: 04/12/21 07:30 Dose: 25 mg Documented by: Nitroglycerin (Nitroglycerin 0.4 Mg Tab.Sl) 0.4 mg SL ASDIRECTED PRN PRN Reason: Chest Pain Ondansetron HCl (Ondansetron 4 Mg Tab.Dis) 4 mg PO QID PRN PRN Reason: Nausea Last Admin: 03/29/21 16:05 Dose: 4 mg Documented by: Pantoprazole Sodium (Pantoprazole 40 Mg Tab.Cr) 40 mg PO ACBREAKFAST [facility] Last Admin: 04/12/21 06:29 Dose: 40 mg Documented by: Pharmacy Consult (Pharmacy To Dose/Monitor Warfarin/Inr) 1 each .XX ASDIRECTED [facility] Polyethylene Glycol (Polyethylene Glycol 3350 Powder 17 Gm Packet) 17 gm PO DAILY PRN PRN Reason: Constipation Last Admin: 04/10/21 12:22 Dose: 17 gm Documented by: Potassium Chloride (Potassium Chloride 20 Meq Tab.Er) 20 meq PO DAILY [facility] Last Admin: 04/12/21 07:30 Dose: 20 meq Documented by: Senna/Docusate Sodium (Docusate Sodium/Sennosides 50-8.6 Mg Tab) 1 tab PO DAILY [facility] Last Admin: 04/12/21 07:29 Dose: 1 tab Documented by: Torsemide (Torsemide 20 Mg Tab) 20 mg PO DAILY [facility] Last Admin: 04/12/21 07:29 Dose: 20 mg Documented by: Tramadol HCl (Tramadol 50 Mg Tab) 50 mg PO Q8H PRN PRN Reason: Pain Last Admin: 04/11/21 12:17 Dose: 50 mg Documented by: Warfarin Sodium (Warfarin 5 Mg Tab) 5 mg PO BEDTIME [facility] Last Admin: 04/11/21 19:54 Dose: 5 mg Documented by: Discontinued Medications Acetaminophen (Acetaminophen 325 Mg Tab) 650 mg PO Q4H PRN PRN Reason: Pain (Mild 1-3)/fever Acetaminophen (Acetaminophen 650 Mg Tab.Er) 1,300 mg PO TID PRN PRN Reason: Pain Last Admin: 03/27/21 13:58 Dose: 1,300 mg Documented by: Aspirin (Aspirin 81 Mg Tab.Ec) 81 mg PO DAILY ANA Stop: 04/10/21 08:01 Last Admin: 04/10/21 07:23 Dose: 81 mg Documented by: Ondansetron HCl (Ondansetron 4 Mg Tab.Dis) 4 mg PO Q4H PRN PRN Reason: nausea, able to take PO Polyethylene Glycol (Polyethylene Glycol 3350 Powder 17 Gm Packet) 17 gm PO ONETIME ONE Stop: 04/10/21 20:46 Last Admin: 04/10/21 20:50 Dose: 17 gm Documented by: - Exam General: Reports: Alert, Oriented HEENT: Reports: EOMI, Mucous Membr. Moist/[place] Neck: Reports: Supple Lungs: Reports: Clear to Auscultation, Normal Respiratory Effort Cardiovascular: Reports: Regular Rate, Regular Rhythm GI/Abdominal Exam: Normal Bowel Sounds, Soft, Non-Tender Extremities: Normal Inspection, Non-Tender, No Pedal Edema Skin: Reports: Warm, Dry Wound/Incisions: Reports: Healing Well Neurological: Reports: No New Focal Deficit Psy/Mental Status: Reports: Alert, Normal Affect, Anxious (tearful when voicing concerns about anxiety and returning home) *Q Meaningful Use (DIS) - VTE *Q VTE Anticoagulation Contraindications: Medical/Procedure Contrai
[2021-04-12] MEDS ORDERED: Warfarin 2.5 MG Tab PO ONE (14:00)
[2021-04-12] MEDS: Warfarin 5 MG Tab PO SCH (19:28)
[2021-04-12] MEDS: Cholecalciferol (Vitamin D3) 25 MCG Tab PO SCH (19:28)
[2021-04-12] MEDS: Calcium Carbonate/Vitamin D3 1250 MG-5 MCG Tab PO SCH (19:29)
[2021-04-13] MEDS: Pantoprazole 40 MG Tab.CR PO SCH (06:08)
[2021-04-13] MEDS: Levothyroxine 100 MCG Tab PO SCH (06:08)
[2021-04-13] MEDS: Acetaminophen 650 MG Tab.ER PO SCH ×2 (06:46→07:07)
[2021-04-13] MEDS: Lisinopril 5 MG Tab PO SCH (07:25)
[2021-04-13] MEDS: Torsemide 20 MG Tab PO SCH (07:25)
[2021-04-13] MEDS: Metoprolol Tartrate 25 MG Tab PO SCH (07:25)
[2021-04-13] MEDS: Potassium Chloride 20 MEQ Tab.ER PO SCH (07:26)
[2021-04-13] MEDS: Clopidogrel 75 MG Tab PO SCH (07:26)
[2021-04-13] MEDS: atorvaSTATin 40 MG Tab PO SCH (07:26)
== END 2021-04-13 09:05 | disposition home health service (06) | DRG 948 ==
LOC: VM.MS 14:27
PROVIDERS: ADMIT Family Medicine; ATTEND Family Medicine
DX: R53.81 Other malaise (principal); I73.9 Peripheral vascular disease, unspecified; I48.91 Unspecified atrial fibrillation; I10 Essential (primary) hypertension; I25.10 Atherosclerotic heart disease of native coronary artery without angina pectoris; E03.9 Hypothyroidism, unspecified; E78.5 Hyperlipidemia, unspecified; K21.9 Gastro-esophageal reflux disease without esophagitis; L40.9 Psoriasis, unspecified; E78.00 Pure hypercholesterolemia, unspecified; E66.9 Obesity, unspecified; M81.0 Age-related osteoporosis without current pathological fracture; M19.90 Unspecified osteoarthritis, unspecified site; I83.93 Asymptomatic varicose veins of bilateral lower extremities; L21.9 Seborrheic dermatitis, unspecified; Z79.82 Long term (current) use of aspirin; Z79.01 Long term (current) use of anticoagulants; Z79.02 Long term (current) use of antithrombotics/antiplatelets; I25.2 Old myocardial infarction; Z95.1 Presence of aortocoronary bypass graft; Z88.5 Allergy status to narcotic agent; Z95.0 Presence of cardiac pacemaker; Z85.828 Personal history of other malignant neoplasm of skin; Z68.30 Body mass index [BMI] 30.0-30.9, adult
CPT/HCPCS: 36415; 80048; 85610; 97110-GP; 97116-GP; 97161-GP; 97165-GO; 97530-GP; A9270-GY

== ENCOUNTER 2021-04-19 15:26 | Emergency (ER) | payer MEDICARE, OTHER ==
--- NOTE | 2021-04-19 16:09 | EDM.PDOC ---
ED HPI GENERAL MEDICAL PROBLEM - General Chief Complaint: Cardiovascular Problem Stated Complaint: sob palpitations Time Seen by Provider: 04/19/21 15:45 Source of Information: Reports: Patient History Limitations: Reports: No Limitations - History of Present Illness INITIAL COMMENTS - FREE TEXT/NARRATIVE: Patient comes emergency department today from home with concerns of shortness of breath and palpitations. This patient in the last 12 weeks has had a pretty extensive procedure list. She had a coronary artery bypass graft x4. She had atrial-ventricular pacemaker placed about 3 weeks ago. She had some blood clots in her lower extremities despite anticoagulation. She has been recently placed on Coumadin. She was just discharged home from the hospital for swing bed here in [place] on Thursday. She has felt well the past couple of days. Today she has noticed that she is more short of breath than normal. She also notes that her heart is doing what she relates as hiccups for flip flops. She has had no weakness dizziness lightheadedness. No syncope. No chest pain. No cough or congestion. No fever no chills. No abdominal pain nausea or vomiting. No h ematuria dysuria urinary frequency. No black tarry or stools. She has had no bloody stools. - Related Data Allergies Allergy/AdvReac Type Severity Reaction Status Date / Time hydrocodone AdvReac Vomiting Verified 04/19/21 17:06 hydromorphone [Hydromorphone] AdvReac Dizziness Verified 04/19/21 17:06 Home Meds: Home Meds Torsemide 20 mg PO DAILY 01/14/21 [History] Acetaminophen [Tylenol Arthritis] 1,300 mg PO TID PRN 03/26/21 [History] Bisacodyl [Laxative Suppository] 10 mg RECTAL DAILY PRN 03/26/21 [History] Calcium Phosphate Trib/Vit D3 [Calcium Adult Gummies] 1 ea PO BEDTIME 03/26/21 [History] Cholecalciferol (Vitamin D3) [Vitamin D3] 50 mcg PO BEDTIME 03/26/21 [History] Clopidogrel [Plavix] 75 mg PO DAILY 03/26/21 [History] Fluocinonide [Lidex 0.05% Top Soln] 1 applic TOP TID PRN 03/26/21 [History] Levothyroxine [Synthroid] 100 mcg PO DAILY 03/26/21 [History] Melatonin 3 mg PO BEDTIME PRN 03/26/21 [History] Metoprolol Tartrate 25 mg PO BID 03/26/21 [History] Nitroglycerin 0.4 mg SL ASDIRECTED PRN 03/26/21 [History] Ondansetron [Zofran ODT] 4 mg PO QID PRN 03/26/21 [History] Pantoprazole Sodium [Protonix] 40 mg PO DAILY 03/26/21 [History] Potassium Chloride [Klor-Con M20] 20 meq PO DAILY 03/26/21 [History] Rosuvastatin Calcium 20 mg PO DAILY 03/26/21 [History] Sennosides/Docusate Sodium [Senna-S 8.6-50 mg Tablet] 1 tab PO DAILY 03/26/21 [History] Warfarin [Coumadin] 5 mg PO DAILY 03/26/21 [History] lisinopriL [Prinivil] 5 mg PO DAILY 03/26/21 [History] traMADol [Ultram] 50 mg PO Q8H PRN tablet 04/12/21 [Rx] Past Medical History HEENT History: Reports: Cataract, Macular Degeneration Cardiovascular History: Reports: Afib, Bypass, CAD, High Cholesterol, Hypertension, Pacemaker, PVD Respiratory History: Reports: None Gastrointestinal History: Reports: Colon Polyp, GERD, Hemorrhoids Genitourinary History: Reports: Other (See Below) Other Genitourinary History: bladder stent d/t left renal artery stenosis Musculoskeletal History: Reports: Osteoarthritis, Osteoporosis, Other (See Below) Other Musculoskeletal History: bilateral sacral insufficiency fracture, closed wedge compression fracture of T11 vertebra Neurological History: Reports: Other (See Below) Other Neuro History: Slow to wake from anesthesia Psychiatric History: Reports: None Endocrine/Metabolic History: Reports: Hypothyroidism, Obesity/BMI 30+, Osteoporosis Hematologic History: Reports: None Oncologic (Cancer) History: Reports: Basal Cell Carcinoma, Other (See Below) Dermatologic History: Reports: Psoriasis, Seborrheic Dermatitis - Infectious Disease History Infectious Disease History: Reports: None - Past Surgical History Cardiovascular Surgical History: Reports: Cardiac Ablation, Coronary Artery Bypass, Pacer, Other (See Below) Other Cardiovascular Surgeries/Procedures: Cardiac catheterization, cardioversion GI Surgical History: Reports: Other (See Below) Other GI Surgeries/Procedures: Colon polyp biopsy, hemorrhoid surgery Musculoskeletal Surgical History: Reports: Other (See Below) Other Musculoskeletal Surgeries/Procedures:: IR vertebroplasty Social & Family History - Family History Family Medical History: No Pertinent Family History - Caffeine Use Caffeine Use: Reports: None ED ROS GENERAL - Review of Systems Review Of Systems: Comprehensive ROS is negative, except as noted in HPI. ED EXAM, GENERAL - Physical Exam Exam: See Below Exam Limited By: No Limitations General Appearance: Alert, WD/WN, No Apparent Distress Eye Exam: Bilateral Eye: EOMI Ears: Normal External Exam Nose: Normal Inspection Throat/Mouth: Normal Inspection Head: Atraumatic, Normocephalic Neck: Normal Inspection, Supple, Non-Tender, Full Range of Motion Respiratory/Chest: No Respiratory Distress, Lungs Clear, Normal Breath Sounds, No Accessory Muscle Use, Chest Non-Tender Cardiovascular: Normal Peripheral Pulses, Regular Rate, Rhythm, Bradycardia Peripheral Pulses: 2+: Radial (L), Radial (R), Posterior Tibial (L), Posterior Tibial (R), Dorsalis Pedis (L), Dorsalis Pedis (R) GI/Abdominal: Normal Bowel Sounds, Soft, Non-Tender (Female) Exam: Deferred Rectal (Female) Exam: Deferred Back Exam: Normal Inspection, Full Range of Motion Extremities: Non-Tender, No Pedal Edema, Normal Capillary Refill. No: Normal Inspection (On the left medial knee region there is a well-healing surgical incision that is unremarkable.) Neurological: Alert, Oriented, Normal Cognition, No Motor/Sensory Deficits Psychiatric: Normal Affect, Normal Mood Skin Exam: Warm, Dry, Intact, Normal Color, No Rash Lymphatic: No Adenopathy Course - Vital Signs Last Recorded V/S: Last Vital Signs Temp 98.3 F 04/19/21 15:30 Pulse 76 04/19/21 18:38 Resp 12 04/19/21 18:38 BP 146/53 H 04/19/21 18:38 Pulse Ox 98 04/19/21 18:38 - Orders/Labs/Meds Orders: Active Orders 24 hr Category Date Time Status EKG Documentation Completion [RC] STAT Care 04/19/21 16:02 Active Sodium Chloride 0.9% [Normal Saline] 1,000 ml Med 04/19/21 18:31 Active IV ONETIME Sodium Chloride 0.9% [Saline Flush] Med 04/19/21 17:06 Active 10 ml FLUSH ASDIRECTED PRN Peripheral IV Insertion Adult [OM.PC] Stat Oth 04/19/21 17:06 Ordered Medication Orders Sodium Chloride (Normal Saline) 1,000 mls @ 999 mls/hr IV ONETIME ONE Stop: 04/19/21 19:31 Last Admin: 04/19/21 18:38 Dose: 999 mls/hr Documented by: CHAN Sodium Chloride (Sodium Chloride 0.9% 10 Ml Syringe) 10 ml FLUSH ASDIRECTED PRN PRN Reason: Keep Vein Open Labs: Laboratory Tests 04/19/21 04/19/21 04/19/21 Range/Units 16:37 16:37 16:37 WBC 4.6 (4.0-10.0) x10^3/uL RBC 3.61 L (4.00-5.50) x10^6/uL Hgb 10.4 L (12.0-16.0) g/dL Hct 32.3 L (33.0-47.0) % MCV 89.5 (78.0-93.0) fL MCH 28.8 (26.0-32.0) pg MCHC 32.2 (32.0-36.0) g/dL RDW Coeff of Caro 14.9 (10.0-15.0) % Plt Count 302 (130-400) x10^3/uL Neut % (Auto) 52.1 (50.0-80.0) % Lymph % (Auto) 27.0 (25.0-50.0) % Bonner % (Auto) 14.6 H (2.0-11.0) % Eos % (Auto) 5.9 H (0.0-4.0) % Baso % (Auto) 0.4 (0.2-1.2) % PT 16.7 H (9.9-12.5) SEC INR 1.5 L (2.0-3.5) APTT 27.6 D (25.6-32.8) SEC D-Dimer, Quantitative (<=0.58) mg/LFEU Sodium 140 (136-145) mmol/L Potassium 3.8 (3.5-5.1) mmol/L Chloride 104 (98-107) mmol/L Carbon Dioxide 27 (21-32) mmol/L Anion Gap 12.8 (5-15) mmol/L BUN 21 H (7-18) mg/dL Creatinine 1.0 (0.55-1.02) mg/dL Est Cr Clr Drug Dosing TNP Estimated GFR (MDRD) 54 Glucose 86 (70-99) mg/dL Lactic Acid (0.4-2.0) mmol/L Calcium 8.7 (8.5-10.1) mg/dL Corrected Calcium 9.3 (8.5-10.1) mg/dL Magnesium (1.8-2.4) mg/dL Total Bilirubin 0.3 (0.2-1.0) mg/dL AST 19 (15-37) U/L ALT 20 (14-59) U/L Alkaline Phosphatase 143 H (46-116) U/L Troponin I High Sens 9 (<=51) ng/L NT-Pro-B Natriuret Pep 781 H (<=450) pg/mL Total Protein 7.2 (6.4-8.2) g/dL Albumin 3.2 L (3.4-5.0) g/dL Globulin 4.0 Albumin/Globulin Ratio 0.80 04/19/21 04/19/21 04/19/21 Range/Units 16:37 16:37 16:37 WBC (4.0-10.0) x10^3/uL RBC (4.00-5.50) x10^6/uL Hgb (12.0-16.0) g/dL Hct (33.0-47.0) % MCV (78.0-93.0) fL MCH (26.0-32.0) pg MCHC (32.0-36.0) g/dL RDW Coeff of Caro (10.0-15.0) % Plt Count (130-400) x10^3/uL Neut % (Auto) (50.0-80.0) % Lymph % (Auto) (25.0-50.0) % Bonner % (Auto) (2.0-11.0) % Eos % (Auto) (0.0-4.0) % Baso % (Auto) (0.2-1.2) % PT (9.9-12.5) SEC INR (2.0-3.5) APTT (25.6-32.8) SEC D-Dimer, Quantitative 3.11 H (<=0.58) mg/LFEU Sodium (136-145) mmol/L Potassium (3.5-5.1) mmol/L Chloride (98-107) mmol/L Carbon Dioxide (21-32) mmol/L Anion Gap (5-15) mmol/L BUN (7-18) mg/dL Creatinine (0.55-1.02) mg/dL Est Cr Clr Drug Dosing Estimated GFR (MDRD) Glucose (70-99) mg/dL Lactic Acid 1.1 (0.4-2.0) mmol/L Calcium (8.5-10.1) mg/dL Corrected Calcium (8.5-10.1) mg/dL Magnesium 2.4 (1.8-2.4) mg/dL Total Bilirubin (0.2-1.0) mg/dL AST (15-37) U/L ALT (14-59) U/L Alkaline Phosphatase (46-116) U/L Troponin I High Sens (<=51) ng/L NT-Pro-B Natriuret Pep (<=450) pg/mL Total Protein (6.4-8.2) g/dL Albumin (3.4-5.0) g/dL Globulin Albumin/Globulin Ratio Meds: Medications Generic Name Dose Route Start Last Admin Trade Name Freq PRN Reason Stop Dose Admin Sodium Chloride 1,000 mls @ 999 mls/hr 04/19/21 18:31 04/19/21 18:38 Normal Saline IV 04/19/21 19:31 999 mls/hr ONETIME ONE Administration Sodium Chloride 10 ml 04/19/21 17:06 Sodium Chloride 0.9% 10 Ml Syringe FLUSH ASDIRECTED PRN Keep Vein Open Discontinued Medications Generic Name Dose Route Start Last Admin Trade Name Freq PRN Reason Stop Dose Admin Iopamidol 100 ml 04/19/21 17:29 04/19/21 18:22 Iopamidol 755 Mg/Ml 100 Ml Bottle IVPUSH 04/19/21 17:30 100 ml ONETIME ONE Administration - Radiology Interpretation Free Text/Narrative:: Chest x-ray per radiology shows no acute cardiopulmonary abnormality. No infiltrate effusion pneumothorax or edema. Pulmonary hyperinflation. Cardiomediastinal silhouette is normal in size and contour - Re-Assessments/Exams Free Text/Narrative Re-Assessment/Exam: 04/19/21 19:18 Her laboratory evaluation is rather unremarkable. She does have a mildly elevated D-dimer which could be just due to her recent pathology although with her complaints of shortness of breath and recent DVT CT PE scan was completed and per radiology there was no evidence of acute pulmonary embolism. Patient does have a recently placed pacemaker which we are unable to interrogate as it is a new type of pacemaker that we are unable to interrogate tonight. Her troponin is normal. Her electrolytes are normal. Her INR is somewhat subtherapeutic although she was subtherapeutic yesterday and she is supposed to take an increased dose of Coumadin tonight as directed from the Coumadin clinic earlier today. Her chest x-ray is unremarkable. She is switching between an intrinsic heart rate and a paced rhythm in the emergency department with her heart rate running right at 60. I am not currently finding any causes for her acute complaints of shortness of breath and her palpitations. She has just recently been discharged from swing bed and I am wondering if she is not doing more than she has in the past and is becoming a little bit short of breath because she has had quite an extensive stay in the hospital with her CABG her pacemaker as well as the procedure in her leg for the clot in her left lower extremity. Not finding anything acute or urgent or emergent at this time. She may need some tweaking on her pacemaker. I am going to have her interrogate her pacemaker when she gets home have her contact her clinic on Thursday. Anything new or worse she is to recheck over the weekend. She is comfortable with this plan and her questions were answered. I would also like her to rest this weekend. Departure - Departure Time of Disposition: 18:41 Disposition: Home, Self-Care 01 Clinical Impression: Subtherapeutic anticoagulation, SOB (shortness of breath), Cardiac pacemaker in situ Instructions: Shortness of Breath, Adult, [id number] Referrals: Osito Hicks MD [Primary Care Provider] - Forms: ED Department Discharge Additional Instructions: Continue with your previous therapies. Follow the directions from the Coumadin clinic. Your INR today was 1.5. Take your Coumadin when you get home. Interrogate your pacemaker tonight when you get home. Thursday contact your cardiology clinic and tell them you had it interrogated and what your symptoms are. Return to the ED if new or worsening symptoms. Follow up by phone as directed above on thursday. Rest this . Sepsis Event Note (ED) - Evaluation Sepsis Screening Result: No Definite Risk - Focused Exam Vital Signs: Vital Signs Temp Pulse Resp BP Pulse Ox 04/19/21 18:38 76 12 146/53 H 98 04/19/21 17:50 72 14 134/58 L 98 04/19/21 16:58 68 18 130/52 L 98 04/19/21 15:30 98.3 F 77 18 136/46 L 99 - My Orders Last 24 Hours: My Active Orders 04/19/21 16:02 EKG Documentation Completion [RC] STAT 04/19/21 17:06 Sodium Chloride 0.9% [Saline Flush] 10 ml FLUSH ASDIRECTED PRN Peripheral IV Insertion Adult [OM.PC] Stat 04/19/21 18:31 Sodium Chloride 0.9% [Normal Saline] 1,000 ml IV ONETIME - Assessment/Plan Last 24 Hours: My Active Orders 04/19/21 16:02 EKG Documentation Completion [RC] STAT 04/19/21 17:06 Sodium Chloride 0.9% [Saline Flush] 10 ml FLUSH ASDIRECTED PRN Peripheral IV Insertion Adult [OM.PC] Stat 04/19/21 18:31 Sodium Chloride 0.9% [Normal Saline] 1,000 ml IV ONETIME
--- NOTE | 2021-04-19 16:10 | PCM.EKG ---
#1 Interpretation EKG Date: 04/19/21 Time: 15:39 Rhythm: Other (Atrial paced) Rate (Beats/Min): 80 [place]: Normal P-Wave: Present QRS: Normal ST-T: Normal QT: Normal Comparison: Change From Previous EKG (Recent pacer placed.)
--- NOTE | 2021-04-19 16:44 | CR ---
[id number] RAD/RAD Chest PA And Lateral EXAM: RAD Chest PA And Lateral INDICATION: SHORTNESS OF BREATH. COMPARISON: None. DISCUSSION: Left chest wall cardiac conduction device. Median sternotomy wires Cardiomediastinal silhouette is normal in size and contour. No infiltrate, effusion, pneumothorax, or edema. Pulmonary hyperinflation. IMPRESSION: No acute cardiopulmonary abnormality. Frank Lin DO 04/19/21 [id number] Thank you for allowing us to participate in the care of your patient.
[2021-04-19 17:03] LABS: PTT,PARTIAL THROMBOPLSTIN TIME 27.6 SEC (25.6-32.8)
[2021-04-19] MEDS ORDERED: Sodium Chloride 0.9% 10 ML Syringe FLUSH PRN (17:06)
[2021-04-19 17:10] LABS: ANION GAP 12.8 mmol/L (5-15); CHLORIDE,CL 104 mmol/L (98-107); SODIUM,NA 140 mmol/L (136-145)
[2021-04-19] MEDS ORDERED: Iopamidol 755 Mg/ML 100 ML Bottle IVPUSH ONE (17:29)
[2021-04-19] MEDS ORDERED: Sodium Chloride 0.9% 1,000 ML IV ONE (18:31)
--- NOTE | 2021-04-19 18:39 | CT ---
[id number] CT/CTA Chest EXAM: CT ANGIOGRAM CHEST INDICATION: SHORTNESS OF BREATH, PALPITATIONS, ELEVATED D-DIMER, COMPARISON: None. DISCUSSION: The pulmonary arteries are normal in appearance with no emboli identified. The main pulmonary artery is enlarged measuring up to 3.3 cm. The lungs are clear with no nodule, infiltrate or mass identified.No pleural or pericardial effusion. The heart is enlarged. No mediastinal, hilar or axillary lymphadenopathy. The imaged upper abdomen and osseous structures are unremarkable. IMPRESSION: 1. No evidence of acute pulmonary embolism. Frank Lin DO 04/19/21 [id number] Thank you for allowing us to participate in the care of your patient.
== END 2021-04-19 19:25 | disposition home or self-care (01) ==
LOC: VM.ED 15:26
DX: R06.02 Shortness of breath (principal); R79.1 Abnormal coagulation profile; I48.91 Unspecified atrial fibrillation; I25.810 Atherosclerosis of coronary artery bypass graft(s) without angina pectoris; E78.00 Pure hypercholesterolemia, unspecified; I10 Essential (primary) hypertension; K21.9 Gastro-esophageal reflux disease without esophagitis; M19.90 Unspecified osteoarthritis, unspecified site; E03.9 Hypothyroidism, unspecified; E66.9 Obesity, unspecified; Z95.0 Presence of cardiac pacemaker; Z88.5 Allergy status to narcotic agent; Z79.02 Long term (current) use of antithrombotics/antiplatelets; Z79.01 Long term (current) use of anticoagulants; Z79.899 Other long term (current) drug therapy
CPT/HCPCS: 36415; 71046; 71275; 80053; 83605; 83735; 83880; 84484; 85025; 85379; 85610; 85730; 93005; 93010; 99284; 99285-25; J7030; Q9967

== ENCOUNTER 2021-08-05 22:48 | Inpatient (IN) | payer MEDICARE, OTHER ==
[2021-08-05] MEDS ORDERED: Sodium Chloride 0.9% 500 ML IV ONE (23:05)
--- NOTE | 2021-08-05 23:13 | EDM.PDOC ---
ED HPI GENERAL MEDICAL PROBLEM - General Chief Complaint: General Stated Complaint: COVID Time Seen by Provider: 08/05/21 22:50 Source of Information: Reports: Patient, EMS History Limitations: Reports: No Limitations - History of Present Illness INITIAL COMMENTS - FREE TEXT/NARRATIVE: 76-year-old white female brought ER tonight secondary to patient states she is not feeling well and sudden onset of dizziness at home approximately 3 hours ago she felt this almost like she was going to pass out weak all over broke out in a sweat. She states the dizziness is a little bit better now but she feels like everything is just spinning. She was tested today for Covid which was positive about 3 PM and states she is been having symptoms of just not feeling well over the last week and wanted to go make sure today. She states she has been eating and drinking okay although she has had a decreased appetite she has had intermittent cough but no shortness of breath states overall she was doing okay she denies any fever or chills shortness of breath chest pain myalgias. She has a significant cardiac history with ongoing chronic A. fib Onset: Today, Sudden Duration: Hour(s):, Week(s): Associated Symptoms: Reports: Cough, Diaphoresis, Nausea/Vomiting, Weakness. Denies: Confusion, Chest Pain, Fever/Chills, Headaches, Shortness of Breath - Related Data Allergies Allergy/AdvReac Type Severity Reaction Status Date / Time hydrocodone AdvReac Vomiting Verified 04/19/21 17:06 hydromorphone [Hydromorphone] AdvReac Dizziness Verified 04/19/21 17:06 Home Meds: Home Meds Torsemide 20 mg PO DAILY 01/14/21 [History] Acetaminophen [Tylenol Arthritis] 1,300 mg PO TID PRN 03/26/21 [History] Bisacodyl [Laxative Suppository] 10 mg RECTAL DAILY PRN 03/26/21 [History] Calcium Phosphate Trib/Vit D3 [Calcium Adult Gummies] 1 ea PO BEDTIME 03/26/21 [History] Cholecalciferol (Vitamin D3) [Vitamin D3] 50 mcg PO BEDTIME 03/26/21 [History] Clopidogrel [Plavix] 75 mg PO DAILY 03/26/21 [History] Fluocinonide [Lidex 0.05% Top Soln] 1 applic TOP TID PRN 03/26/21 [History] Levothyroxine [Synthroid] 100 mcg PO DAILY 03/26/21 [History] Melatonin 3 mg PO BEDTIME PRN 03/26/21 [History] Metoprolol Tartrate 25 mg PO BID 03/26/21 [History] Nitroglycerin 0.4 mg SL ASDIRECTED PRN 03/26/21 [History] Ondansetron [Zofran ODT] 4 mg PO QID PRN 03/26/21 [History] Pantoprazole Sodium [Protonix] 40 mg PO DAILY 03/26/21 [History] Potassium Chloride [Klor-Con M20] 20 meq PO DAILY 03/26/21 [History] Rosuvastatin Calcium 20 mg PO DAILY 03/26/21 [History] Sennosides/Docusate Sodium [Senna-S 8.6-50 mg Tablet] 1 tab PO DAILY 03/26/21 [History] Warfarin [Coumadin] 5 mg PO DAILY 03/26/21 [History] lisinopriL [Prinivil] 5 mg PO DAILY 03/26/21 [History] traMADol [Ultram] 50 mg PO Q8H PRN tablet 04/12/21 [Rx] Past Medical History HEENT History: Reports: Cataract, Macular Degeneration Cardiovascular History: Reports: Afib, Bypass, CAD, High Cholesterol, Hypertension, Pacemaker, PVD Other Cardiovascular History: [employer] pacemaker Respiratory History: Reports: None Gastrointestinal History: Reports: Colon Polyp, GERD, Hemorrhoids Genitourinary History: Reports: Other (See Below) Other Genitourinary History: bladder stent d/t left renal artery stenosis Musculoskeletal History: Reports: Osteoarthritis, Osteoporosis, Other (See Below) Other Musculoskeletal History: bilateral sacral insufficiency fracture, closed wedge compression fracture of T11 vertebra Neurological History: Reports: Other (See Below) Other Neuro History: Slow to wake from anesthesia Psychiatric History: Reports: None Endocrine/Metabolic History: Reports: Hypothyroidism, Obesity/BMI 30+, Osteoporosis Hematologic History: Reports: None Oncologic (Cancer) History: Reports: Basal Cell Carcinoma, Other (See Below) Dermatologic History: Reports: Psoriasis, Seborrheic Dermatitis - Infectious Disease History Infectious Disease History: Reports: None - Past Surgical History Cardiovascular Surgical History: Reports: Cardiac Ablation, Coronary Artery Bypass, Pacer, Other (See Below) Other Cardiovascular Surgeries/Procedures: Cardiac catheterization, ca rdioversion GI Surgical History: Reports: Other (See Below) Other GI Surgeries/Procedures: Colon polyp biopsy, hemorrhoid surgery Musculoskeletal Surgical History: Reports: Other (See Below) Other Musculoskeletal Surgeries/Procedures:: IR vertebroplasty Social & Family History - Family History Family Medical History: No Pertinent Family History - Caffeine Use Caffeine Use: Reports: None ED ROS GENERAL - Review of Systems Review Of Systems: See Below Constitutional: Reports: Malaise, Weakness. Denies: Fever, Chills HEENT: Reports: No Symptoms. Denies: Vision Change Respiratory: Reports: Cough. Denies: Shortness of Breath Cardiovascular: Denies: Chest Pain, Blood Pressure Problem, Dyspnea on Exertion, Lightheadedness, Palpitations, PND, Syncope Endocrine: Reports: No Symptoms GI/Abdominal: Reports: No Symptoms : Reports: No Symptoms Musculoskeletal: Reports: No Symptoms Skin: Reports: No Symptoms Neurological: Reports: Dizziness, Weakness, Other (Near syncopal episode). Denies: Confusion, Headache, Paresthesia, Syncope, Difficulty Walking Psychiatric: Reports: No Symptoms Hematologic/Lymphatic: Reports: No Symptoms Immunologic: Reports: No Symptoms ED EXAM, DIZZINESS - Physical Exam Exam: See Below Exam Limited By: No Limitations General Appearance: Alert, WD/WN, No Apparent Distress, Other (Patient looks like she does not feel well she is also diaphoretic vital signs noted be slightly hypertensive tachycardia secondary to A. fib at 140s) Eye Exam: Bilateral Eye: EOMI, PERRL, Other (She does have reproducible lateral nystagmus) Ears: Normal External Exam, Normal Canal, Hearing Grossly Normal, Normal TMs Nose: Normal Inspection, Normal Mucosa, No Blood Throat/Mouth: Normal Inspection, Normal Lips, Normal Teeth, Normal Gums, Normal Oropharynx, Normal Voice, No Airway Compromise Head Exam: Atraumatic, Normocephalic Neck: Normal Inspection, Supple, Non-Tender, Full Range of Motion Respiratory/Chest: No Respiratory Distress, Lungs Clear, Normal Breath Sounds, No Accessory Muscle Use, Chest Non-Tender Cardiovascular: Normal Peripheral Pulses, Regular Rate, Rhythm, No Gallop, No JVD, No Murmur, No Rub, Tachycardia. No: No Edema GI/Abdominal: Normal Bowel Sounds, Soft, Non-Tender, No Organomegaly, No Distention Neurological: Alert, Normal Mood/Affect, CN II-XII Intact, No Motor/Sensory Deficits, Oriented x 3, Other (Patient is moving all extremities has equal sanding machine tender bilateral 5 5 upper extremity/lower extremity) Extremities: Normal Inspection, Normal Range of Motion, Non-Tender, Normal Capillary Refill. No: No Pedal Edema (+1 bilateral pedal edema) Psychiatric: Normal Affect, Normal Mood Skin Exam: Warm, Dry, Intact, Normal Color, No Rash #1 Interpretation EKG Date: 08/05/21 Time: 22:55 Rhythm: A-Fib Manson: Normal P-Wave: Absent QRS: Normal ST-T: Normal QT: Normal Course - Vital Signs Text/Narrative:: CBC BMP troponin EKG chest x-ray 500 mL bolus 8 mg Zofran Called [facility] no beds available called [facility] secondary to primary care provider is there no beds available will admit patient here overnight treat with metoprolol 50 mg extended release p.o. patient is currently on Coumadin will give potassium IV and recheck in the a.m. Patient has been vaccinated Covid x3 Chest x-ray no acute findings - Orders/Labs/Meds Orders: Active Orders 24 hr Category Date Time Status Patient Status [ADT] Routine ADT 08/06/21 00:28 Ordered EKG 12 Lead [EKG Documentation Completion] [RC] STAT Care 08/05/21 23:04 Active Chest 1V Frontal [CR] Stat Exams 08/05/21 23:18 Taken Metoprolol Succinate [Toprol XL] Med 08/06/21 20:00 Active 50 mg PO BEDTIME Potassium Chloride Riders [KCL in Water 20 MEQ/50 ML] Med 08/06/21 00:23 Active 20 meq Premix Bag 1 bag IV ONETIME Medication Orders Potassium Chloride 20 meq/ (Premix) 50 mls @ 50 mls/hr IV ONETIME ONE Stop: 08/06/21 01:22 Metoprolol Succinate (Metoprolol Succinate 50 Mg Tab.Er) 50 mg PO BEDTIME ANA Labs: Laboratory Tests 08/05/21 08/05/21 Range/Units 23:02 23:02 WBC 3.4 L (4.0-10.0) x10^3/uL RBC 4.22 (4.00-5.50) x10^6/uL Hgb 10.6 L (12.0-16.0) g/dL Hct 32.7 L (33.0-47.0) % MCV 77.5 L (78.0-93.0) fL MCH 25.1 L (26.0-32.0) pg MCHC 32.4 (32.0-36.0) g/dL RDW Coeff of Caro 17.3 H (10.0-15.0) % Plt Count 228 (130-400) x10^3/uL Immature Gran % (Auto) 0.00 (0.00-0.43) % Neut % (Auto) 63.7 (50.0-80.0) % Lymph % (Auto) 18.9 L (25.0-50.0) % Gray % (Auto) 16.5 H (2.0-11.0) % Eos % (Auto) 0.6 (0.0-4.0) % Baso % (Auto) 0.3 (0.2-1.2) % Neut # (Auto) 2.2 (1.8-7.7) x10^3/uL Lymph # (Auto) 0.6 L (1.0-4.8) x10^3/uL Gray # (Auto) 0.6 (0.0-0.8) x10^3/uL Eos # (Auto) 0.0 (0.0-0.5) x10^3/uL Baso # (Auto) 0.0 (0.0-0.2) x10^3/uL Immature Gran # (Auto) 0.00 (0.00-0.07) x10^3/uL Sodium 137 (136-145) mmol/L Potassium 3.1 L (3.5-5.1) mmol/L Chloride 103 (98-107) mmol/L Carbon Dioxide 24 (21-32) mmol/L Anion Gap 13.1 (5-15) mmol/L BUN 22 H (7-18) mg/dL Creatinine 1.1 H (0.55-1.02) mg/dL Est Cr Clr Drug Dosing TNP Estimated GFR (MDRD) 48 Glucose 115 H (70-99) mg/dL Calcium 8.4 L (8.5-10.1) mg/dL Troponin I High Sens 21 (<=51) ng/L Meds: Medications Generic Name Dose Route Start Last Admin Trade Name Freq PRN Reason Stop Dose Admin Potassium Chloride 20 meq/ 50 mls @ 50 mls/hr 08/06/21 00:23 Premix IV 08/06/21 01:22 ONETIME ONE Metoprolol Succinate 50 mg 08/06/21 20:00 Metoprolol Succinate 50 Mg Tab.Er PO BEDTIME ANA Discontinued Medications Generic Name Dose Route Start Last Admin Trade Name Eugenioq PRN Reason Stop Dose Admin Sodium Chloride 500 mls @ 500 mls/hr 08/05/21 23:05 Normal Saline IV 08/06/21 00:04 ONETIME ONE Magnesium Oxide 400 mg 08/06/21 00:10 Magnesium Oxide 400 Mg Tab PO 08/06/21 00:11 ONETIME ONE Metoprolol Succinate 25 mg 08/06/21 00:11 Metoprolol Succinate 25 Mg Tab.Er PO 08/06/21 00:12 ONETIME ONE Potassium Chloride 40 meq 08/06/21 00:09 Potassium Chloride 20 Meq Tab.Er PO 08/06/21 00:10 ONETIME ONE Departure - Departure Time of Disposition: 00:15 Disposition: Refer to Observation Condition: Good Clinical Impression: Weakness, Hypokalemia, SARS-CoV-2 positive - Discharge Information *PRESCRIPTION DRUG MONITORING PROGRAM REVIEWED*: No *COPY OF PRESCRIPTION DRUG MONITORING REPORT IN PATIENT GABRIEL: No Referrals: Osito Hicks MD [Primary Care Provider] - Forms: ED Department Discharge - Problem List & Annotations (1) Afib, Atrial fibrillation SNOMED Code(s): 79623388 Code(s): I48.91 - UNSPECIFIED ATRIAL FIBRILLATION Status: Acute Current Visit: No (2) Hypokalemia SNOMED Code(s): 54606388 Code(s): E87.6 - HYPOKALEMIA Status: Acute Current Visit: Yes (3) SARS-CoV-2 positive SNOMED Code(s): 1513252602052643 Code(s): U07.1 - COVID-19 Status: Acute Current Visit: Yes (4) Weakness SNOMED Code(s): 96497815 Code(s): R53.1 - WEAKNESS Status: Acute Current Visit: Yes - My Orders Last 24 Hours: My Active Orders 08/05/21 23:04 EKG 12 Lead [EKG Documentation Completion] [RC] STAT 08/05/21 23:18 Chest 1V Frontal [CR] Stat 08/06/21 00:23 Potassium Chloride Riders [KCL in Water 20 MEQ/50 ML] 20 meq Premix Bag 1 bag IV ONETIME 08/06/21 00:28 Patient Status [ADT] Routine 08/06/21 20:00 Metoprolol Succinate [Toprol XL] 50 mg PO BEDTIME - Assessment/Plan Admission H&P: Please use this note as an admission H&P Last 24 Hours: My Active Orders 08/05/21 23:04 EKG 12 Lead [EKG Documentation Completion] [RC] STAT 08/05/21 23:18 Chest 1V Frontal [CR] Stat 08/06/21 00:23 Potassium Chloride Riders [KCL in Water 20 MEQ/50 ML] 20 meq Premix Bag 1 bag IV ONETIME 08/06/21 00:28 Patient Status [ADT] Routine 08/06/21 20:00 Metoprolol Succinate [Toprol XL] 50 mg PO BEDTIME
[2021-08-05 23:31] LABS: CHLORIDE,CL 103 mmol/L (98-107); SODIUM,NA 137 mmol/L (136-145)
[2021-08-05 23:32] LABS: ANION GAP 13.1 mmol/L (5-15)
[2021-08-06] MEDS ORDERED: Metoprolol Succinate 50 MG Tab.ER PO ONE (00:01)
[2021-08-06] MEDS ORDERED: Potassium Chloride 20 MEQ Tab.ER PO ONE (00:09)
[2021-08-06] MEDS ORDERED: Magnesium Oxide 400 MG Tab PO ONE (00:10)
[2021-08-06] MEDS ORDERED: Metoprolol Succinate 25 MG Tab.ER PO ONE (00:11)
[2021-08-06] MEDS ORDERED: Potassium Chloride Riders 20 MEQ in Premix Bag 1 BAG IV ONE (00:23)
[2021-08-06] MEDS ORDERED: Metoprolol Succinate 50 MG Tab.ER ONE (01:23)
[2021-08-06] MEDS ORDERED: Sodium Chloride 0.9% 1,000 ML IV SCH (04:15)
[2021-08-06] MEDS ORDERED: NS + KCl 20mEq/L 1,000 ML IV ONE (04:15)
[2021-08-06] MEDS ORDERED: Acetaminophen 325 MG Tab PO PRN (04:16)
[2021-08-06] MEDS ORDERED: Ondansetron 4 MG/2 ML SDV IV PRN (04:16)
[2021-08-06] MEDS: Albuterol 0.083% 2.5 MG/3 ML Neb Soln INH SCH ×2 (07:08→11:26)
[2021-08-06] MEDS ORDERED: Dexamethasone 4 MG/ML SDV IV SCH (08:00)
[2021-08-06] MEDS ORDERED: Metoprolol Tartrate 50 MG Tab PO STA (08:24)
[2021-08-06] MEDS ORDERED: Ondansetron 4 MG Tab.DIS PO PRN (08:31)
[2021-08-06] MEDS ORDERED: Nitroglycerin 0.4 MG Tab.SL SL PRN (08:31)
[2021-08-06] MEDS ORDERED: Acetaminophen 650 MG Tab.ER PO PRN (08:31)
[2021-08-06] MEDS ORDERED: Levothyroxine 100 MCG Tab PO SCH (08:45)
[2021-08-06] MEDS: Potassium Chloride 20 MEQ Tab.ER PO SCH (09:07)
[2021-08-06] MEDS: Rosuvastatin 20 MG Tab PO SCH (09:07)
[2021-08-06] MEDS: Lisinopril 5 MG Tab PO SCH (09:07)
[2021-08-06] MEDS: Pantoprazole 40 MG Tab.CR PO SCH (09:08)
[2021-08-06] MEDS: Clopidogrel 75 MG Tab PO SCH (09:08)
[2021-08-06 09:22] LABS: CHLORIDE,CL 104 mmol/L (98-107); SODIUM,NA 138 mmol/L (136-145)
[2021-08-06] MEDS ORDERED: Torsemide 20 MG Tab PO SCH (09:30)
[2021-08-06 09:31] LABS: ANION GAP 11.5 mmol/L (5-15)
[2021-08-06] MEDS ORDERED: Albuterol 0.083% 2.5 MG/3 ML Neb Soln INH PRN (11:30)
[2021-08-06] MEDS ORDERED: Metoprolol Tartrate 25 MG Tab PO ONE (14:18)
--- NOTE | 2021-08-06 14:29 | CR ---
[id number] RAD/RAD Chest PA or AP 1V EXAM: SINGLE VIEW CHEST. INDICATION: COVID POSSIBLE COMPARISON: CORRELATION IS MADE WITH JANUARY 14, 2021 FINDINGS: The patient has had heart surgery and a pacemaker has been placed The lungs are clear The cardiomediastinal contour is stable IMPRESSION: NO PNEUMONIA Mendoza Jara MD 08/06/21 0289 Thank you for allowing us to participate in the care of your patient.
[2021-08-06] MEDS ORDERED: Polyethylene Glycol 3350 Powder 17 GM Packet PO SCH (16:30)
[2021-08-06] MEDS ORDERED: EPINEPHrine 1 MG/1 ML Amp IM PRN ×2 (16:43→16:53)
[2021-08-06] MEDS ORDERED: diphenhydrAMINE 50 MG/ML SDV IVPUSH PRN ×2 (16:43→16:53)
[2021-08-06] MEDS ORDERED: Famotidine 20 MG/2 ML SDV IVPUSH PRN ×2 (16:43→16:53)
[2021-08-06] MEDS ORDERED: methylPREDNISolone Sodium Succinate 125 MG/2 ML SDV IVPUSH PRN ×2 (16:43→16:53)
[2021-08-06] MEDS ORDERED: Sodium Chloride 0.9% 10 ML Syringe FLUSH SCH ×2 (16:45→17:00)
[2021-08-06] MEDS: Digoxin 500 MCG/2 ML Amp IVPUSH SCH ×2 (17:05→22:57)
[2021-08-06] MEDS ORDERED: Bamlanivimab 700 MG, ETESEVIMAB 1,400 MG in Sodium Chloride 0.9% 100 ML IV ONE (17:30)
--- NOTE | 2021-08-06 19:59 | PN ---
Progress Note for JOSE PADGETT Date: 08/06/2021 Room #: VM.209 CHIEF COMPLAINT: AFib with RVR and COVID. HISTORY OF PRESENT ILLNESS: This is a 76-year-old female admitted around midnight last night after presenting to the ER feeling dizzy, like she was going to pass out. She was found to be in AFib with tachycardia, rates in the 140s. She has a known history of AFib and remotely she had an ablation. She is on Coumadin. She has had a bypass surgery, 3 vessels, back in December. She had a pacemaker placed and a STEMI in February and has severe peripheral vascular disease, but she is a nonsmoker and does not have any chronic lung disease. Patient had been feeling unwell since less than 1 week ago. She was in the clinic on the with cough for 2 days and congestion, rhinorrhea, headache, chills, poor appetite, and tested negative for COVID. She is fully vaccinated. She tested negative. Her last vaccines were Moderna, last dose on 12/11, but she had not had the 3rd dose, and she had her flu shot in May. She had not lost her taste or smell, but continued to feel poorly over the weekend, so had herself tested again at [facility] and was positive. She did get her oral Toprol to try to help with her heart rates, but still this morning she is running quite fast. She is due for a dose of her Lopressor, normally takes 25 mg twice daily. She is also on torsemide and lisinopril. Her EF was down to 55% on an echo in February. It had been 65% prior. She is not having any chest pain. She is not having any significant shortness of breath. Her cough is better. She is not requiring oxygen. Chest x-ray did not show any pulmonary infiltrate. She is having bowel movements. Denies diarrhea. She is tolerating a diet. She does not recall ever being on digoxin. OBJECTIVE: Vital Signs: When I visited with her this afternoon, temperature 96.2, pulse 132, blood pressure 119/80, respiratory rate 19, O2 of 94% on room air. Most of her readings have been 96%. Most of her blood pressures had been about 88/66 to 90 systolic. General: She is in no acute distress. She is sitting in her room, actually talking on her cellphone. Heart: Irregularly irregular with tachycardia. Lungs: Sounds are clear to auscultation bilaterally without crackles or wheezes. Abdomen: Nondistended, nontender. Extremities: Warm and dry. No edema. Mental Status: Alert and orientated x3. She did receive 1 p.r.n. nebulizer per nursing. LABORATORY DATA: Her lab work showed today an INR 2.2. Sodium 138; potassium 3.5, up from 3.1 on admission, she did get potassium replacement; chloride 104; bicarb 26; BUN 19; creatinine 0.9; glucose 151; calcium 8.3. Magnesium 2.1. TSH low at 0.21. She did get dexamethasone in the ER. ASSESSMENT AND PLAN: 1. COVID-19, day #7 based on symptoms. Positive test was yesterday. Discussed with the patient and with the specialist in [place], given that she is not hypoxic and she is only in the hospital on observation status due to the atrial fibrillation and rapid ventricular response, we will go ahead and give her monoclonal antibody treatment. The benefits and risks were discussed with her including that this is an experimental medication under FDA, is authorized under emergency use. Patient was given the option to take or refuse the medication, and she agreed to accept the medication. We will discontinue the dexamethasone as she is not hypoxic. I do not think remdesivir will also be indicated for her. 2. Atrial fibrillation with rapid ventricular response. She has a history of this. We will increase her Lopressor up to 50 mg twice daily. I am going to go ahead and hold the lisinopril, especially if she becomes hypotensive. She did get her Demadex this morning, but I am going to go ahead and hold that, although the lisinopril was held, and we will add IV digoxin for rate control. We will continue on telemetry. 3. Coronary artery disease and peripheral vascular disease. Patient's troponin was negative. She is not having any chest pain. We will continue on her home medications for prevention. I will repeat another troponin in the morning. 4. Hypokalemia. She is on replacement. 5. Anticoagulation for atrial fibrillation. We will check an INR in the morning. She will continue her home warfarin. Pharmacy is assisting with dosing. 6. Hyperglycemia due to steroids. She has no history of diabetes. This should improve with stopping dexamethasone. 7. Hypothyroidism. TSH is suppressed. We are holding her thyroid medication for now. 8. Essential hypertension, actually with some hypotension. PLAN: Patient is continuing on observation status, and we will give her IV monoclonal antibodies today. We will try to improve rate control with increased metoprolol and IV digoxin and hopefully can send her home in a stable condition tomorrow. She continues to have some lightheadedness, and I suspect this is due to her tachycardia. She has already received IV fluids 1.2 L. I am going to hold off on further IV fluids as she is eating and drinking okay. For DVT prophylaxis, she is therapeutic on Coumadin. She is a full code. MKA: 08/06/2021 19:13:26 MODL: 08/06/2021 19:53:46 /[id number]
[2021-08-06] MEDS ORDERED: Metoprolol Tartrate 25 MG Tab PO SCH (20:00)
[2021-08-06] MEDS ORDERED: Metoprolol Succinate 50 MG Tab.ER PO SCH (20:00)
[2021-08-06] MEDS: Calcium Carbonate/Vitamin D3 1250 MG-5 MCG Tab PO SCH (20:14)
[2021-08-06] MEDS: Metoprolol Tartrate 25 MG Tab PO SCH (20:15)
[2021-08-06] MEDS: Warfarin 5 MG Tab PO SCH (20:15)
[2021-08-06] MEDS: Cholecalciferol (Vitamin D3) 25 MCG Tab PO SCH (20:16)
[2021-08-07 07:32] LABS: ANION GAP 13.8 mmol/L (5-15)
[2021-08-07] MEDS: Pantoprazole 40 MG Tab.CR PO SCH (07:54)
[2021-08-07] MEDS: Metoprolol Tartrate 25 MG Tab PO SCH (07:55)
[2021-08-07] MEDS: Potassium Chloride 20 MEQ Tab.ER PO SCH (07:57)
[2021-08-07] MEDS: Rosuvastatin 20 MG Tab PO SCH (07:57)
[2021-08-07] MEDS: Clopidogrel 75 MG Tab PO SCH (07:57)
[2021-08-07] MEDS: Digoxin 125 MCG Tab PO SCH (07:58)
[2021-08-07] MEDS ORDERED: Levothyroxine 88 MCG Tab PO SCH (08:00)
[2021-08-07] MEDS ORDERED: Dexamethasone 4 MG Tab PO SCH (08:00)
[2021-08-07] MEDS ORDERED: Metoprolol Tartrate 5 MG/5 ML SDV IVPUSH ONE (08:32)
[2021-08-07] MEDS ORDERED: Polyethylene Glycol 3350 Powder 17 GM Packet PO PRN (09:33)
--- NOTE | 2021-08-07 09:57 | CR ---
[id number] RAD/RAD Chest PA And Lateral EXAM: RAD Chest PA And Lateral INDICATION: COUGH COMPARISON: August 05, 2021. DISCUSSION/IMPRESSION: Cardiomediastinal silhouette is unchanged in size and contour compared the prior examination. Left chest wall cardiac conduction device remains in place. Bilateral symmetric lung hyperinflation suggests underlying parenchymal emphysema. Correlate for clinical signs of COPD. No evidence of pneumonia. No pleural effusion or pneumothorax. Ryley Brown MD 08/07/21 0956 Thank you for allowing us to participate in the care of your patient.
--- NOTE | 2021-08-07 13:29 | PN ---
Progress Note for JOSE PADGETT Date: 08/07/2021 Room #: VM.209 SUBJECTIVE: This is hospital day #2 on a 76-year-old admitted for COVID-19 with AFib and RVR. The patient did get monoclonal antibodies last night. She did get the BAM combination instead of regeneron due to availability. She also got IV digoxin and her heart rates got down to 80s, so the second bolus was held and she did feel better than, less dizzy, but then her heart rate started coming up overnight and especially when she is up and moving around this morning. The patient has not had any chest pain. She has not had any shortness of breath, but her dry cough is now more of a loose cough. She is on day #8 now of COVID. Her troponin did go up from normal to 178 today and she does have a significant history of coronary artery disease with previous bypass surgery and stenting in the last year. She has been afebrile. She has been tolerating a diet, eating 100% of her meals yesterday. She is having bowel movements. Denies diarrhea. OBJECTIVE: Vital Signs: Her weight 78.9 kg, temperature 96.6, heart rate 147, blood pressure this morning 133/70, respiratory rate 16, and O2 of 97% on room air. General: She is in no acute distress. Heart: Irregularly irregular with tachycardia. Lungs: Sounds are clear in the upper bases, but she has bilateral crackles in both bases. No wheezing. Abdomen: Nondistended, nontender. Extremities: Warm and dry, no edema. Mental Status: Alert and orientated x3. LABORATORY DATA: Lab work today does show white count 5.1, hemoglobin 11.6, platelets 252. INR 2.7. Sodium 143, potassium 3.8, chloride 107, bicarb 26, BUN 19, creatinine 1, glucose 104, calcium 9.4. Troponin up to 178. ProBNP up to 7038. ASSESSMENT AND PLAN: 1. COVID-19. Day #8. She has been vaccinated with 2 doses of Moderna. She has had monoclonal antibodies. She is not hypoxic. She is being hospitalized solely due to her atrial fibrillation with rapid ventricular response. We will work on better rate control this morning. She got her oral metoprolol, but I will give her IV Lopressor dose. Given that her blood pressure is excellent. She is also going to be continued on oral digoxin. If this fails to improve her heart rate, we will likely need amiodarone and I have reached out to Cardiology regarding her as she follows up routinely with them. 2. Atrial fibrillation with rapid ventricular response. She is on Coumadin. INR is therapeutic. We will continue on metoprolol higher dose. 3. Chronic diastolic heart failure. She is on Demadex, we will likely be able to give her a dose around noon today if her blood pressure is acceptable. Clinically, she sounds like she is having some crackles on exam. 4. Giv-OB-gqdbghatb myocardial infarction with known coronary artery disease. This is almost certainly due to her tachycardia. We will trend her troponins. She will notify us if she has any chest pain. 5. Hypokalemia. This has been replaced. 6. Hyperglycemia, resolved, that was due to steroids. 7. Essential hypertension. Actually with close monitoring of blood pressures, we are holding lisinopril for now, but we will restart it when able. PLAN: The patient will be upgraded to acute cares. We will give her a chest x- ray, and likely her oral Demadex later today. We will continue with the digoxin. We will continue with her Coumadin for DVT prophylaxis. She does not need any IV steroids or remdesivir. She is a code level 1. MKA: 08/07/2021 12:16:21 MODL: 08/07/2021 13:09:20 /[id number]
[2021-08-07] MEDS: Torsemide 20 MG Tab PO SCH (13:35)
--- NOTE | 2021-08-07 16:47 | PCM.SN.2 ---
- Free Text/Narrative Note: Due to covid will avoid amio as discussed with cardiology for now due to good blood pressures I will increase lopressor to 100 BID.
[2021-08-07] MEDS: Metoprolol Tartrate 50 MG Tab PO SCH ×2 (17:40→19:27)
[2021-08-07] MEDS: Cholecalciferol (Vitamin D3) 25 MCG Tab PO SCH (20:05)
[2021-08-07] MEDS: Warfarin 5 MG Tab PO SCH (20:05)
[2021-08-07] MEDS: Calcium Carbonate/Vitamin D3 1250 MG-5 MCG Tab PO SCH (20:06)
[2021-08-07] MEDS: Acetaminophen 500 MG Tab PO PRN (20:06)
[2021-08-08 07:46] LABS: ANION GAP 14.3 mmol/L (5-15)
[2021-08-08] MEDS: Potassium Chloride 20 MEQ Tab.ER PO SCH (08:13)
[2021-08-08] MEDS: Digoxin 125 MCG Tab PO SCH (08:14)
[2021-08-08] MEDS: Torsemide 20 MG Tab PO SCH ×2 (08:14→12:40)
[2021-08-08] MEDS: Clopidogrel 75 MG Tab PO SCH (08:14)
[2021-08-08] MEDS: Rosuvastatin 20 MG Tab PO SCH (08:14)
[2021-08-08] MEDS: Pantoprazole 40 MG Tab.CR PO SCH (08:14)
[2021-08-08] MEDS: Metoprolol Tartrate 50 MG Tab PO SCH (08:15)
--- NOTE | 2021-08-08 10:30 | PN ---
Progress Note for JOSE PADGETT Date: 08/08/2021 Room #: VM.209 SUBJECTIVE: This is hospital day #3 on a 76-year-old admitted with COVID-19 and AFib with RVR. She has not been hypoxic. She is not short of breath. Her cough is improving. She did get monoclonal antibodies on 08/06/2021. She continues though to be dizzy, maybe it is a little better, but her heart rates are still fast again this morning into the 120s, but they did improve somewhat overnight less than 100. She is not having any chest pain. She has not had any stomach pain or diarrhea. She is tolerating her diet, eating at least 50% of her meals. She has been afebrile. OBJECTIVE: Vital Signs: Her pulse is 118, blood pressure 102/61, temperature 96, respiratory rate 16, and O2 of 94% on room air. Weight 79.1 kg. General: She is in no acute distress. Heart: Irregularly irregular. Lungs: Her lung sounds are still decreased with crackles in both bases but no wheezes. Upper lungs are clear. Abdomen: Nondistended, nontender. Extremities: Warm and dry, no edema. Mental Status: Alert and orientated x3. LABORATORY DATA: Lab work does show white count of 3.1, hemoglobin 12.3, and platelets 245. INR 3. Sodium 143, potassium 4.3, chloride 102, bicarbonate 31, BUN 24, creatinine 1.1, glucose 92, and calcium 9.1. Troponin stable at 178. Her TSH had been 0.2. Her lisinopril and levothyroxine continue to be on hold. ASSESSMENT: 1. COVID-19, day #9 by symptoms. She had been vaccinated with 2 doses of Moderna and had monoclonal antibodies. She is not hypoxic. She is being hospitalized for her AFib with RVR. We will continue to monitor for any hypoxia. 2. AFib with RVR. She is on Coumadin. INR is 3. I will hold today's dose, then resume. She is on higher doses of metoprolol 100 b.i.d. Per Cardiology discussion yesterday, we will avoid amiodarone due to her COVID. She is also on daily digoxin. Potassium is normal. 3. Chronic diastolic heart failure. She is on Demadex. She got her dose yesterday. We will hold it this morning and give at noon due to needing to give the metoprolol for rate control. She is clinically euvolemic. Her chest x-ray did not show fluid yesterday. 4. Non ST-elevation [place] with known underlying coronary disease. She is on medical management. This was discussed with her. It is presumably due to her AFib with RVR. She will need an echo as an outpatient. 5. Hyperglycemia due to steroids, that has resolved. She is no longer on steroids. 6. Essential hypertension, controlled. We are holding lisinopril for now given that she is more hypotensive at times and needing the metoprolol for heart rate control. 7. Cold stores-Valtrex ordered PLAN: The patient will continue on acute cares. We will continue to work on adjusting medications for heart rate. She has already had some improvements, that she used to be in the 140s and 150s and now into the 100s to 120s. We will get her up and working with therapy today due to her off balance and dizziness, and hopefully, she will be able to return home in the next day. For DVT prophylaxis, she is on Coumadin and she is a code level 1. No lab work needs to be repeated in the morning, it all looked rather stable today. MKA: 08/08/2021 09:54:57 MODL: 08/08/2021 10:23:31 /[id number] MTDD
[2021-08-08] MEDS: valACYclovir 1,000 MG Tab PO SCH (19:50)
[2021-08-08] MEDS: Metoprolol Succinate 50 MG Tab.ER PO SCH (19:50)
[2021-08-08] MEDS: Calcium Carbonate/Vitamin D3 1250 MG-5 MCG Tab PO SCH (19:50)
[2021-08-08] MEDS: Acetaminophen 500 MG Tab PO PRN (19:51)
[2021-08-08] MEDS: Cholecalciferol (Vitamin D3) 25 MCG Tab PO SCH (19:51)
[2021-08-09] MEDS: Torsemide 20 MG Tab PO SCH (09:02)
[2021-08-09] MEDS: Rosuvastatin 20 MG Tab PO SCH (09:03)
[2021-08-09] MEDS: Potassium Chloride 20 MEQ Tab.ER PO SCH (09:03)
[2021-08-09] MEDS: Pantoprazole 40 MG Tab.CR PO SCH (09:03)
[2021-08-09] MEDS: valACYclovir 1,000 MG Tab PO SCH (09:03)
[2021-08-09] MEDS: Clopidogrel 75 MG Tab PO SCH (09:03)
[2021-08-09] MEDS: Digoxin 125 MCG Tab PO SCH (09:04)
[2021-08-09] MEDS: Metoprolol Succinate 50 MG Tab.ER PO SCH ×2 (09:04→20:01)
[2021-08-09] MEDS: Lisinopril 5 MG Tab PO SCH (11:39)
--- NOTE | 2021-08-09 11:49 | PN ---
Progress Note for JOSE PADGETT Date: 08/09/2021 Room #: VM.209 SUBJECTIVE: This is hospital day #4 acute care and day #10 of EDNA who continues to have AFib, but rates are much improved. Over night, she did not have any tachycardia, but this morning, again she is up in the 100 to 120 range, but she is feeling much better. She is not dizzy. She is off therapy yesterday. She is doing well. She was advised to sit in the chair. She is still coughing some, but it is improved. She is not short of breath. She is not having chest pain. She did get monoclonal antibodies on 08/06. She is tolerating a diet. She has been afebrile. OBJECTIVE: Vital Signs: Her temperature is 96.4, pulse 118, blood pressure 125/75, respiratory rate 18, and O2 of 93 on room air. General: She is in no acute distress. Heart: Irregularly irregular. Lungs: Sounds are clear to auscultation in the uppers, but some faint crackles in the bases, which has been stable over the past 3 days. Repeat x-ray looked okay. Abdomen: Nondistended, nontender. Extremities: Warm and dry. No edema. Mental Status: Alert and orientated x3. ASSESSMENT AND PLAN: 1. COVID-19, day #10 of symptoms. She has been vaccinated with Moderna 2 doses and had monoclonal antibodies. She is not hypoxic and is being hospitalized for the atrial fibrillation. She will be taken out of precaution tomorrow. 2. Atrial fibrillation with rapid ventricular response. She is on Coumadin. INR yesterday was 3. We will recheck tomorrow. For rate control, she is now on Toprol 100 b.i.d. and digoxin. Discussed with Cardiology today. Not knowing her ejection fraction, we will not add diltiazem. If needed, if the heart rates do not improve throughout the day with the new doses of 100 b.i.d. of Toprol, we will likely increase that by another 50 mg daily if her blood pressure will allow. 3. Chronic diastolic heart failure. She is on Demadex. She has been getting her dose. 4. Non ST-elevation myocardial infarction due to underlying coronary disease with atrial fibrillation and rapid ventricular response. She has never had any chest pain. Her troponin did not continue to go up. No further monitoring is indicated. She is on medical management. 5. Hyperglycemia due to steroids. This has resolved. 6. Essential hypertension, controlled. She is due to restart lisinopril today, but holding parameters are in place if blood pressure is under 100. 7. Cold sores. She was given Valtrex. 8. Hypothyroidism with suppressed TSH. PLAN: The patient will continue acute cares. We are working on rate control. She has improved from the 140s and 150s down to the 100s to 120s and is feeling better symptomatically with the dizziness. Therefore, I feel like, and she also does too, that by tomorrow she may be able to return home for appropriate outpatient followups with Cardiology, her PCP, electrophysiology and get an echo test. Lab work will all be repeated in the morning including a digoxin level. Her thyroid medication continues on hold, and we will restart her on a lower dose, 75 mcg daily, on discharge. The patient is a code level 1. We will continue telemetry monitoring. MKA: 08/09/2021 11:15:12 MODL: 08/09/2021 11:46:16 /[id number]
[2021-08-09] MEDS: Cholecalciferol (Vitamin D3) 25 MCG Tab PO SCH (19:59)
[2021-08-09] MEDS: Calcium Carbonate/Vitamin D3 1250 MG-5 MCG Tab PO SCH (19:59)
[2021-08-09] MEDS ORDERED: Warfarin 2.5 MG Tab PO SCH (20:00)
[2021-08-10] MEDS: Potassium Chloride 20 MEQ Tab.ER PO SCH (07:39)
[2021-08-10] MEDS: Digoxin 125 MCG Tab PO SCH (07:39)
[2021-08-10] MEDS: Pantoprazole 40 MG Tab.CR PO SCH (07:40)
[2021-08-10] MEDS: Lisinopril 5 MG Tab PO SCH (07:40)
[2021-08-10] MEDS: Clopidogrel 75 MG Tab PO SCH (07:40)
[2021-08-10] MEDS: Rosuvastatin 20 MG Tab PO SCH (07:40)
[2021-08-10] MEDS: Metoprolol Succinate 50 MG Tab.ER PO SCH (07:42)
[2021-08-10 08:26] LABS: ANION GAP 12.3 mmol/L (5-15)
[2021-08-10] MEDS: Torsemide 20 MG Tab PO SCH (10:04)
--- NOTE | 2021-08-11 07:10 | DISCH ---
ADMITTING DIAGNOSES: 1. COVID-19. 2. Atrial fibrillation with rapid ventricular response. 3. Chronic diastolic heart failure. 4. Xdg-NG-mujmjpcno myocardial infarction. 5. Hypokalemia. 6. Hyperglycemia. 7. Essential hypertension. DISCHARGE DIAGNOSES: 1. COVID-19. 2. Atrial fibrillation with controlled rate. 3. Chronic diastolic heart failure. 4. Ioq-RB-qmolgeusd myocardial infarction. 5. Hypokalemia-resolved. 6. Hyperglycemia-resolved. 7. Essential hypertension. HISTORY OF PRESENT ILLNESS: A 76-year-old female patient was admitted to the acute care floor at [facility] on 08/05/2021. The ER documentation on the day of admission states she was admitted to observation for a diagnosis of COVID- 19, weakness, hypokalemia. The patient was started on low-dose metoprolol, potassium was replaced, and the patient was given Zofran for nausea. The patient was also started on IV fluids. Coumadin was continued. The patient has known atrial fibrillation, on Coumadin. The patient's dizziness was secondary to uncontrolled atrial fibrillation. This was corrected and the patient was feeling better. BRIEF HOSPITAL COURSE: The patient was initially admitted to observation, however, she was changed to acute due to her ongoing symptoms with uncontrolled atrial fibrillation, medication changes, dizziness, weakness, and COVID-19. The patient did not require any oxygen, therefore she was not given any remdesivir or Decadron, however, she was given monoclonal antibodies on the day of admission. The patient did not have any productive cough or shortness of breath. The patient did not develop any chest pain or palpitations. No leg swelling. The patient's weakness improved. Her dizziness had resolved. She did not feel lightheaded. No headaches. No abdominal concerns on the day of discharge. The patient remained afebrile and hemodynamically stable. CONSULTATIONS: Physical Therapy. DISCHARGE DIET: Heart-healthy. ACTIVITY: As tolerated. DISCHARGE LABORATORY WORK: 1. CBC; white blood cell count 5.3, hemoglobin 13.0, hematocrit 40.8, platelets 311,000. 2. PT 24.1, INR 2.2. 3. CMP; sodium 141, potassium 4.3, chloride 103, CO2 of 30, anion gap 12.3, BUN 28, creatinine 1.1, GFR 48, glucose 104, calcium 10.2, magnesium 2.2, AST 42, alkaline phosphatase 98, ALT 71, total protein 7.7. 4. Digoxin 0.58. DISCHARGE IMAGING STUDIES: None. REVIEW OF SYSTEMS: See HPI. PHYSICAL EXAMINATION: Vital Signs: Weight 174.1 pounds, temperature 97.1, pulse 85 and irregular, blood pressure 109/61, respiratory rate 14, oxygen saturation 96% on room air. Skin: Intact, warm, and dry. Respiratory: Lungs are decreased, but clear throughout. Cardiovascular: Irregularly irregular rhythm, regular rate. Abdomen: Soft, nontender. Bowel sounds are hypoactive x4. Extremities: No edema. Neurologic: The patient is alert. The patient is oriented to person, place, and time. No focal neurological deficits. ASSESSMENT: 1. COVID-19, day #11 of symptoms. The patient has been vaccinated with Moderna 2 doses and had monoclonal antibodies. The patient is not hypoxic on discharge. The patient's isolation was discontinued on the day of discharge. 2. Atrial fibrillation with rapid ventricular rate. Rate is currently controlled. The patient does not have any dizziness. Her INR is therapeutic. 3. Chronic diastolic heart failure. 4. Lcb-VU-kfejqqyba myocardial infarction. 5. Hyperglycemia-resolved. 6. Essential hypertension. 7. Cold sores. 8. Hypothyroidism with suppressed TSH. PLAN: This 76-year-old female patient will be discharged home today. The patient's levothyroxine dose was adjusted during this hospital stay, she will need a repeat TSH in 6 weeks. The patient's metoprolol was increased to 100 mg b.i.d. No changes with any other medications at home. Continue same dose of digoxin and recommend recheck in clinic. Continue all other medications the same. Would recommend follow up with Cardiology, PCP, and Electrophysiology within the next week. Would also recommend echocardiogram. The patient was restarted on her levothyroxine prior to discharge. The patient was discharged in hemodynamically stable condition. TB: 08/10/2021 16:08:13 MODL: 08/10/2021 17:48:39 /[id number]
== END 2021-08-10 13:25 | disposition home or self-care (01) | DRG 177 ==
LOC: VM.ED 22:48 → VM.MS 08-06 03:23 → OBSVTOIN 08-07 12:21
PROVIDERS: ADMIT Physician Assistant Medical; ATTEND Internal Medicine
PROC: XW033G6 Introduction of REGN-COV2 Monoclonal Antibody into Peripheral Vein, Percutaneous Approach, New Technology Group 6 (ICD-10-PCS; principal; 2021-08-06)
DX: U07.1 COVID-19 (principal); I21.4 Non-ST elevation (NSTEMI) myocardial infarction; R53.1 Weakness; I50.32 Chronic diastolic (congestive) heart failure; H35.30 Unspecified macular degeneration; I48.91 Unspecified atrial fibrillation; E87.6 Hypokalemia; I73.9 Peripheral vascular disease, unspecified; R73.9 Hyperglycemia, unspecified; I11.0 Hypertensive heart disease with heart failure; E03.9 Hypothyroidism, unspecified; B00.1 Herpesviral vesicular dermatitis; I25.10 Atherosclerotic heart disease of native coronary artery without angina pectoris; E78.00 Pure hypercholesterolemia, unspecified; K21.9 Gastro-esophageal reflux disease without esophagitis; Z88.8 Allergy status to other drugs, medicaments and biological substances; M19.90 Unspecified osteoarthritis, unspecified site; Z79.02 Long term (current) use of antithrombotics/antiplatelets; M81.0 Age-related osteoporosis without current pathological fracture; Z79.899 Other long term (current) drug therapy; E66.9 Obesity, unspecified; Z79.01 Long term (current) use of anticoagulants; Z79.890 Hormone replacement therapy; Z95.1 Presence of aortocoronary bypass graft; Z95.0 Presence of cardiac pacemaker; Z86.010 Personal history of colon polyps; Z85.828 Personal history of other malignant neoplasm of skin; Z68.29 Body mass index [BMI] 29.0-29.9, adult
CPT/HCPCS: 36415; 51798; 71045; 71046; 80048; 80053; 80162; 82947; 83735; 83880; 84443; 84484; 85025; 85610; 93005; 94760; 96365; 96375; 97110-GP; 97162-GP; 99285-25; A9270-GY; G0378; J1100; J1160; J2405; J3480; J3490; J7030; J7613-GY; M0245; Q0245

== ENCOUNTER 2021-09-03 00:50 | Emergency (ER) | payer MEDICARE, OTHER ==
--- NOTE | 2021-09-03 01:34 | EDM.PDOC ---
ED HPI GENERAL MEDICAL PROBLEM - General Chief Complaint: Cardiovascular Problem Stated Complaint: palpitations Time Seen by Provider: 09/03/21 00:50 Source of Information: Reports: Patient, Family History Limitations: Reports: No Limitations - History of Present Illness INITIAL COMMENTS - FREE TEXT/NARRATIVE: Patient presents to the emergency room tonight after waking up about midnight with palpitations and the feeling that her heart had flipped back into A. fib. She states she is been having intermittent palpitations ongoing for the last several days maybe even a week. Her primary care provider discontinued her second dose in the p.m. on 20 August secondary to questionable nausea. She did message her primary care provider about having intermittent episodes of p alpitation and restarted 50 mg of metoprolol tonight at approximately 7 PM and she was feeling fine. Mode approximately midnight she woke up with the palpitations feeling like her heart was out of rhythm again. She denies any other complaints at this time she has no chest pain or pressure maybe a little shortness of breath but is gone now no nausea vomiting diaphoresis no abdominal pain. No vision changes no headaches no bloody stools She is recently been treated for Covid inpatient here within the last month She also recently had a CABG back in December and a pacemaker was placed [facility] 1 month afterwards she states since pacemaker her heart rate usually been in the 70s. She had no complications either from the surgery or from the pacemaker Onset: Sudden Duration: Minutes: Location: Denies: Chest, Abdomen Improves with: Reports: Rest, Other (time ) Worsens with: Reports: None Associated Symptoms: Denies: Confusion, Chest Pain, Cough, Diaphoresis, Headaches, Malaise, Nausea/Vomiting, Shortness of Breath, Syncope, Weakness Treatments UNDERCOAT SPRAYER: Reports: Other (see below) (Coumadin dose tonight at 7 PM) - Related Data Allergies Allergy/AdvReac Type Severity Reaction Status Date / Time codeine Allergy Intermediate Hives Verified 08/06/21 05:52 hydrocodone AdvReac Vomiting Verified 04/19/21 17:06 hydromorphone [Hydromorphone] AdvReac Dizziness Verified 04/19/21 17:06 Home Meds: Home Meds Torsemide 20 mg PO DAILY 01/14/21 [History] Acetaminophen [Tylenol Arthritis] 1,300 mg PO TID PRN 03/26/21 [History] Cholecalciferol (Vitamin D3) [Vitamin D3] 50 mcg PO BEDTIME 03/26/21 [History] Clopidogrel [Plavix] 75 mg PO DAILY 03/26/21 [History] Fluocinonide [Lidex 0.05% Top Soln] 1 applic TOP TID PRN 03/26/21 [History] Nitroglycerin 0.4 mg SL ASDIRECTED PRN 03/26/21 [History] Pantoprazole Sodium [Protonix] 40 mg PO DAILY 03/26/21 [History] Potassium Chloride [Klor-Con M20] 20 meq PO DAILY 03/26/21 [History] Rosuvastatin Calcium 20 mg PO DAILY 03/26/21 [History] Sennosides/Docusate Sodium [Senna-S 8.6-50 mg Tablet] 1 tab PO DAILY PRN 03/26/21 [History] Warfarin [Coumadin] 5 mg PO SUTUWETHSA@199903/26/21 [History] lisinopriL [Prinivil] 5 mg PO DAILY 03/26/21 [History] Calcium Phosphate Trib/Vit D3 [Calcium + Vitamin D3 Gummies] 1 each PO BEDTIME 08/06/21 [History] Warfarin [Coumadin] 7.5 mg PO MOFR@199908/06/21 [History] polyethylene glycoL 3350 [MiraLAX] 17 gm PO DAILY 08/06/21 [History] Digoxin [Lanoxin] 125 mcg PO DAILY #30 tablet 08/09/21 [Rx] Levothyroxine Sodium [Synthroid] 75 mcg PO ACBREAKFAST #30 tab 08/09/21 [Rx] Metoprolol Succinate [Toprol XL 100mg] 100 mg PO BID #60 tab.er 08/09/21 [Rx] Past Medical History HEENT History: Reports: Cataract, Macular Degeneration Cardiovascular History: Reports: Afib, Bypass, CAD, High Cholesterol, Hypertension, Pacemaker, PVD Other Cardiovascular History: [employer] pacemaker Respiratory History: Reports: None Gastrointestinal History: Reports: Colon Polyp, GERD, Hemorrhoids Genitourinary History: Reports: Other (See Below) Other Genitourinary History: bladder stent d/t left renal artery stenosis Musculoskeletal History: Reports: Osteoarthritis, Osteoporosis, Other (See Below) Other Musculoskeletal History: bilateral sacral insufficiency fracture, closed wedge compression fracture of T11 vertebra Neurological History: Reports: Other (See Below) Other Neuro History: Slow to wake from anesthesia Psychiatric History: Reports: None Endocrine/Metabolic History: Reports: Hypothyroidism, Obesity/BMI 30+, Osteoporosis Hematologic History: Reports: None Oncologic (Cancer) History: Reports: Basal Cell Carcinoma, Other (See Below) Dermatologic History: Reports: Psoriasis, Seborrheic Dermatitis - Infectious Disease History Infectious Disease History: Reports: None - Past Surgical History Cardiovascular Surgical History: Reports: Cardiac Ablation, Coronary Artery Bypass, Pacer, Other (See Below) Other Cardiovascular Surgeries/Procedures: Cardiac catheterization, cardioversion GI Surgical History: Reports: Other (See Below) Other GI Surgeries/Procedures: Colon polyp biopsy, hemorrhoid surgery Musculoskeletal Surgical History: Reports: Other (See Below) Other Musculoskeletal Surgeries/Procedures:: IR vertebroplasty Social & Family History - Family History Family Medical History: No Pertinent Family History - Caffeine Use Caffeine Use: Reports: Coffee ED ROS GENERAL - Review of Systems Review Of Systems: See Below Constitutional: Reports: No Symptoms HEENT: Reports: No Symptoms Respiratory: Reports: Shortness of Breath, Other (Just for a few seconds after patient states she noticed her heart racing none now) Cardiovascular: Reports: Palpitations. Denies: Chest Pain, Blood Pressure Problem, Claudication, Dyspnea on Exertion, Edema, Lightheadedness, Orthopnea, PND, Syncope Endocrine: Reports: No Symptoms GI/Abdominal: Reports: No Symptoms : Reports: No Symptoms Musculoskeletal: Reports: No Symptoms Skin: Reports: No Symptoms Neurological: Reports: No Symptoms Psychiatric: Reports: No Symptoms Hematologic/Lymphatic: Reports: No Symptoms Immunologic: Reports: No Symptoms ED EXAM, GENERAL - Physical Exam Exam: See Below Exam Limited By: No Limitations General Appearance: Alert, WD/WN, No Apparent Distress Eye Exam: Bilateral Eye: EOMI, Normal Inspection, PERRL Ears: Normal External Exam, Hearing Grossly Normal Nose: Normal Inspection, Normal Mucosa, No Blood Throat/Mouth: Normal Inspection, Normal Lips, Normal Teeth, Normal Gums, Normal Oropharynx, Normal Voice, No Airway Compromise Neck: Normal Inspection, Supple, Non-Tender, Full Range of Motion Respiratory/Chest: No Respiratory Distress, Lungs Clear, Normal Breath Sounds, No Accessory Muscle Use, Chest Non-Tender Cardiovascular: Normal Peripheral Pulses, No Edema, No Gallop, No JVD, No Murmur, No Rub. No: Regular Rate, Rhythm GI/Abdominal: Normal Bowel Sounds, Soft, Non-Tender, No Organomegaly, No Distention. No: Guarding, Rigid, Rebound, Tender Back Exam: Normal Inspection, Full Range of Motion, Other (No ecchymosis over the flank or the abdomen) Extremities: Normal Inspection, Normal Range of Motion, Non-Tender, No Pedal Edema, Normal Capillary Refill Neurological: Alert, Oriented, CN II-XII Intact, Normal Cognition, Normal Gait, No Motor/Sensory Deficits Psychiatric: Normal Affect, Normal Mood Skin Exam: Warm, Dry, Intact, Normal Color, No Rash Lymphatic: No Adenopathy #1 Interpretation EKG Date: 09/03/21 Time: 00:55 Rhythm: Other (Paced rhythm) [place]: Normal P-Wave: Present QRS: Normal ST-T: Normal QT: Normal EKG Interpretation Comments: Second EKG shows A. fib no RVR Course - Vital Signs Text/Narrative:: We will check CBC BMP INR troponin EKG Chest x-ray held secondary to no chest pain no true shortness of breath size at time the palpitations started for a few seconds patient has no lower extremity and lung sounds are clear We will give 25 mg metoprolol extended release Patient was rechecked states she feels much better CBC BMP within normal limits INR is 2.8 troponin was negative. Patient was rechecked states she feels much better and wants to be discharged home heart rate now in the 90S She says she will follow-up with her primary care provider and call her lathe tender in the morning. Last Recorded V/S: Last Vital Signs Temp 36.6 C 09/03/21 00:50 Pulse 93 09/03/21 01:46 Resp 19 09/03/21 00:50 BP 137/80 09/03/21 01:46 Pulse Ox 99 09/03/21 00:50 - Orders/Labs/Meds Labs: Laboratory Tests 09/03/21 09/03/21 09/03/21 Range/Units 01:00 01:00 01:00 WBC 5.0 (4.0-10.0) x10^3/uL RBC 3.83 L (4.00-5.50) x10^6/uL Hgb 10.6 L D (12.0-16.0) g/dL Hct 31.6 L (33.0-47.0) % MCV 82.5 D (78.0-93.0) fL MCH 27.7 (26.0-32.0) pg MCHC 33.5 (32.0-36.0) g/dL RDW Coeff of Caro 19.6 H (10.0-15.0) % Plt Count 221 D (130-400) x10^3/uL Immature Gran % (Auto) 0.20 (0.00-0.43) % Neut % (Auto) 53.0 (50.0-80.0) % Lymph % (Auto) 27.6 (25.0-50.0) % [place] % (Auto) 12.8 H (2.0-11.0) % Eos % (Auto) 6.0 H (0.0-4.0) % Baso % (Auto) 0.4 (0.2-1.2) % Neut # (Auto) 2.7 (1.8-7.7) x10^3/uL Lymph # (Auto) 1.4 (1.0-4.8) x10^3/uL [place] # (Auto) 0.6 (0.0-0.8) x10^3/uL Eos # (Auto) 0.3 (0.0-0.5) x10^3/uL Baso # (Auto) 0.0 (0.0-0.2) x10^3/uL Immature Gran # (Auto) 0.01 (0.00-0.07) x10^3/uL PT 31.2 H (9.9-12.5) SEC INR 2.8 (2.0-3.5) Sodium 141 (136-145) mmol/L Potassium 3.6 (3.5-5.1) mmol/L Chloride 104 (98-107) mmol/L Carbon Dioxide 24 (21-32) mmol/L Anion Gap 16.6 H (5-15) mmol/L BUN 25 H (7-18) mg/dL Creatinine 0.9 (0.55-1.02) mg/dL Est Cr Clr Drug Dosing 43.30 mL/min Estimated GFR (MDRD) > 60 Glucose 114 H (70-99) mg/dL Calcium 8.8 (8.5-10.1) mg/dL Troponin I High Sens 10 (<=51) ng/L Meds: Medications Discontinued Medications Generic Name Dose Route Start Last Admin Trade Name Gaudencio PRN Reason Stop Dose Admin Metoprolol Succinate 25 mg 09/03/21 01:35 09/03/21 01:46 Metoprolol Succinate 25 Mg Tab.Er PO 09/03/21 01:36 25 mg ONETIME ONE Administration Departure - Departure Time of Disposition: 02:15 Disposition: Home, Self-Care 01 Condition: Good Clinical Impression: A-fib, Pacemaker, Hx of CABG Instructions: Atrial Fibrillation, [id number] Referrals: PCP,None [Primary Care Provider] - Forms: ED Department Discharge Additional Instructions: Call your lathe tender in the morning for an appointment or at least a phone consult in regards to medication management. Follow-up with your primary care provider in the next 24 hours in regards to medication management and for reevaluation Take all medications as directed Return to the emergency room if anything changes or gets worse Sepsis Event Note (ED) - Focused Exam Vital Signs: Vital Signs Temp Pulse Pulse Resp BP BP Pulse Ox 09/03/21 01:46 93 137/80 09/03/21 00:50 36.6 C 130 H 19 155/70 H 99 - Problem List & Annotations (1) Cardiac pacemaker in situ SNOMED Code(s): 596017940 Code(s): Z95.0 - PRESENCE OF CARDIAC PACEMAKER Status: Acute Current Visit: No (2) A-fib SNOMED Code(s): 89170213 Code(s): I48.91 - UNSPECIFIED ATRIAL FIBRILLATION Status: Acute Current Visit: No (3) Hx of CABG SNOMED Code(s): 499055556, 907305130 Code(s): Z95.1 - PRESENCE OF AORTOCORONARY BYPASS GRAFT Status: Acute Current Visit: No
[2021-09-03] MEDS ORDERED: Metoprolol Succinate 25 MG Tab.ER PO ONE (01:35)
[2021-09-03 01:44] LABS: CHLORIDE,CL 104 mmol/L (98-107); SODIUM,NA 141 mmol/L (136-145)
[2021-09-03 01:45] LABS: ANION GAP 16.6 mmol/L (5-15)
== END 2021-09-03 02:35 | disposition home or self-care (01) ==
LOC: VM.ED 00:50
DX: I48.91 Unspecified atrial fibrillation (principal); I25.10 Atherosclerotic heart disease of native coronary artery without angina pectoris; E78.00 Pure hypercholesterolemia, unspecified; I10 Essential (primary) hypertension; E66.9 Obesity, unspecified; E03.9 Hypothyroidism, unspecified; K21.9 Gastro-esophageal reflux disease without esophagitis; Z68.30 Body mass index [BMI] 30.0-30.9, adult; Z95.0 Presence of cardiac pacemaker; Z95.1 Presence of aortocoronary bypass graft; Z88.5 Allergy status to narcotic agent; Z79.01 Long term (current) use of anticoagulants; Z79.02 Long term (current) use of antithrombotics/antiplatelets; Z79.899 Other long term (current) drug therapy
CPT/HCPCS: 80048; 84484; 85025; 85610; 93005; 93010; 99284; 99285-25; A9270-GY

== ENCOUNTER 2021-09-14 09:19 | Emergency (ER) | payer MEDICARE, OTHER ==
[2021-09-14] MEDS ORDERED: Metoprolol Succinate 50 MG Tab.ER PO ONE (09:54)
--- NOTE | 2021-09-14 09:54 | EDM.PDOC ---
ED HPI GENERAL MEDICAL PROBLEM - General Chief Complaint: General Stated Complaint: Ran out of her pills. States she saw a provider last week. Time Seen by Provider: 09/14/21 09:25 Source of Information: Reports: Patient, Old Records - History of Present Illness INITIAL COMMENTS - FREE TEXT/NARRATIVE: Brought empty bottle of metoprolol succinate 100 mg. Label said BID dosing. Asked if this is they way she has been taking it and she replied in the affirmative. Her chart shows this rx is the succinate as well, not the tartrate. She states no problems with taking it. She wants enough pills to get her through until Thursday. Last time she took this was last night. Onset: Today Onset Date: 09/14/21 (ran out of med) - Related Data Allergies Allergy/AdvReac Type Severity Reaction Status Date / Time codeine Allergy Intermediate Hives Verified 08/06/21 05:52 hydrocodone AdvReac Vomiting Verified 04/19/21 17:06 hydromorphone [Hydromorphone] AdvReac Dizziness Verified 04/19/21 17:06 Home Meds: Home Meds Torsemide 20 mg PO DAILY 01/14/21 [History] Acetaminophen [Tylenol Arthritis] 1,300 mg PO TID PRN 03/26/21 [History] Cholecalciferol (Vitamin D3) [Vitamin D3] 50 mcg PO BEDTIME 03/26/21 [History] Clopidogrel [Plavix] 75 mg PO DAILY 03/26/21 [History] Fluocinonide [Lidex 0.05% Top Soln] 1 applic TOP TID PRN 03/26/21 [History] Nitroglycerin 0.4 mg SL ASDIRECTED PRN 03/26/21 [History] Pantoprazole Sodium [Protonix] 40 mg PO DAILY 03/26/21 [History] Potassium Chloride [Klor-Con M20] 20 meq PO DAILY 03/26/21 [History] Rosuvastatin Calcium 20 mg PO DAILY 03/26/21 [History] Sennosides/Docusate Sodium [Senna-S 8.6-50 mg Tablet] 1 tab PO DAILY PRN 03/26/21 [History] Warfarin [Coumadin] 5 mg PO SUTUWETHSA@2000 03/26/21 [History] lisinopriL [Prinivil] 5 mg PO DAILY 03/26/21 [History] Calcium Phosphate Trib/Vit D3 [Calcium + Vitamin D3 Gummies] 1 each PO BEDTIME 08/06/21 [History] Warfarin [Coumadin] 7.5 mg PO MOFR@199908/06/21 [History] polyethylene glycoL 3350 [MiraLAX] 17 gm PO DAILY 08/06/21 [History] Digoxin [Lanoxin] 125 mcg PO DAILY #30 tablet 08/09/21 [Rx] Levothyroxine Sodium [Synthroid] 75 mcg PO ACBREAKFAST #30 tab 08/09/21 [Rx] Metoprolol Succinate [Toprol XL 100mg] 100 mg PO BID #60 tab.er 08/09/21 [Rx] Past Medical History HEENT History: Reports: Cataract, Macular Degeneration Cardiovascular History: Reports: Afib, Blood Clots/VTE/DVT, Bypass, CAD, High Cholesterol, Hypertension, Pacemaker, PVD Other Cardiovascular History: [employer] pacemaker Respiratory History: Reports: None Gastrointestinal History: Reports: Colon Polyp, GERD, Hemorrhoids Genitourinary History: Reports: Other (See Below) Other Genitourinary History: bladder stent d/t left renal artery stenosis Musculoskeletal History: Reports: Osteoarthritis, Osteoporosis, Other (See Below) Other Musculoskeletal History: bilateral sacral insufficiency fracture, closed wedge compression fracture of T11 vertebra Neurological History: Reports: Other (See Below) Other Neuro History: Slow to wake from anesthesia Psychiatric History: Reports: None Endocrine/Metabolic History: Reports: Hypothyroidism, Obesity/BMI 30+, Osteoporosis Hematologic History: Reports: None Oncologic (Cancer) History: Reports: Basal Cell Carcinoma, Other (See Below) Dermatologic History: Reports: Psoriasis, Seborrheic Dermatitis - Infectious Disease History Infectious Disease History: Reports: None - Past Surgical History Cardiovascular Surgical History: Reports: Cardiac Ablation, Coronary Artery Bypass, Pacer, Other (See Below) Other Cardiovascular Surgeries/Procedures: Cardiac catheterization, cardioversion GI Surgical History: Reports: Other (See Below) Other GI Surgeries/Procedures: Colon polyp biopsy, hemorrhoid surgery Musculoskeletal Surgical History: Reports: Other (See Below) Other Musculoskeletal Surgeries/Procedures:: IR vertebroplasty Social & Family History - Family History Family Medical History: No Pertinent Family History - Caffeine Use Caffeine Use: Reports: Coffee ED ROS GENERAL - Review of Systems Review Of Systems: Comprehensive ROS is negative, except as noted in HPI. ED EXAM, GENERAL - Physical Exam Exam: See Below Exam Limited By: No Limitations General Appearance: Alert, No Apparent Distress Respiratory/Chest: No Respiratory Distress, Lungs Clear, Normal Breath Sounds, No Accessory Muscle Use, Chest Non-Tender Cardiovascular: Normal Peripheral Pulses, Regular Rate, Rhythm Extremities: Normal Inspection, Normal Capillary Refill Neurological: Alert, Oriented Psychiatric: Normal Affect, Normal Mood, Other (states gets anxious at hospitals) Skin Exam: Warm, Dry, Intact, Normal Color Course - Vital Signs Last Recorded V/S: Last Vital Signs Temp 98.3 F 09/14/21 09:53 Pulse 93 09/14/21 09:53 Resp 19 09/14/21 09:53 BP 147/71 H 09/14/21 09:53 Pulse Ox 99 09/14/21 09:53 - Orders/Labs/Meds Orders: Active Orders 24 hr Category Date Time Status Metoprolol Succinate [Toprol XL] Med 09/14/21 09:54 Once 50 mg PO ONETIME ONE - Re-Assessments/Exams Free Text/Narrative Re-Assessment/Exam: 09/14/21 10:05 RN got 10 tabs of metoprolol succinate out of the pharmacy for pt as the 100mg ones were not available. Pt was instructed on how to take and advised to call her provider first thing Thursday. Cannot seem to remove an instruction sheet called Aspirin and Your Heart from the medical record, but this was not part of the visit. Departure - Departure Time of Disposition: 09:56 Disposition: Home, Self-Care 01 Condition: Good Clinical Impression: Encounter for medication refill - Discharge Information Forms: ED Department Discharge Additional Instructions: Call Dr. Alice Rodrigues first thing Thursday regarding getting your medication refilled. Sepsis Event Note (ED) - Focused Exam Vital Signs: Vital Signs Temp Pulse Resp BP Pulse Ox 09/14/21 09:53 98.3 F 93 19 147/71 H 99 - Problem List & Annotations (1) Encounter for medication refill SNOMED Code(s): 462657365, [id number], [id number] Code(s): Z76.0 - ENCOUNTER FOR ISSUE OF REPEAT PRESCRIPTION Status: Acute - Problem List Review Problem List Initiated/Reviewed/Updated: Yes - My Orders Last 24 Hours: My Active Orders 09/14/21 09:54 Metoprolol Succinate [Toprol XL] 50 mg PO ONETIME ONE - Assessment/Plan Last 24 Hours: My Active Orders 09/14/21 09:54 Metoprolol Succinate [Toprol XL] 50 mg PO ONETIME ONE
== END 2021-09-14 09:56 | disposition home or self-care (01) ==
LOC: VM.ED 09:19
DX: I10 Essential (primary) hypertension (principal); Z76.0 Encounter for issue of repeat prescription; I48.91 Unspecified atrial fibrillation; I25.10 Atherosclerotic heart disease of native coronary artery without angina pectoris; E78.00 Pure hypercholesterolemia, unspecified; K21.9 Gastro-esophageal reflux disease without esophagitis; M19.90 Unspecified osteoarthritis, unspecified site; E03.9 Hypothyroidism, unspecified; E66.9 Obesity, unspecified; Z68.30 Body mass index [BMI] 30.0-30.9, adult; Z88.5 Allergy status to narcotic agent; Z79.01 Long term (current) use of anticoagulants; Z95.1 Presence of aortocoronary bypass graft
CPT/HCPCS: 99281; A9270

== ENCOUNTER 2022-12-29 15:33 | Emergency (ER) | payer MEDICARE, OTHER ==
[2022-12-29] MEDS ORDERED: fentaNYL 50 MCG/ML SDV IVPUSH ONE (15:57)
[2022-12-29 16:35] LABS: CHLORIDE,CL 104 mmol/L (98-107); SODIUM,NA 142 mmol/L (136-145)
[2022-12-29 16:36] LABS: ANION GAP 10.9 mmol/L (5-15); ESTIMATED GFR 51 mL/min (>=60)
== END 2022-12-29 17:30 | disposition home or self-care (01) ==
LOC: VM.ED 15:33
DX: K30 Functional dyspepsia (principal); I48.91 Unspecified atrial fibrillation; I25.10 Atherosclerotic heart disease of native coronary artery without angina pectoris; E78.00 Pure hypercholesterolemia, unspecified; I10 Essential (primary) hypertension; E03.9 Hypothyroidism, unspecified; E66.9 Obesity, unspecified; Z68.30 Body mass index [BMI] 30.0-30.9, adult; Z95.0 Presence of cardiac pacemaker; Z88.5 Allergy status to narcotic agent
CPT/HCPCS: 74019; 80053; 81003; 83690; 85025; 99284

== ENCOUNTER 2024-08-12 13:19 | Emergency (ER) | payer MEDICARE, OTHER ==
[2024-08-12 14:20] LABS: BASOPHILS PERCENT AUTO 0.1 % (0.2-1.2); EOSINOPHILS PERCENT AUTO 0.2 % (0.0-4.0); HEMATOCRIT 48.2 % (33.0-47.0); HEMOGLOBIN 16.9 g/dL (12.0-16.0); IMMATURE GRAN ABSOLUTE AUTO 0.02 x10^3/uL (0.00-0.07); LYMPHOCYTES ABSOLUTE AUTO 1.2 x10^3/uL (1.0-4.8); LYMPHOCYTES PERCENT AUTO 11.5 % (25.0-50.0); MEAN CORPUSCULAR HEMOGLOBIN 30.6 pg (26.0-32.0); MEAN CORPUSCULAR HGB CONC 35.1 g/dL (32.0-36.0); MEAN CORPUSCULAR VOLUME 87.3 fL (78.0-93.0); NEUTROPHILS ABSOLUTE AUTO 8.1 x10^3/uL (1.8-7.7); PLATELET COUNT,PLT 171 x10^3/uL (130-400); RED BLOOD CELL COUNT 5.52 x10^6/uL (4.00-5.50); WHITE BLOOD CELL COUNT,WBC 10.4 x10^3/uL (4.0-10.0)
[2024-08-12] MEDS: Ondansetron 4 MG Tab.DIS PO ONE (14:23)
[2024-08-12 14:48] LABS: A/G RATIO 0.73; ALBUMIN 3.2 g/dL (3.4-5.0); BILIRUBIN TOTAL 1.4 mg/dL (0.2-1.0); CALCIUM 9.4 mg/dL (8.5-10.1); CREATININE 1.9 mg/dL (0.55-1.02); EST CRCL DRUG DOSING (CG) 22.11 mL/min; PROTEIN TOTAL,TP 7.6 g/dL (6.4-8.2); TSH ULTRASENSITIVE 12.166 uIU/mL (0.358-3.74)
[2024-08-12] MEDS ORDERED: Sodium Chloride 0.9% 1,000 ML IV ONE (14:54)
[2024-08-12] MEDS ORDERED: Sodium Chloride 0.9% 10 ML Syringe FLUSH PRN (14:54)
== END 2024-08-12 15:07 | disposition home or self-care (01) ==
LOC: VM.ED 13:19 → SUPCPDRO 13:19 → VM.ED 15:07
DX: R11.0 Nausea (principal); I48.91 Unspecified atrial fibrillation; I25.10 Atherosclerotic heart disease of native coronary artery without angina pectoris; I10 Essential (primary) hypertension; E78.00 Pure hypercholesterolemia, unspecified; K21.9 Gastro-esophageal reflux disease without esophagitis; E03.9 Hypothyroidism, unspecified; E66.9 Obesity, unspecified; Z95.5 Presence of coronary angioplasty implant and graft; Z88.5 Allergy status to narcotic agent; Z88.6 Allergy status to analgesic agent; Z79.01 Long term (current) use of anticoagulants; Z79.890 Hormone replacement therapy; Z79.899 Other long term (current) drug therapy; Z68.28 Body mass index [BMI] 28.0-28.9, adult
CPT/HCPCS: 36415; 80053; 84443; 85025; 99283; 99284; A9270-GY

== ENCOUNTER 2024-08-15 15:06 | Emergency (ER) | payer MEDICARE, OTHER ==
[2024-08-15] MEDS ORDERED: Sodium Chloride 0.9% 10 ML Syringe FLUSH PRN (15:19)
[2024-08-15] MEDS: Ondansetron 4 MG/2 ML SDV IVPUSH ONE (15:34)
[2024-08-15] MEDS: Lactated Ringers 1,000 ML IV ONE ×2 (15:45→16:39)
[2024-08-15 15:51] LABS: BASOPHILS PERCENT AUTO 0.1 % (0.2-1.2); EOSINOPHILS ABSOLUTE AUTO 0.1 x10^3/uL (0.0-0.5); EOSINOPHILS PERCENT AUTO 0.8 % (0.0-4.0); HEMOGLOBIN 16.6 g/dL (12.0-16.0); IMMATURE GRAN ABSOLUTE AUTO 0.01 x10^3/uL (0.00-0.07); LYMPHOCYTES PERCENT AUTO 13.1 % (25.0-50.0); MEAN CORPUSCULAR HEMOGLOBIN 30.3 pg (26.0-32.0); MEAN CORPUSCULAR HGB CONC 35.3 g/dL (32.0-36.0); MEAN CORPUSCULAR VOLUME 85.8 fL (78.0-93.0); MONOCYTES ABSOLUTE AUTO 0.6 x10^3/uL (0.0-0.8); MONOCYTES PERCENT AUTO 7.5 % (2.0-11.0); NEUTROPHILS ABSOLUTE AUTO 6.1 x10^3/uL (1.8-7.7); NEUTROPHILS PERCENT AUTO 78.4 % (50.0-80.0); PLATELET COUNT,PLT 175 x10^3/uL (130-400); RED BLOOD CELL COUNT 5.48 x10^6/uL (4.00-5.50); WHITE BLOOD CELL COUNT,WBC 7.7 x10^3/uL (4.0-10.0)
[2024-08-15 16:10] LABS: INR 3.6 (0.9-1.1); PROTHROMBIN TIME 34.2 SEC (8.9-11.5); PTT,PARTIAL THROMBOPLSTIN TIME 35.7 SEC (21.9-33.8)
[2024-08-15 16:14] LABS: LACTIC ACID 1.8 mmol/L (0.4-2.0)
[2024-08-15 16:26] LABS: A/G RATIO 0.75; ALANINE AMINOTRANSFERASE,ALT 32 U/L (14-59); ALKALINE PHOSPHATASE 118 U/L (46-116); AMYLASE 65 U/L (25-115); ASPARTATE AMNIOTRANSFERASE,AST 35 U/L (15-37); BILIRUBIN TOTAL 0.8 mg/dL (0.2-1.0); C-REACTIVE PROTEIN 0.83 mg/dL (<=0.50); CALCIUM 8.9 mg/dL (8.5-10.1); CARBON DIOXIDE,CO2 26 mmol/L (21-32); CHLORIDE,CL 90 mmol/L (98-107); GLUCOSE RANDOM 99 mg/dL (70-99); LIPASE 93 U/L (19-71); MAGNESIUM 3.1 mg/dL (1.8-2.4); SODIUM,NA 130 mmol/L (136-145)
[2024-08-15 16:27] LABS: ANION GAP 16.8 mmol/L (5-15); ESTIMATED GFR 7 mL/min (>=60)
[2024-08-15 16:28] LABS: ETHANOL BLOOD MEDICAL < 3 mg/dL (0-3)
[2024-08-15 16:30] LABS: BLOOD UREA NITROGEN,BUN 109 mg/dL (7-18); CREATININE 5.8 mg/dL (0.55-1.02); DIGOXIN 2.72 ng/mL (0.90-2.00); POTASSIUM,K 2.8 mmol/L (3.5-5.1)
[2024-08-15] MEDS: Potassium Chloride Riders 20 MEQ in Premix Bag 1 BAG IV ONE (17:16)
== END 2024-08-15 18:03 | disposition home or self-care (01) ==
LOC: VM.ED 15:06
DX: T46.0X1A Poisoning by cardiac-stimulant glycosides and drugs of similar action, accidental (unintentional), initial encounter (principal); I21.4 Non-ST elevation (NSTEMI) myocardial infarction; N17.9 Acute kidney failure, unspecified; I10 Essential (primary) hypertension; I25.10 Atherosclerotic heart disease of native coronary artery without angina pectoris; E78.00 Pure hypercholesterolemia, unspecified; E66.9 Obesity, unspecified; E03.9 Hypothyroidism, unspecified; Z68.31 Body mass index [BMI] 31.0-31.9, adult; Z88.8 Allergy status to other drugs, medicaments and biological substances; Z79.01 Long term (current) use of anticoagulants; Z79.890 Hormone replacement therapy; Z79.899 Other long term (current) drug therapy
CPT/HCPCS: 36415; 71045; 80053; 80162; 80307; 82150; 83605; 83690; 83735; 84443; 84484; 85025; 85610; 85730; 86140; 87040; 87428-QW; 96361; 96374; 96375; 99284; 99285-25; J2405; J3480; J7120

== ENCOUNTER 2024-11-02 16:38 | Emergency (ER) | payer MEDICARE, OTHER | END 2024-11-02 17:27 | disposition left against medical advice (07) | LOC: VM.ED 16:38 | DX: Z53.21 Procedure and treatment not carried out due to patient leaving prior to being seen by health care provider (principal) | CPT/HCPCS: 87428-QW ==

== ENCOUNTER 2024-12-24 03:45 | Emergency (ER) | payer MEDICARE, OTHER | END 2024-12-24 04:42 | disposition home or self-care (01) | LOC: SUPCPDRO 03:45 → VM.ED 03:45 | DX: I48.91 Unspecified atrial fibrillation (principal); E78.00 Pure hypercholesterolemia, unspecified; I25.10 Atherosclerotic heart disease of native coronary artery without angina pectoris; E03.9 Hypothyroidism, unspecified; Z88.5 Allergy status to narcotic agent; Z88.1 Allergy status to other antibiotic agents; Z79.899 Other long term (current) drug therapy; Z79.02 Long term (current) use of antithrombotics/antiplatelets; Z79.01 Long term (current) use of anticoagulants; Z79.890 Hormone replacement therapy; Z95.1 Presence of aortocoronary bypass graft; Z95.0 Presence of cardiac pacemaker | CPT/HCPCS: 93005; 93010; 99284 ==

== ENCOUNTER 2025-01-11 08:59 | Emergency (ER) | payer MEDICARE, OTHER ==
[2025-01-11] MEDS ORDERED: Sodium Chloride 0.9% 10 ML Syringe FLUSH PRN (09:16)
[2025-01-11] MEDS: Metoprolol Succinate 50 MG Tab.ER PO ONE (09:34)
[2025-01-11 09:35] VITALS: PULSE 95
[2025-01-11 09:38] LABS: BASOPHILS PERCENT AUTO 0.3 % (0.2-1.2); EOSINOPHILS ABSOLUTE AUTO 0.1 x10^3/uL (0.0-0.5); EOSINOPHILS PERCENT AUTO 2.3 % (0.0-4.0); HEMATOCRIT 36.4 % (33.0-47.0); HEMOGLOBIN 11.9 g/dL (12.0-16.0); IMMATURE GRAN ABSOLUTE AUTO 0.01 x10^3/uL (0.00-0.07); LYMPHOCYTES PERCENT AUTO 16.1 % (25.0-50.0); MEAN CORPUSCULAR HEMOGLOBIN 30.5 pg (26.0-32.0); MEAN CORPUSCULAR HGB CONC 32.7 g/dL (32.0-36.0); MEAN CORPUSCULAR VOLUME 93.3 fL (78.0-93.0); MONOCYTES ABSOLUTE AUTO 0.6 x10^3/uL (0.0-0.8); MONOCYTES PERCENT AUTO 10.6 % (2.0-11.0); NEUTROPHILS ABSOLUTE AUTO 4.2 x10^3/uL (1.8-7.7); NEUTROPHILS PERCENT AUTO 70.5 % (50.0-80.0); PLATELET COUNT,PLT 190 x10^3/uL (130-400)
[2025-01-11 09:56] LABS: PROTHROMBIN TIME 21.3 SEC (9.6-12.0); PTT,PARTIAL THROMBOPLSTIN TIME 30.4 SEC (23.5-33.2)
[2025-01-11 10:01] LABS: A/G RATIO 1.03; ALBUMIN 3.4 g/dL (3.4-5.0); BILIRUBIN TOTAL 0.7 mg/dL (0.2-1.0); CALCIUM 8.6 mg/dL (8.5-10.1); CREATININE 0.8 mg/dL (0.55-1.02); EST CRCL DRUG DOSING (CG) 46.4 mL/min; MAGNESIUM 2.2 mg/dL (1.8-2.4); POTASSIUM,K 3.8 mmol/L (3.5-5.1); PROTEIN TOTAL,TP 6.7 g/dL (6.4-8.2)
[2025-01-11 10:05] LABS: ANION GAP 14.8 mmol/L (5-15)
[2025-01-11 10:45] VITALS: BP 137/64
[2025-01-11] MEDS ORDERED: Doxycycline Monohydrate 100 MG Cap PO ONE (10:45)
== END 2025-01-11 11:42 | disposition home or self-care (01) ==
LOC: VM.ED 08:59 → SUPCPDRO 08:59 → VM.ED 11:42
DX: R00.2 Palpitations (principal); I48.91 Unspecified atrial fibrillation; E78.00 Pure hypercholesterolemia, unspecified; I25.10 Atherosclerotic heart disease of native coronary artery without angina pectoris; I10 Essential (primary) hypertension; K21.9 Gastro-esophageal reflux disease without esophagitis; E03.9 Hypothyroidism, unspecified; Z88.5 Allergy status to narcotic agent; Z88.8 Allergy status to other drugs, medicaments and biological substances; Z79.890 Hormone replacement therapy; Z79.899 Other long term (current) drug therapy; Z95.0 Presence of cardiac pacemaker
CPT/HCPCS: 36415; 71045; 80053; 83735; 84443; 84484; 85025; 85610; 85730; 93005; 93010; 99284; 99285; A9270-GY